=== PATIENT | male | born 1955 | race American Indian/Alaskan Native ===

== ENCOUNTER 2016-12-08 00:36 | Inpatient (IN) | payer OTHER ==
[2016-12-08] MEDS ORDERED: NACL 0.9% 1000 ML 1,000 ML ONE (00:48)
--- NOTE | 2016-12-08 00:56 | Emergency Department Report ---
ED Palpitations HPI - General Chief Complaint: Arrhythmia/Palpitations Stated Complaint: CRISTI Time Seen by Provider: 12/08/16 00:39 Source: patient, EMS, old records reviewed (no previous records for review) Mode of arrival: Stretcher Limitations: No Limitations - History of Present Illness Initial Comments: 60-year-old male with a past medical history diabetes presents to the hospital complaints of shortness of breath 1 hour prior to arrival. Symptoms are shortness of breath and difficulty speaking. Patient complains of right shoulder pain. No pains or chest pain, nausea, vomiting, or diaphoresis. He has had similar episodes in the last couple weeks including a few days ago that resolved spontaneously. He has not come to the ER or by seen by a physician for these symptoms. Patient currently has SVT on a monitor rate 167 and associated hypotension. Accu-Chek prior to arrival reported as 220 per EMS. The medications given in route. PMD nonaffiliated. Denies cardiac history - Related Data Home Medications Medication Instructions Recorded Confirmed Last Taken Amlodipine Besylate [Norvasc] 2.5 mg PO DAILY 12/08/16 12/08/16 1 Day Ago 2.5 AtorvaSTATin [Lipitor] 40 mg PO DAILY 12/08/16 12/08/16 1 Day Ago 40 Hydrochlorothiazide [HCTZ] 25 mg PO QDAY 12/08/16 12/08/16 1 Day Ago 25 Insulin Glargine [Lantus VIAL] 25 units SQ DAILY 12/08/16 12/08/16 1 Day Ago Losartan [Cozaar] 100 mg PO QDAY 12/08/16 12/08/16 1 Day Ago 100 Metformin HCl [Fortamet ER] 1,000 mg PO QDAY 12/08/16 12/08/16 1 Day Ago 1000 Pioglitazone HCl 30 mg PO DAILY 12/08/16 12/08/16 1 Day Ago 30 glyBURIDE [Diabeta] 5 mg PO BID 12/08/16 12/08/16 1 Day Ago 5 Allergies Allergy/AdvReac Type Severity Reaction Status Date / Time Penicillins Allergy Rash Verified 12/08/16 00:52 ED Review of Systems ROS: Stated complaint: CRISTI Other details as noted in HPI Comment: All other systems reviewed and negative Other: Constitutional: No fevers chills Eyes: No eye pain visual changes ENT: No ear pain or throat pain Neck: Denies pain Respiratory: Denies cough wheezing Cardiovascular: Per HPI GI: Denies abdominal pain, nausea, vomiting, diarrhea : Denies dysuria, urinary frequency, or urgency Musculoskeletal: Shoulder pain Skin: Denies rash, lesions, erythema Neurologic: Denies headache, numbness, weakness Psychiatric: Denies suicidal ideation, hallucinations ED Past Medical Hx - Past Medical History Previous Medical History?: Yes Hx Diabetes: Yes - Surgical History Past Surgical History?: Yes Additional Surgical History: left hip surgery - Social History Smoking Status: Current Every Day Smoker Substance Use Type: None - Medications Home Medications: Home Medications Medication Instructions Recorded Confirmed Last Taken Type Amlodipine Besylate [Norvasc] 2.5 mg PO DAILY 12/08/16 12/08/16 1 Day Ago History 2.5 AtorvaSTATin [Lipitor] 40 mg PO DAILY 12/08/16 12/08/16 1 Day Ago History 40 Hydrochlorothiazide [HCTZ] 25 mg PO QDAY 12/08/16 12/08/16 1 Day Ago History 25 Insulin Glargine [Lantus VIAL] 25 units SQ DAILY 12/08/16 12/08/16 1 Day Ago History Losartan [Cozaar] 100 mg PO QDAY 12/08/16 12/08/16 1 Day Ago History 100 Metformin HCl [Fortamet ER] 1,000 mg PO QDAY 12/08/16 12/08/16 1 Day Ago History 1000 Pioglitazone HCl 30 mg PO DAILY 12/08/16 12/08/16 1 Day Ago History 30 glyBURIDE [Diabeta] 5 mg PO BID 12/08/16 12/08/16 1 Day Ago History 5 ED Physical Exam - General Limitations: No Limitations - Other Other exam information: General: No limitations, patient is alert in no acute distress Head exam: Atraumatic, normocephalic Eyes exam: Normal appearance, pupils equal reactive to light ENT: Moist mucous membrane, normal oropharynx Neck exam: Normal inspection, full range of motion, no meningismus nontender Respiratory exam: Clear to auscultation bilateral, no wheezes, rales, crackles Cardiovascular: Echocardiogram to the rhythm rate 160 Abdomen: Soft, nondistended, and nontender, with normal bowel sounds, no rebound, or guarding Extremity: Full range of motion normal inspection no deformity, full range of motion of right shoulder without tenderness or pain with movement Back: Normal Inspection, full range of motion, no tenderness Neurologic: Alert, oriented x3, cranial nerves intact, no motor or sensory deficit Psychiatric: normal affect, normal mood Skin: Warm, dry, intact ED Course Vital Signs 12/08/16 12/08/16 12/08/16 00:43 00:56 00:57 Temperature 98.8 F Pulse Rate 167 H 87 Respiratory 16 18 20 Rate Blood Pressure 100/80 Blood Pressure 100/80 103/57 [Left] O2 Sat by Pulse 100 100 Oximetry 12/08/16 12/08/16 01:50 02:00 Temperature Pulse Rate 97 H 94 H Respiratory 18 Rate Blood Pressure Blood Pressure 100/50 102/54 [Left] O2 Sat by Pulse 97 97 Oximetry - Reevaluation(s) Reevaluation #1: 12/08/16 00:57 Patient given adenosine 6 mg with conversion to sinus rhythm. ED Medical Decision Making - Lab Data Result diagrams: 12/08/16 00:58 12/08/16 00:58 Lab Results 12/08/16 12/08/16 12/08/16 Range/Units 00:58 00:58 00:58 WBC 15.2 H (4.5-11.0) K/mm3 RBC 4.96 (3.65-5.03) M/mm3 Hgb 12.7 (11.8-15.2) gm/dl Hct 39.8 (35.5-45.6) % MCV 80 L (84-94) fl MCH 26 L (28-32) pg MCHC 32 (32-34) % RDW 15.7 H (13.2-15.2) % Plt Count 458 H (140-440) K/mm3 Sodium 134 L (137-145) mmol/L Potassium 4.5 (3.6-5.0) mmol/L Chloride 93.7 L (98-107) mmol/L Carbon Dioxide 16 L (22-30) mmol/L Anion Gap 29 mmol/L BUN 52 H (9-20) mg/dL Creatinine 2.4 H (0.8-1.5) mg/dL Estimated GFR 33 ml/min BUN/Creatinine Ratio 21.66 % Glucose 182 H (75-100) mg/dL Calcium 9.3 (8.4-10.2) mg/dL Magnesium 2.2 (1.7-2.3) mg/dL Total Creatine Kinase 107 (55-170) units/L CK-MB (CK-2) 2.1 (0.0-4.0) ng/mL CK-MB (CK-2) Rel Index 1.9 (0-4) Troponin T (0.00-0.029) ng/mL TSH 2.660 (0.270-4.200) mlU/mL Free T4 1.50 H (0.76-1.46) ng/dL 12/08/16 Range/Units 00:58 WBC (4.5-11.0) K/mm3 RBC (3.65-5.03) M/mm3 Hgb (11.8-15.2) gm/dl Hct (35.5-45.6) % MCV (84-94) fl MCH (28-32) pg MCHC (32-34) % RDW (13.2-15.2) % Plt Count (140-440) K/mm3 Sodium (137-145) mmol/L Potassium (3.6-5.0) mmol/L Chloride (98-107) mmol/L Carbon Dioxide (22-30) mmol/L Anion Gap mmol/L BUN (9-20) mg/dL Creatinine (0.8-1.5) mg/dL Estimated GFR ml/min BUN/Creatinine Ratio % Glucose (75-100) mg/dL Calcium (8.4-10.2) mg/dL Magnesium (1.7-2.3) mg/dL Total Creatine Kinase (55-170) units/L CK-MB (CK-2) (0.0-4.0) ng/mL CK-MB (CK-2) Rel Index (0-4) Troponin T < 0.010 (0.00-0.029) ng/mL TSH (0.270-4.200) mlU/mL Free T4 (0.76-1.46) ng/dL - EKG Data -: EKG Interpreted by Me (SVT rate 167) - EKG Data When compared to previous EKG there are: previous EKG unavailable 12/08/16 00:57 Repeat EKG status post adenosine shows sinus rhythm rate 88 with marked sinus arrhythmia. No ST or T wave abnormality - Radiology Data Radiology results: image reviewed (chest x-ray: naf) - Medical Decision Making Pt reports no previous history of renal sufficiency. BUN is elevated so this may be prerenal in nature. Venous sinus rhythm and asymptomatic since receiving adenosine 6 mg. 1 L normal saline given in the ED. Patient be admitted to the hospital for cardiac workup and possible new-onset renal sufficiency - Differential Diagnosis arrhythmia, electrolyte abnormality, thyroid disease, AL Critical Care Time: No Critical care attestation.: If time is entered above; I have spent that time in minutes in the direct care of this critically ill patient, excluding procedure time. ED Disposition Clinical Impression: SVT (supraventricular tachycardia), Renal insufficiency, Diabetes Disposition: OP ADMITTED IP TO THIS HOSP Is pt being admited?: Yes Condition: Stable Time of Disposition: 02:15 (Dr Darden/hosp)
[2016-12-08 01:14] LABS: Hematocrit 39.8 % (35.5-45.6); Hemoglobin 12.7 gm/dl (11.8-15.2); Mean Corpuscular HGB Conc 32 % (32-34); Mean Corpuscular Volume 80 fl (84-94); Red Blood Count 4.96 M/mm3 (3.65-5.03); Red Cell Distribution Width 15.7 % (13.2-15.2); White Blood Count 15.2 K/mm3 (4.5-11.0)
[2016-12-08 01:24] LABS: Mean Corpuscular Hemoglobin 26 pg (28-32)
[2016-12-08 01:33] LABS: Creatine Kinase MB 2.1 ng/mL (0.0-4.0)
[2016-12-08 01:38] LABS: BUN/Creatinine Ratio 21.66; Chloride 93.7 mmol/L (98-107); Potassium 4.5 mmol/L (3.6-5.0)
[2016-12-08 01:47] LABS: Platelet Count 458 K/mm3 (140-440)
[2016-12-08 02:00] LABS: Calcium 9.3 mg/dL (8.4-10.2); Magnesium 2.2 mg/dL (1.7-2.3)
[2016-12-08] MEDS ORDERED: NACL 0.9% 1000 ML 1,000 ML IV ONE (02:09)
--- NOTE | 2016-12-08 02:18 | History and Physical Report ---
History of Present Illness History of present illness: 61 YO Male with DM, Nicotine Dependence, HTN, presents to ED for evaluation. Pt states that he has been experiencing episodes of shortness of breath and palpitations over the past 2 weeks. Pt states that symptoms last for several minutes and resolve on their own. Pt most recent episode began 1 hour prior to arrival. Pt denies fever, chills, CP, NVD, trauma, syncope, unintentional weight loss, night sweats, skin rashes. Pt seen and evaluated in ED, Pt found to have SVT with heart rate in the 160's, and treated with adenosine with conversion to NSR. Past History Past Medical History: diabetes, hypertension Past Surgical History: total hip replacement Social history: , lives with family, smoking. denies: alcohol abuse, prescription drug abuse Family history: diabetes, hypertension Medications and Allergies Allergies Allergy/AdvReac Type Severity Reaction Status Date / Time Penicillins Allergy Rash Verified 12/08/16 00:52 Home Medications Medication Instructions Recorded Confirmed Last Taken Type Amlodipine Besylate [Norvasc] 2.5 mg PO DAILY 12/08/16 12/08/16 1 Day Ago History 2.5 AtorvaSTATin [Lipitor] 40 mg PO DAILY 12/08/16 12/08/16 1 Day Ago History 40 Hydrochlorothiazide [HCTZ] 25 mg PO QDAY 12/08/16 12/08/16 1 Day Ago History 25 Insulin Glargine [Lantus VIAL] 25 units SQ DAILY 12/08/16 12/08/16 1 Day Ago History Losartan [Cozaar] 100 mg PO QDAY 12/08/16 12/08/16 1 Day Ago History 100 Metformin HCl [Fortamet ER] 1,000 mg PO QDAY 12/08/16 12/08/16 1 Day Ago History 1000 Pioglitazone HCl 30 mg PO DAILY 12/08/16 12/08/16 1 Day Ago History 30 glyBURIDE [Diabeta] 5 mg PO BID 12/08/16 12/08/16 1 Day Ago History 5 Active Meds: Active Medications Sodium Chloride (Nacl 0.9% 1000 Ml) 1,000 mls @ 999 mls/hr IV ONCE ONE Stop: 12/08/16 03:09 Last Admin: 12/08/16 02:13 Dose: 999 mls/hr Review of Systems All systems: negative Cardiovascular: palpitations, shortness of breath Exam - Constitutional Vitals: Temp Pulse Resp BP Pulse Ox 98.8 F 87 20 103/57 100 12/08/16 00:43 12/08/16 00:56 12/08/16 00:57 12/08/16 00:56 12/08/16 00:56 General appearance: Present: mild distress - EENT Eyes: Present: PERRL ENT: hearing intact, clear oral mucosa - Neck Neck: Present: supple, normal ROM - Respiratory Respiratory effort: normal Respiratory: bilateral: CTA - Cardiovascular Rhythm: other (tachycardia) Heart Sounds: Present: S1 & S2. Absent: rub, click - Extremities Extremities: pulses symmetrical, No edema Peripheral Pulses: within normal limits - Abdominal General gastrointestinal: Present: soft, non-tender, non-distended, normal bowel sounds Male genitourinary: Present: normal - Integumentary Integumentary: Present: clear, warm, dry - Musculoskeletal Musculoskeletal: gait normal, strength equal bilaterally - Psychiatric Psychiatric: appropriate mood/affect, intact judgment & insight - Neurologic Neurologic: CNII-XII intact, moves all extremities Results - Labs CBC & Chem 7: 12/08/16 00:58 12/08/16 00:58 Labs: Abnormal lab results 12/08/16 12/08/16 12/08/16 Range/Units 00:58 00:58 00:58 WBC 15.2 H (4.5-11.0) K/mm3 MCV 80 L (84-94) fl MCH 26 L (28-32) pg RDW 15.7 H (13.2-15.2) % Plt Count 458 H (140-440) K/mm3 Sodium 134 L (137-145) mmol/L Chloride 93.7 L (98-107) mmol/L Carbon Dioxide 16 L (22-30) mmol/L BUN 52 H (9-20) mg/dL Creatinine 2.4 H (0.8-1.5) mg/dL Glucose 182 H (75-100) mg/dL Free T4 1.50 H (0.76-1.46) ng/dL Assessment and Plan - Patient Problems (1) SVT (supraventricular tachycardia) Current Visit: Yes Status: Acute Plan to address problem: Admit to telemetry, initiate cardizem, supportive care, (2) Diabetes Current Visit: Yes Status: Acute Plan to address problem: ADA diet, insulin, accu check (3) ARF (acute renal failure) Current Visit: Yes Status: Acute Plan to address problem: IVF, monitor uop q shift, supportive care. (4) HTN (hypertension) Current Visit: Yes Status: Acute Plan to address problem: monitor bp q shift, continue home medication, hydralazine prn (5) DVT prophylaxis Current Visit: Yes Status: Acute
[2016-12-08 02:26] LABS: Urine Drugs of Abuse Note Disclamer
[2016-12-08] MEDS ORDERED: NACL 0.45% 1000 ML 1,000 ML IV SCH (03:00)
--- NOTE | 2016-12-08 03:10 | Admit Criteria Form ---
Admission Criteria Documentation: SUPRAVENTRICULAR ARRHYTHMIAS Clinical Indications for Admission to Inpatient Care (Place 'X' for any and all applicable criteria): Admission is indicated by ANY ONE of the following (1)(2): [ ]I. Arrhythmia causing significant symptoms or findings as indicated by ANY ONE of the following: [ ]a) Chest pain [ ]b) Myocardial ischemia [ ]c) Altered mental status [ ]d) Dizziness, weakness, or light-headedness [ ]e) Dyspnea or hypoxemia [ ]f) Heart failure (eg, pulmonary edema)(11) [ ]II. Initiation of antiarrhythmic drug therapy is needed in patient at high risk of adverse events as indicated by ANY ONE of the following: [ ]a) Significant structural heart disease (eg, aortic stenosis, reduced ejection fraction, cardiomyopathy, congenital heart disease) [ ]b) Underlying sinus node or atrioventricular conduction disturbances [ ]c) Prolonged QT interval [ ]d) Need for treatment with antiarrhythmic that have significant proarrhythmic potential ( procainamide) [ ]e) Patient whose sinus rhythm has not been observed on ECG [ X]III. Inpatient admission required rather than observation care because of ANY ONE of the following: [ ]a) Syncope [ ]b) Patient has automatic implanted cardioverter-defibrillator that is repeatedly firing, malfunctioning, or in need of immediate adjustment of settings beyond scope of ambulatory or observation care. [ ]c) Hemodynamic instability that is severe or persistent [ ]d) Unstable cardiac conduction defects indicated by ANY ONE of the following(19)(20)(21): [ ]a) Type II second-degree atrioventricular block [ ]b) Third-degree atrioventricular block [ ]C) New-onset left bundle branch block with suspected myocardial ischemia [ ]e) Severe electrolyte abnormalities requiring inpatient care [ ]f) Continuous intravenous infusion of anticoagulation, platelet inhibitor, vasoactive, or antiarrhythmic medication(14) [ ]g) Pulmonary artery catheter monitoring [ ]h) Repeat cardioversion necessary [ X]i) Other condition, treatment or monitoring requiring inpatient admission [ ]IV. Underlying medical condition that necessitates inpatient care (eg, thyrotoxicosis, severe acidosis) Extended stay beyond goal length of stay may be needed for(1)(17)(18): [ ]a) Persistent hemodynamic instability or continued severe arrhythmia [ ]b) Continued monitoring during initiation of certain medications (eg, some antiarrhythmics)(17)(19) [ ]c) Precipitating cause requires ongoing inpatient care (eg, severe electrolyte abnormality, systemic infection, acidosis) [ ]d) Unstable comorbidities The original [facility] content created by [facility] has been revised. The portions of the content which have been revised are identified through the use of italic text or in bold, and [facility] has neither reviewed nor approved the modified material. All other unmodified content is copyright [facility]. Please see references footnoted in the original [facility] edition 2016
[2016-12-08] MEDS: CARDIZEM PO SCH ×3 (05:07→19:02)
[2016-12-08] MEDS ORDERED: NOVOLOG SUB-Q SCH (06:00)
[2016-12-08] MEDS: NOVOLOG SUB-Q SCH ×4 (09:56→22:00)
[2016-12-08] MEDS: LEVEMIR SUB-Q SCH (09:59)
[2016-12-08] MEDS ORDERED: NON-FORMULARY (Insulin Glargine 25 UNITS) SQ SCH (10:00)
[2016-12-08 10:33] LABS: Bilirubin,Urine NEG (Negative); Blood,Urine LG (Negative); Ketones,Urine TR mg/dL (Negative); Leukocyte Esterase,Urine MOD (Negative); Mucus,Urine FEW /HPF; Nitrite,Urine NEG (Negative)
[2016-12-08 10:42] LABS: RBC,Urine > 182.0 /HPF (0.0-6.0)
[2016-12-08] MEDS: HCTZ PO SCH (11:05)
[2016-12-08] MEDS ORDERED: PNEUMOVAX 23 IM ONE (12:00)
[2016-12-08] MEDS ORDERED: FLUARIX QUAD 2016-2017(36 MOS+) IM ONE (12:00)
[2016-12-09] MEDS: TYLENOL PO PRN ×2 (04:05→09:54)
[2016-12-09] MEDS: CARDIZEM PO SCH ×4 (06:08→18:11)
[2016-12-09] MEDS: HCTZ PO SCH (09:53)
[2016-12-09] MEDS: NOVOLOG SUB-Q SCH ×4 (10:09→22:00)
[2016-12-09] MEDS: LEVEMIR SUB-Q SCH (10:45)
--- NOTE | 2016-12-09 11:04 | XRay Report ---
AP CHEST: HISTORY: Shortness of breath AP view of the chest demonstrates a normal mediastinal and cardiac contour with clear lungs and normal bony and soft tissue structures. IMPRESSION: Unremarkable AP chest.
[2016-12-09] MEDS ORDERED: LEVAQUIN 750MG/150ML 150 ML IV SCH (13:00)
--- NOTE | 2016-12-09 14:41 | Progress Note ---
Assessment and Plan Assessment and plan: 1. SVT Received adenosine in ER and converted to NSR Started on calcium channel estuardo Check electrolytes including magnesium and phosphorus Monitor on telemetry 2. Acute renal failure Previously normal renal function per patient's report Secondary to vasomotor nephropathy versus ATN from possible hypotension during SVT versus acute on chronic kidney disease due to hypertensive nephropathy Give IV fluids Check BUN/creatinine and electrolytes in a.m.; if further worsening, obtain urine lytes and renal ultrasound 3. Metabolic acidosis Secondary to acute renal failure 4. UTI UA suggestive of UTI (+ WBC, RBC, LE) Obtain urine cultures and start antibiotic 5. HTN Negative controlled on diltiazem and HCTZ 6. Diabetes Continue long-acting insulin Head Accu-Cheks and SSI to assess insulin requirements 7. Tobacco use Counseled regarding importance of quitting smoking (10 minutes) 8. DVT prophylaxis Start heparin subcutaneous History Interval history: back in NSR, feeling better; no complaints Hospitalist Physical - Constitutional Vitals: Temp Pulse Resp BP Pulse Ox 98.5 F 82 18 112/57 96 12/09/16 12:05 12/09/16 12:05 12/09/16 12:05 12/09/16 12:05 12/09/16 12:05 General appearance: Present: no acute distress, well-nourished - EENT Eyes: Present: PERRL, EOM intact. Absent: scleral icterus, conjunctival injection - Neck Neck: Present: supple, normal ROM. Absent: masses or JVD - Respiratory Respiratory effort: normal Respiratory: bilateral: CTA, negative: rales, rhonchi, wheezing - Cardiovascular Rhythm: regular Heart Sounds: Present: S1 & S2. Absent: systolic murmur - Extremities Extremities: no ischemia - Abdominal General gastrointestinal: soft, non-tender, non-distended, normal bowel sounds - Integumentary Integumentary: Present: warm, dry. Absent: jaundice, rash - Psychiatric Psychiatric: cooperative - Neurologic Neurologic: CNII-XII intact, no focal deficits Results - Labs CBC & Chem 7: 12/08/16 00:58 12/08/16 00:58 Labs: Laboratory Last Values WBC 15.2 K/mm3 (4.5-11.0) H 12/08/16 00:58 RBC 4.96 M/mm3 (3.65-5.03) 12/08/16 00:58 Hgb 12.7 gm/dl (11.8-15.2) 12/08/16 00:58 Hct 39.8 % (35.5-45.6) 12/08/16 00:58 MCV 80 fl (84-94) L 12/08/16 00:58 MCH 26 pg (28-32) L 12/08/16 00:58 MCHC 32 % (32-34) 12/08/16 00:58 RDW 15.7 % (13.2-15.2) H 12/08/16 00:58 Plt Count 458 K/mm3 (140-440) H 12/08/16 00:58 Sodium 134 mmol/L (137-145) L 12/08/16 00:58 Potassium 4.5 mmol/L (3.6-5.0) 12/08/16 00:58 Chloride 93.7 mmol/L (98-107) L 12/08/16 00:58 Carbon Dioxide 16 mmol/L (22-30) L 12/08/16 00:58 Anion Gap 29 mmol/L 12/08/16 00:58 BUN 52 mg/dL (9-20) H 12/08/16 00:58 Creatinine 2.4 mg/dL (0.8-1.5) H 12/08/16 00:58 Estimated GFR 33 ml/min 12/08/16 00:58 BUN/Creatinine Ratio 21.66 % 12/08/16 00:58 Glucose 182 mg/dL (75-100) H 12/08/16 00:58 POC Glucose 77 (70-105) 12/09/16 08:04 Calcium 9.3 mg/dL (8.4-10.2) 12/08/16 00:58 Magnesium 2.2 mg/dL (1.7-2.3) 12/08/16 00:58 Total Creatine Kinase 107 units/L (55-170) 12/08/16 00:58 CK-MB (CK-2) 2.1 ng/mL (0.0-4.0) 12/08/16 00:58 CK-MB (CK-2) Rel Index 1.9 (0-4) 12/08/16 00:58 Troponin T < 0.010 ng/mL (0.00-0.029) 12/08/16 00:58 TSH 2.660 mlU/mL (0.270-4.200) 12/08/16 00:58 Free T4 1.50 ng/dL (0.76-1.46) H 12/08/16 00:58 Urine Color Samantha (Yellow) 12/08/16 02:15 Urine Turbidity Cloudy (Clear) 12/08/16 02:15 Urine pH 5.0 (5.0-7.0) 12/08/16 02:15 Ur Specific Bascom 1.016 (1.003-1.030) 12/08/16 02:15 Urine Protein 100 mg/dl mg/dL (Negative) 12/08/16 02:15 Urine Glucose (UA) Neg mg/dL (Negative) 12/08/16 02:15 Urine Ketones Tr mg/dL (Negative) 12/08/16 02:15 Urine Blood Lg (Negative) 12/08/16 02:15 Urine Nitrite Neg (Negative) 12/08/16 02:15 Urine Bilirubin Neg (Negative) 12/08/16 02:15 Urine Urobilinogen 2.0 mg/dL (<2.0) 12/08/16 02:15 Ur Leukocyte Esterase Mod (Negative) 12/08/16 02:15 Urine WBC (Auto) 135.0 /HPF (0.0-6.0) H 12/08/16 02:15 Urine RBC (Auto) > 182.0 /HPF (0.0-6.0) 12/08/16 02:15 Urine Mucus Few /HPF 12/08/16 02:15 Urine Opiates Screen Presumptive negative 12/08/16 02:18 Urine Methadone Screen Presumptive negative 12/08/16 02:18 Ur Barbiturates Screen Presumptive negative 12/08/16 02:18 Ur Phencyclidine Scrn Presumptive negative 12/08/16 02:18 Ur Amphetamines Screen Presumptive negative 12/08/16 02:18 U Benzodiazepines Scrn Presumptive negative 12/08/16 02:18 Urine Cocaine Screen Presumptive negative 12/08/16 02:18 U Marijuana (THC) Screen Presumptive negative 12/08/16 02:18 Drugs of Abuse Note Disclamer 12/08/16 02:18
[2016-12-09] MEDS: NACL 0.9% 1000 ML 1,000 ML IV SCH (16:13)
[2016-12-09] MEDS: HEPARIN SUB-Q SCH ×2 (16:20→22:26)
[2016-12-09] MEDS: PERCOCET 5/325 PO PRN (22:25)
[2016-12-10] MEDS: CARDIZEM PO SCH ×4 (05:41→18:16)
[2016-12-10 05:42] LABS: Basophils % (Auto) 0.3 % (0.0-1.8); Eosinophils % (Auto) 0.3 % (0.0-4.3); Hematocrit 37.6 % (35.5-45.6); Mean Corpuscular HGB Conc 32 % (32-34); Mean Corpuscular Volume 80 fl (84-94); Platelet Count 397 K/mm3 (140-440); Red Cell Distribution Width 15.6 % (13.2-15.2); White Blood Count 15.2 K/mm3 (4.5-11.0)
[2016-12-10] MEDS: NACL 0.9% 1000 ML 1,000 ML IV SCH ×2 (05:42→16:27)
[2016-12-10] MEDS: HEPARIN SUB-Q SCH ×3 (05:42→22:13)
[2016-12-10 05:46] LABS: Mean Corpuscular Hemoglobin 25 pg (28-32)
[2016-12-10 06:11] LABS: Blood Urea Nitrogen 24 mg/dL (9-20); Calcium 9.1 mg/dL (8.4-10.2); Carbon Dioxide 23 mmol/L (22-30); Chloride 98.4 mmol/L (98-107); Glucose 121 mg/dL (75-100); Magnesium 1.9 mg/dL (1.7-2.3); Phosphorous 3.1 mg/dL (2.5-4.5); Sodium 139 mmol/L (137-145)
[2016-12-10 06:13] LABS: Anion Gap 23 mmol/L
[2016-12-10] MEDS: NOVOLOG SUB-Q SCH ×4 (08:57→22:26)
[2016-12-10] MEDS: LEVEMIR SUB-Q SCH (10:07)
[2016-12-10] MEDS: PERCOCET 5/325 PO PRN (13:05)
[2016-12-10] MEDS: LEVAQUIN PO SCH (13:11)
[2016-12-10] MEDS: HCTZ PO SCH (13:12)
--- NOTE | 2016-12-10 15:44 | Progress Note ---
Assessment and Plan Assessment and plan: 1. SVT Received adenosine in ER and converted to NSR Started on calcium channel estuardo Electrolytes including magnesium and phosphorus wnl Monitoring on telemetry 2. Acute renal failure Previously normal renal function per patient's report Secondary to vasomotor nephropathy versus ATN from possible hypotension during SVT versus acute on chronic kidney disease due to hypertensive nephropathy Received IV fluids Resolved 3. Metabolic acidosis Secondary to acute renal failure Resolved 4. UTI UA suggestive of UTI (+ WBC, RBC, LE) Urine cultures obtained, results pending Continue antibiotic 5. HTN BP controlled on diltiazem and HCTZ 6. Diabetes Continue long-acting insulin Accu-Cheks and SSI to assess insulin requirements 7. Tobacco use Counseled regarding importance of quitting smoking 8. DVT prophylaxis Heparin subcutaneous History Interval history: doing well, no complaints, remained in NSR Hospitalist Physical - Constitutional Vitals: Temp Pulse Resp BP Pulse Ox 97.3 F L 80 18 125/59 92 12/10/16 13:27 12/10/16 13:27 12/10/16 13:27 12/10/16 13:27 12/10/16 13:27 General appearance: Present: no acute distress, well-nourished - EENT Eyes: Present: PERRL, EOM intact. Absent: scleral icterus, conjunctival injection - Neck Neck: Present: supple, normal ROM. Absent: masses or JVD - Respiratory Respiratory effort: normal Respiratory: bilateral: CTA, negative: rales, rhonchi, wheezing - Cardiovascular Rhythm: regular Heart Sounds: Present: S1 & S2. Absent: systolic murmur - Extremities Extremities: no ischemia - Abdominal General gastrointestinal: soft, non-tender, non-distended, normal bowel sounds - Integumentary Integumentary: Present: warm, dry. Absent: jaundice, rash - Psychiatric Psychiatric: cooperative - Neurologic Neurologic: CNII-XII intact, no focal deficits Results - Labs CBC & Chem 7: 12/10/16 05:29 12/10/16 05:29 Labs: Laboratory Last Values WBC 15.2 K/mm3 (4.5-11.0) H 12/10/16 05:29 RBC 4.70 M/mm3 (3.65-5.03) 12/10/16 05:29 Hgb 12.0 gm/dl (11.8-15.2) 12/10/16 05:29 Hct 37.6 % (35.5-45.6) 12/10/16 05:29 MCV 80 fl (84-94) L 12/10/16 05:29 MCH 25 pg (28-32) L 12/10/16 05:29 MCHC 32 % (32-34) 12/10/16 05:29 RDW 15.6 % (13.2-15.2) H 12/10/16 05:29 Plt Count 397 K/mm3 (140-440) 12/10/16 05:29 Lymph % (Auto) 7.2 % (13.4-35.0) L 12/10/16 05:29 [place] % (Auto) 9.2 % (0.0-7.3) H 12/10/16 05:29 Eos % (Auto) 0.3 % (0.0-4.3) 12/10/16 05:29 Baso % (Auto) 0.3 % (0.0-1.8) 12/10/16 05:29 Lymph # 1.1 K/mm3 (1.2-5.4) L 12/10/16 05:29 [place] # 1.4 K/mm3 (0.0-0.8) H 12/10/16 05:29 Eos # 0.0 K/mm3 (0.0-0.4) 12/10/16 05:29 Baso # 0.0 K/mm3 (0.0-0.1) 12/10/16 05:29 Seg Neutrophils % 83.0 % (40.0-70.0) H 12/10/16 05:29 Seg Neutrophils # 12.6 K/mm3 (1.8-7.7) H 12/10/16 05:29 Sodium 139 mmol/L (137-145) 12/10/16 05:29 Potassium 5.0 mmol/L (3.6-5.0) 12/10/16 05:29 Chloride 98.4 mmol/L (98-107) 12/10/16 05:29 Carbon Dioxide 23 mmol/L (22-30) D 12/10/16 05:29 Anion Gap 23 mmol/L 12/10/16 05:29 BUN 24 mg/dL (9-20) H 12/10/16 05:29 Creatinine 1.0 mg/dL (0.8-1.5) D 12/10/16 05:29 Estimated GFR > 60 ml/min 12/10/16 05:29 BUN/Creatinine Ratio 24.00 % 12/10/16 05:29 Glucose 121 mg/dL (75-100) H 12/10/16 05:29 POC Glucose 87 (70-105) 12/09/16 22:11 Calcium 9.1 mg/dL (8.4-10.2) 12/10/16 05:29 Phosphorus 3.1 mg/dL (2.5-4.5) 12/10/16 05:29 Magnesium 1.9 mg/dL (1.7-2.3) 12/10/16 05:29 Total Creatine Kinase 107 units/L (55-170) 12/08/16 00:58 CK-MB (CK-2) 2.1 ng/mL (0.0-4.0) 12/08/16 00:58 CK-MB (CK-2) Rel Index 1.9 (0-4) 12/08/16 00:58 Troponin T < 0.010 ng/mL (0.00-0.029) 12/08/16 00:58 TSH 2.660 mlU/mL (0.270-4.200) 12/08/16 00:58 Free T4 1.50 ng/dL (0.76-1.46) H 12/08/16 00:58 Urine Color Samantha (Yellow) 12/08/16 02:15 Urine Turbidity Cloudy (Clear) 12/08/16 02:15 Urine pH 5.0 (5.0-7.0) 12/08/16 02:15 Ur Specific [place] 1.016 (1.003-1.030) 12/08/16 02:15 Urine Protein 100 mg/dl mg/dL (Negative) 12/08/16 02:15 Urine Glucose (UA) Neg mg/dL (Negative) 12/08/16 02:15 Urine Ketones Tr mg/dL (Negative) 12/08/16 02:15 Urine Blood Lg (Negative) 12/08/16 02:15 Urine Nitrite Neg (Negative) 12/08/16 02:15 Urine Bilirubin Neg (Negative) 12/08/16 02:15 Urine Urobilinogen 2.0 mg/dL (<2.0) 12/08/16 02:15 Ur Leukocyte Esterase Mod (Negative) 12/08/16 02:15 Urine WBC (Auto) 135.0 /HPF (0.0-6.0) H 12/08/16 02:15 Urine RBC (Auto) > 182.0 /HPF (0.0-6.0) 12/08/16 02:15 Urine Mucus Few /HPF 12/08/16 02:15 Urine Opiates Screen Presumptive negative 12/08/16 02:18 Urine Methadone Screen Presumptive negative 12/08/16 02:18 Ur Barbiturates Screen Presumptive negative 12/08/16 02:18 Ur Phencyclidine Scrn Presumptive negative 12/08/16 02:18 Ur Amphetamines Screen Presumptive negative 12/08/16 02:18 U Benzodiazepines Scrn Presumptive negative 12/08/16 02:18 Urine Cocaine Screen Presumptive negative 12/08/16 02:18 U Marijuana (THC) Screen Presumptive negative 12/08/16 02:18 Drugs of Abuse Note Disclamer 12/08/16 02:18
[2016-12-11] MEDS: CARDIZEM PO SCH ×4 (00:14→18:43)
[2016-12-11] MEDS: NACL 0.9% 1000 ML 1,000 ML IV SCH ×2 (02:00→11:39)
[2016-12-11] MEDS: TYLENOL PO PRN (03:11)
[2016-12-11] MEDS: HEPARIN SUB-Q SCH ×3 (05:55→23:38)
[2016-12-11] MEDS: NOVOLOG SUB-Q SCH ×4 (07:30→23:39)
[2016-12-11 08:13] LABS: Basophils % (Auto) 0.8 % (0.0-1.8); Eosinophils % (Auto) 0.5 % (0.0-4.3); Hematocrit 35.4 % (35.5-45.6); Hemoglobin 11.5 gm/dl (11.8-15.2); Mean Corpuscular HGB Conc 33 % (32-34); Mean Corpuscular Volume 78 fl (84-94); Platelet Count 387 K/mm3 (140-440); Red Blood Count 4.51 M/mm3 (3.65-5.03); Red Cell Distribution Width 15.7 % (13.2-15.2); White Blood Count 15.2 K/mm3 (4.5-11.0)
[2016-12-11] MEDS: PERCOCET 5/325 PO PRN ×3 (08:15→18:43)
[2016-12-11 08:25] LABS: Mean Corpuscular Hemoglobin 26 pg (28-32)
[2016-12-11] MEDS: LEVEMIR SUB-Q SCH (10:25)
[2016-12-11] MEDS: LEVAQUIN PO SCH (10:25)
[2016-12-11] MEDS: HCTZ PO SCH (10:25)
--- NOTE | 2016-12-11 14:36 | Progress Note ---
Assessment and Plan Assessment and plan: 1. SVT Received adenosine in ER and converted to NSR Started on calcium channel estuardo Electrolytes including magnesium and phosphorus wnl Monitoring on telemetry 2. Acute renal failure Previously normal renal function per patient's report Secondary to vasomotor nephropathy versus ATN from possible hypotension during SVT versus acute on chronic kidney disease due to hypertensive nephropathy Received IV fluids Resolved 3. Metabolic acidosis Secondary to acute renal failure Resolved 4. UTI UA suggestive of UTI (+ WBC, RBC, LE) Urine cultures obtained, results pending Continue antibiotic 5. Hematuria Known to have hematuria, while admitted here missed appointment with his urologist; will consult him 6. Iron deficient anemia Likely secondary to hematuria 7. HTN BP controlled on diltiazem and HCTZ 8. Diabetes Continue long-acting insulin Accu-Cheks and SSI to assess insulin requirements 9. Tobacco use Counseled regarding importance of quitting smoking 10. DVT prophylaxis Heparin subcutaneous; monitor H&H given hematuria History Interval history: not doing well this morning, started to have hematuria overnight (passing clots per his report); he missed the appt with his urologistwhile being admitted here Hospitalist Physical - Constitutional Vitals: Temp Pulse Resp BP Pulse Ox 98.0 F 77 16 117/53 93 12/11/16 08:03 12/11/16 10:00 12/11/16 08:03 12/11/16 08:03 12/11/16 08:03 General appearance: Present: no acute distress, well-nourished - EENT Eyes: Present: PERRL, EOM intact. Absent: scleral icterus, conjunctival injection - Neck Neck: Present: supple, normal ROM. Absent: masses or JVD - Respiratory Respiratory effort: normal Respiratory: bilateral: CTA, negative: rales, rhonchi, wheezing - Cardiovascular Rhythm: regular Heart Sounds: Present: S1 & S2. Absent: systolic murmur - Extremities Extremities: no ischemia - Abdominal General gastrointestinal: soft, non-tender, non-distended, normal bowel sounds - Integumentary Integumentary: Present: warm, dry. Absent: jaundice, rash - Psychiatric Psychiatric: cooperative - Neurologic Neurologic: CNII-XII intact, no focal deficits Results - Labs CBC & Chem 7: 12/11/16 07:43 12/10/16 05:29 Labs: Laboratory Last Values WBC 15.2 K/mm3 (4.5-11.0) H 12/11/16 07:43 RBC 4.51 M/mm3 (3.65-5.03) 12/11/16 07:43 Hgb 11.5 gm/dl (11.8-15.2) L 12/11/16 07:43 Hct 35.4 % (35.5-45.6) L 12/11/16 07:43 MCV 78 fl (84-94) L 12/11/16 07:43 MCH 26 pg (28-32) L 12/11/16 07:43 MCHC 33 % (32-34) 12/11/16 07:43 RDW 15.7 % (13.2-15.2) H 12/11/16 07:43 Plt Count 387 K/mm3 (140-440) 12/11/16 07:43 Lymph % (Auto) 10.4 % (13.4-35.0) L 12/11/16 07:43 Will % (Auto) 9.9 % (0.0-7.3) H 12/11/16 07:43 Eos % (Auto) 0.5 % (0.0-4.3) 12/11/16 07:43 Baso % (Auto) 0.8 % (0.0-1.8) 12/11/16 07:43 Lymph # 1.6 K/mm3 (1.2-5.4) 12/11/16 07:43 Will # 1.5 K/mm3 (0.0-0.8) H 12/11/16 07:43 Eos # 0.1 K/mm3 (0.0-0.4) 12/11/16 07:43 Baso # 0.1 K/mm3 (0.0-0.1) 12/11/16 07:43 Seg Neutrophils % 78.4 % (40.0-70.0) H 12/11/16 07:43 Seg Neutrophils # 11.9 K/mm3 (1.8-7.7) H 12/11/16 07:43 Sodium 139 mmol/L (137-145) 12/10/16 05:29 Potassium 5.0 mmol/L (3.6-5.0) 12/10/16 05:29 Chloride 98.4 mmol/L (98-107) 12/10/16 05:29 Carbon Dioxide 23 mmol/L (22-30) D 12/10/16 05:29 Anion Gap 23 mmol/L 12/10/16 05:29 BUN 24 mg/dL (9-20) H 12/10/16 05:29 Creatinine 1.0 mg/dL (0.8-1.5) D 12/10/16 05:29 Estimated GFR > 60 ml/min 12/10/16 05:29 BUN/Creatinine Ratio 24.00 % 12/10/16 05:29 Glucose 121 mg/dL (75-100) H 12/10/16 05:29 POC Glucose 70 (70-105) 12/11/16 08:01 Calcium 9.1 mg/dL (8.4-10.2) 12/10/16 05:29 Phosphorus 3.1 mg/dL (2.5-4.5) 12/10/16 05:29 Magnesium 1.9 mg/dL (1.7-2.3) 12/10/16 05:29 Total Creatine Kinase 107 units/L (55-170) 12/08/16 00:58 CK-MB (CK-2) 2.1 ng/mL (0.0-4.0) 12/08/16 00:58 CK-MB (CK-2) Rel Index 1.9 (0-4) 12/08/16 00:58 Troponin T < 0.010 ng/mL (0.00-0.029) 12/08/16 00:58 TSH 2.660 mlU/mL (0.270-4.200) 12/08/16 00:58 Free T4 1.50 ng/dL (0.76-1.46) H 12/08/16 00:58 Urine Color Samantha (Yellow) 12/08/16 02:15 Urine Turbidity Cloudy (Clear) 12/08/16 02:15 Urine pH 5.0 (5.0-7.0) 12/08/16 02:15 Ur Specific [place] 1.016 (1.003-1.030) 12/08/16 02:15 Urine Protein 100 mg/dl mg/dL (Negative) 12/08/16 02:15 Urine Glucose (UA) Neg mg/dL (Negative) 12/08/16 02:15 Urine Ketones Tr mg/dL (Negative) 12/08/16 02:15 Urine Blood Lg (Negative) 12/08/16 02:15 Urine Nitrite Neg (Negative) 12/08/16 02:15 Urine Bilirubin Neg (Negative) 12/08/16 02:15 Urine Urobilinogen 2.0 mg/dL (<2.0) 12/08/16 02:15 Ur Leukocyte Esterase Mod (Negative) 12/08/16 02:15 Urine WBC (Auto) 135.0 /HPF (0.0-6.0) H 12/08/16 02:15 Urine RBC (Auto) > 182.0 /HPF (0.0-6.0) 12/08/16 02:15 Urine Mucus Few /HPF 12/08/16 02:15 Urine Opiates Screen Presumptive negative 12/08/16 02:18 Urine Methadone Screen Presumptive negative 12/08/16 02:18 Ur Barbiturates Screen Presumptive negative 12/08/16 02:18 Ur Phencyclidine Scrn Presumptive negative 12/08/16 02:18 Ur Amphetamines Screen Presumptive negative 12/08/16 02:18 U Benzodiazepines Scrn Presumptive negative 12/08/16 02:18 Urine Cocaine Screen Presumptive negative 12/08/16 02:18 U Marijuana (THC) Screen Presumptive negative 12/08/16 02:18 Drugs of Abuse Note Disclamer 12/08/16 02:18
--- NOTE | 2016-12-11 17:06 | Cat Scan Report ---
CT ABDOMEN AND PELVIS WITHOUT CONTRAST: INDICATION: Hematuria. COMPARISON: None similar. FINDINGS: Noncontrast abdomen and pelvis CT performed. LUNG BASES: Mild basilar scarring/atelectasis, right more than left. No effusions. Right hemidiaphragm slightly elevated. Mild nonspecific distal esophageal prominence. ABDOMEN: Please note that sensitivity to detect small visceral lesions is limited due to the absence of intravenous or oral contrast. Diffusely heterogeneous liver with innumerable masses suspected rather than an unusual pattern of fatty infiltration. Right hepatic lobe approximately 19 cm in midclavicular length. Slight surface lobulation and minimal perihepatic ascites. Contracted gallbladder with somewhat hyperdense contents and a possible 3 mm calculus. Mild pericholecystic surrounding hypodensity/fluid as well. Grossly unremarkable unenhanced spleen, pancreas, adrenals, nonaneurysmal abdominal aorta with atherosclerotic aortoiliac calcifications, IVC and non-hydronephrotic kidneys. Questionable 9 mm aortocaval lymph node, axial image 193, series 2. Few other small, predominantly subcentimeter retroperitoneal and mesenteric lymph nodes may also be present. Nonopacified GI tract evaluation limited, though grossly nonobstructive. Normal retrocecal appendix with its tip near the right hepatic lobe tip inferiorly. Usual colonic stool. Small fat-containing umbilical hernia with a transverse neck of 1 cm. PELVIS: Extensive lobulated mass-like anterior urinary bladder wall thickening, axial images 251-305, series 2. Maximum thickness measures up to 2.2 cm. Mild perivesicular fat stranding. Minimal pelvic ascites. Grossly unremarkable rectosigmoid. Prostate and seminal vesicles grossly within normal limits, though assessment limited due to extensive streak artifact from replaced left hip. Bilateral inguinal lymph nodes, the largest on the left approximately 3 x 2 cm, axial image 327, series 2. Multilevel spinal degenerative changes, including lower facet arthropathy. Possible osteopenia. Left-sided pelvic and thigh muscular atrophy. Few anterior abdominal wall injection related changes. CONCLUSION: 1. Extensive urinary bladder wall neoplastic thickening suspected with extensive hepatic metastatic involvement on this unenhanced exam, as detailed above. 2. Numerous other incidental findings, including inguinal and questionable retroperitoneal lymphadenopathy and replaced left hip, amongst others, as above. Thank you for the opportunity to participate in this patient's care.
--- NOTE | 2016-12-11 18:07 | Consultation ---
History of Present Illness - Reason for Consult Consult date: 12/11/16 - History of Present Illness CC: hematuria 61 YO Male with DM, Nicotine Dependence, HTN, presents to ED for evaluation. Pt states that he has been experiencing episodes of shortness of breath and palpitations over the past 2 weeks. CTAP (12-11-16) BPH, LIVER LESIONS A/P CHECK PSA RECOMMEND GI EVAL WILL NEED CYSTO IF CLEARED FROM CARDIAC STANDPOINT Past History Past Medical History: diabetes, hypertension Past Surgical History: total hip replacement Social history: , lives with family, smoking. denies: alcohol abuse, prescription drug abuse Family history: diabetes, hypertension Medications and Allergies Allergies Allergy/AdvReac Type Severity Reaction Status Date / Time Penicillins Allergy Rash Verified 12/08/16 00:52 Home Medications Medication Instructions Recorded Confirmed Last Taken Type Amlodipine Besylate [Norvasc] 2.5 mg PO DAILY 12/08/16 12/08/16 1 Day Ago History 2.5 AtorvaSTATin [Lipitor] 40 mg PO DAILY 12/08/16 12/08/16 1 Day Ago History 40 Hydrochlorothiazide [HCTZ] 25 mg PO QDAY 12/08/16 12/08/16 1 Day Ago History 25 Insulin Glargine [Lantus VIAL] 25 units SQ DAILY 12/08/16 12/08/16 1 Day Ago History Losartan [Cozaar] 100 mg PO QDAY 12/08/16 12/08/16 1 Day Ago History 100 Metformin HCl [Fortamet ER] 1,000 mg PO QDAY 12/08/16 12/08/16 1 Day Ago History 1000 Pioglitazone HCl 30 mg PO DAILY 12/08/16 12/08/16 1 Day Ago History 30 glyBURIDE [Diabeta] 5 mg PO BID 12/08/16 12/08/16 1 Day Ago History 5 Active Meds: Active Medications Acetaminophen (Tylenol) 650 mg PO Q4H PRN PRN Reason: Pain MILD(1-3)/Fever >100.5/RUSSELL Last Admin: 12/11/16 03:11 Dose: 650 mg Atorvastatin Calcium (Lipitor) 40 mg PO DAILY [facility] Last Admin: 12/11/16 10:25 Dose: 40 mg Dextrose (D50w (25gm)) 50 ml IV PRN PRN PRN Reason: Hypoglycemia Diltiazem HCl (Cardizem) 30 mg PO Q6HR [facility] Last Admin: 12/11/16 13:49 Dose: 30 mg Heparin Sodium (Porcine) (Heparin) 5,000 unit SUB-Q Q8HR [facility] Last Admin: 12/11/16 13:49 Dose: 5,000 unit Hydrochlorothiazide (Hctz) 25 mg PO QDAY [facility] Last Admin: 12/11/16 10:25 Dose: 25 mg Sodium Chloride (Nacl 0.9% 1000 Ml) 1,000 mls @ 100 mls/hr IV DIRECT [facility] Last Admin: 12/11/16 11:39 Dose: 100 mls/hr Insulin Aspart (Novolog) 0 units SUB-Q ACHS [facility] PRN Reason: Protocol Last Admin: 12/11/16 13:23 Dose: Not Given Insulin Detemir (Levemir) 25 units SUB-Q DAILY [facility] Last Admin: 12/11/16 10:25 Dose: Not Given Levofloxacin (Levaquin) 750 mg PO Q24HR [facility] Last Admin: 12/11/16 10:25 Dose: 750 mg Oxycodone/Acetaminophen (Percocet 5/325) 2 tab PO Q6H PRN PRN Reason: Pain, Moderate (4-6) Last Admin: 12/11/16 13:25 Dose: 2 tab Exam - Constitutional Vitals: Temp Pulse Resp BP Pulse Ox 98.0 F 77 16 117/53 93 12/11/16 08:03 12/11/16 10:00 12/11/16 08:03 12/11/16 08:03 12/11/16 08:03 Results - Labs CBC & Chem 7: 12/11/16 07:43 12/10/16 05:29 Labs: Abnormal lab results 12/11/16 Range/Units 07:43 WBC 15.2 H (4.5-11.0) K/mm3 Hgb 11.5 L (11.8-15.2) gm/dl Hct 35.4 L (35.5-45.6) % MCV 78 L (84-94) fl MCH 26 L (28-32) pg RDW 15.7 H (13.2-15.2) % Lymph % (Auto) 10.4 L (13.4-35.0) % [place] % (Auto) 9.9 H (0.0-7.3) % [place] # 1.5 H (0.0-0.8) K/mm3 Seg Neutrophils % 78.4 H (40.0-70.0) % Seg Neutrophils # 11.9 H (1.8-7.7) K/mm3
[2016-12-11] MEDS: DILAUDID IV PRN (20:44)
[2016-12-12] MEDS: CARDIZEM PO SCH ×3 (00:50→11:18)
[2016-12-12] MEDS: HEPARIN SUB-Q SCH ×3 (05:30→21:58)
[2016-12-12 06:42] LABS: Basophils % (Auto) 0.3 % (0.0-1.8); Eosinophils % (Auto) 0.7 % (0.0-4.3); Hematocrit 35.6 % (35.5-45.6); Hemoglobin 11.4 gm/dl (11.8-15.2); Mean Corpuscular HGB Conc 32 % (32-34); Mean Corpuscular Volume 79 fl (84-94); Platelet Count 401 K/mm3 (140-440); Red Blood Count 4.48 M/mm3 (3.65-5.03); Red Cell Distribution Width 15.9 % (13.2-15.2); White Blood Count 15.5 K/mm3 (4.5-11.0)
[2016-12-12 06:43] LABS: Mean Corpuscular Hemoglobin 25 pg (28-32)
[2016-12-12 07:10] LABS: Anion Gap 23 mmol/L; Blood Urea Nitrogen 19 mg/dL (9-20); Calcium 8.5 mg/dL (8.4-10.2); Carbon Dioxide 23 mmol/L (22-30); Chloride 99.2 mmol/L (98-107); Glucose 79 mg/dL (75-100); Iron 20 ug/dL (49-181); Potassium 4.6 mmol/L (3.6-5.0); Sodium 141 mmol/L (137-145); Total Iron Binding Capacity 212 mcg/dL (250-450)
--- NOTE | 2016-12-12 07:24 | Consultation ---
REFERRING PHYSICIAN: Dr. Petty Sykes. CHIEF COMPLAINT: Hematuria. HISTORY OF PRESENT ILLNESS: This 61-year-old gentleman actually presented to the Emergency Room with shortness of breath and syncopal episode. He was admitted, placed on telemetry. He is also due to see the Dr. Patricia in our group for hematuria, but missed that appointment. PAST MEDICAL HISTORY: Diabetes, hypertension. PAST SURGICAL HISTORY: Hip replacement. SOCIAL HISTORY: He is a smoker. ALLERGIES: PENICILLIN. MEDICATIONS: Norvasc, Lipitor, hydrochlorothiazide, insulin, metformin, Cozaar, and glyburide. PHYSICAL EXAMINATION: VITAL SIGNS: Temperature 98, respirations 16, pulse 77, and BP 117/53. BACK: No CVA tenderness. ABDOMEN: Soft. LABORATORY DATA: BUN and creatinine 24 and 1.0, hemoglobin and hematocrit of 11 and 35 respectively. White count of 15,000, platelets 387,000. CT of abdomen and pelvis: BPH, liver lesions, small stone in the gallbladder. ASSESSMENT AND PLAN: Hematuria, abnormal CT findings, would recommend PSA and GI evaluation. The patient needs a cystoscopy, but needs to be cleared from a cardiac standpoint. JOB# [id number] JAQUI/NTS
[2016-12-12] MEDS: NOVOLOG SUB-Q SCH ×4 (08:00→22:01)
[2016-12-12] MEDS: LEVEMIR SUB-Q SCH (08:00)
[2016-12-12] MEDS: PERCOCET 5/325 PO PRN ×2 (08:09→13:30)
[2016-12-12] MEDS: HCTZ PO SCH (09:00)
[2016-12-12] MEDS: LEVAQUIN PO SCH (09:00)
[2016-12-12] MEDS: DILAUDID IV PRN ×2 (11:19→19:41)
[2016-12-12] MEDS: NACL 0.9% 1000 ML 1,000 ML IV SCH (11:20)
--- NOTE | 2016-12-12 14:39 | Query-Infection ---
"Dear Date:12/12/16 Oleo [employer]/CDS:Viet Malave Phone#: Exercise your independent professional judgment when responding to this query. Questions asked do not imply a particular answer is desired or expected. We greatly appreciate your clarification on this issue. Clinical Documentation States: 61 y/o m admitted 12/10/16 for SOB with palpitations. Patient was diagnosed with UTI. Levofloxacin was given. Patient also diagnosed with ATN. Clinical findings show: (please check applicable parameters) Infection, known /suspected, with some of the following indicators; Specify the infection:UTI 3 General parameters [ ] Fever (core temp >38.30C or 100.40F) [ ] Hypothermia (core temp <36C) [x] Heart rate >90 bpm [ ] Tachypnea: >20 bpm or pCO2 < 32 mmHg [ ] Altered mental status [ ] Significant edema / +ve fluid balance (>20 ml/kg 24 h) [ ] Hyperglycemia (Bl. glucose >110 mg/dl) w/o diabetes Inflammatory parameters [x] Leukocytosis (white blood cell count >12,000/l) [ ] Leukopenia (white blood cell count <4,000/l) [ ] Bandemia (immature WBC > 10%) [x] Leucocyte Left Shift [ ] Plasma procalcitonin>2 SD above the normal value Hemodynamic and tissue perfusion parameters [ ] Arterial hypotension(SBP <90 mmHg, MAP <70 mmHg,or a SBP drop >40 mmHg in adults) [ ] Hyperlactatemia (>3 mmol/l) [ ] Anion Gap (> 11mEG/l) [ ] Decreased capillary refill or mottling Organ dysfunction parameters [ ] Arterial hypoxemia (PaO2/FIO2 <300) [ ] Creatinine increase =0.5 mg/dl [ ] Acute oliguria (urine output <0.5 ml | kg |h or 45 mM/l for at least 2 hrs) [ ] Coagulation abnormalities (INR >1.5 or activated partial thromboplastin time >60 s) [ ] Ileus (absent luis wel sounds) [ ] Thrombocytopenia (platelet count <100,000/l) [ ] Hyperbilirubinemia (plasma total bilirubin >4 mg/dl) According to the clinical indications above, can Bacteremia be further specified? If so, please indicate below and in your Progress Notes and/ or Discharge Summary. Indicate if the condition was present on admission. PHYSICIAN RESPONSE: [ s] Sepsis [ ] Severe Sepsis [ ] Septic Shock [ ] Septicemia [ ] Sepsis now resolved [ ] SIRS due to non-infectious cause with organ dysfunction [ ] SIRS due to non-infectious cause without organ dysfunction [ ] Other: [ ] Comment/Explanation: Present on Admission: [ x] Yes (Y) [ ] Clinically undeterminable (W) [ ] No (N) [ ] Ruled Out Please also document response in your Progress Notes and/or Discharge Summary and indicate if the condition was present on admission Notes: SIRS/ SIRS WITH ORGAN DYSFUNCTION Systemic inflammatory response syndrome (SIRS) generally refers to the systemic response to trauma/garcia or other insult such as Acute Myocardial Infarction, Acute Pancreatitis, and Major Surgery with symptoms including fever, tachycardia , tachypnea, and leukocytosis (1). BACTEREMIA Presence of viable bacteria in the circulating blood (2). This term is reserved for patients that do not manifest above SIRS response. SEPTICEMIA Generally refers to a systemic disease associated with the presence of pathological microorganisms or toxins in the blood, which can include bacteria, viruses, fungi or other organisms (1). SEPSIS Generally refers to SIRS due infection (1). SEVERE SEPSIS Generally refers to sepsis associated with acute organ dysfunction (1). SEPTIC SHOCK Generally refers to circulatory failure associated with severe sepsis (2), and defined as hypotension or hypoperfusion despite adequate fluid resuscitation (1 hour) (3). REFERENCES: 1. [place] [employer]/Society of Critical Care Medicine Consensus Conference. Definitions for sepsis and organ failure and guidelines for the use of innovative therapies in sepsis. Critical Care Med 1992;20:864 - 74. 2. Trent mendez MM, Rosas MP, Demond SANDERSON, Himanshu E, Cleve D, Panchito D, James J, Hannah SM , Luigi JL, Agustin G; International Sepsis Definitions Conference. 2001 SCCM/ESICM/ACCP/ATS/SIS International Sepsis Definitions Conference. Intensive Care Med. 2002;29(4):530-8. Epub 2002Feb 26. Review. PubMed PMID:[id number] 3. ICD-9-CM Official Guidelines for Coding and Reporting 4. Medscape Drugs, Diseases and Procedures references 5. [employer] Textbook of Internal Medicine. 18th Edition MTDD"
--- NOTE | 2016-12-12 14:53 | Consultation ---
History of Present Illness Consult date: 12/12/16 Requesting physician: DAVID ALFONSO Consult reason: pre op evaluation History of present illness: The patient is a 61 year old male with a history of hypertension, diabetes, hyperlipidemia, tobacco use who presented on 12/08/16 with complaints of palpitations, shortness of breath, dizziness and lightheadedness ongoing for the previous two weeks. No chest pain. EKG in the ER revealed SVT. He received adenosine and converted to sinus rhythm. Troponin negative. Electrolytes and TSH within normal limits. CT of the abdomen and pelvis done 12/11/16 revealed a bladder mass with mets to the liver. Cardiology has been consulted for pre- operative clearance prior to cystoscopy. Pt. states that he had a stress test done at a physician's office approximately one month ago that was normal. Past History Past Medical History: diabetes, hypertension, hyperlipidemia Past Surgical History: total hip replacement Social history: , lives with family, smoking. denies: alcohol abuse, prescription drug abuse Family history: diabetes, hypertension Medications and Allergies Allergies Allergy/AdvReac Type Severity Reaction Status Date / Time Penicillins Allergy Rash Verified 12/08/16 00:52 Home Medications Medication Instructions Recorded Confirmed Last Taken Type Amlodipine Besylate [Norvasc] 2.5 mg PO DAILY 12/08/16 12/08/16 1 Day Ago History 2.5 AtorvaSTATin [Lipitor] 40 mg PO DAILY 12/08/16 12/08/16 1 Day Ago History 40 Hydrochlorothiazide [HCTZ] 25 mg PO QDAY 12/08/16 12/08/16 1 Day Ago History 25 Insulin Glargine [Lantus VIAL] 25 units SQ DAILY 12/08/16 12/08/16 1 Day Ago History Losartan [Cozaar] 100 mg PO QDAY 12/08/16 12/08/16 1 Day Ago History 100 Metformin HCl [Fortamet ER] 1,000 mg PO QDAY 12/08/16 12/08/16 1 Day Ago History 1000 Pioglitazone HCl 30 mg PO DAILY 12/08/16 12/08/16 1 Day Ago History 30 glyBURIDE [Diabeta] 5 mg PO BID 12/08/16 12/08/16 1 Day Ago History 5 Active Meds: Active Medications Acetaminophen (Tylenol) 650 mg PO Q4H PRN PRN Reason: Pain MILD(1-3)/Fever >100.5/RUSSELL Last Admin: 12/11/16 03:11 Dose: 650 mg Atorvastatin Calcium (Lipitor) 40 mg PO DAILY [facility] Last Admin: 12/12/16 09:00 Dose: 40 mg Dextrose (D50w (25gm)) 50 ml IV PRN PRN PRN Reason: Hypoglycemia Diltiazem HCl (Cardizem) 30 mg PO Q6HR [facility] Last Admin: 12/12/16 11:18 Dose: 30 mg Heparin Sodium (Porcine) (Heparin) 5,000 unit SUB-Q Q8HR [facility] Last Admin: 12/12/16 14:14 Dose: 5,000 unit Hydrochlorothiazide (Hctz) 25 mg PO QDAY [facility] Last Admin: 12/12/16 09:00 Dose: 25 mg Hydromorphone HCl (Dilaudid) 1 mg IV Q3H PRN PRN Reason: Pain , Severe (7-10) Last Admin: 12/12/16 11:19 Dose: 1 mg Sodium Chloride (Nacl 0.9% 1000 Ml) 1,000 mls @ 100 mls/hr IV DIRECT [facility] Last Admin: 12/12/16 11:20 Dose: 100 mls/hr Insulin Aspart (Novolog) 0 units SUB-Q ACHS [facility] PRN Reason: Protocol Last Admin: 12/12/16 12:30 Dose: Not Given Insulin Detemir (Levemir) 25 units SUB-Q DAILY [facility] Last Admin: 12/12/16 08:00 Dose: Not Given Levofloxacin (Levaquin) 750 mg PO Q24HR [facility] Last Admin: 12/12/16 09:00 Dose: 750 mg Oxycodone/Acetaminophen (Percocet 5/325) 2 tab PO Q6H PRN PRN Reason: Pain, Moderate (4-6) Last Admin: 12/12/16 13:30 Dose: 2 tab Review of Systems Constitutional: no fever, no chills Ears, nose, mouth and throat: no nasal congestion, no nasal discharge, no sinus pressure Cardiovascular: palpitations, lightheadedness, shortness of breath, no chest pain Respiratory: shortness of breath, no cough, no congestion, no wheezing Gastrointestinal: no abdominal pain, no nausea, no vomiting, no diarrhea Genitourinary Male: hematuria Musculoskeletal: no neck stiffness, no neck pain, no myalgias Integumentary: no rash, no pruritis Neurological: no parathesias, no numbness, no tingling, no headaches Endocrine: no cold intolerance, no heat intolerance Hematologic/Lymphatic: no easy bruising, no easy bleeding Allergic/Immunologic: no urticaria, no wheezing Physical Examination Vital Signs Temp Pulse Resp BP Pulse Ox 98.8 F 167 H 16 100/80 100 12/08/16 00:43 12/08/16 00:43 12/08/16 00:43 12/08/16 00:43 12/08/16 00:43 General appearance: no acute distress HEENT: Positive: PERRL, Normocephaly, Mucus Membranes Moist Neck: Positive: neck supple, trachea midline Cardiac: Positive: Reg Rate and Rhythm, S1/S2 Lungs: Positive: clear to auscultation Neuro: Positive: Grossly Intact Abdomen: Positive: Soft, Active Bowel Sounds. Negative: Tender Skin: Positive: Clear. Negative: Rash Extremities: Present: normal. Absent: edema Results 12/12/16 05:40 12/12/16 05:40 CBC 12/12/16 Range/Units 05:40 WBC 15.5 H (4.5-11.0) K/mm3 RBC 4.48 (3.65-5.03) M/mm3 Hgb 11.4 L (11.8-15.2) gm/dl Hct 35.6 (35.5-45.6) % Plt Count 401 (140-440) K/mm3 Lymph # 1.6 (1.2-5.4) K/mm3 [place] # 1.7 H (0.0-0.8) K/mm3 Eos # 0.1 (0.0-0.4) K/mm3 Baso # 0.1 (0.0-0.1) K/mm3 Comprehensive Metabolic Panel 12/12/16 Range/Units 05:40 Sodium 141 (137-145) mmol/L Potassium 4.6 (3.6-5.0) mmol/L Chloride 99.2 (98-107) mmol/L Carbon Dioxide 23 (22-30) mmol/L BUN 19 (9-20) mg/dL Creatinine 1.0 (0.8-1.5) mg/dL Glucose 79 (75-100) mg/dL Calcium 8.5 (8.4-10.2) mg/dL - Imaging and Cardiology Echo: pending EKG: image reviewed EKG interpretations - Telemetry EKG Rhythm: Sinus Rhythm - EKG Sinus rhythms and dysrhythmias: sinus rhythm Assessment and Plan Pre-op cardiac evaluation obtain echocardiogram negative stress test ~1 month ago per patient report Paroxysmal SVT currently sinus rhythm continue cardizem, will change to cardizem CD 120mg daily Bladder mass Hypertension Diabetes Hyperlipidemia Tobacco use Negative stress test approximately one month ago per patient report. Will obtain echocardiogram. Further recommendations to follow. The patient has been seen in conjunction with Dr. Pappas who agrees with the assessment and plan of care. Thank you Dr. Alfonso for allowing us to participate in the care of this patient.
--- NOTE | 2016-12-12 16:52 | Progress Note ---
Assessment and Plan Assessment and plan: Possible bladder mass * Urology following * Plan for cystoscopy once cleared by cardiology * Consult cardiology today Possible hepatitic mass * Cannot rule out underlying metastatic disease * Follow up pending test. Consult GI for further evaluation and recommendation Supraventricular tachycardia * Received adenosine in ER and converted to NSR * Started on calcium channel estuardo * We'll follow cardiology recommendation Acute renal failure * Secondary to vasomotor nephropathy versus ATN from possible hypotension during SVT * Resolved upon receiving IV fluids Metabolic acidosis * Likely Secondary to acute renal failure, Resolved UTI, ruled out * UA suggestive of UTI (+ WBC, RBC, LE) * Urine cultures negative * disContinue antibiotic Hematuria * Likely due to bladder mass * Wait for cystoscopy to be performed by urologist Iron deficient anemia * Likely secondary to hematuria * Continue replacement HTN, benign essential * BP controlled on diltiazem and HCTZ Diabetes mellitus type II * Continue long-acting insulin * Accu-Cheks and SSI to assess insulin requirements Tobacco abuse * Counseled regarding importance of quitting smoking DVT prophylaxis * Heparin subcutaneous; monitor H&H given hematuria History Interval history: Patient seen and examined. Medical records and medication list reviewed. No acute event overnight noted by the RN. Patient denies any chest pain or difficulty breathing. Patient is tolerating diet. Hematuria has resolved today Discussed plan of care at bedside with patient. Hospitalist Physical - Physical exam Narrative exam: GENERAL: well-developed and well-nourished -[place] male lying on bed appeared to be in no discomfort. HEENT: Normocephalic. Atraumatic. No conjunctival congestion or icterus. Patient has moist mucous membranes. NECK: Supple. Trachea midline. CHEST/LUNGS: Clear to auscultated bilaterally, breathing nonlabored. No wheezes crackles or rhonchi. HEART/CARDIOVASCULAR: Regular in rate and rhythm. S1 and S2 positive. ABDOMEN: Abdomen is soft, nontender. Patient has normal bowel sounds. SKIN: There is no rash. Warm and dry. NEURO: No focal motor deficit. Follows command. MUSCULOSKELETAL: No joint effusion or tenderness. EXTRIMITY: No edema, no cyanosis or clubbing. PSYCH: Cooperative. - Constitutional Vitals: Temp Pulse Resp BP Pulse Ox 98.5 F 82 18 126/59 92 12/12/16 13:18 12/12/16 13:18 12/12/16 13:18 12/12/16 13:18 12/12/16 13:18 General appearance: Present: no acute distress Results - Labs CBC & Chem 7: 12/12/16 05:40 12/12/16 05:40 Labs: Laboratory Last Values WBC 15.5 K/mm3 (4.5-11.0) H 12/12/16 05:40 RBC 4.48 M/mm3 (3.65-5.03) 12/12/16 05:40 Hgb 11.4 gm/dl (11.8-15.2) L 12/12/16 05:40 Hct 35.6 % (35.5-45.6) 12/12/16 05:40 MCV 79 fl (84-94) L 12/12/16 05:40 MCH 25 pg (28-32) L 12/12/16 05:40 MCHC 32 % (32-34) 12/12/16 05:40 RDW 15.9 % (13.2-15.2) H 12/12/16 05:40 Plt Count 401 K/mm3 (140-440) 12/12/16 05:40 Lymph % (Auto) 10.4 % (13.4-35.0) L 12/12/16 05:40 [place] % (Auto) 11.0 % (0.0-7.3) H 12/12/16 05:40 Eos % (Auto) 0.7 % (0.0-4.3) 12/12/16 05:40 Baso % (Auto) 0.3 % (0.0-1.8) 12/12/16 05:40 Lymph # 1.6 K/mm3 (1.2-5.4) 12/12/16 05:40 [place] # 1.7 K/mm3 (0.0-0.8) H 12/12/16 05:40 Eos # 0.1 K/mm3 (0.0-0.4) 12/12/16 05:40 Baso # 0.1 K/mm3 (0.0-0.1) 12/12/16 05:40 Seg Neutrophils % 77.6 % (40.0-70.0) H 12/12/16 05:40 Seg Neutrophils # 12.0 K/mm3 (1.8-7.7) H 12/12/16 05:40 Sodium 141 mmol/L (137-145) 12/12/16 05:40 Potassium 4.6 mmol/L (3.6-5.0) 12/12/16 05:40 Chloride 99.2 mmol/L (98-107) 12/12/16 05:40 Carbon Dioxide 23 mmol/L (22-30) 12/12/16 05:40 Anion Gap 23 mmol/L 12/12/16 05:40 BUN 19 mg/dL (9-20) 12/12/16 05:40 Creatinine 1.0 mg/dL (0.8-1.5) 12/12/16 05:40 Estimated GFR > 60 ml/min 12/12/16 05:40 BUN/Creatinine Ratio 19.00 % 12/12/16 05:40 Glucose 79 mg/dL (75-100) 12/12/16 05:40 POC Glucose 78 (70-105) 12/11/16 21:13 Calcium 8.5 mg/dL (8.4-10.2) 12/12/16 05:40 Phosphorus 3.1 mg/dL (2.5-4.5) 12/10/16 05:29 Magnesium 1.9 mg/dL (1.7-2.3) 12/10/16 05:29 Iron 20 ug/dL (49-181) L 12/12/16 05:40 TIBC 212 mcg/dL (250-450) L 12/12/16 05:40 Total Creatine Kinase 107 units/L (55-170) 12/08/16 00:58 CK-MB (CK-2) 2.1 ng/mL (0.0-4.0) 12/08/16 00:58 CK-MB (CK-2) Rel Index 1.9 (0-4) 12/08/16 00:58 Troponin T < 0.010 ng/mL (0.00-0.029) 12/08/16 00:58 Prostate Specific Ag 30.40 ng/mL (0.00-4.00) H 12/11/16 19:28 TSH 2.660 mlU/mL (0.270-4.200) 12/08/16 00:58 Free T4 1.50 ng/dL (0.76-1.46) H 12/08/16 00:58 Urine Color Samantha (Yellow) 12/08/16 02:15 Urine Turbidity Cloudy (Clear) 12/08/16 02:15 Urine pH 5.0 (5.0-7.0) 12/08/16 02:15 Ur Specific [place] 1.016 (1.003-1.030) 12/08/16 02:15 Urine Protein 100 mg/dl mg/dL (Negative) 12/08/16 02:15 Urine Glucose (UA) Neg mg/dL (Negative) 12/08/16 02:15 Urine Ketones Tr mg/dL (Negative) 12/08/16 02:15 Urine Blood Lg (Negative) 12/08/16 02:15 Urine Nitrite Neg (Negative) 12/08/16 02:15 Urine Bilirubin Neg (Negative) 12/08/16 02:15 Urine Urobilinogen 2.0 mg/dL (<2.0) 12/08/16 02:15 Ur Leukocyte Esterase Mod (Negative) 12/08/16 02:15 Urine WBC (Auto) 135.0 /HPF (0.0-6.0) H 12/08/16 02:15 Urine RBC (Auto) > 182.0 /HPF (0.0-6.0) 12/08/16 02:15 Urine Mucus Few /HPF 12/08/16 02:15 Urine Opiates Screen Presumptive negative 12/08/16 02:18 Urine Methadone Screen Presumptive negative 12/08/16 02:18 Ur Barbiturates Screen Presumptive negative 12/08/16 02:18 Ur Phencyclidine Scrn Presumptive negative 12/08/16 02:18 Ur Amphetamines Screen Presumptive negative 12/08/16 02:18 U Benzodiazepines Scrn Presumptive negative 12/08/16 02:18 Urine Cocaine Screen Presumptive negative 12/08/16 02:18 U Marijuana (THC) Screen Presumptive negative 12/08/16 02:18 Drugs of Abuse Note Disclamer 12/08/16 02:18 - Imaging and Cardiology CT scan - abdomen: report reviewed
[2016-12-12] MEDS: CARDIZEM CD PO SCH (17:57)
[2016-12-13] MEDS: PERCOCET 5/325 PO PRN ×2 (02:19→16:11)
[2016-12-13] MEDS: NACL 0.9% 1000 ML 1,000 ML IV SCH (03:45)
[2016-12-13] MEDS: HEPARIN SUB-Q SCH ×3 (06:47→21:05)
[2016-12-13] MEDS: NOVOLOG SUB-Q SCH ×4 (08:19→23:17)
[2016-12-13] MEDS: HCTZ PO SCH (11:43)
[2016-12-13] MEDS: CARDIZEM CD PO SCH (11:43)
[2016-12-13] MEDS: FEOSOL PO SCH ×2 (11:44→21:04)
--- NOTE | 2016-12-13 12:15 | Echocardiography Report ---
Transthoracic Echocardiogram Indication: SVT BP: 135/65 HR: 81 Conclusions *The left ventricular chamber size is normal. *There is no left ventricular hypertrophy. *The estimated ejection fraction is 55-60%. *The left atrial chamber size is normal. *.No sigtnificant valvular heart disease noted. Findings Procedure Info: The study quality is fair. Left Ventricle: The left ventricular chamber size is normal. There is no left ventricular hypertrophy. Global left ventricular systolic function is normal. The estimated ejection fraction is 55-60%. Left Atrium: The left atrial chamber size is normal. Right Ventricle: The right ventricle wall thickness is normal. The right ventricular cavity size is normal. The right ventricular global systolic function is mildly reduced. Right Atrium: The right atrial cavity size is normal. Aortic Valve: The aortic valve is trileaflet. There is no evidence of aortic valve thickening. There is no evidence of aortic regurgitation. There is no evidence of aortic stenosis. Mitral Valve: The anterior leaflet of the mitral valve is thickened. There is no evidence of mitral regurgitation. There is no evidence of mitral stenosis. Tricuspid Valve: The tricuspid valve is not well visualized. There is trace tricuspid regurgitation. No pulmonary hypertension is noted. There is no tricuspid stenosis. Pulmonic Valve: The pulmonic valve is not well visualized. There is mild pulmonic regurgitation. There is no pulmonic stenosis. Pericardium: There is no pericardial effusion. No pleural effusion is present. Pulmonary Artery: The main pulmonary artery is not well visualized. Measurements Chambers MM Name Value Normal Range IVSd (MM) 1.02 cm (0.6 - 1.1) LVPWd (MM) 0.78 cm (0.6 - 1.1) IVS:LVPW ratio 1.31 ratio - LVIDd (MM) 4.29 cm (3.7 - 5.6) LVIDs (MM) 2.08 cm (2 - 2.8) LV FS (Teichholz) (MM) 51.5 % - LV FS (cube) (MM) 51.5 % - EF Teichholz (MM) 82.9 % - Ao root diameter (MM) 3.6 cm (2 - 3.7) LA dimension (AP) MM 3.6 cm (1.9 - 4) LA:Ao ratio (MM) 1 ratio - AV cusp separation (MM) 1.8 cm (1.5 - 2.6) Chambers 2D Name Value Normal Range IVSd (2D) 0.87 cm (0.6 - 1.1) LVPWd 0.9 cm - LVPWd (2D) 0.95 cm (0.6 - 1.1) IVS:LVPW ratio (2D) 0.92 ratio - LVIDd 3.5 cm - LVIDs 1.72 cm - LVIDd (2D) 3.49 cm (3.7 - 5.6) LVIDs (2D) 1.72 cm (2 - 3.8) LV FS (Teichholz) (2D) 50.7 % - LV FS (cube) (2D) 50.7 % - LV EF (2D) 82 % - EF Teichholz (2D) 82.9 % - LA dimension 3 cm - Ao root diameter (2D) 2.8 cm (2 - 3.7) LA dimension (AP) 2D 3 cm (1.9 - 4) LA:Ao ratio (2D) 1.07 ratio - Volumes/Mass Name Value Normal Range LA ESV SP 4CH (MOD) 29 ml - LV EDV SP 4CH (MOD) 70 ml - LV ESV SP 4CH (MOD) 31 ml - EF SP 4CH (MOD) 56 % - Diastolic/Systolic Function Name Value Normal Range MV E-wave Vmax 0.52 m/sec - MV deceleration time 254 msec - MV A-wave Vmax 0.71 m/sec - MV E:A ratio 0.7 ratio - LV septal e' Vmax 0.08 m/sec - LV lateral e' Vmax 0.1 m/sec - LV E:e' septal ratio 6.3 ratio - LV E:e' lateral ratio 5.3 ratio - Aortic Valve Name Value Normal Range AV Vmax 1.47 m/sec - AV peak gradient 9 mmHg - LVOT diameter 1.9 cm - LVOT Vmax 1.16 m/sec - LVOT peak gradient 5 mmHg - RUTHY (continuity Vmax) 2.24 cm2 - Pulmonic Valve/Qp:Qs Name Value Normal Range PV Vmax 0.71 m/sec - PV peak gradient 2 mmHg - NC end-diastolic Vmax 1.83 m/sec - PV acceleration time 113 msec -
[2016-12-13] MEDS: LEVEMIR SUB-Q SCH (12:53)
--- NOTE | 2016-12-13 14:19 | Progress Note ---
Assessment and Plan Pre-op cardiac evaluation Echo 12/2016: EF 55-60% negative stress test ~1 month ago per patient report Paroxysmal SVT currently sinus rhythm continue cardizem CD 120mg daily Bladder mass awaiting cystoscopy, per urology Hypertension stable Diabetes Hyperlipidemia Tobacco use The patient is stable from a cardiac standpoint to proceed with cystoscopy as planned. The patient has been seen in conjunction with Dr. Pappas who agrees with the assessment and plan of care. Subjective Date of service: 12/13/16 Principal diagnosis: pre-op eval, paroxysmal SVT Interval history: The patient is resting comfortably in bed. No new complaints. Sinus rhythm on the monitor. Objective Last Vital Signs Temp 98.0 F 12/13/16 11:35 Pulse 82 12/13/16 11:35 Resp 14 12/13/16 11:35 BP 132/60 12/13/16 11:35 Pulse Ox 96 12/13/16 11:35 - Physical Examination General: No Apparent Distress HEENT: Positive: PERRL, Normocephaly, Mucus Membranes Moist Neck: Positive: neck supple, trachea midline Cardiac: Positive: Reg Rate and Rhythm, S1/S2 Lungs: Positive: clear to auscultation Neuro: Positive: Grossly Intact Abdomen: Positive: Soft, Active Bowel Sounds. Negative: Tender Skin: Positive: Clear. Negative: Rash Extremities: Present: normal. Absent: edema - Imaging and Cardiology EKG: image reviewed Echo: report reviewed (12/2016: EF 55-60%) - Telemetry EKG Rhythm: Sinus Rhythm - EKG Sinus rhythms and dysrhythmias: sinus rhythm
--- NOTE | 2016-12-13 17:18 | Gastroenterology Consultation ---
History of Present Illness - Reason for Consult Consult date: 12/13/16 Liver lesions Requesting physician: RAD PEREA - History of Present Illness The patient is a 61 yo male with no GI or liver hx. He has a hx of hematuria x 3-5 weeks, and had been scheduled to see Dr Perea as an outpatient. However, on the day before his appt, he was admitted with CP and SOB/was in SVT. He converted with adenosine, and his cardiac status is good (see Cards notes) but during his stay, he had a CT that showed a large bladder mass, with LN and probable liver mets. The patient has lost about 15-20 pounds in the last few weeks, but denies N/V/abdominal pain. He has not had a recent colonoscopy. He has no family hx of bladder cancer but he is a smoker. There is no hx of hepatitis, jaundice or cirrhosis (in the patient or his family). Past History Past Medical History: diabetes, hypertension, hyperlipidemia Past Surgical History: total hip replacement Social history: , lives with family, smoking. denies: alcohol abuse, prescription drug abuse Family history: diabetes, hypertension Medications and Allergies Allergies Allergy/AdvReac Type Severity Reaction Status Date / Time Penicillins Allergy Rash Verified 12/08/16 00:52 Home Medications Medication Instructions Recorded Confirmed Last Taken Type Amlodipine Besylate [Norvasc] 2.5 mg PO DAILY 12/08/16 12/08/16 1 Day Ago History 2.5 AtorvaSTATin [Lipitor] 40 mg PO DAILY 12/08/16 12/08/16 1 Day Ago History 40 Hydrochlorothiazide [HCTZ] 25 mg PO QDAY 12/08/16 12/08/16 1 Day Ago History 25 Insulin Glargine [Lantus VIAL] 25 units SQ DAILY 12/08/16 12/08/16 1 Day Ago History Losartan [Cozaar] 100 mg PO QDAY 12/08/16 12/08/16 1 Day Ago History 100 Metformin HCl [Fortamet ER] 1,000 mg PO QDAY 12/08/16 12/08/16 1 Day Ago History 1000 Pioglitazone HCl 30 mg PO DAILY 12/08/16 12/08/16 1 Day Ago History 30 glyBURIDE [Diabeta] 5 mg PO BID 12/08/16 12/08/16 1 Day Ago History 5 Active Meds: Active Medications Acetaminophen (Tylenol) 650 mg PO Q4H PRN PRN Reason: Pain MILD(1-3)/Fever >100.5/RUSSELL Last Admin: 12/11/16 03:11 Dose: 650 mg Atorvastatin Calcium (Lipitor) 40 mg PO DAILY [facility] Last Admin: 12/13/16 11:43 Dose: 40 mg Dextrose (D50w (25gm)) 50 ml IV PRN PRN PRN Reason: Hypoglycemia Diltiazem HCl (Cardizem Cd) 120 mg PO QDAY [facility] Last Admin: 12/13/16 11:43 Dose: 120 mg Ferrous Sulfate (Feosol) 325 mg PO BID [facility] Last Admin: 12/13/16 11:44 Dose: 325 mg Heparin Sodium (Porcine) (Heparin) 5,000 unit SUB-Q Q8HR [facility] Last Admin: 12/13/16 13:33 Dose: Not Given Hydrochlorothiazide (Hctz) 25 mg PO QDAY [facility] Last Admin: 12/13/16 11:43 Dose: 25 mg Hydromorphone HCl (Dilaudid) 1 mg IV Q3H PRN PRN Reason: Pain , Severe (7-10) Last Admin: 12/12/16 19:41 Dose: 1 mg Sodium Chloride (Nacl 0.9% 1000 Ml) 1,000 mls @ 100 mls/hr IV DIRECT [facility] Last Admin: 12/13/16 03:45 Dose: 100 mls/hr Insulin Aspart (Novolog) 0 units SUB-Q ACHS [facility] PRN Reason: Protocol Last Admin: 12/13/16 16:31 Dose: Not Given Insulin Detemir (Levemir) 25 units SUB-Q DAILY [facility] Last Admin: 12/13/16 12:53 Dose: Not Given Oxycodone/Acetaminophen (Percocet 5/325) 2 tab PO Q6H PRN PRN Reason: Pain, Moderate (4-6) Last Admin: 12/13/16 16:11 Dose: 2 tab Review of Systems - Review of Systems All systems: negative (as noted in the HPI.) Exam - Constitutional Vital Signs: Temp Pulse Resp BP Pulse Ox 97.9 F 84 16 126/57 97 12/13/16 16:20 12/13/16 16:20 12/13/16 16:20 12/13/16 16:20 12/13/16 16:20 General appearance: no acute distress - EENT Eyes: PERRL, EOM intact ENT: hearing intact - Neck Neck: supple, normal ROM - Respiratory Respiratory effort: normal Respiratory: bilateral: CTA - Cardiovascular Rhythm: regular Heart Sounds: Present: S1 & S2 Extremities: no ischemia, No edema - Gastrointestinal General gastrointestinal: Present: soft, non-tender, non-distended - Integumentary Integumentary: Present: clear, warm, dry - Neurologic Neurological: alert and oriented x3 - Labs CBC & Chem 7: 12/12/16 05:40 12/12/16 05:40 Lab Results: Laboratory Results - last 24 hr 12/12/16 12/12/16 12/12/16 08:12 12:30 16:32 POC Glucose 68 L 83 75 12/12/16 12/13/16 12/13/16 22:01 07:17 11:28 POC Glucose 88 89 119 H 12/13/16 15:49 POC Glucose 106 H Assessment and Plan - Patient Problems (1) Liver mass Current Visit: Yes Status: Acute Plan to address problem: - Per the chart and (noncontrast) CT, appears to have mets CA. - Will get a CT with contrast and liver biopsy. - Check hepatitis serologies. - Check INR given liver lesions (possible). - Cystoscopy tomorrow.
[2016-12-13] MEDS: MEGACE PO SCH (21:04)
[2016-12-13] MEDS: DILAUDID IV PRN (21:09)
[2016-12-14] MEDS: DILAUDID IV PRN ×3 (04:25→23:23)
[2016-12-14] MEDS: HEPARIN SUB-Q SCH ×3 (06:33→23:27)
[2016-12-14] MEDS: NOVOLOG SUB-Q SCH ×4 (07:30→23:23)
[2016-12-14 07:47] LABS: INR 1.19 (0.87-1.13)
[2016-12-14 07:48] LABS: Partial Thromboplastin Time 40.1 Sec. (24.2-36.6)
[2016-12-14 08:29] LABS: Albumin 2.7 g/dL (3.9-5); Albumin/Globulin Ratio 0.7 %; Bilirubin,Direct 2.1 mg/dL (0-0.2); Bilirubin,Indirect 0.5 mg/dL; Bilirubin,Total 2.6 mg/dL (0.1-1.2); Total Protein 6.4 g/dL (6.3-8.2)
--- NOTE | 2016-12-14 08:38 | Hem/Onc Consultation ---
History of Present Illness - Reason for Consult Consult date: 12/14/16 - History of Present Illness Patient is a very pleasant 61-year-old male with history of diabetes mellitus hypertension who presented to the hospital with chest pains shortness of breath. He during his hospital course also started having hematuria which she' s had now for about 9 or 10 weeks. He's lost weight. He is also a heavy smoker. On his CT abdomen patient was found to have significant the amount of inguinal lymphadenopathy bladder mass and lesions in the liver. He is to get her liver biopsy and bladder biopsy today. Patient also was found to have an elevated PSA elevated white count and hemoglobin of 11.4. Patient denies any previous history of malignancy. He does smoke cigarettes about 3-4 cigarettes and in the process of quitting. Does have family history of lung cancer in the father. Past History Past Medical History: diabetes, hypertension, hyperlipidemia Past Surgical History: total hip replacement Social history: , lives with family, smoking. denies: alcohol abuse, prescription drug abuse Family history: diabetes, hypertension Medications and Allergies Allergies Allergy/AdvReac Type Severity Reaction Status Date / Time Penicillins Allergy Rash Verified 12/08/16 00:52 Home Medications Medication Instructions Recorded Confirmed Last Taken Type Amlodipine Besylate [Norvasc] 2.5 mg PO DAILY 12/08/16 12/08/16 1 Day Ago History 2.5 AtorvaSTATin [Lipitor] 40 mg PO DAILY 12/08/16 12/08/16 1 Day Ago History 40 Hydrochlorothiazide [HCTZ] 25 mg PO QDAY 12/08/16 12/08/16 1 Day Ago History 25 Insulin Glargine [Lantus VIAL] 25 units SQ DAILY 12/08/16 12/08/16 1 Day Ago History Losartan [Cozaar] 100 mg PO QDAY 12/08/16 12/08/16 1 Day Ago History 100 Metformin HCl [Fortamet ER] 1,000 mg PO QDAY 12/08/16 12/08/16 1 Day Ago History 1000 Pioglitazone HCl 30 mg PO DAILY 12/08/16 12/08/16 1 Day Ago History 30 glyBURIDE [Diabeta] 5 mg PO BID 12/08/16 12/08/16 1 Day Ago History 5 Active Meds: Active Medications Acetaminophen (Tylenol) 650 mg PO Q4H PRN PRN Reason: Pain MILD(1-3)/Fever >100.5/RUSSELL Last Admin: 12/11/16 03:11 Dose: 650 mg Atorvastatin Calcium (Lipitor) 40 mg PO DAILY [facility] Last Admin: 12/13/16 11:43 Dose: 40 mg Dextrose (D50w (25gm)) 50 ml IV PRN PRN PRN Reason: Hypoglycemia Diltiazem HCl (Cardizem Cd) 120 mg PO QDAY [facility] Last Admin: 12/13/16 11:43 Dose: 120 mg Ferrous Sulfate (Feosol) 325 mg PO BID [facility] Last Admin: 12/13/16 21:04 Dose: 325 mg Heparin Sodium (Porcine) (Heparin) 5,000 unit SUB-Q Q8HR [facility] Last Admin: 12/14/16 06:33 Dose: Not Given Hydrochlorothiazide (Hctz) 25 mg PO QDAY [facility] Last Admin: 12/13/16 11:43 Dose: 25 mg Hydromorphone HCl (Dilaudid) 1 mg IV Q3H PRN PRN Reason: Pain , Severe (7-10) Last Admin: 12/14/16 04:25 Dose: 1 mg Sodium Chloride (Nacl 0.9% 1000 Ml) 1,000 mls @ 100 mls/hr IV DIRECT [facility] Last Admin: 12/13/16 03:45 Dose: 100 mls/hr Insulin Aspart (Novolog) 0 units SUB-Q ACHS [facility] PRN Reason: Protocol Last Admin: 12/13/16 23:17 Dose: Not Given Insulin Detemir (Levemir) 25 units SUB-Q DAILY [facility] Last Admin: 12/13/16 12:53 Dose: Not Given Megestrol Acetate (Megace) 400 mg PO QDAY [facility] Last Admin: 12/13/16 21:04 Dose: 400 mg Oxycodone/Acetaminophen (Percocet 5/325) 2 tab PO Q6H PRN PRN Reason: Pain, Moderate (4-6) Last Admin: 12/13/16 16:11 Dose: 2 tab Exam - Constitutional Vitals: Last Vital Signs Temp 98.1 F 12/14/16 08:06 Pulse 85 12/14/16 08:06 Resp 20 12/14/16 08:06 BP 135/63 12/14/16 08:06 Pulse Ox 94 12/14/16 08:06 Pain Intensity (0-10): denies any pain General appearance: no acute distress Performance status: 2- selfcare, ambulatory - Neck Neck: supple - Respiratory Respiratory effort: Positive: labored Respiratory: bilateral: CTA - Cardiovascular Rhythm: regular Extremity abnormal: edema (mild bilateral) - Gastrointestinal General gastrointestinal: Present: soft (firm all over) Results - Labs lab Results: Laboratory Results - last 24 hr 12/13/16 12/13/16 12/13/16 11:28 15:49 19:39 PT INR APTT POC Glucose 119 H 106 H 123 H Total Bilirubin Direct Bilirubin Indirect Bilirubin AST ALT Alkaline Phosphatase Total Protein Albumin Albumin/Globulin Ratio 12/14/16 12/14/16 12/14/16 06:52 06:52 07:15 PT 15.0 H INR 1.19 H APTT 40.1 H POC Glucose 101 Total Bilirubin 2.6 H Direct Bilirubin 2.1 H Indirect Bilirubin 0.5 AST 554 H ALT 166 H Alkaline Phosphatase 591 H Total Protein 6.4 Albumin 2.7 L Albumin/Globulin Ratio 0.7 Assessment and Plan #1 bladder mass with liver lesions very concerning for malignancy. #2 elevated PSA could be related to the above. #3 leukocytosis #4 tobacco abuse [next] recommendations and plan at this time we will go ahead and await the biopsy. Discussed with the patient about the possibilities. If malignancy of the bladder is confirmed and if he has metastatic disease, chemotherapy would be the right option. Patient was given my business card.
--- NOTE | 2016-12-14 08:43 | Progress Note ---
Assessment and Plan Assessment and plan: Possible bladder mass * Urology following * Plan for cystoscopy tomorrow * patient was cleared by cardiology for the procedure * oncology has been consulted Possible hepatitic mass * Cannot rule out underlying metastatic disease * Follow up pending test. * GI following for further evaluation and recommendation * CT abdomen with contrast Supraventricular tachycardia * Received adenosine in ER and converted to NSR * Started on calcium channel estuardo * no further intervention per cardiology * 2d echo showed preserved EF * had a negative stress test one month ago Acute renal failure * Secondary to vasomotor nephropathy versus ATN from possible hypotension during SVT * Resolved upon receiving IV fluids Metabolic acidosis * Likely Secondary to acute renal failure, Resolved UTI, ruled out * UA suggestive of UTI (+ WBC, RBC, LE) * Urine cultures negative * disContinued antibiotics on 12/12/16 * follow CBC Hematuria * Likely due to bladder mass * Wait for cystoscopy to be performed by urologist Iron deficient anemia * Likely secondary to hematuria * Continue replacement HTN, benign essential * BP controlled on diltiazem and HCTZ Diabetes mellitus type II * Continue long-acting insulin * Accu-Cheks and SSI to assess insulin requirements Tobacco abuse * Counseled regarding importance of quitting smoking DVT prophylaxis * Heparin subcutaneous; monitor H&H given hematuria History Interval history: Patient seen and examined. Medical records and medication list reviewed. No acute event overnight noted by the RN. Patient denies any chest pain or difficulty breathing. Patient is tolerating diet. Hematuria has restarted today, plan for cystoscopy tomorrow Discussed plan of care at bedside with patient. Hospitalist Physical - Physical exam Narrative exam: GENERAL: well-developed and well-nourished -[place]ames[place] male lying on bed appeared to be in no discomfort. HEENT: Normocephalic. Atraumatic. No conjunctival congestion or icterus. Patient has moist mucous membranes. NECK: Supple. Trachea midline. CHEST/LUNGS: Clear to auscultated bilaterally, breathing nonlabored. No wheezes crackles or rhonchi. HEART/CARDIOVASCULAR: Regular in rate and rhythm. S1 and S2 positive. ABDOMEN: Abdomen is soft, nontender. Patient has normal bowel sounds. SKIN: There is no rash. Warm and dry. NEURO: No focal motor deficit. Follows command. MUSCULOSKELETAL: No joint effusion or tenderness. EXTRIMITY: No edema, no cyanosis or clubbing. PSYCH: Cooperative. - Constitutional Vitals: Temp Pulse Resp BP Pulse Ox 98.1 F 85 20 135/63 94 12/14/16 08:06 12/14/16 08:06 12/14/16 08:06 12/14/16 08:06 12/14/16 08:06 General appearance: Present: no acute distress Results - Labs CBC & Chem 7: 12/12/16 05:40 12/12/16 05:40 Labs: Laboratory Last Values WBC 15.5 K/mm3 (4.5-11.0) H 12/12/16 05:40 RBC 4.48 M/mm3 (3.65-5.03) 12/12/16 05:40 Hgb 11.4 gm/dl (11.8-15.2) L 12/12/16 05:40 Hct 35.6 % (35.5-45.6) 12/12/16 05:40 MCV 79 fl (84-94) L 12/12/16 05:40 MCH 25 pg (28-32) L 12/12/16 05:40 MCHC 32 % (32-34) 12/12/16 05:40 RDW 15.9 % (13.2-15.2) H 12/12/16 05:40 Plt Count 401 K/mm3 (140-440) 12/12/16 05:40 Lymph % (Auto) 10.4 % (13.4-35.0) L 12/12/16 05:40 [place] % (Auto) 11.0 % (0.0-7.3) H 12/12/16 05:40 Eos % (Auto) 0.7 % (0.0-4.3) 12/12/16 05:40 Baso % (Auto) 0.3 % (0.0-1.8) 12/12/16 05:40 Lymph # 1.6 K/mm3 (1.2-5.4) 12/12/16 05:40 Gibson # 1.7 K/mm3 (0.0-0.8) H 12/12/16 05:40 Eos # 0.1 K/mm3 (0.0-0.4) 12/12/16 05:40 Baso # 0.1 K/mm3 (0.0-0.1) 12/12/16 05:40 Seg Neutrophils % 77.6 % (40.0-70.0) H 12/12/16 05:40 Seg Neutrophils # 12.0 K/mm3 (1.8-7.7) H 12/12/16 05:40 PT 15.0 Sec. (12.2-14.9) H 12/14/16 06:52 INR 1.19 (0.87-1.13) H 12/14/16 06:52 APTT 40.1 Sec. (24.2-36.6) H 12/14/16 06:52 Sodium 141 mmol/L (137-145) 12/12/16 05:40 Potassium 4.6 mmol/L (3.6-5.0) 12/12/16 05:40 Chloride 99.2 mmol/L (98-107) 12/12/16 05:40 Carbon Dioxide 23 mmol/L (22-30) 12/12/16 05:40 Anion Gap 23 mmol/L 12/12/16 05:40 BUN 19 mg/dL (9-20) 12/12/16 05:40 Creatinine 1.0 mg/dL (0.8-1.5) 12/12/16 05:40 Estimated GFR > 60 ml/min 12/12/16 05:40 BUN/Creatinine Ratio 19.00 % 12/12/16 05:40 Glucose 79 mg/dL (75-100) 12/12/16 05:40 POC Glucose 101 (70-105) 12/14/16 07:15 Calcium 8.5 mg/dL (8.4-10.2) 12/12/16 05:40 Phosphorus 3.1 mg/dL (2.5-4.5) 12/10/16 05:29 Magnesium 1.9 mg/dL (1.7-2.3) 12/10/16 05:29 Iron 20 ug/dL (49-181) L 12/12/16 05:40 TIBC 212 mcg/dL (250-450) L 12/12/16 05:40 Total Bilirubin 2.6 mg/dL (0.1-1.2) H 12/14/16 06:52 Direct Bilirubin 2.1 mg/dL (0-0.2) H 12/14/16 06:52 Indirect Bilirubin 0.5 mg/dL 12/14/16 06:52 AST 554 units/L (5-40) H 12/14/16 06:52 ALT 166 units/L (7-56) H 12/14/16 06:52 Alkaline Phosphatase 591 units/L (35-129) H 12/14/16 06:52 Total Creatine Kinase 107 units/L (55-170) 12/08/16 00:58 CK-MB (CK-2) 2.1 ng/mL (0.0-4.0) 12/08/16 00:58 CK-MB (CK-2) Rel Index 1.9 (0-4) 12/08/16 00:58 Troponin T < 0.010 ng/mL (0.00-0.029) 12/08/16 00:58 Total Protein 6.4 g/dL (6.3-8.2) 12/14/16 06:52 Albumin 2.7 g/dL (3.9-5) L 12/14/16 06:52 Albumin/Globulin Ratio 0.7 % 12/14/16 06:52 Prostate Specific Ag 30.40 ng/mL (0.00-4.00) H 12/11/16 19:28 TSH 2.660 mlU/mL (0.270-4.200) 12/08/16 00:58 Free T4 1.50 ng/dL (0.76-1.46) H 12/08/16 00:58 Urine Color Samantha (Yellow) 12/08/16 02:15 Urine Turbidity Cloudy (Clear) 12/08/16 02:15 Urine pH 5.0 (5.0-7.0) 12/08/16 02:15 Ur Specific [place] 1.016 (1.003-1.030) 12/08/16 02:15 Urine Protein 100 mg/dl mg/dL (Negative) 12/08/16 02:15 Urine Glucose (UA) Neg mg/dL (Negative) 12/08/16 02:15 Urine Ketones Tr mg/dL (Negative) 12/08/16 02:15 Urine Blood Lg (Negative) 12/08/16 02:15 Urine Nitrite Neg (Negative) 12/08/16 02:15 Urine Bilirubin Neg (Negative) 12/08/16 02:15 Urine Urobilinogen 2.0 mg/dL (<2.0) 12/08/16 02:15 Ur Leukocyte Esterase Mod (Negative) 12/08/16 02:15 Urine WBC (Auto) 135.0 /HPF (0.0-6.0) H 12/08/16 02:15 Urine RBC (Auto) > 182.0 /HPF (0.0-6.0) 12/08/16 02:15 Urine Mucus Few /HPF 12/08/16 02:15 Urine Opiates Screen Presumptive negative 12/08/16 02:18 Urine Methadone Screen Presumptive negative 12/08/16 02:18 Ur Barbiturates Screen Presumptive negative 12/08/16 02:18 Ur Phencyclidine Scrn Presumptive negative 12/08/16 02:18 Ur Amphetamines Screen Presumptive negative 12/08/16 02:18 U Benzodiazepines Scrn Presumptive negative 12/08/16 02:18 Urine Cocaine Screen Presumptive negative 12/08/16 02:18 U Marijuana (THC) Screen Presumptive negative 12/08/16 02:18 Drugs of Abuse Note Disclamer 12/08/16 02:18
[2016-12-14] MEDS ORDERED: VERSED IV ONE (08:47)
[2016-12-14] MEDS ORDERED: SUBLIMAZE IV ONE (08:47)
--- NOTE | 2016-12-14 09:32 | Cat Scan Report ---
CT ABDOMEN AND PELVIS WITH CONTRAST HISTORY: Bladder mass, liver mass. TECHNIQUE: Helical CT following IV contrast. Sagittal and coronal reformatted images. FINDINGS: Correlation is made with a noncontrast CT performed 12/11/16. CT with contrast also demonstrates extensive irregular bladder wall thickening in the posterior wall and dome of the bladder concerning for transitional cell carcinoma or other bladder neoplasm. The ureters are normal course and caliber. The kidneys and adrenal glands are unremarkable. There are too many to count hypodense liver masses ranging from 1-4 cm. Some of the masses appear coalescent near the right hepatic dome. The biliary system, pancreas, spleen and visualized bowel loops are within normal limits. Slightly suspicious retrocaval lymph node measuring 1.2 cm is noted on image 43. Slightly suspicious left para-aortic lymph node measuring 1.3 cm is noted on image 39. An enlarged left inguinal lymph node measures 2.9 cm on image 87. Previous left hip replacement changes are noted. There are subtle sclerotic bony lesions identified in the right ischium, L5, L2, L1 and T12. These are suspicious for bony lesions. Heart size is normal. There is linear scarring in the right lower lobe and small right pleural effusion. IMPRESSION: Bladder neoplasm is suspected until proven otherwise. Two many to count liver masses consistent with metastatic disease. Scattered enlarged lymph nodes in the retroperitoneum and left inguinal region. Subtle sclerotic bony lesions in the thoracolumbar spine and pelvis concerning for metastatic bony lesions.
[2016-12-14] MEDS: HCTZ PO SCH (11:15)
[2016-12-14] MEDS: FEOSOL PO SCH ×2 (11:15→23:20)
[2016-12-14] MEDS: CARDIZEM CD PO SCH (11:15)
[2016-12-14] MEDS: LEVEMIR SUB-Q SCH (11:16)
[2016-12-14 11:20] LABS: Hematocrit 35.8 % (35.5-45.6); Hemoglobin 11.6 gm/dl (11.8-15.2); Mean Corpuscular HGB Conc 32 % (32-34); Mean Corpuscular Volume 79 fl (84-94); Platelet Count 398 K/mm3 (140-440); Red Blood Count 4.53 M/mm3 (3.65-5.03); White Blood Count 15.9 K/mm3 (4.5-11.0)
[2016-12-14] MEDS: MEGACE PO SCH (11:20)
[2016-12-14 11:22] LABS: Mean Corpuscular Hemoglobin 26 pg (28-32)
--- NOTE | 2016-12-14 11:28 | Cat Scan Report ---
CT BIOPSY LIVER HISTORY: Liver mass. DESCRIPTION OF PROCEDURE: Informed consent was obtained. Sterile technique was utilized. 1% lidocaine for skin anesthesia. Conscious sedation was accomplished with Versed and fentanyl. The patient was sedated for 15 minutes. Intra-observer time was 20 minutes. Independent cardiorespiratory monitoring by RN. Using CT guidance, a 17-gauge introducer needle was advanced into the right hepatic lobe at the leading edge of a 3 cm liver mass. Two 18-gauge core biopsies were obtained for pathology. The samples were deemed adequate by the pathologist on site. The patient tolerated the procedure well. Post procedure imaging demonstrate no evidence for hemorrhage. IMPRESSION: Successful CT-guided liver biopsy as described.
--- NOTE | 2016-12-14 12:30 | Gastroenterology Progress Note ---
Assessment and Plan - Patient Problems (1) Liver mass Current Visit: Yes Status: Acute Plan to address problem: - S/P biopsy today of (?) mets bladder cancer. - Elevated LFTs noted; due to significant tumor burden; this would not be amenable or resolve with ERCP/stent. - OK to d/c patient; Onco follow up has been arranged. - Will sign off; please call if needed. Subjective Date of service: 12/14/16 Principal diagnosis: Liver Masses Interval history: The CT scan findings and liver biopsy were reviewed with the patient. He denies any abdominal pain. He has no N/V/RUQ discomfort. Objective - Constitutional Vitals: Temp Pulse Resp BP Pulse Ox 98.1 F 72 16 131/62 97 12/14/16 08:06 12/14/16 11:15 12/14/16 09:37 12/14/16 11:15 12/14/16 10:59 General appearance: no acute distress - EENT Eyes: PERRL, EOM intact - Respiratory Respiratory effort: normal Respiratory: bilateral: CTA - Cardiovascular Rhythm: regular Heart Sounds: Present: S1 & S2 - Gastrointestinal General gastrointestinal: Present: soft, non-tender, non-distended - Labs CBC & Chem 7: 12/14/16 11:01 12/12/16 05:40 Labs: Laboratory Results - last 24 hr 12/13/16 12/13/16 12/13/16 11:28 15:49 19:39 WBC RBC Hgb Hct MCV MCH MCHC RDW Plt Count PT INR APTT POC Glucose 119 H 106 H 123 H Total Bilirubin Direct Bilirubin Indirect Bilirubin AST ALT Alkaline Phosphatase Total Protein Albumin Albumin/Globulin Ratio Hepatitis A IgM Ab Hep Bs Antigen Hep B Core IgM Ab Hepatitis C Antibody 12/14/16 12/14/16 12/14/16 06:52 06:52 06:52 WBC RBC Hgb Hct MCV MCH MCHC RDW Plt Count PT 15.0 H INR 1.19 H APTT 40.1 H POC Glucose Total Bilirubin 2.6 H Direct Bilirubin 2.1 H Indirect Bilirubin 0.5 AST 554 H ALT 166 H Alkaline Phosphatase 591 H Total Protein 6.4 Albumin 2.7 L Albumin/Globulin Ratio 0.7 Hepatitis A IgM Ab -1 Hep Bs Antigen Non-reactive Hep B Core IgM Ab Non-reactive Hepatitis C Antibody Non-reactive 12/14/16 12/14/16 07:15 11:01 WBC 15.9 H RBC 4.53 Hgb 11.6 L Hct 35.8 MCV 79 L MCH 26 L MCHC 32 RDW 16.0 H Plt Count 398 PT INR APTT POC Glucose 101 Total Bilirubin Direct Bilirubin Indirect Bilirubin AST ALT Alkaline Phosphatase Total Protein Albumin Albumin/Globulin Ratio Hepatitis A IgM Ab Hep Bs Antigen Hep B Core IgM Ab Hepatitis C Antibody
--- NOTE | 2016-12-14 14:03 | Progress Note ---
Assessment and Plan Pre-op cardiac evaluation Echo 12/2016: EF 55-60% negative stress test ~1 month ago per patient report Paroxysmal SVT currently sinus rhythm continue cardizem CD 120mg daily Bladder mass per urology, oncology Hypertension stable Diabetes Hyperlipidemia Tobacco use Stable cardiac status. Continue current management. Will see as needed. The patient has been seen in conjunction with Dr. Pappas who agrees with the assessment and plan of care. Subjective Date of service: 12/14/16 Principal diagnosis: paroxysmal SVT Interval history: The patient is resting in bed. No new complaints. Sinus rhythm on the monitor. Objective Last Vital Signs Temp 98.1 F 12/14/16 08:06 Pulse 72 12/14/16 11:15 Resp 16 12/14/16 09:37 BP 131/62 12/14/16 11:15 Pulse Ox 97 12/14/16 10:59 - Physical Examination General: No Apparent Distress HEENT: Positive: PERRL, Normocephaly, Mucus Membranes Moist Neck: Positive: neck supple, trachea midline Cardiac: Positive: Reg Rate and Rhythm, S1/S2 Lungs: Positive: clear to auscultation Neuro: Positive: Grossly Intact Abdomen: Positive: Soft, Active Bowel Sounds. Negative: Tender Skin: Positive: Clear. Negative: Rash Extremities: Present: normal. Absent: edema - Labs and Meds Cardiac Enzymes 12/14/16 Range/Units 06:52 AST 554 H (5-40) units/L Coagulation 12/14/16 Range/Units 06:52 PT 15.0 H (12.2-14.9) Sec. INR 1.19 H (0.87-1.13) APTT 40.1 H (24.2-36.6) Sec. CBC 12/14/16 Range/Units 11:01 WBC 15.9 H (4.5-11.0) K/mm3 RBC 4.53 (3.65-5.03) M/mm3 Hgb 11.6 L (11.8-15.2) gm/dl Hct 35.8 (35.5-45.6) % Plt Count 398 (140-440) K/mm3 Comprehensive Metabolic Panel 12/14/16 Range/Units 06:52 Direct Bilirubin 2.1 H (0-0.2) mg/dL Indirect Bilirubin 0.5 mg/dL AST 554 H (5-40) units/L ALT 166 H (7-56) units/L Alkaline Phosphatase 591 H (35-129) units/L Total Protein 6.4 (6.3-8.2) g/dL Albumin 2.7 L (3.9-5) g/dL - Imaging and Cardiology EKG: image reviewed Echo: report reviewed (12/2016: EF 55-60%) - Telemetry EKG Rhythm: Sinus Rhythm - EKG Sinus rhythms and dysrhythmias: sinus rhythm
--- NOTE | 2016-12-14 14:26 | Progress Note ---
Subjective Date of service: 12/14/16 Principal diagnosis: paroxysmal SVT Interval history: called by Dr. Betancur - called several times based on cards eval, pt can undergo cysto under general anesthiesia will set up next week Objective - Constitutional Vitals: Vital Signs - 12hr 12/14/16 12/14/16 12/14/16 04:00 08:06 09:06 Temperature 98.3 F 98.1 F Pulse Rate Pulse Rate [ Intra-Procedure ] Pulse Rate [ 85 Left Radial] Pulse Rate [ Post-Procedure] Pulse Rate [Pre 83 -Procedure] Pulse Rate [ 85 Right Radial] Respiratory 18 20 Rate Respiratory Rate [Intra- Procedure] Respiratory Rate [Post- Procedure] Respiratory 16 Rate [Pre- Procedure] Blood Pressure Blood Pressure [Intra- Procedure] Blood Pressure 135/63 [Left Arm] Blood Pressure [Post-Procedure ] Blood Pressure 135/66 [Pre-Procedure] Blood Pressure 115/56 [Right Arm] O2 Sat by Pulse 97 94 Oximetry O2 Sat by Pulse Oximetry [ Intra-Procedure ] O2 Sat by Pulse Oximetry [Post -Procedure] O2 Sat by Pulse 96 Oximetry [Pre- Procedure] 12/14/16 12/14/16 12/14/16 09:12 09:18 09:24 Temperature Pulse Rate Pulse Rate [ 91 H 96 H 90 Intra-Procedure ] Pulse Rate [ Left Radial] Pulse Rate [ Post-Procedure] Pulse Rate [Pre -Procedure] Pulse Rate [ Right Radial] Respiratory Rate Respiratory 20 20 22 Rate [Intra- Procedure] Respiratory Rate [Post- Procedure] Respiratory Rate [Pre- Procedure] Blood Pressure Blood Pressure 125/66 140/64 138/61 [Intra- Procedure] Blood Pressure [Left Arm] Blood Pressure [Post-Procedure ] Blood Pressure [Pre-Procedure] Blood Pressure [Right Arm] O2 Sat by Pulse Oximetry O2 Sat by Pulse 95 97 97 Oximetry [ Intra-Procedure ] O2 Sat by Pulse Oximetry [Post -Procedure] O2 Sat by Pulse Oximetry [Pre- Procedure] 12/14/16 12/14/16 12/14/16 09:37 10:59 11:15 Temperature Pulse Rate 72 Pulse Rate [ Intra-Procedure ] Pulse Rate [ Left Radial] Pulse Rate [ 93 H Post-Procedure] Pulse Rate [Pre -Procedure] Pulse Rate [ Right Radial] Respiratory Rate Respiratory Rate [Intra- Procedure] Respiratory 16 Rate [Post- Procedure] Respiratory Rate [Pre- Procedure] Blood Pressure 131/62 Blood Pressure [Intra- Procedure] Blood Pressure [Left Arm] Blood Pressure 129/77 [Post-Procedure ] Blood Pressure [Pre-Procedure] Blood Pressure [Right Arm] O2 Sat by Pulse 97 Oximetry O2 Sat by Pulse Oximetry [ Intra-Procedure ] O2 Sat by Pulse 94 Oximetry [Post -Procedure] O2 Sat by Pulse Oximetry [Pre- Procedure] - Labs CBC & Chem 7: 12/14/16 11:01 12/12/16 05:40 Labs: Abnormal lab results 12/13/16 12/13/16 12/14/16 Range/Units 15:49 19:39 06:52 WBC (4.5-11.0) K/mm3 Hgb (11.8-15.2) gm/dl MCV (84-94) fl MCH (28-32) pg RDW (13.2-15.2) % PT 15.0 H (12.2-14.9) Sec. INR 1.19 H (0.87-1.13) APTT 40.1 H (24.2-36.6) Sec. POC Glucose 106 H 123 H (70-105) Total Bilirubin (0.1-1.2) mg/dL Direct Bilirubin (0-0.2) mg/dL AST (5-40) units/L ALT (7-56) units/L Alkaline Phosphatase (35-129) units/L Albumin (3.9-5) g/dL 12/14/16 12/14/16 Range/Units 06:52 11:01 WBC 15.9 H (4.5-11.0) K/mm3 Hgb 11.6 L (11.8-15.2) gm/dl MCV 79 L (84-94) fl MCH 26 L (28-32) pg RDW 16.0 H (13.2-15.2) % PT (12.2-14.9) Sec. INR (0.87-1.13) APTT (24.2-36.6) Sec. POC Glucose (70-105) Total Bilirubin 2.6 H (0.1-1.2) mg/dL Direct Bilirubin 2.1 H (0-0.2) mg/dL AST 554 H (5-40) units/L ALT 166 H (7-56) units/L Alkaline Phosphatase 591 H (35-129) units/L Albumin 2.7 L (3.9-5) g/dL
--- NOTE | 2016-12-14 15:38 | Progress Note ---
Assessment and Plan Assessment and plan: Possible bladder mass * Urology following * Plan for cystoscopy on Saturday * patient was cleared by cardiology for the procedure * oncology has been consulted and following him Possible hepatitic mass * Possible underlying metastatic disease * GI following for further evaluation and recommendation * s/p CT guided liver biopsy Supraventricular tachycardia * Received adenosine in ER and converted to NSR * Started on calcium channel estuardo * no further intervention per cardiology * 2d echo showed preserved EF * had a negative stress test one month ago Acute renal failure * Secondary to vasomotor nephropathy versus ATN from possible hypotension during SVT * Resolved upon receiving IV fluids Metabolic acidosis * Likely Secondary to acute renal failure, Resolved UTI, ruled out * UA suggestive of UTI (+ WBC, RBC, LE) * Urine cultures negative * disContinued antibiotics on 12/12/16 * follow CBC Hematuria * Likely due to bladder mass * Wait for cystoscopy to be performed by urologist Iron deficient anemia * Likely secondary to hematuria * Continue replacement HTN, benign essential * BP controlled on diltiazem and HCTZ Diabetes mellitus type II * Continue long-acting insulin * Accu-Cheks and SSI to assess insulin requirements Tobacco abuse * Counseled regarding importance of quitting smoking DVT prophylaxis * d/c Heparin due to hematuria * place on SCD History Interval history: Patient seen and examined. Medical records and medication list reviewed. No acute event overnight noted by the RN. Patient denies any chest pain or difficulty breathing. Patient is tolerating diet. Status post CT-guided liver biopsy today, plan for cystoscopy on Saturday Discussed plan of care at bedside with patient. Hospitalist Physical - Physical exam Narrative exam: GENERAL: well-developed and well-nourished -[place] male lying on bed appeared to be in no discomfort. HEENT: Normocephalic. Atraumatic. No conjunctival congestion or icterus. Patient has moist mucous membranes. NECK: Supple. Trachea midline. CHEST/LUNGS: Clear to auscultated bilaterally, breathing nonlabored. No wheezes crackles or rhonchi. HEART/CARDIOVASCULAR: Regular in rate and rhythm. S1 and S2 positive. ABDOMEN: Abdomen is soft, nontender. Patient has normal bowel sounds. SKIN: There is no rash. Warm and dry. NEURO: No focal motor deficit. Follows command. MUSCULOSKELETAL: No joint effusion or tenderness. EXTRIMITY: No edema, no cyanosis or clubbing. PSYCH: Cooperative. - Constitutional Vitals: Temp Pulse Resp BP Pulse Ox 98.1 F 72 16 131/62 97 12/14/16 08:06 12/14/16 11:15 12/14/16 09:37 12/14/16 11:15 12/14/16 10:59 General appearance: Present: no acute distress Results - Labs CBC & Chem 7: 12/14/16 11:01 12/12/16 05:40 Labs: Laboratory Last Values WBC 15.9 K/mm3 (4.5-11.0) H 12/14/16 11:01 RBC 4.53 M/mm3 (3.65-5.03) 12/14/16 11:01 Hgb 11.6 gm/dl (11.8-15.2) L 12/14/16 11:01 Hct 35.8 % (35.5-45.6) 12/14/16 11:01 MCV 79 fl (84-94) L 12/14/16 11:01 MCH 26 pg (28-32) L 12/14/16 11:01 MCHC 32 % (32-34) 12/14/16 11:01 RDW 16.0 % (13.2-15.2) H 12/14/16 11:01 Plt Count 398 K/mm3 (140-440) 12/14/16 11:01 Lymph % (Auto) 10.4 % (13.4-35.0) L 12/12/16 05:40 [place] % (Auto) 11.0 % (0.0-7.3) H 12/12/16 05:40 Eos % (Auto) 0.7 % (0.0-4.3) 12/12/16 05:40 Baso % (Auto) 0.3 % (0.0-1.8) 12/12/16 05:40 Lymph # 1.6 K/mm3 (1.2-5.4) 12/12/16 05:40 [place] # 1.7 K/mm3 (0.0-0.8) H 12/12/16 05:40 Eos # 0.1 K/mm3 (0.0-0.4) 12/12/16 05:40 Baso # 0.1 K/mm3 (0.0-0.1) 12/12/16 05:40 Seg Neutrophils % 77.6 % (40.0-70.0) H 12/12/16 05:40 Seg Neutrophils # 12.0 K/mm3 (1.8-7.7) H 12/12/16 05:40 PT 15.0 Sec. (12.2-14.9) H 12/14/16 06:52 INR 1.19 (0.87-1.13) H 12/14/16 06:52 APTT 40.1 Sec. (24.2-36.6) H 12/14/16 06:52 Sodium 141 mmol/L (137-145) 12/12/16 05:40 Potassium 4.6 mmol/L (3.6-5.0) 12/12/16 05:40 Chloride 99.2 mmol/L (98-107) 12/12/16 05:40 Carbon Dioxide 23 mmol/L (22-30) 12/12/16 05:40 Anion Gap 23 mmol/L 12/12/16 05:40 BUN 19 mg/dL (9-20) 12/12/16 05:40 Creatinine 1.0 mg/dL (0.8-1.5) 12/12/16 05:40 Estimated GFR > 60 ml/min 12/12/16 05:40 BUN/Creatinine Ratio 19.00 % 12/12/16 05:40 Glucose 79 mg/dL (75-100) 12/12/16 05:40 POC Glucose 122 (70-105) H 12/14/16 11:49 Calcium 8.5 mg/dL (8.4-10.2) 12/12/16 05:40 Phosphorus 3.1 mg/dL (2.5-4.5) 12/10/16 05:29 Magnesium 1.9 mg/dL (1.7-2.3) 12/10/16 05:29 Iron 20 ug/dL (49-181) L 12/12/16 05:40 TIBC 212 mcg/dL (250-450) L 12/12/16 05:40 Total Bilirubin 2.6 mg/dL (0.1-1.2) H 12/14/16 06:52 Direct Bilirubin 2.1 mg/dL (0-0.2) H 12/14/16 06:52 Indirect Bilirubin 0.5 mg/dL 12/14/16 06:52 AST 554 units/L (5-40) H 12/14/16 06:52 ALT 166 units/L (7-56) H 12/14/16 06:52 Alkaline Phosphatase 591 units/L (35-129) H 12/14/16 06:52 Total Creatine Kinase 107 units/L (55-170) 12/08/16 00:58 CK-MB (CK-2) 2.1 ng/mL (0.0-4.0) 12/08/16 00:58 CK-MB (CK-2) Rel Index 1.9 (0-4) 12/08/16 00:58 Troponin T < 0.010 ng/mL (0.00-0.029) 12/08/16 00:58 Total Protein 6.4 g/dL (6.3-8.2) 12/14/16 06:52 Albumin 2.7 g/dL (3.9-5) L 12/14/16 06:52 Albumin/Globulin Ratio 0.7 % 12/14/16 06:52 Prostate Specific Ag 30.40 ng/mL (0.00-4.00) H 12/11/16 19:28 TSH 2.660 mlU/mL (0.270-4.200) 12/08/16 00:58 Free T4 1.50 ng/dL (0.76-1.46) H 12/08/16 00:58 Urine Color Samantha (Yellow) 12/08/16 02:15 Urine Turbidity Cloudy (Clear) 12/08/16 02:15 Urine pH 5.0 (5.0-7.0) 12/08/16 02:15 Ur Specific [place] 1.016 (1.003-1.030) 12/08/16 02:15 Urine Protein 100 mg/dl mg/dL (Negative) 12/08/16 02:15 Urine Glucose (UA) Neg mg/dL (Negative) 12/08/16 02:15 Urine Ketones Tr mg/dL (Negative) 12/08/16 02:15 Urine Blood Lg (Negative) 12/08/16 02:15 Urine Nitrite Neg (Negative) 12/08/16 02:15 Urine Bilirubin Neg (Negative) 12/08/16 02:15 Urine Urobilinogen 2.0 mg/dL (<2.0) 12/08/16 02:15 Ur Leukocyte Esterase Mod (Negative) 12/08/16 02:15 Urine WBC (Auto) 135.0 /HPF (0.0-6.0) H 12/08/16 02:15 Urine RBC (Auto) > 182.0 /HPF (0.0-6.0) 12/08/16 02:15 Urine Mucus Few /HPF 12/08/16 02:15 Urine Opiates Screen Presumptive negative 12/08/16 02:18 Urine Methadone Screen Presumptive negative 12/08/16 02:18 Ur Barbiturates Screen Presumptive negative 12/08/16 02:18 Ur Phencyclidine Scrn Presumptive negative 12/08/16 02:18 Ur Amphetamines Screen Presumptive negative 12/08/16 02:18 U Benzodiazepines Scrn Presumptive negative 12/08/16 02:18 Urine Cocaine Screen Presumptive negative 12/08/16 02:18 U Marijuana (THC) Screen Presumptive negative 12/08/16 02:18 Drugs of Abuse Note Disclamer 12/08/16 02:18 Hepatitis A IgM Ab -1 (NonReactive) 12/14/16 06:52 Hep Bs Antigen Non-reactive (Negative) 12/14/16 06:52 Hep B Core IgM Ab Non-reactive (NonReactive) 12/14/16 06:52 Hepatitis C Antibody Non-reactive (NonReactive) 12/14/16 06:52
[2016-12-14] MEDS ORDERED: ZOFRAN IV PRN (18:38)
--- NOTE | 2016-12-15 09:33 | Progress Note ---
Subjective Principal diagnosis: paroxysmal SVT Interval history: 61 YO Male with DM, Nicotine Dependence, HTN, presents to ED for evaluation. Pt states that he has been experiencing episodes of shortness of breath and palpitations over the past 2 weeks. CTAP (12-11-16) BPH, LIVER LESIONS A/P CHECK PSA CYSTO saturday Objective - Constitutional Vitals: Vital Signs - 12hr 12/14/16 12/14/16 12/15/16 22:00 23:23 00:00 Temperature 97.8 F Pulse Rate [ Apical] Pulse Rate [ 85 90 Right Radial] Respiratory 18 18 20 Rate Blood Pressure 133/61 [Right Arm] O2 Sat by Pulse 93 Oximetry 12/15/16 12/15/16 04:00 08:00 Temperature 97.7 F 97.6 F Pulse Rate [ 80 Apical] Pulse Rate [ 84 Right Radial] Respiratory 20 20 Rate Blood Pressure 130/60 129/65 [Right Arm] O2 Sat by Pulse 94 94 Oximetry - Labs CBC & Chem 7: 12/14/16 11:01 12/12/16 05:40 Labs: Abnormal lab results 12/14/16 12/14/16 12/14/16 Range/Units 11:01 11:49 15:55 WBC 15.9 H (4.5-11.0) K/mm3 Hgb 11.6 L (11.8-15.2) gm/dl MCV 79 L (84-94) fl MCH 26 L (28-32) pg RDW 16.0 H (13.2-15.2) % POC Glucose 122 H 177 H (70-105) 12/14/16 Range/Units 21:21 WBC (4.5-11.0) K/mm3 Hgb (11.8-15.2) gm/dl MCV (84-94) fl MCH (28-32) pg RDW (13.2-15.2) % POC Glucose 179 H (70-105)
[2016-12-15] MEDS: DILAUDID IV PRN ×2 (10:18→20:11)
[2016-12-15] MEDS: NOVOLOG SUB-Q SCH ×4 (10:19→23:44)
[2016-12-15] MEDS: HCTZ PO SCH (10:20)
[2016-12-15] MEDS: CARDIZEM CD PO SCH (10:20)
[2016-12-15] MEDS: FEOSOL PO SCH ×2 (10:20→23:43)
[2016-12-15] MEDS: LEVEMIR SUB-Q SCH (10:21)
[2016-12-15] MEDS: MEGACE PO SCH (10:23)
[2016-12-15] MEDS: HEPARIN SUB-Q SCH ×3 (10:23→23:44)
--- NOTE | 2016-12-15 15:15 | Progress Note ---
Assessment and Plan Assessment and plan: Possible bladder mass * Urology following * Plan for cystoscopy on Saturday * patient was cleared by cardiology for the procedure * oncology has been consulted and following him Possible hepatitic mass * Possible underlying metastatic disease * GI following for further evaluation and recommendation * s/p CT guided liver biopsy Supraventricular tachycardia * Received adenosine in ER and converted to NSR * Started on calcium channel estuardo * no further intervention per cardiology * 2d echo showed preserved EF * had a negative stress test one month ago Acute renal failure * Secondary to vasomotor nephropathy versus ATN from possible hypotension during SVT * Resolved upon receiving IV fluids Metabolic acidosis * Likely Secondary to acute renal failure, Resolved UTI, ruled out * UA suggestive of UTI (+ WBC, RBC, LE) * Urine cultures negative * disContinued antibiotics on 12/12/16 * follow CBC Hematuria * Likely due to bladder mass * Wait for cystoscopy to be performed by urologist Iron deficient anemia * Likely secondary to hematuria * Continue replacement HTN, benign essential * BP controlled on diltiazem and HCTZ Diabetes mellitus type II * Continue long-acting insulin * Accu-Cheks and SSI Tobacco abuse * Counseled regarding importance of quitting smoking DVT prophylaxis * d/c Heparin due to hematuria * placed on SCD History Interval history: Patient seen and examined. Medical records and medication list reviewed. No acute event overnight noted by the RN. Patient denies any chest pain or difficulty breathing. Patient is tolerating diet. Status post CT-guided liver biopsy but result pending, plan for cystoscopy on Saturday Discussed plan of care at bedside with patient. Hospitalist Physical - Physical exam Narrative exam: GENERAL: well-developed and well-nourished -[place] male lying on bed appeared to be in no discomfort. HEENT: Normocephalic. Atraumatic. No conjunctival congestion or icterus. Patient has moist mucous membranes. NECK: Supple. Trachea midline. CHEST/LUNGS: Clear to auscultated bilaterally, breathing nonlabored. No wheezes crackles or rhonchi. HEART/CARDIOVASCULAR: Regular in rate and rhythm. S1 and S2 positive. ABDOMEN: Abdomen is soft, nontender. Patient has normal bowel sounds. SKIN: There is no rash. Warm and dry. NEURO: No focal motor deficit. Follows command. MUSCULOSKELETAL: No joint effusion or tenderness. EXTRIMITY: No edema, no cyanosis or clubbing. PSYCH: Cooperative. - Constitutional Vitals: Temp Pulse Resp BP Pulse Ox 97.2 F L 90 20 143/63 95 12/15/16 11:30 12/15/16 11:30 12/15/16 11:30 12/15/16 11:30 12/15/16 11:30 General appearance: Present: no acute distress Results - Labs CBC & Chem 7: 12/14/16 11:01 12/12/16 05:40 Labs: Laboratory Last Values WBC 15.9 K/mm3 (4.5-11.0) H 12/14/16 11:01 RBC 4.53 M/mm3 (3.65-5.03) 12/14/16 11:01 Hgb 11.6 gm/dl (11.8-15.2) L 12/14/16 11:01 Hct 35.8 % (35.5-45.6) 12/14/16 11:01 MCV 79 fl (84-94) L 12/14/16 11:01 MCH 26 pg (28-32) L 12/14/16 11:01 MCHC 32 % (32-34) 12/14/16 11:01 RDW 16.0 % (13.2-15.2) H 12/14/16 11:01 Plt Count 398 K/mm3 (140-440) 12/14/16 11:01 Lymph % (Auto) 10.4 % (13.4-35.0) L 12/12/16 05:40 [place] % (Auto) 11.0 % (0.0-7.3) H 12/12/16 05:40 Eos % (Auto) 0.7 % (0.0-4.3) 12/12/16 05:40 Baso % (Auto) 0.3 % (0.0-1.8) 12/12/16 05:40 Lymph # 1.6 K/mm3 (1.2-5.4) 12/12/16 05:40 [place] # 1.7 K/mm3 (0.0-0.8) H 12/12/16 05:40 Eos # 0.1 K/mm3 (0.0-0.4) 12/12/16 05:40 Baso # 0.1 K/mm3 (0.0-0.1) 12/12/16 05:40 Seg Neutrophils % 77.6 % (40.0-70.0) H 12/12/16 05:40 Seg Neutrophils # 12.0 K/mm3 (1.8-7.7) H 12/12/16 05:40 PT 15.0 Sec. (12.2-14.9) H 12/14/16 06:52 INR 1.19 (0.87-1.13) H 12/14/16 06:52 APTT 40.1 Sec. (24.2-36.6) H 12/14/16 06:52 Sodium 141 mmol/L (137-145) 12/12/16 05:40 Potassium 4.6 mmol/L (3.6-5.0) 12/12/16 05:40 Chloride 99.2 mmol/L (98-107) 12/12/16 05:40 Carbon Dioxide 23 mmol/L (22-30) 12/12/16 05:40 Anion Gap 23 mmol/L 12/12/16 05:40 BUN 19 mg/dL (9-20) 12/12/16 05:40 Creatinine 1.0 mg/dL (0.8-1.5) 12/12/16 05:40 Estimated GFR > 60 ml/min 12/12/16 05:40 BUN/Creatinine Ratio 19.00 % 12/12/16 05:40 Glucose 79 mg/dL (75-100) 12/12/16 05:40 POC Glucose 179 (70-105) H 12/14/16 21:21 Calcium 8.5 mg/dL (8.4-10.2) 12/12/16 05:40 Phosphorus 3.1 mg/dL (2.5-4.5) 12/10/16 05:29 Magnesium 1.9 mg/dL (1.7-2.3) 12/10/16 05:29 Iron 20 ug/dL (49-181) L 12/12/16 05:40 TIBC 212 mcg/dL (250-450) L 12/12/16 05:40 Total Bilirubin 2.6 mg/dL (0.1-1.2) H 12/14/16 06:52 Direct Bilirubin 2.1 mg/dL (0-0.2) H 12/14/16 06:52 Indirect Bilirubin 0.5 mg/dL 12/14/16 06:52 AST 554 units/L (5-40) H 12/14/16 06:52 ALT 166 units/L (7-56) H 12/14/16 06:52 Alkaline Phosphatase 591 units/L (35-129) H 12/14/16 06:52 Total Creatine Kinase 107 units/L (55-170) 12/08/16 00:58 CK-MB (CK-2) 2.1 ng/mL (0.0-4.0) 12/08/16 00:58 CK-MB (CK-2) Rel Index 1.9 (0-4) 12/08/16 00:58 Troponin T < 0.010 ng/mL (0.00-0.029) 12/08/16 00:58 Total Protein 6.4 g/dL (6.3-8.2) 12/14/16 06:52 Albumin 2.7 g/dL (3.9-5) L 12/14/16 06:52 Albumin/Globulin Ratio 0.7 % 12/14/16 06:52 Prostate Specific Ag 35.07 ng/mL (0.00-4.00) H 12/15/16 10:42 TSH 2.660 mlU/mL (0.270-4.200) 12/08/16 00:58 Free T4 1.50 ng/dL (0.76-1.46) H 12/08/16 00:58 Urine Color Samantha (Yellow) 12/08/16 02:15 Urine Turbidity Cloudy (Clear) 12/08/16 02:15 Urine pH 5.0 (5.0-7.0) 12/08/16 02:15 Ur Specific [place] 1.016 (1.003-1.030) 12/08/16 02:15 Urine Protein 100 mg/dl mg/dL (Negative) 12/08/16 02:15 Urine Glucose (UA) Neg mg/dL (Negative) 12/08/16 02:15 Urine Ketones Tr mg/dL (Negative) 12/08/16 02:15 Urine Blood Lg (Negative) 12/08/16 02:15 Urine Nitrite Neg (Negative) 12/08/16 02:15 Urine Bilirubin Neg (Negative) 12/08/16 02:15 Urine Urobilinogen 2.0 mg/dL (<2.0) 12/08/16 02:15 Ur Leukocyte Esterase Mod (Negative) 12/08/16 02:15 Urine WBC (Auto) 135.0 /HPF (0.0-6.0) H 12/08/16 02:15 Urine RBC (Auto) > 182.0 /HPF (0.0-6.0) 12/08/16 02:15 Urine Mucus Few /HPF 12/08/16 02:15 Urine Opiates Screen Presumptive negative 12/08/16 02:18 Urine Methadone Screen Presumptive negative 12/08/16 02:18 Ur Barbiturates Screen Presumptive negative 12/08/16 02:18 Ur Phencyclidine Scrn Presumptive negative 12/08/16 02:18 Ur Amphetamines Screen Presumptive negative 12/08/16 02:18 U Benzodiazepines Scrn Presumptive negative 12/08/16 02:18 Urine Cocaine Screen Presumptive negative 12/08/16 02:18 U Marijuana (THC) Screen Presumptive negative 12/08/16 02:18 Drugs of Abuse Note Disclamer 12/08/16 02:18 Hepatitis A IgM Ab -1 (NonReactive) 12/14/16 06:52 Hep Bs Antigen Non-reactive (Negative) 12/14/16 06:52 Hep B Core IgM Ab Non-reactive (NonReactive) 12/14/16 06:52 Hepatitis C Antibody Non-reactive (NonReactive) 12/14/16 06:52
[2016-12-16] MEDS: DILAUDID IV PRN ×4 (04:15→22:47)
[2016-12-16] MEDS: HEPARIN SUB-Q SCH ×3 (07:06→22:47)
[2016-12-16] MEDS: NOVOLOG SUB-Q SCH ×3 (07:29→22:51)
[2016-12-16] MEDS: FEOSOL PO SCH ×2 (12:55→22:45)
[2016-12-16] MEDS: CARDIZEM CD PO SCH (12:55)
[2016-12-16] MEDS: LEVEMIR SUB-Q SCH (12:56)
[2016-12-16] MEDS: HCTZ PO SCH (12:56)
[2016-12-16] MEDS: MEGACE PO SCH (12:57)
[2016-12-17] MEDS: DILAUDID IV PRN (01:56)
[2016-12-17] MEDS: HEPARIN SUB-Q SCH ×2 (06:44→18:26)
[2016-12-17 06:47] LABS: Basophils % (Auto) 0.1 % (0.0-1.8); Eosinophils % (Auto) 0.1 % (0.0-4.3); Hematocrit 37.5 % (35.5-45.6); Hemoglobin 12.2 gm/dl (11.8-15.2); Mean Corpuscular HGB Conc 33 % (32-34); Mean Corpuscular Volume 79 fl (84-94); Platelet Count 405 K/mm3 (140-440); Red Blood Count 4.78 M/mm3 (3.65-5.03); Red Cell Distribution Width 16.6 % (13.2-15.2); White Blood Count 15.6 K/mm3 (4.5-11.0)
[2016-12-17 06:57] LABS: Mean Corpuscular Hemoglobin 26 pg (28-32)
[2016-12-17 07:01] LABS: Calcium 9.2 mg/dL (8.4-10.2); Chloride 89.1 mmol/L (98-107)
[2016-12-17] MEDS: NOVOLOG SUB-Q SCH ×4 (09:08→23:21)
--- NOTE | 2016-12-17 09:21 | Hem/Onc Progress Note ---
Assessment and Plan Patient's creatinine has gone up. Discussed with hospitalist.? Obstruction. May need renal evaluation. Cystoscopy today. Follow-up on liver biopsy. Subjective Date of service: 12/17/16 Interval history: Patient feels weak. For cystoscopy today. He complains of dizziness. Objective - Constitutional Vitals: Last Vital Signs Temp 97.6 F 12/17/16 07:46 Pulse 76 12/17/16 07:46 Resp 20 12/17/16 07:46 BP 126/57 12/17/16 07:46 Pulse Ox 98 12/17/16 07:46 Pain Intensity (0-10): 4/10 Performance status: 3-limited selfcare - Neck Neck: supple - Respiratory Respiratory: bilateral: diminished - Cardiovascular Rhythm: regular Extremity abnormal: edema - Gastrointestinal General gastrointestinal: Present: soft - Labs Lab Results: Laboratory Results - last 24 hr 12/16/16 12/16/16 12/16/16 08:10 12:25 17:03 WBC RBC Hgb Hct MCV MCH MCHC RDW Plt Count Lymph % (Auto) [place] % (Auto) Eos % (Auto) Baso % (Auto) Lymph # [place] # Eos # Baso # Seg Neutrophils % Seg Neutrophils # Sodium Potassium Chloride Carbon Dioxide Anion Gap BUN Creatinine Estimated GFR BUN/Creatinine Ratio Glucose POC Glucose 52 L 92 75 Calcium 12/16/16 12/17/16 12/17/16 22:44 05:17 05:17 WBC 15.6 H RBC 4.78 Hgb 12.2 Hct 37.5 MCV 79 L MCH 26 L MCHC 33 RDW 16.6 H Plt Count 405 Lymph % (Auto) 5.8 L [place] % (Auto) 8.5 H Eos % (Auto) 0.1 Baso % (Auto) 0.1 Lymph # 0.9 L [place] # 1.3 H Eos # 0.0 Baso # 0.0 Seg Neutrophils % 85.5 H Seg Neutrophils # 13.4 H Sodium 134 L Potassium 6.0 H D Chloride 89.1 L Carbon Dioxide 15 L D Anion Gap 36 BUN 63 H Creatinine 3.0 H D Estimated GFR 26 BUN/Creatinine Ratio 21.00 Glucose 122 H POC Glucose 67 L Calcium 9.2
[2016-12-17] MEDS ORDERED: SODIUM BICARBONATE IV ONE ×5 (09:36→19:00)
[2016-12-17] MEDS ORDERED: CALCIUM GLUCONATE 2,000 MG in NACL 0.9% 100 ML IV ONE (10:00)
--- NOTE | 2016-12-17 10:14 | Consultation ---
History of Present Illness - Reason for Consult Consult date: 12/17/16 acute renal failure, hyperkalemia, metabolic acidosis - History of Present Illness Patient is a 61 YO AAM with history significant for DM type 2, HTN, hyeprlipidemia and Nicotine Dependence came to ED for evaluation of shortness of breath and palpitations of 2 weeks duration. Pt was found to have SVT which was converted to SR with IV Adenosine. On further evaluation of h/o hematuria he was found to have bladder mass with suspected mets. His admission creatinine was 2.4 which did improve to 1 but his creatinine is 3 today. Patient received IV contrast 3 days ago. His K is 6 and has metabolic acidosis. Patient is unable to provide a detailed history at this time. Past History Past Medical History: diabetes, hypertension, hyperlipidemia Past Surgical History: total hip replacement Social history: , lives with family, smoking. denies: alcohol abuse, prescription drug abuse Family history: diabetes, hypertension Medications and Allergies Allergies Allergy/AdvReac Type Severity Reaction Status Date / Time Penicillins Allergy Rash Verified 12/08/16 00:52 Home Medications Medication Instructions Recorded Confirmed Last Taken Type Amlodipine Besylate [Norvasc] 2.5 mg PO DAILY 12/08/16 12/08/16 1 Day Ago History 2.5 AtorvaSTATin [Lipitor] 40 mg PO DAILY 12/08/16 12/08/16 1 Day Ago History 40 Hydrochlorothiazide [HCTZ] 25 mg PO QDAY 12/08/16 12/08/16 1 Day Ago History 25 Insulin Glargine [Lantus VIAL] 25 units SQ DAILY 12/08/16 12/08/16 1 Day Ago History Losartan [Cozaar] 100 mg PO QDAY 12/08/16 12/08/16 1 Day Ago History 100 Metformin HCl [Fortamet ER] 1,000 mg PO QDAY 12/08/16 12/08/16 1 Day Ago History 1000 Pioglitazone HCl 30 mg PO DAILY 12/08/16 12/08/16 1 Day Ago History 30 glyBURIDE [Diabeta] 5 mg PO BID 12/08/16 12/08/16 1 Day Ago History 5 Active Meds: Active Medications Acetaminophen (Tylenol) 650 mg PO Q4H PRN PRN Reason: Pain MILD(1-3)/Fever >100.5/RUSSELL Last Admin: 12/11/16 03:11 Dose: 650 mg Atorvastatin Calcium (Lipitor) 40 mg PO DAILY [facility] Last Admin: 12/16/16 12:57 Dose: 40 mg Dextrose (D50w (25gm)) 50 ml IV PRN PRN PRN Reason: Hypoglycemia Diltiazem HCl (Cardizem Cd) 120 mg PO QDAY [facility] Last Admin: 12/16/16 12:55 Dose: 120 mg Ferrous Sulfate (Feosol) 325 mg PO BID [facility] Last Admin: 12/16/16 22:45 Dose: 325 mg Heparin Sodium (Porcine) (Heparin) 5,000 unit SUB-Q Q8HR [facility] Last Admin: 12/17/16 06:44 Dose: Not Given Hydrochlorothiazide (Hctz) 25 mg PO QDAY [facility] Last Admin: 12/16/16 12:56 Dose: 25 mg Hydromorphone HCl (Dilaudid) 1 mg IV Q3H PRN PRN Reason: Pain , Severe (7-10) Last Admin: 12/17/16 01:56 Dose: 1 mg Sodium Chloride (Nacl 0.9% 1000 Ml) 1,000 mls @ 100 mls/hr IV DIRECT [facility] Last Admin: 12/13/16 03:45 Dose: 100 mls/hr Insulin Aspart (Novolog) 0 units SUB-Q ACHS [facility] PRN Reason: Protocol Last Admin: 12/17/16 09:09 Dose: Not Given Insulin Detemir (Levemir) 25 units SUB-Q DAILY [facility] Last Admin: 12/16/16 12:56 Dose: 25 units Megestrol Acetate (Megace) 400 mg PO QDAY [facility] Last Admin: 12/16/16 12:57 Dose: 400 mg Ondansetron HCl (Zofran) 4 mg IV Q6H PRN PRN Reason: Nausea And Vomiting Oxycodone/Acetaminophen (Percocet 5/325) 2 tab PO Q6H PRN PRN Reason: Pain, Moderate (4-6) Last Admin: 12/13/16 16:11 Dose: 2 tab Review of Systems Constitutional: no fever, no chills Ears, nose, mouth and throat: no epistaxis Cardiovascular: palpitations, edema, shortness of breath, no chest pain, no syncope Respiratory: no cough Gastrointestinal: no abdominal pain Genitourinary Male: hematuria Rectal: no bleeding Musculoskeletal: redness of joints Integumentary: no rash Neurological: no paralysis Hematologic/Lymphatic: easy bleeding Exam - Vital Signs Vital signs: Vital Signs Temp Pulse Resp BP Pulse Ox 98.8 F 167 H 16 100/80 100 12/08/16 00:43 12/08/16 00:43 12/08/16 00:43 12/08/16 00:43 12/08/16 00:43 - General Appearance General appearance: well-developed, well-nourished, other (somnolent) EENT: PERRL, mucous membranes moist, hearing intact, vision intact Neck: Present: neck supple Respiratory: Clear to Ascultation Heart: regular, S1S2, no murmurs Gastrointestinal: Present: normoactive bowel sounds. Absent: tenderness, distended, guarding Integumentary: no rash Neurologic: no focal deficit, no asterixis, alert and oriented x3, CN 3-12 intact Musculoskeletal: Present: other (1+ pitting edema of both LEs noted) Psychiatric: cooperative Results - Lab Results 12/17/16 05:17 12/17/16 05:17 Most recent lab results Calcium 9.2 mg/dL (8.4-10.2) 12/17/16 05:17 Phosphorus 3.1 mg/dL (2.5-4.5) 12/10/16 05:29 Magnesium 1.9 mg/dL (1.7-2.3) 12/10/16 05:29 - Image Kidney/bladder ultrasound: other Assessment and Plan - Patient Problems (1) FAVIOLA (acute kidney injury) Current Visit: Yes Status: Acute Plan to address problem: Acute kidney Injury likely related to contrast induced Nephropathy. Continue IV fluids. Patient is hemodynamically stable. Urien studies ordered. (2) Hyperkalemia Current Visit: Yes Status: Acute Plan to address problem: Hyperkalemia in the setting of FAVIOLA. Insulin-Dextrose, Calcium gluconate and Kayexalate ordered. Change IV fluids to D5NS. Monitor K level. (3) Metabolic acidosis Current Visit: Yes Status: Acute Plan to address problem: In the setting of FAVIOLA. Monitor Acid-base status. (4) Bladder mass Current Visit: Yes Status: Acute Plan to address problem: Followed by Urologist. (5) Diabetes Current Visit: Yes Status: Acute (6) HTN (hypertension) Current Visit: Yes Status: Acute Plan to address problem: BP well controlled.
[2016-12-17] MEDS ORDERED: D50W (25GM) IV ONE ×2 (10:17→10:22)
[2016-12-17] MEDS ORDERED: KIONEX PO PRN (10:21)
--- NOTE | 2016-12-17 10:26 | Progress Note ---
Assessment and Plan Assessment and plan: Acute hypoxic respiratory failure * Likely due to severe metabolic acidosis * Cannot rule out underlying infection, start antibiotics again, get blood culture repeat urine culture * continue him on nonrebreather, may need intubation * get stat ABG, consult urban design consultant * Continue Breathing treatment, monitor clinically Status post fall * We will get CT scan of the head Possible bladder mass * Urology following * Was planned for cystoscopy today, which is now holds for declining clinical status * patient was cleared by cardiology for the procedure * oncology has been consulted and following him Possible hepatitic mass * Possible underlying metastatic disease * GI following for further evaluation and recommendation * s/p CT guided liver biopsy Supraventricular tachycardia * Received adenosine in ER and converted to NSR * Started on calcium channel estuardo * no further intervention per cardiology * 2d echo showed preserved EF * had a negative stress test one month ago Acute renal failure * Secondary to vasomotor nephropathy versus ATN from possible hypotension during SVT * Resolved upon receiving IV fluids Severe Metabolic acidosis * Likely Secondary to acute renal failure, * And on bicarbonate drip UTI, ruled out * UA was positive for WBC in light of significant hematuria * Urine cultures negative * disContinued antibiotics on 12/12/16 * follow CBC Hematuria * Likely due to bladder mass * Wait for cystoscopy to be performed by urologist Iron deficient anemia * Likely secondary to hematuria * Continue replacement Hypertension could be due to severe metabolic acidosis or underlying infection * Patient was on diltiazem and HCTZ * Blood pressure dropped today, continue on IV fluid hydration * If does not improve with IV fluid may need to start on pressor Diabetes mellitus type II * Continue long-acting insulin * Accu-Cheks and SSI Tobacco abuse * Counseled following admission regarding importance of quitting smoking DVT prophylaxis * d/c Heparin due to hematuria * placed on SCD The high probability of a clinically significant, sudden or life threatening deterioration of the system(s) required my full and direct attention, intervention and personal management. The aggregate critical care time was [45] minutes. This time is in addition to time spent performing reported procedures but includes the following: [x] Data Review and interpretation [x] Patient assessment and monitoring of vital signs [x] Documentation [x] Medication orders and management History Interval history: Patient seen and examined. Medical records and medication list reviewed. Patient was found on the floor in his room. Code med was called, patient was hyperventilating but unresponsive, pulse was intact Patient was placed on nonrebreather and transferred to ICU History no function acutely worse today with a potassium level of 6 He received 5 units of insulin with 1 ampule of D50, 2 g of calcium gluconate, 1 ampule of sodium bicarbonate, before transferring to ICU Hospitalist Physical - Physical exam Narrative exam: GENERAL: well-developed and well-nourished -German male lying on bed , Unresponsive HEENT: Normocephalic. Atraumatic. No conjunctival congestion or icterus. Patient has moist mucous membranes. NECK: Supple. Trachea midline. CHEST/LUNGS: Clear to auscultated bilaterally, No wheezes crackles or rhonchi. Hyperventilating HEART/CARDIOVASCULAR: Tachycardic. S1 and S2 positive. ABDOMEN: Abdomen is soft, nontender. Patient has normal bowel sounds. SKIN: There is no rash. Cold clammy extremities. NEURO: Does not follow command MUSCULOSKELETAL: No joint effusion or tenderness. EXTRIMITY: No edema, no cyanosis or clubbing. PSYCH: Unable to assess - Constitutional Vitals: Temp Pulse Resp BP Pulse Ox 97.6 F 76 20 126/57 98 12/17/16 07:46 12/17/16 07:46 12/17/16 07:46 12/17/16 07:46 12/17/16 07:46 General appearance: Present: no acute distress Results - Labs CBC & Chem 7: 12/17/16 15:00 12/17/16 15:00 Labs: Laboratory Last Values WBC 15.6 K/mm3 (4.5-11.0) H 12/17/16 05:17 RBC 4.78 M/mm3 (3.65-5.03) 12/17/16 05:17 Hgb 12.2 gm/dl (11.8-15.2) 12/17/16 05:17 Hct 37.5 % (35.5-45.6) 12/17/16 05:17 MCV 79 fl (84-94) L 12/17/16 05:17 MCH 26 pg (28-32) L 12/17/16 05:17 MCHC 33 % (32-34) 12/17/16 05:17 RDW 16.6 % (13.2-15.2) H 12/17/16 05:17 Plt Count 405 K/mm3 (140-440) 12/17/16 05:17 Lymph % (Auto) 5.8 % (13.4-35.0) L 12/17/16 05:17 [place] % (Auto) 8.5 % (0.0-7.3) H 12/17/16 05:17 Eos % (Auto) 0.1 % (0.0-4.3) 12/17/16 05:17 Baso % (Auto) 0.1 % (0.0-1.8) 12/17/16 05:17 Lymph # 0.9 K/mm3 (1.2-5.4) L 12/17/16 05:17 [place] # 1.3 K/mm3 (0.0-0.8) H 12/17/16 05:17 Eos # 0.0 K/mm3 (0.0-0.4) 12/17/16 05:17 Baso # 0.0 K/mm3 (0.0-0.1) 12/17/16 05:17 Seg Neutrophils % 85.5 % (40.0-70.0) H 12/17/16 05:17 Seg Neutrophils # 13.4 K/mm3 (1.8-7.7) H 12/17/16 05:17 PT 15.0 Sec. (12.2-14.9) H 12/14/16 06:52 INR 1.19 (0.87-1.13) H 12/14/16 06:52 APTT 40.1 Sec. (24.2-36.6) H 12/14/16 06:52 Sodium 134 mmol/L (137-145) L 12/17/16 05:17 Potassium 6.0 mmol/L (3.6-5.0) H D 12/17/16 05:17 Chloride 89.1 mmol/L (98-107) L 12/17/16 05:17 Carbon Dioxide 15 mmol/L (22-30) L D 12/17/16 05:17 Anion Gap 36 mmol/L 12/17/16 05:17 BUN 63 mg/dL (9-20) H 12/17/16 05:17 Creatinine 3.0 mg/dL (0.8-1.5) H D 12/17/16 05:17 Estimated GFR 26 ml/min 12/17/16 05:17 BUN/Creatinine Ratio 21.00 % 12/17/16 05:17 Glucose 122 mg/dL (75-100) H 12/17/16 05:17 POC Glucose 67 (70-105) L 12/16/16 22:44 Calcium 9.2 mg/dL (8.4-10.2) 12/17/16 05:17 Phosphorus 3.1 mg/dL (2.5-4.5) 12/10/16 05:29 Magnesium 1.9 mg/dL (1.7-2.3) 12/10/16 05:29 Iron 20 ug/dL (49-181) L 12/12/16 05:40 TIBC 212 mcg/dL (250-450) L 12/12/16 05:40 Total Bilirubin 2.6 mg/dL (0.1-1.2) H 12/14/16 06:52 Direct Bilirubin 2.1 mg/dL (0-0.2) H 12/14/16 06:52 Indirect Bilirubin 0.5 mg/dL 12/14/16 06:52 AST 554 units/L (5-40) H 12/14/16 06:52 ALT 166 units/L (7-56) H 12/14/16 06:52 Alkaline Phosphatase 591 units/L (35-129) H 12/14/16 06:52 Total Creatine Kinase 107 units/L (55-170) 12/08/16 00:58 CK-MB (CK-2) 2.1 ng/mL (0.0-4.0) 12/08/16 00:58 CK-MB (CK-2) Rel Index 1.9 (0-4) 12/08/16 00:58 Troponin T < 0.010 ng/mL (0.00-0.029) 12/08/16 00:58 Total Protein 6.4 g/dL (6.3-8.2) 12/14/16 06:52 Albumin 2.7 g/dL (3.9-5) L 12/14/16 06:52 Albumin/Globulin Ratio 0.7 % 12/14/16 06:52 Prostate Specific Ag 35.07 ng/mL (0.00-4.00) H 12/15/16 10:42 TSH 2.660 mlU/mL (0.270-4.200) 12/08/16 00:58 Free T4 1.50 ng/dL (0.76-1.46) H 12/08/16 00:58 Urine Color Samantha (Yellow) 12/08/16 02:15 Urine Turbidity Cloudy (Clear) 12/08/16 02:15 Urine pH 5.0 (5.0-7.0) 12/08/16 02:15 Ur Specific [place] 1.016 (1.003-1.030) 12/08/16 02:15 Urine Protein 100 mg/dl mg/dL (Negative) 12/08/16 02:15 Urine Glucose (UA) Neg mg/dL (Negative) 12/08/16 02:15 Urine Ketones Tr mg/dL (Negative) 12/08/16 02:15 Urine Blood Lg (Negative) 12/08/16 02:15 Urine Nitrite Neg (Negative) 12/08/16 02:15 Urine Bilirubin Neg (Negative) 12/08/16 02:15 Urine Urobilinogen 2.0 mg/dL (<2.0) 12/08/16 02:15 Ur Leukocyte Esterase Mod (Negative) 12/08/16 02:15 Urine WBC (Auto) 135.0 /HPF (0.0-6.0) H 12/08/16 02:15 Urine RBC (Auto) > 182.0 /HPF (0.0-6.0) 12/08/16 02:15 Urine Mucus Few /HPF 12/08/16 02:15 Urine Opiates Screen Presumptive negative 12/08/16 02:18 Urine Methadone Screen Presumptive negative 12/08/16 02:18 Ur Barbiturates Screen Presumptive negative 12/08/16 02:18 Ur Phencyclidine Scrn Presumptive negative 12/08/16 02:18 Ur Amphetamines Screen Presumptive negative 12/08/16 02:18 U Benzodiazepines Scrn Presumptive negative 12/08/16 02:18 Urine Cocaine Screen Presumptive negative 12/08/16 02:18 U Marijuana (THC) Screen Presumptive negative 12/08/16 02:18 Drugs of Abuse Note Disclamer 12/08/16 02:18 Hepatitis A IgM Ab -1 (NonReactive) 12/14/16 06:52 Hep Bs Antigen Non-reactive (Negative) 12/14/16 06:52 Hep B Core IgM Ab Non-reactive (NonReactive) 12/14/16 06:52 Hepatitis C Antibody Non-reactive (NonReactive) 12/14/16 06:52
[2016-12-17] MEDS ORDERED: D5NS 1,000 ML IV SCH (11:00)
[2016-12-17] MEDS: D50W (25GM) IV PRN (12:08)
[2016-12-17] MEDS ORDERED: HALDOL ONE (13:40)
[2016-12-17] MEDS ORDERED: ATIVAN ONE (13:46)
[2016-12-17] MEDS ORDERED: ATIVAN IV ONE (13:46)
[2016-12-17 13:51] LABS: ISTAT Base Excess -27; ISTAT HCO3 4.6; ISTAT PCO2 20.4 (35-45); ISTAT PH 6.961 (7.35-7.45); ISTAT PO2 230 (80-105); ISTAT SO2 99; ISTAT TCO2 5
[2016-12-17] MEDS ORDERED: NACL 0.9% 1000 ML 1,000 ML IV ONE (14:00)
[2016-12-17] MEDS ORDERED: LEVAQUIN 750MG/150ML 150 ML IV SCH (14:00)
[2016-12-17] MEDS ORDERED: BENADRYL IV ONE (14:10)
[2016-12-17] MEDS ORDERED: BENADRYL ONE (14:10)
--- NOTE | 2016-12-17 14:57 | Procedure Note ---
Date of procedure: 12/17/16 Pre-op diagnosis: Hypotension Post-op diagnosis: same Procedure: Placement of right IJ central venous catheter using seldinger technique. No immediate family available for consent and patient not able to give consent. Given mental state, hypotension and full code status, cvl placed emergently. Using ultrasound guidance, patient placed in trendelenberg and RIJ visualized. Lidocaine used for anesthesia locally to area. Finder needle then placed and vein accessed. Guidewire then threaded and then skin bernabe made. Dilator passed over wire after removal of finder needle. Cather then threaded and wire came out of brown port. No immediate complications expereineced. Good blood return and flush from all 3 ports. BIopatch applied and line sutured in. CXR done showing adequate placement. Anesthesia: local Surgeon: MAC EDOUARD Estimated blood loss: none Pathology: none Condition: critical Disposition: ICU
[2016-12-17] MEDS ORDERED: NACL 0.9% 500 ML IV SCH (15:00)
--- NOTE | 2016-12-17 15:03 | Consultation ---
History of Present Illness - Reason for Consult Consult date: 12/17/16 Hypotension and encephalopathy with metabolic acidosis Requesting physician: DAVID ROBLEDO - History of Present Illness 61 y/o male, brought down from floor after a fall and concern for head contusion. Altered mental status and hypotension. Per report, attempted head CT but patient was too agitated. Also at the same time, developed agonal respirations and there was concern for need to intubate. I came and evaluated patient at the bedside in ICU. Agitated but very easily redirected. No agonal respirations. Mental status was surprisingly better than what was described but patient was significantly hypotensive. Also with multiple complaints about inability to void and pain. Remainder is positive for hypothermia. Past History Past Medical History: diabetes, hypertension, hyperlipidemia Past Surgical History: total hip replacement Social history: , lives with family, smoking. denies: alcohol abuse, prescription drug abuse Family history: diabetes, hypertension Medications and Allergies Allergies Allergy/AdvReac Type Severity Reaction Status Date / Time Penicillins Allergy Rash Verified 12/08/16 00:52 Home Medications Medication Instructions Recorded Confirmed Last Taken Type Amlodipine Besylate [Norvasc] 2.5 mg PO DAILY 12/08/16 12/08/16 1 Day Ago History 2.5 AtorvaSTATin [Lipitor] 40 mg PO DAILY 12/08/16 12/08/16 1 Day Ago History 40 Hydrochlorothiazide [HCTZ] 25 mg PO QDAY 12/08/16 12/08/16 1 Day Ago History 25 Insulin Glargine [Lantus VIAL] 25 units SQ DAILY 12/08/16 12/08/16 1 Day Ago History Losartan [Cozaar] 100 mg PO QDAY 12/08/16 12/08/16 1 Day Ago History 100 Metformin HCl [Fortamet ER] 1,000 mg PO QDAY 12/08/16 12/08/16 1 Day Ago History 1000 Pioglitazone HCl 30 mg PO DAILY 12/08/16 12/08/16 1 Day Ago History 30 glyBURIDE [Diabeta] 5 mg PO BID 12/08/16 12/08/16 1 Day Ago History 5 Active Meds: Active Medications Acetaminophen (Tylenol) 650 mg PO Q4H PRN PRN Reason: Pain MILD(1-3)/Fever >100.5/RUSSELL Last Admin: 12/11/16 03:11 Dose: 650 mg Atorvastatin Calcium (Lipitor) 40 mg PO DAILY [facility] Last Admin: 12/16/16 12:57 Dose: 40 mg Dextrose (D50w (25gm)) 50 ml IV PRN PRN PRN Reason: Hypoglycemia Last Admin: 12/17/16 12:08 Dose: 50 ml Diltiazem HCl (Cardizem Cd) 120 mg PO QDAY [facility] Last Admin: 12/16/16 12:55 Dose: 120 mg Ferrous Sulfate (Feosol) 325 mg PO BID [facility] Last Admin: 12/16/16 22:45 Dose: 325 mg Heparin Sodium (Porcine) (Heparin) 5,000 unit SUB-Q Q8HR [facility] Last Admin: 12/17/16 06:44 Dose: Not Given Hydrochlorothiazide (Hctz) 25 mg PO QDAY [facility] Last Admin: 12/16/16 12:56 Dose: 25 mg Hydromorphone HCl (Dilaudid) 1 mg IV Q3H PRN PRN Reason: Pain , Severe (7-10) Last Admin: 12/17/16 01:56 Dose: 1 mg Dextrose/Sodium Chloride (D5ns) 1,000 mls @ 75 mls/hr IV DIRECT [facility] Levofloxacin/Dextrose (Levaquin 750mg/150ml) 150 mls @ 100 mls/hr IV Q48H [facility] PRN Reason: Protocol Sodium Bicarbonate 150 meq/ (Dextrose) 1,150 mls @ 150 mls/hr IV DIRECT [facility] Insulin Aspart (Novolog) 0 units SUB-Q ACHS [facility] PRN Reason: Protocol Last Admin: 12/17/16 09:09 Dose: Not Given Insulin Detemir (Levemir) 25 units SUB-Q DAILY [facility] Last Admin: 12/16/16 12:56 Dose: 25 units Megestrol Acetate (Megace) 400 mg PO QDAY [facility] Last Admin: 12/16/16 12:57 Dose: 400 mg Ondansetron HCl (Zofran) 4 mg IV Q6H PRN PRN Reason: Nausea And Vomiting Oxycodone/Acetaminophen (Percocet 5/325) 2 tab PO Q6H PRN PRN Reason: Pain, Moderate (4-6) Last Admin: 12/13/16 16:11 Dose: 2 tab Sodium Bicarbonate (Sodium Bicarbonate) 100 meq IV ONCE ONE Stop: 01/16/17 15:01 Last Admin: 12/17/16 14:41 Dose: 100 meq Sodium Chloride (Nacl 0.9% 500 Ml) 500 ml IV DIRECT [facility] Sodium Polystyrene Sulfonate (Kayexalate) 15 gm PO Q6HR PRN PRN Reason: Hyperkalemia Review of Systems ROS unobtainable: due to mental status Exam - Constitutional Vitals: Temp Pulse Resp BP Pulse Ox 97.6 F 76 20 126/57 98 12/17/16 07:46 12/17/16 07:46 12/17/16 07:46 12/17/16 07:46 12/17/16 07:46 General appearance: Present: mild distress, disheveled - EENT Eyes: Present: PERRL ENT: hearing intact, dentition normal, other (dry mucosa) - Neck Neck: Present: supple, normal ROM - Respiratory Respiratory: bilateral: CTA - Cardiovascular Rhythm: regular Heart Sounds: Present: S1 & S2 - Extremities Extremities: no ischemia - Abdominal General gastrointestinal: Present: soft, non-tender, non-distended Male genitourinary: Present: deferred - Rectal Rectal Exam: deferred - Musculoskeletal Musculoskeletal: strength equal bilaterally Results - Labs CBC & Chem 7: 12/17/16 15:00 12/17/16 15:00 Labs: Abnormal lab results 12/16/16 12/16/16 12/17/16 Range/Units 08:10 22:44 05:17 WBC 15.6 H (4.5-11.0) K/mm3 MCV 79 L (84-94) fl MCH 26 L (28-32) pg RDW 16.6 H (13.2-15.2) % Lymph % (Auto) 5.8 L (13.4-35.0) % [place] % (Auto) 8.5 H (0.0-7.3) % Lymph # 0.9 L (1.2-5.4) K/mm3 [place] # 1.3 H (0.0-0.8) K/mm3 Seg Neutrophils % 85.5 H (40.0-70.0) % Seg Neutrophils # 13.4 H (1.8-7.7) K/mm3 POC ABG pH (7.35-7.45) POC ABG pCO2 (35-45) POC ABG pO2 (80-105) Sodium (137-145) mmol/L Potassium (3.6-5.0) mmol/L Chloride (98-107) mmol/L Carbon Dioxide (22-30) mmol/L BUN (9-20) mg/dL Creatinine (0.8-1.5) mg/dL Glucose (75-100) mg/dL POC Glucose 52 L 67 L (70-105) 12/17/16 12/17/16 12/17/16 Range/Units 05:17 07:27 12:04 WBC (4.5-11.0) K/mm3 MCV (84-94) fl MCH (28-32) pg RDW (13.2-15.2) % Lymph % (Auto) (13.4-35.0) % [place] % (Auto) (0.0-7.3) % Lymph # (1.2-5.4) K/mm3 [place] # (0.0-0.8) K/mm3 Seg Neutrophils % (40.0-70.0) % Seg Neutrophils # (1.8-7.7) K/mm3 POC ABG pH (7.35-7.45) POC ABG pCO2 (35-45) POC ABG pO2 (80-105) Sodium 134 L (137-145) mmol/L Potassium 6.0 H D (3.6-5.0) mmol/L Chloride 89.1 L (98-107) mmol/L Carbon Dioxide 15 L D (22-30) mmol/L BUN 63 H (9-20) mg/dL Creatinine 3.0 H D (0.8-1.5) mg/dL Glucose 122 H (75-100) mg/dL POC Glucose 130 H 154 H (70-105) 12/17/16 12/17/16 12/17/16 Range/Units 12:57 13:41 13:46 WBC (4.5-11.0) K/mm3 MCV (84-94) fl MCH (28-32) pg RDW (13.2-15.2) % Lymph % (Auto) (13.4-35.0) % [place] % (Auto) (0.0-7.3) % Lymph # (1.2-5.4) K/mm3 [place] # (0.0-0.8) K/mm3 Seg Neutrophils % (40.0-70.0) % Seg Neutrophils # (1.8-7.7) K/mm3 POC ABG pH 6.961 L (7.35-7.45) POC ABG pCO2 20.4 L (35-45) POC ABG pO2 230 H (80-105) Sodium (137-145) mmol/L Potassium (3.6-5.0) mmol/L Chloride (98-107) mmol/L Carbon Dioxide (22-30) mmol/L BUN (9-20) mg/dL Creatinine (0.8-1.5) mg/dL Glucose (75-100) mg/dL POC Glucose 232 H 271 H (70-105) - Imaging and Cardiology Chest x-ray: image reviewed (clear with good placement of right IJ) Assessment and Plan 61 y/o male with inability to urinate, now with acute change in mental status and hypotension, acute renal failure, hyperkalemia, and severe metabolic acidosis. 1. Central line placed 2. Will check serial CVP's 3. ABG done prior to line placement 6. on a NRB. Hold off on intubation for now. Will give 2amps of Na bicarb and start NaHCO3 drip 4. Will repeat ABG at 1530 5. Will check BMP stat and follow up potassium levels. Renal is following 6. Hold all BP meds. Continue NPO status 7. Overall prognosis is guarded. Patient very agitated but relaxed with haldol , ativan and benadryl. Will no place on continous sedation but can use this cocktail again if needed. CCT 31 minutes
--- NOTE | 2016-12-17 15:08 | XRay Report ---
AP CHEST: HISTORY: Central line placement AP view of the chest demonstrates a normal mediastinal and cardiac contour with clear lungs and normal bony and soft tissue structures. A right IJ venous catheter has been inserted which terminates in the superior right atrium. No pneumothorax. IMPRESSION: Unremarkable AP chest.
[2016-12-17 15:22] LABS: Hematocrit 29.8 % (35.5-45.6); Hemoglobin 9.3 gm/dl (11.8-15.2); Mean Corpuscular HGB Conc 31 % (32-34); Mean Corpuscular Volume 82 fl (84-94); Platelet Count 292 K/mm3 (140-440); Red Blood Count 3.65 M/mm3 (3.65-5.03); Red Cell Distribution Width 17.1 % (13.2-15.2); White Blood Count 15.9 K/mm3 (4.5-11.0)
[2016-12-17 15:31] LABS: Mean Corpuscular Hemoglobin 26 pg (28-32)
[2016-12-17 15:46] LABS: Creatine Kinase MB 7.5 ng/mL (0.0-4.0)
[2016-12-17 15:47] LABS: BUN/Creatinine Ratio 17.69; Calcium 7.7 mg/dL (8.4-10.2); Chloride 83.7 mmol/L (98-107); Potassium 5.2 mmol/L (3.6-5.0)
[2016-12-17 15:47] LABS: ISTAT Base Excess -22; ISTAT HCO3 6.7; ISTAT PCO2 19.5 (35-45); ISTAT PH 7.145 (7.35-7.45); ISTAT PO2 208 (80-105); ISTAT SO2 99; ISTAT TCO2 7
[2016-12-17 16:43] LABS: Basophils % (Manual) 0 % (0.0-1.8); Blastocytes % (Manual) 0 %; Eosinophils % (Manual) 0 % (0.0-4.3)
[2016-12-17 16:44] LABS: Anisocytosis 1+; Poikilocytosis Few
[2016-12-17 16:45] LABS: Diff Status Complete
[2016-12-17] MEDS ORDERED: NACL 0.9% IR PRN (16:54)
[2016-12-17 17:39] LABS: Bacteria,Urine 4+ /HPF (Negative); Bilirubin,Urine NEG (Negative); Blood,Urine LG (Negative); Ketones,Urine NEG (Negative); Leukocyte Esterase,Urine SM (Negative); Nitrite,Urine NEG (Negative); Urobilinogen,Urine < 2.0 mg/dL (<2.0)
[2016-12-17 17:51] LABS: RBC,Urine > 182.0 /HPF (0.0-6.0)
[2016-12-17] MEDS ORDERED: NACL 0.9% 1000 ML 1,000 ML ONE (17:52)
[2016-12-17] MEDS ORDERED: NACL 0.9% 1000 ML 3,000 ML IV ONE (17:57)
[2016-12-17] MEDS ORDERED: VANCOMYCIN/NS 1 GM/250 ML 250 ML IV ONE (18:00)
[2016-12-17] MEDS ORDERED: SODIUM CHLORIDE IV ONE ×2 (18:07→23:00)
[2016-12-17] MEDS ORDERED: AZTREONAM IV ONE ×2 (18:07→23:00)
[2016-12-17] MEDS: FEOSOL PO SCH (18:25)
[2016-12-17] MEDS: HCTZ PO SCH (18:25)
[2016-12-17] MEDS: CARDIZEM CD PO SCH (18:25)
[2016-12-17] MEDS: LEVEMIR SUB-Q SCH (18:25)
[2016-12-17] MEDS: MEGACE PO SCH (18:26)
[2016-12-17] MEDS: SODIUM BICARBONATE 150 MEQ in D5W 1,000 ML IV SCH (18:57)
[2016-12-17 21:42] LABS: ISTAT Base Excess -15; ISTAT HCO3 10.7; ISTAT PCO2 19.2 (35-45); ISTAT PH 7.352 (7.35-7.45); ISTAT PO2 80 (80-105); ISTAT SO2 96; ISTAT TCO2 11
[2016-12-17] MEDS ORDERED: NACL 0.9% 1000 ML 2,000 ML IV ONE (22:13)
[2016-12-17] MEDS: LEVAQUIN 750MG/150ML 150 ML IV SCH ×2 (23:06→23:07)
[2016-12-18] MEDS ORDERED: VANCOMYCIN/NS 1 GM/250 ML 250 ML IV ONE
[2016-12-18] MEDS: SODIUM BICARBONATE 150 MEQ in D5W 1,000 ML IV SCH ×2 (02:47→16:33)
[2016-12-18 05:06] LABS: Basophils % (Auto) 0.1 % (0.0-1.8); Eosinophils % (Auto) 0.3 % (0.0-4.3); Hematocrit 27.8 % (35.5-45.6); Hemoglobin 9.1 gm/dl (11.8-15.2); Mean Corpuscular HGB Conc 33 % (32-34); Mean Corpuscular Volume 77 fl (84-94); Platelet Count 234 K/mm3 (140-440); Red Blood Count 3.62 M/mm3 (3.65-5.03); Red Cell Distribution Width 16.3 % (13.2-15.2); White Blood Count 15.1 K/mm3 (4.5-11.0)
[2016-12-18 05:07] LABS: Mean Corpuscular Hemoglobin 25 pg (28-32)
--- NOTE | 2016-12-18 05:24 | Progress Note ---
Assessment and Plan - Patient Problems (1) FAVIOLA (acute kidney injury) Current Visit: Yes Status: Acute Plan to address problem: Acute kidney Injury in the setting of IV contrast and hypotension. Continue IV fluids. BP is borderline low. (2) Lactic acidosis Current Visit: Yes Status: Acute Plan to address problem: Monitor Lactate level. (3) Hyperkalemia Current Visit: Yes Status: Acute Plan to address problem: K level is improving. (4) Bladder mass Current Visit: Yes Status: Acute (5) Diabetes Current Visit: Yes Status: Acute (6) HTN (hypertension) Current Visit: Yes Status: Acute Subjective Date of service: 12/18/16 Principal diagnosis: paroxysmal SVT Interval history: Patient was moved to the ICU. Objective - Vital Signs Vital signs: Vital Signs - 12hr 12/17/16 12/17/16 12/17/16 17:30 17:46 17:47 Temperature 90.9 F L Pulse Rate 59 L 60 Pulse Rate [ Apical] Respiratory 18 28 H Rate Blood Pressure 93/34 92/37 O2 Sat by Pulse 99 97 Oximetry 12/17/16 12/17/16 12/17/16 18:00 18:16 18:28 Temperature Pulse Rate 58 L 61 63 Pulse Rate [ Apical] Respiratory 20 26 H 25 H Rate Blood Pressure 96/38 96/38 96/38 O2 Sat by Pulse 98 97 98 Oximetry 12/17/16 12/17/16 12/17/16 18:30 18:46 19:00 Temperature Pulse Rate 65 64 64 Pulse Rate [ Apical] Respiratory 23 21 16 Rate Blood Pressure 102/34 102/34 102/41 O2 Sat by Pulse 93 99 98 Oximetry 12/17/16 12/17/16 12/17/16 19:16 19:30 19:46 Temperature Pulse Rate 68 65 67 Pulse Rate [ Apical] Respiratory 23 22 25 H Rate Blood Pressure 102/41 96/43 96/43 O2 Sat by Pulse 98 100 96 Oximetry 12/17/16 12/17/16 12/17/16 20:00 20:03 20:16 Temperature Pulse Rate 70 75 Pulse Rate [ Apical] Respiratory 24 28 H Rate Blood Pressure 102/50 102/50 O2 Sat by Pulse 98 98 96 Oximetry 12/17/16 12/17/16 12/17/16 20:30 20:46 21:00 Temperature Pulse Rate 73 75 78 Pulse Rate [ Apical] Respiratory 25 H 24 25 H Rate Blood Pressure 102/50 112/50 112/50 O2 Sat by Pulse 97 97 Oximetry 12/17/16 12/17/16 12/17/16 21:16 21:30 21:46 Temperature Pulse Rate 78 82 78 Pulse Rate [ Apical] Respiratory 30 H 38 H 34 H Rate Blood Pressure 99/40 99/40 109/56 O2 Sat by Pulse 98 98 98 Oximetry 12/17/16 12/17/16 12/17/16 22:00 22:16 22:30 Temperature Pulse Rate 88 84 83 Pulse Rate [ Apical] Respiratory 41 H 38 H 26 H Rate Blood Pressure 122/50 122/50 122/50 O2 Sat by Pulse 96 98 Oximetry 12/17/16 12/17/16 12/17/16 22:46 23:00 23:16 Temperature Pulse Rate 84 85 79 Pulse Rate [ Apical] Respiratory 31 H 35 H 27 H Rate Blood Pressure 116/60 120/53 120/53 O2 Sat by Pulse Oximetry 12/17/16 12/17/16 12/18/16 23:30 23:46 00:00 Temperature Pulse Rate 91 H 90 93 H Pulse Rate [ Apical] Respiratory 39 H 36 H 38 H Rate Blood Pressure 120/53 114/24 114/24 O2 Sat by Pulse Oximetry 12/18/16 12/18/16 12/18/16 00:04 00:16 00:25 Temperature 97.5 F L Pulse Rate 94 H Pulse Rate [ 94 H Apical] Respiratory 41 H 33 H Rate Blood Pressure 97/36 O2 Sat by Pulse 97 99 Oximetry 12/18/16 12/18/16 12/18/16 00:30 00:46 01:00 Temperature Pulse Rate 95 H 97 H 94 H Pulse Rate [ Apical] Respiratory 40 H 39 H 32 H Rate Blood Pressure 97/36 80/42 76/46 O2 Sat by Pulse Oximetry 12/18/16 12/18/16 12/18/16 01:16 01:24 01:30 Temperature Pulse Rate 95 H 93 H 92 H Pulse Rate [ Apical] Respiratory 28 H 30 H 39 H Rate Blood Pressure 76/46 76/46 87/39 O2 Sat by Pulse Oximetry 12/18/16 12/18/16 12/18/16 01:46 02:00 02:16 Temperature Pulse Rate 95 H 94 H 98 H Pulse Rate [ Apical] Respiratory 37 H 38 H 40 H Rate Blood Pressure 87/39 100/43 100/43 O2 Sat by Pulse Oximetry 12/18/16 12/18/16 12/18/16 02:30 02:46 03:00 Temperature Pulse Rate 92 H 95 H 90 Pulse Rate [ Apical] Respiratory 30 H 34 H 30 H Rate Blood Pressure 90/47 90/47 97/48 O2 Sat by Pulse Oximetry 12/18/16 04:22 Temperature 97.4 F L Pulse Rate Pulse Rate [ Apical] Respiratory Rate Blood Pressure O2 Sat by Pulse Oximetry - General Appearance General appearance: well-developed, well-nourished, other (somnolent) EENT: PERRL, hearing intact, vision intact Neck: no carotid bruit, supple Respiratory: Present: Wheezes Cardiology: regular, S1S2, no murmurs Gastrointestinal: normoactive bowel sounds, no tenderness, no distended Integumentary: no rash, warm and dry Neurologic: other (oriented to the place, follows simple command) Musculoskeletal: other (1+ pitting edema of both LEs noted) Psychiatric: cooperative - Lab 12/17/16 15:00 12/17/16 15:00 Most recent lab results Calcium 7.7 mg/dL (8.4-10.2) L D 12/17/16 15:00 Phosphorus 3.1 mg/dL (2.5-4.5) 12/10/16 05:29 Magnesium 1.9 mg/dL (1.7-2.3) 12/10/16 05:29 Urine Creatinine 105.0 mg/dL (0.1-20.0) H 12/17/16 17:05 Urine Sodium 88 mEq/L 12/17/16 17:05
[2016-12-18 05:25] LABS: Albumin 1.9 g/dL (3.9-5); Albumin/Globulin Ratio 0.7 %; BUN/Creatinine Ratio 23.66; Bilirubin,Total 3.3 mg/dL (0.1-1.2); Chloride 94.4 mmol/L (98-107); Potassium 5.1 mmol/L (3.6-5.0); Total Protein 4.6 g/dL (6.3-8.2)
[2016-12-18 05:32] LABS: Calcium 5.9 mg/dL (8.4-10.2)
[2016-12-18 05:58] LABS: ISTAT Base Excess -8; ISTAT HCO3 16.5; ISTAT PH 7.427 (7.35-7.45); ISTAT PO2 77 (80-105); ISTAT SO2 96; ISTAT TCO2 17
[2016-12-18] MEDS ORDERED: NACL 0.9% 1000 ML IV STA (06:22)
[2016-12-18] MEDS ORDERED: NACL 0.9% 500 ML 500 ML IV ONE (06:27)
[2016-12-18] MEDS: NOVOLOG SUB-Q SCH ×4 (08:47→21:12)
--- NOTE | 2016-12-18 09:17 | Hem/Onc Progress Note ---
Assessment and Plan Metastatic disease possibly from bladder cancer. Liver biopsy positive for malignancy. We will follow up on the final pathology. Prognosis is very poor. Unable to tell the patient currently because he is not very oriented. Will follow Subjective Date of service: 12/18/16 Interval history: Events noted. Patient in the ICU. Hypotensive. May need pressors. Evidence of renal failure. Patient's liver biopsy shows malignancy. Awaiting special staining to see the origin. Objective - Exam Narrative Exam: Not communicating currently. In Trendelenburg position. [place] with bloody urine. - Constitutional Vitals: Last Vital Signs Temp 97.6 F 12/18/16 08:00 Pulse 88 12/18/16 08:04 Resp 41 H 12/18/16 08:04 BP 100/52 12/18/16 08:04 Pulse Ox 96 12/18/16 08:04 - Labs Lab Results: Laboratory Results - last 24 hr 12/17/16 12/17/16 12/17/16 07:27 12:04 12:57 WBC RBC Hgb Hct MCV MCH MCHC RDW Plt Count Lymph % (Auto) Emm[place] % (Auto) Eos % (Auto) Baso % (Auto) Lymph # Emmons # Eos # Baso # Add Manual Diff Total Counted Seg Neutrophils % Seg Neuts % (Manual) Band Neutrophils % Lymphocytes % (Manual) Reactive Lymphs % (Man) Monocytes % (Manual) Eosinophils % (Manual) Basophils % (Manual) Metamyelocytes % Myelocytes % Promyelocytes % Blast Cells % Nucleated RBC % Seg Neutrophils # Seg Neutrophils # Man Band Neutrophils # Lymphocytes # (Manual) Abs React Lymphs (Man) Monocytes # (Manual) Eosinophils # (Manual) Basophils # (Manual) Metamyelocytes # Myelocytes # Promyelocytes # Blast Cells # WBC Morphology Hypersegmented Neuts Hyposegmented Neuts Hypogranular Neuts Smudge Cells Toxic Granulation Toxic Vacuolation Dohle Bodies Pelger-Huet Anomaly Mihai Rods Platelet Estimate Clumped Platelets Plt Clumps, EDTA Large Platelets Giant Platelets Platelet Satelliting Plt Morphology Comment RBC Morphology Dimorphic RBCs Polychromasia Hypochromasia Poikilocytosis Anisocytosis Microcytosis Macrocytosis Spherocytes Pappenheimer Bodies Sickle Cells Target Cells Tear Drop Cells Ovalocytes Helmet Cells [place] Bodies [place] Rings [place] Cells Bite Cells Crenated Cell Elliptocytes Acanthocytes (Spur) Rouleaux Hemoglobin C Crystals Schistocytes Malaria parasites Jorge Luis Bodies Hem Pathologist Commnt POC ABG pH POC ABG pCO2 POC ABG pO2 POC ABG HCO3 POC ABG Total CO2 POC ABG O2 Sat POC ABG Base Excess FiO2 Sodium Potassium Chloride Carbon Dioxide Anion Gap BUN Creatinine Estimated GFR BUN/Creatinine Ratio Glucose POC Glucose 130 H 154 H 232 H Lactic Acid Calcium Total Bilirubin AST ALT Alkaline Phosphatase Total Creatine Kinase CK-MB (CK-2) CK-MB (CK-2) Rel Index Troponin T Total Protein Albumin Albumin/Globulin Ratio Triglycerides Cholesterol LDL Cholesterol Direct HDL Cholesterol Cholesterol/HDL Ratio Urine Color Urine Turbidity Urine pH Ur Specific [place] Urine Protein Urine Glucose (UA) Urine Ketones Urine Blood Urine Nitrite Urine Bilirubin Urine Urobilinogen Ur Leukocyte Esterase Urine WBC (Auto) Urine RBC (Auto) Urine Bacteria (Auto) Urine Eosinophils Urine Creatinine Urine Sodium Blood Type Antibody Screen Crossmatch 12/17/16 12/17/16 12/17/16 13:41 13:46 15:00 WBC 15.9 H RBC 3.65 Hgb 9.3 L Hct 29.8 L D MCV 82 L D MCH 26 L MCHC 31 L RDW 17.1 H Plt Count 292 Lymph % (Auto) Emmons % (Auto) Eos % (Auto) Baso % (Auto) Lymph # Emmons # Eos # Baso # Add Manual Diff Complete Total Counted 100 Seg Neutrophils % Seg Neuts % (Manual) 79.0 H Band Neutrophils % 0 Lymphocytes % (Manual) 14.0 Reactive Lymphs % (Man) 0 Monocytes % (Manual) 7.0 Eosinophils % (Manual) 0 Basophils % (Manual) 0 Metamyelocytes % 0 Myelocytes % 0 Promyelocytes % 0 Blast Cells % 0 Nucleated RBC % Not Reportable Seg Neutrophils # Seg Neutrophils # Man 12.6 H Band Neutrophils # 0.0 Lymphocytes # (Manual) 2.2 Abs React Lymphs (Man) 0.0 Monocytes # (Manual) 1.1 H Eosinophils # (Manual) 0.0 Basophils # (Manual) 0.0 Metamyelocytes # 0.0 Myelocytes # 0.0 Promyelocytes # 0.0 Blast Cells # 0.0 WBC Morphology Not Reportable Hypersegmented Neuts Not Reportable Hyposegmented Neuts Not Reportable Hypogranular Neuts Not Reportable Smudge Cells Not Reportable Toxic Granulation Not Reportable Toxic Vacuolation Not Reportable Dohle Bodies Not Reportable Pelger-Huet Anomaly Not Reportable Mihai Rods Not Reportable Platelet Estimate Appears normal Clumped Platelets Not Reportable Plt Clumps, EDTA Not Reportable Large Platelets Not Reportable Giant Platelets Not Reportable Platelet Satelliting Not Reportable Plt Morphology Comment Not Reportable RBC Morphology Not Reportable Dimorphic RBCs Not Reportable Polychromasia Not Reportable Hypochromasia Not Reportable Poikilocytosis Few Anisocytosis 1+ Microcytosis Not Reportable Macrocytosis Not Reportable Spherocytes Not Reportable Pappenheimer Bodies Not Reportable Sickle Cells Not Reportable Target Cells Not Reportable Tear Drop Cells Not Reportable Ovalocytes Not Reportable Helmet Cells Not Reportable [place] Bodies Not Reportable [place] Rings Not Reportable [place] Cells Not Reportable Bite Cells Not Reportable Crenated Cell Not Reportable Elliptocytes Not Reportable Acanthocytes (Spur) Not Reportable Rouleaux Not Reportable Hemoglobin C Crystals Not Reportable Schistocytes Not Reportable Malaria parasites Not Reportable Jorge Luis Bodies Not Reportable Hem Pathologist Commnt No POC ABG pH 6.961 L POC ABG pCO2 20.4 L POC ABG pO2 230 H POC ABG HCO3 4.6 POC ABG Total CO2 5 POC ABG O2 Sat 99 POC ABG Base Excess -27 FiO2 100 Sodium Potassium Chloride Carbon Dioxide Anion Gap BUN Creatinine Estimated GFR BUN/Creatinine Ratio Glucose POC Glucose 271 H Lactic Acid Calcium Total Bilirubin AST ALT Alkaline Phosphatase Total Creatine Kinase CK-MB (CK-2) CK-MB (CK-2) Rel Index Troponin T Total Protein Albumin Albumin/Globulin Ratio Triglycerides Cholesterol LDL Cholesterol Direct HDL Cholesterol Cholesterol/HDL Ratio Urine Color Urine Turbidity Urine pH Ur Specific [place] Urine Protein Urine Glucose (UA) Urine Ketones Urine Blood Urine Nitrite Urine Bilirubin Urine Urobilinogen Ur Leukocyte Esterase Urine WBC (Auto) Urine RBC (Auto) Urine Bacteria (Auto) Urine Eosinophils Urine Creatinine Urine Sodium Blood Type Antibody Screen Crossmatch 12/17/16 12/17/16 12/17/16 15:00 15:00 15:41 WBC RBC Hgb Hct MCV MCH MCHC RDW Plt Count Lymph % (Auto) [place] % (Auto) Eos % (Auto) Baso % (Auto) Lymph # Emm[place] # Eos # Baso # Add Manual Diff Total Counted Seg Neutrophils % Seg Neuts % (Manual) Band Neutrophils % Lymphocytes % (Manual) Reactive Lymphs % (Man) Monocytes % (Manual) Eosinophils % (Manual) Basophils % (Manual) Metamyelocytes % Myelocytes % Promyelocytes % Blast Cells % Nucleated RBC % Seg Neutrophils # Seg Neutrophils # Man Band Neutrophils # Lymphocytes # (Manual) Abs React Lymphs (Man) Monocytes # (Manual) Eosinophils # (Manual) Basophils # (Manual) Metamyelocytes # Myelocytes # Promyelocytes # Blast Cells # WBC Morphology Hypersegmented Neuts Hyposegmented Neuts Hypogranular Neuts Smudge Cells Toxic Granulation Toxic Vacuolation Dohle Bodies Pelger-Huet Anomaly Mihai Rods Platelet Estimate Clumped Platelets Plt Clumps, EDTA Large Platelets Giant Platelets Platelet Satelliting Plt Morphology Comment RBC Morphology Dimorphic RBCs Polychromasia Hypochromasia Poikilocytosis Anisocytosis Microcytosis Macrocytosis Spherocytes Pappenheimer Bodies Sickle Cells Target Cells Tear Drop Cells Ovalocytes Helmet Cells [place] Bodies [place] Rings [place] Cells Bite Cells Crenated Cell Elliptocytes Acanthocytes (Spur) Rouleaux Hemoglobin C Crystals Schistocytes Malaria parasites Jorge Luis Bodies Hem Pathologist Commnt POC ABG pH 7.145 L POC ABG pCO2 19.5 L POC ABG pO2 208 H POC ABG HCO3 6.7 POC ABG Total CO2 7 POC ABG O2 Sat 99 POC ABG Base Excess -22 FiO2 100 Sodium 132 L Potassium 5.2 H Chloride 83.7 L Carbon Dioxide 6 L* D Anion Gap 48 BUN 69 H Creatinine 3.9 H Estimated GFR 19 BUN/Creatinine Ratio 17.69 Glucose 220 H POC Glucose Lactic Acid Calcium 7.7 L D Total Bilirubin AST ALT Alkaline Phosphatase Total Creatine Kinase 435 H CK-MB (CK-2) 7.5 H CK-MB (CK-2) Rel Index 1.7 Troponin T 0.078 H Total Protein Albumin Albumin/Globulin Ratio Triglycerides 73 Cholesterol 130 LDL Cholesterol Direct 109 HDL Cholesterol 7 L Cholesterol/HDL Ratio 18.57 Urine Color Urine Turbidity Urine pH Ur Specific [place] Urine Protein Urine Glucose (UA) Urine Ketones Urine Blood Urine Nitrite Urine Bilirubin Urine Urobilinogen Ur Leukocyte Esterase Urine WBC (Auto) Urine RBC (Auto) Urine Bacteria (Auto) Urine Eosinophils Urine Creatinine Urine Sodium Blood Type Antibody Screen Crossmatch 12/17/16 12/17/16 12/17/16 17:05 17:05 17:05 WBC RBC Hgb Hct MCV MCH MCHC RDW Plt Count Lymph % (Auto) [place] % (Auto) Eos % (Auto) Baso % (Auto) Lymph # Emmons # Eos # Baso # Add Manual Diff Total Counted Seg Neutrophils % Seg Neuts % (Manual) Band Neutrophils % Lymphocytes % (Manual) Reactive Lymphs % (Man) Monocytes % (Manual) Eosinophils % (Manual) Basophils % (Manual) Metamyelocytes % Myelocytes % Promyelocytes % Blast Cells % Nucleated RBC % Seg Neutrophils # Seg Neutrophils # Man Band Neutrophils # Lymphocytes # (Manual) Abs React Lymphs (Man) Monocytes # (Manual) Eosinophils # (Manual) Basophils # (Manual) Metamyelocytes # Myelocytes # Promyelocytes # Blast Cells # WBC Morphology Hypersegmented Neuts Hyposegmented Neuts Hypogranular Neuts Smudge Cells Toxic Granulation Toxic Vacuolation Dohle Bodies Pelger-Huet Anomaly Mihai Rods Platelet Estimate Clumped Platelets Plt Clumps, EDTA Large Platelets Giant Platelets Platelet Satelliting Plt Morphology Comment RBC Morphology Dimorphic RBCs Polychromasia Hypochromasia Poikilocytosis Anisocytosis Microcytosis Macrocytosis Spherocytes Pappenheimer Bodies Sickle Cells Target Cells Tear Drop Cells Ovalocytes Helmet Cells [place] Bodies [place] Rings [place] Cells Bite Cells Crenated Cell Elliptocytes Acanthocytes (Spur) Rouleaux Hemoglobin C Crystals Schistocytes Malaria parasites Jorge Luis Bodies Hem Pathologist Commnt POC ABG pH POC ABG pCO2 POC ABG pO2 POC ABG HCO3 POC ABG Total CO2 POC ABG O2 Sat POC ABG Base Excess FiO2 Sodium Potassium Chloride Carbon Dioxide Anion Gap BUN Creatinine Estimated GFR BUN/Creatinine Ratio Glucose POC Glucose Lactic Acid Calcium Total Bilirubin AST ALT Alkaline Phosphatase Total Creatine Kinase CK-MB (CK-2) CK-MB (CK-2) Rel Index Troponin T Total Protein Albumin Albumin/Globulin Ratio Triglycerides Cholesterol LDL Cholesterol Direct HDL Cholesterol Cholesterol/HDL Ratio Urine Color Red Urine Turbidity Cloudy Urine pH 6.0 Ur Specific [place] 1.006 Urine Protein 100 mg/dl Urine Glucose (UA) Neg Urine Ketones Neg Urine Blood Lg Urine Nitrite Neg Urine Bilirubin Neg Urine Urobilinogen < 2.0 Ur Leukocyte Esterase Sm Urine WBC (Auto) 41.0 H Urine RBC (Auto) > 182.0 Urine Bacteria (Auto) 4+ Urine Eosinophils None seen Urine Creatinine 105.0 H Urine Sodium 88 Blood Type Antibody Screen Crossmatch 12/17/16 12/17/16 12/17/16 17:48 21:26 21:38 WBC RBC Hgb Hct MCV MCH MCHC RDW Plt Count Lymph % (Auto) [place] % (Auto) Eos % (Auto) Baso % (Auto) Lymph # Emmons # Eos # Baso # Add Manual Diff Total Counted Seg Neutrophils % Seg Neuts % (Manual) Band Neutrophils % Lymphocytes % (Manual) Reactive Lymphs % (Man) Monocytes % (Manual) Eosinophils % (Manual) Basophils % (Manual) Metamyelocytes % Myelocytes % Promyelocytes % Blast Cells % Nucleated RBC % Seg Neutrophils # Seg Neutrophils # Man Band Neutrophils # Lymphocytes # (Manual) Abs React Lymphs (Man) Monocytes # (Manual) Eosinophils # (Manual) Basophils # (Manual) Metamyelocytes # Myelocytes # Promyelocytes # Blast Cells # WBC Morphology Hypersegmented Neuts Hyposegmented Neuts Hypogranular Neuts Smudge Cells Toxic Granulation Toxic Vacuolation Dohle Bodies Pelger-Huet Anomaly Mihai Rods Platelet Estimate Clumped Platelets Plt Clumps, EDTA Large Platelets Giant Platelets Platelet Satelliting Plt Morphology Comment RBC Morphology Dimorphic RBCs Polychromasia Hypochromasia Poikilocytosis Anisocytosis Microcytosis Macrocytosis Spherocytes Pappenheimer Bodies Sickle Cells Target Cells Tear Drop Cells Ovalocytes Helmet Cells [place] Bodies [place] Rings [place] Cells Bite Cells Crenated Cell Elliptocytes Acanthocytes (Spur) Rouleaux Hemoglobin C Crystals Schistocytes Malaria parasites Jorge Luis Bodies Hem Pathologist Commnt POC ABG pH 7.352 POC ABG pCO2 19.2 L POC ABG pO2 80 POC ABG HCO3 10.7 POC ABG Total CO2 11 POC ABG O2 Sat 96 POC ABG Base Excess -15 FiO2 35 Sodium Potassium Chloride Carbon Dioxide Anion Gap BUN Creatinine Estimated GFR BUN/Creatinine Ratio Glucose POC Glucose 218 H 299 H Lactic Acid Calcium Total Bilirubin AST ALT Alkaline Phosphatase Total Creatine Kinase CK-MB (CK-2) CK-MB (CK-2) Rel Index Troponin T Total Protein Albumin Albumin/Globulin Ratio Triglycerides Cholesterol LDL Cholesterol Direct HDL Cholesterol Cholesterol/HDL Ratio Urine Color Urine Turbidity Urine pH Ur Specific [place] Urine Protein Urine Glucose (UA) Urine Ketones Urine Blood Urine Nitrite Urine Bilirubin Urine Urobilinogen Ur Leukocyte Esterase Urine WBC (Auto) Urine RBC (Auto) Urine Bacteria (Auto) Urine Eosinophils Urine Creatinine Urine Sodium Blood Type Antibody Screen Crossmatch 12/18/16 12/18/16 12/18/16 04:30 04:30 04:30 WBC 15.1 H RBC 3.62 L Hgb 9.1 L Hct 27.8 L MCV 77 L D MCH 25 L MCHC 33 RDW 16.3 H Plt Count 234 Lymph % (Auto) 3.1 L Emmons % (Auto) 6.9 Eos % (Auto) 0.3 Baso % (Auto) 0.1 Lymph # 0.5 L Emmons # 1.0 H Eos # 0.0 Baso # 0.0 Add Manual Diff Total Counted Seg Neutrophils % 89.6 H Seg Neuts % (Manual) Band Neutrophils % Lymphocytes % (Manual) Reactive Lymphs % (Man) Monocytes % (Manual) Eosinophils % (Manual) Basophils % (Manual) Metamyelocytes % Myelocytes % Promyelocytes % Blast Cells % Nucleated RBC % Seg Neutrophils # 13.5 H Seg Neutrophils # Man Band Neutrophils # Lymphocytes # (Manual) Abs React Lymphs (Man) Monocytes # (Manual) Eosinophils # (Manual) Basophils # (Manual) Metamyelocytes # Myelocytes # Promyelocytes # Blast Cells # WBC Morphology Hypersegmented Neuts Hyposegmented Neuts Hypogranular Neuts Smudge Cells Toxic Granulation Toxic Vacuolation Dohle Bodies Pelger-Huet Anomaly Mihai Rods Platelet Estimate Clumped Platelets Plt Clumps, EDTA Large Platelets Giant Platelets Platelet Satelliting Plt Morphology Comment RBC Morphology Dimorphic RBCs Polychromasia Hypochromasia Poikilocytosis Anisocytosis Microcytosis Macrocytosis Spherocytes Pappenheimer Bodies Sickle Cells Target Cells Tear Drop Cells Ovalocytes Helmet Cells [place] Bodies [place] Rings [place] Cells Bite Cells Crenated Cell Elliptocytes Acanthocytes (Spur) Rouleaux Hemoglobin C Crystals Schistocytes Malaria parasites Jorge Luis Bodies Hem Pathologist Commnt POC ABG pH POC ABG pCO2 POC ABG pO2 POC ABG HCO3 POC ABG Total CO2 POC ABG O2 Sat POC ABG Base Excess FiO2 Sodium 136 L Potassium 5.1 H Chloride 94.4 L Carbon Dioxide 16 L D Anion Gap 31 BUN 71 H Creatinine 3.0 H Estimated GFR 26 BUN/Creatinine Ratio 23.66 Glucose 289 H POC Glucose Lactic Acid 9.3 H* Calcium 5.9 L* D Total Bilirubin 3.3 H AST 6347 H ALT 1079 H Alkaline Phosphatase 978 H Total Creatine Kinase 2770 H CK-MB (CK-2) CK-MB (CK-2) Rel Index Troponin T Total Protein 4.6 L D Albumin 1.9 L Albumin/Globulin Ratio 0.7 Triglycerides Cholesterol LDL Cholesterol Direct HDL Cholesterol Cholesterol/HDL Ratio Urine Color Urine Turbidity Urine pH Ur Specific [place] Urine Protein Urine Glucose (UA) Urine Ketones Urine Blood Urine Nitrite Urine Bilirubin Urine Urobilinogen Ur Leukocyte Esterase Urine WBC (Auto) Urine RBC (Auto) Urine Bacteria (Auto) Urine Eosinophils Urine Creatinine Urine Sodium Blood Type Antibody Screen Crossmatch 12/18/16 12/18/16 05:44 06:00 WBC RBC Hgb Hct MCV MCH MCHC RDW Plt Count Lymph % (Auto) [place] % (Auto) Eos % (Auto) Baso % (Auto) Lymph # Emmons # Eos # Baso # Add Manual Diff Total Counted Seg Neutrophils % Seg Neuts % (Manual) Band Neutrophils % Lymphocytes % (Manual) Reactive Lymphs % (Man) Monocytes % (Manual) Eosinophils % (Manual) Basophils % (Manual) Metamyelocytes % Myelocytes % Promyelocytes % Blast Cells % Nucleated RBC % Seg Neutrophils # Seg Neutrophils # Man Band Neutrophils # Lymphocytes # (Manual) Abs React Lymphs (Man) Monocytes # (Manual) Eosinophils # (Manual) Basophils # (Manual) Metamyelocytes # Myelocytes # Promyelocytes # Blast Cells # WBC Morphology Hypersegmented Neuts Hyposegmented Neuts Hypogranular Neuts Smudge Cells Toxic Granulation Toxic Vacuolation Dohle Bodies Pelger-Huet Anomaly Mihai Rods Platelet Estimate Clumped Platelets Plt Clumps, EDTA Large Platelets Giant Platelets Platelet Satelliting Plt Morphology Comment RBC Morphology Dimorphic RBCs Polychromasia Hypochromasia Poikilocytosis Anisocytosis Microcytosis Macrocytosis Spherocytes Pappenheimer Bodies Sickle Cells Target Cells Tear Drop Cells Ovalocytes Helmet Cells [place] Bodies [place] Rings [place] Cells Bite Cells Crenated Cell Elliptocytes Acanthocytes (Spur) Rouleaux Hemoglobin C Crystals Schistocytes Malaria parasites Jorge Luis Bodies Hem Pathologist Commnt POC ABG pH 7.427 POC ABG pCO2 25.0 L POC ABG pO2 77 L POC ABG HCO3 16.5 POC ABG Total CO2 17 POC ABG O2 Sat 96 POC ABG Base Excess -8 FiO2 35 Sodium Potassium Chloride Carbon Dioxide Anion Gap BUN Creatinine Estimated GFR BUN/Creatinine Ratio Glucose POC Glucose Lactic Acid Calcium Total Bilirubin AST ALT Alkaline Phosphatase Total Creatine Kinase CK-MB (CK-2) CK-MB (CK-2) Rel Index Troponin T Total Protein Albumin Albumin/Globulin Ratio Triglycerides Cholesterol LDL Cholesterol Direct HDL Cholesterol Cholesterol/HDL Ratio Urine Color Urine Turbidity Urine pH Ur Specific [place] Urine Protein Urine Glucose (UA) Urine Ketones Urine Blood Urine Nitrite Urine Bilirubin Urine Urobilinogen Ur Leukocyte Esterase Urine WBC (Auto) Urine RBC (Auto) Urine Bacteria (Auto) Urine Eosinophils Urine Creatinine Urine Sodium Blood Type O POSITIVE Antibody Screen Negative Crossmatch See Detail
[2016-12-18] MEDS: HEPARIN SUB-Q SCH ×3 (10:05→21:11)
[2016-12-18] MEDS: FEOSOL PO SCH ×2 (10:05→21:11)
[2016-12-18] MEDS: MEGACE PO SCH (10:06)
[2016-12-18] MEDS: LEVEMIR SUB-Q SCH (10:25)
[2016-12-18] MEDS ORDERED: PROVENTIL IH ONE (10:43)
[2016-12-18] MEDS ORDERED: LASIX IV ONE (12:00)
--- NOTE | 2016-12-18 12:18 | Progress Note ---
Assessment and Plan 61 y/o male with inability to urinate, now with acute change in mental status and hypotension, acute renal failure, hyperkalemia, and severe metabolic acidosis. 1. Continue broad spec abx therapy and follow up blood and urine cultures. Hypothermia has resolved. 2. Will check serial CVP's, still less than 10-12. Bolused 3 more liters this am and will give 2 units of PRBC's. may need lasix in between blood transfusions 3. pH improved this am on bicarb drip with volume. Will continue both for now. Renal following. 4. With wheezing, patient could be in early volume overload vs exacerbation of some underlying lung disease. 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 Will add PRN neb treatments. 5. Attempt head CT today. 6. Hold all BP meds. Will place on clears 7. Overall prognosis is guarded. Patient very agitated but relaxed with haldol , ativan and benadryl. Will not place on continous sedation but can use this cocktail again if needed. CCT 31 minutes Subjective Date of service: 12/18/16 Principal diagnosis: paroxysmal SVT Interval history: No acute events. Acid/Base status is better this am. More calm and mentation is improved. BP better with volume, also giving blood today. No family at bedside. Had cardozo placed over night with dark urine. path back on liver, shows metastatic disease. Primary is still not known yet. Objective - Constitutional Vitals: Vital Signs - 12hr 12/18/16 12/18/16 12/18/16 00:16 00:25 00:30 Temperature Pulse Rate 94 H 95 H Pulse Rate [ 94 H Apical] Respiratory 41 H 33 H 40 H Rate Blood Pressure 97/36 97/36 O2 Sat by Pulse 97 99 Oximetry 12/18/16 12/18/16 12/18/16 00:46 01:00 01:16 Temperature Pulse Rate 97 H 94 H 95 H Pulse Rate [ Apical] Respiratory 39 H 32 H 28 H Rate Blood Pressure 80/42 76/46 76/46 O2 Sat by Pulse Oximetry 12/18/16 12/18/16 12/18/16 01:24 01:30 01:46 Temperature Pulse Rate 93 H 92 H 95 H Pulse Rate [ Apical] Respiratory 30 H 39 H 37 H Rate Blood Pressure 76/46 87/39 87/39 O2 Sat by Pulse Oximetry 12/18/16 12/18/16 12/18/16 02:00 02:16 02:30 Temperature Pulse Rate 94 H 98 H 92 H Pulse Rate [ Apical] Respiratory 38 H 40 H 30 H Rate Blood Pressure 100/43 100/43 90/47 O2 Sat by Pulse Oximetry 12/18/16 12/18/16 12/18/16 02:46 03:00 03:06 Temperature Pulse Rate 95 H 90 86 Pulse Rate [ Apical] Respiratory 34 H 30 H 27 H Rate Blood Pressure 90/47 97/48 97/48 O2 Sat by Pulse Oximetry 12/18/16 12/18/16 12/18/16 03:16 03:30 03:46 Temperature Pulse Rate 92 H 94 H 96 H Pulse Rate [ Apical] Respiratory 39 H 34 H 38 H Rate Blood Pressure 97/48 106/52 106/52 O2 Sat by Pulse Oximetry 12/18/16 12/18/16 12/18/16 04:02 04:18 04:22 Temperature 97.4 F L Pulse Rate 96 H 97 H Pulse Rate [ Apical] Respiratory 38 H 19 Rate Blood Pressure 91/50 91/50 O2 Sat by Pulse Oximetry 12/18/16 12/18/16 12/18/16 04:25 04:30 04:46 Temperature Pulse Rate 96 H 96 H Pulse Rate [ 85 Apical] Respiratory 34 H 39 H Rate Blood Pressure 94/50 94/50 O2 Sat by Pulse 99 Oximetry 12/18/16 12/18/16 12/18/16 05:00 05:16 05:30 Temperature Pulse Rate 91 H 92 H 89 Pulse Rate [ Apical] Respiratory 30 H 34 H 31 H Rate Blood Pressure 92/47 92/47 92/47 O2 Sat by Pulse 88 Oximetry 12/18/16 12/18/16 12/18/16 05:46 06:00 06:16 Temperature Pulse Rate 92 H 89 82 Pulse Rate [ Apical] Respiratory 34 H 34 H 28 H Rate Blood Pressure 79/23 79/23 88/47 O2 Sat by Pulse 97 98 100 Oximetry 12/18/16 12/18/16 12/18/16 06:30 06:46 07:00 Temperature Pulse Rate 88 80 79 Pulse Rate [ Apical] Respiratory 43 H 27 H 23 Rate Blood Pressure 94/49 94/49 91/43 O2 Sat by Pulse 98 99 97 Oximetry 12/18/16 12/18/16 12/18/16 07:16 07:30 07:45 Temperature Pulse Rate 83 84 86 Pulse Rate [ Apical] Respiratory 30 H 25 H 29 H Rate Blood Pressure 88/47 94/50 101/50 O2 Sat by Pulse 99 100 99 Oximetry 12/18/16 12/18/16 12/18/16 08:00 08:04 10:00 Temperature 97.6 F Pulse Rate 86 88 Pulse Rate [ Apical] Respiratory 32 H 41 H Rate Blood Pressure 100/52 100/52 O2 Sat by Pulse 99 96 99 Oximetry 12/18/16 11:14 Temperature 97.6 F Pulse Rate 96 H Pulse Rate [ Apical] Respiratory 32 H Rate Blood Pressure 99/47 O2 Sat by Pulse 96 Oximetry General appearance: Present: no acute distress - EENT Eyes: PERRL, EOM intact, scleral icterus ENT: hearing intact, clear oral mucosa, dentition normal - Respiratory Respiratory effort: normal Respiratory: bilateral: wheezing - Cardiovascular Rhythm: regular Heart Sounds: Present: S1 & S2 Extremities: no ischemia, No edema, Full ROM - Gastrointestinal General gastrointestinal: Present: soft, non-tender, non-distended Rectal Exam: deferred - Genitourinary Male genitourinary: deferred - Musculoskeletal Musculoskeletal: strength equal bilaterally - Neurologic Neurologic: moves all extremities - Labs CBC & Chem 7: 12/17/16 15:00 12/17/16 15:00 Labs: Abnormal lab results 12/17/16 12/17/16 12/17/16 Range/Units 07:27 12:04 12:57 WBC (4.5-11.0) K/mm3 RBC (3.65-5.03) M/mm3 Hgb (11.8-15.2) gm/dl Hct (35.5-45.6) % MCV (84-94) fl MCH (28-32) pg MCHC (32-34) % RDW (13.2-15.2) % Lymph % (Auto) (13.4-35.0) % Lymph # (1.2-5.4) K/mm3 [place] # (0.0-0.8) K/mm3 Seg Neutrophils % (40.0-70.0) % Seg Neuts % (Manual) (40.0-70.0) % Seg Neutrophils # (1.8-7.7) K/mm3 Seg Neutrophils # Man (1.8-7.7) K/mm3 Monocytes # (Manual) (0.0-0.8) K/mm3 POC ABG pH (7.35-7.45) POC ABG pCO2 (35-45) POC ABG pO2 (80-105) Sodium (137-145) mmol/L Potassium (3.6-5.0) mmol/L Chloride (98-107) mmol/L Carbon Dioxide (22-30) mmol/L BUN (9-20) mg/dL Creatinine (0.8-1.5) mg/dL Glucose (75-100) mg/dL POC Glucose 130 H 154 H 232 H (70-105) Lactic Acid (0.7-2.0) mmol/L Calcium (8.4-10.2) mg/dL Total Bilirubin (0.1-1.2) mg/dL AST (5-40) units/L ALT (7-56) units/L Alkaline Phosphatase (35-129) units/L Total Creatine Kinase (55-170) units/L CK-MB (CK-2) (0.0-4.0) ng/mL Troponin T (0.00-0.029) ng/mL Total Protein (6.3-8.2) g/dL Albumin (3.9-5) g/dL HDL Cholesterol (40-59) mg/dL Urine WBC (Auto) (0.0-6.0) /HPF Urine Creatinine (0.1-20.0) mg/dL Crossmatch 12/17/16 12/17/16 12/17/16 Range/Units 13:41 13:46 15:00 WBC 15.9 H (4.5-11.0) K/mm3 RBC (3.65-5.03) M/mm3 Hgb 9.3 L (11.8-15.2) gm/dl Hct 29.8 L D (35.5-45.6) % MCV 82 L D (84-94) fl MCH 26 L (28-32) pg MCHC 31 L (32-34) % RDW 17.1 H (13.2-15.2) % Lymph % (Auto) (13.4-35.0) % Lymph # (1.2-5.4) K/mm3 [place] # (0.0-0.8) K/mm3 Seg Neutrophils % (40.0-70.0) % Seg Neuts % (Manual) 79.0 H (40.0-70.0) % Seg Neutrophils # (1.8-7.7) K/mm3 Seg Neutrophils # Man 12.6 H (1.8-7.7) K/mm3 Monocytes # (Manual) 1.1 H (0.0-0.8) K/mm3 POC ABG pH 6.961 L (7.35-7.45) POC ABG pCO2 20.4 L (35-45) POC ABG pO2 230 H (80-105) Sodium (137-145) mmol/L Potassium (3.6-5.0) mmol/L Chloride (98-107) mmol/L Carbon Dioxide (22-30) mmol/L BUN (9-20) mg/dL Creatinine (0.8-1.5) mg/dL Glucose (75-100) mg/dL POC Glucose 271 H (70-105) Lactic Acid (0.7-2.0) mmol/L Calcium (8.4-10.2) mg/dL Total Bilirubin (0.1-1.2) mg/dL AST (5-40) units/L ALT (7-56) units/L Alkaline Phosphatase (35-129) units/L Total Creatine Kinase (55-170) units/L CK-MB (CK-2) (0.0-4.0) ng/mL Troponin T (0.00-0.029) ng/mL Total Protein (6.3-8.2) g/dL Albumin (3.9-5) g/dL HDL Cholesterol (40-59) mg/dL Urine WBC (Auto) (0.0-6.0) /HPF Urine Creatinine (0.1-20.0) mg/dL Crossmatch 12/17/16 12/17/16 12/17/16 Range/Units 15:00 15:00 15:41 WBC (4.5-11.0) K/mm3 RBC (3.65-5.03) M/mm3 Hgb (11.8-15.2) gm/dl Hct (35.5-45.6) % MCV (84-94) fl MCH (28-32) pg MCHC (32-34) % RDW (13.2-15.2) % Lymph % (Auto) (13.4-35.0) % Lymph # (1.2-5.4) K/mm3 [place] # (0.0-0.8) K/mm3 Seg Neutrophils % (40.0-70.0) % Seg Neuts % (Manual) (40.0-70.0) % Seg Neutrophils # (1.8-7.7) K/mm3 Seg Neutrophils # Man (1.8-7.7) K/mm3 Monocytes # (Manual) (0.0-0.8) K/mm3 POC ABG pH 7.145 L (7.35-7.45) POC ABG pCO2 19.5 L (35-45) POC ABG pO2 208 H (80-105) Sodium 132 L (137-145) mmol/L Potassium 5.2 H (3.6-5.0) mmol/L Chloride 83.7 L (98-107) mmol/L Carbon Dioxide 6 L* D (22-30) mmol/L BUN 69 H (9-20) mg/dL Creatinine 3.9 H (0.8-1.5) mg/dL Glucose 220 H (75-100) mg/dL POC Glucose (70-105) Lactic Acid (0.7-2.0) mmol/L Calcium 7.7 L D (8.4-10.2) mg/dL Total Bilirubin (0.1-1.2) mg/dL AST (5-40) units/L ALT (7-56) units/L Alkaline Phosphatase (35-129) units/L Total Creatine Kinase 435 H (55-170) units/L CK-MB (CK-2) 7.5 H (0.0-4.0) ng/mL Troponin T 0.078 H (0.00-0.029) ng/mL Total Protein (6.3-8.2) g/dL Albumin (3.9-5) g/dL HDL Cholesterol 7 L (40-59) mg/dL Urine WBC (Auto) (0.0-6.0) /HPF Urine Creatinine (0.1-20.0) mg/dL Crossmatch 12/17/16 12/17/16 12/17/16 Range/Units 17:05 17:05 17:48 WBC (4.5-11.0) K/mm3 RBC (3.65-5.03) M/mm3 Hgb (11.8-15.2) gm/dl Hct (35.5-45.6) % MCV (84-94) fl MCH (28-32) pg MCHC (32-34) % RDW (13.2-15.2) % Lymph % (Auto) (13.4-35.0) % Lymph # (1.2-5.4) K/mm3 [place] # (0.0-0.8) K/mm3 Seg Neutrophils % (40.0-70.0) % Seg Neuts % (Manual) (40.0-70.0) % Seg Neutrophils # (1.8-7.7) K/mm3 Seg Neutrophils # Man (1.8-7.7) K/mm3 Monocytes # (Manual) (0.0-0.8) K/mm3 POC ABG pH (7.35-7.45) POC ABG pCO2 (35-45) POC ABG pO2 (80-105) Sodium (137-145) mmol/L Potassium (3.6-5.0) mmol/L Chloride (98-107) mmol/L Carbon Dioxide (22-30) mmol/L BUN (9-20) mg/dL Creatinine (0.8-1.5) mg/dL Glucose (75-100) mg/dL POC Glucose 218 H (70-105) Lactic Acid (0.7-2.0) mmol/L Calcium (8.4-10.2) mg/dL Total Bilirubin (0.1-1.2) mg/dL AST (5-40) units/L ALT (7-56) units/L Alkaline Phosphatase (35-129) units/L Total Creatine Kinase (55-170) units/L CK-MB (CK-2) (0.0-4.0) ng/mL Troponin T (0.00-0.029) ng/mL Total Protein (6.3-8.2) g/dL Albumin (3.9-5) g/dL HDL Cholesterol (40-59) mg/dL Urine WBC (Auto) 41.0 H (0.0-6.0) /HPF Urine Creatinine 105.0 H (0.1-20.0) mg/dL Crossmatch 12/17/16 12/17/16 12/18/16 Range/Units 21:26 21:38 04:30 WBC 15.1 H (4.5-11.0) K/mm3 RBC 3.62 L (3.65-5.03) M/mm3 Hgb 9.1 L (11.8-15.2) gm/dl Hct 27.8 L (35.5-45.6) % MCV 77 L D (84-94) fl MCH 25 L (28-32) pg MCHC (32-34) % RDW 16.3 H (13.2-15.2) % Lymph % (Auto) 3.1 L (13.4-35.0) % Lymph # 0.5 L (1.2-5.4) K/mm3 [place] # 1.0 H (0.0-0.8) K/mm3 Seg Neutrophils % 89.6 H (40.0-70.0) % Seg Neuts % (Manual) (40.0-70.0) % Seg Neutrophils # 13.5 H (1.8-7.7) K/mm3 Seg Neutrophils # Man (1.8-7.7) K/mm3 Monocytes # (Manual) (0.0-0.8) K/mm3 POC ABG pH (7.35-7.45) POC ABG pCO2 19.2 L (35-45) POC ABG pO2 (80-105) Sodium (137-145) mmol/L Potassium (3.6-5.0) mmol/L Chloride (98-107) mmol/L Carbon Dioxide (22-30) mmol/L BUN (9-20) mg/dL Creatinine (0.8-1.5) mg/dL Glucose (75-100) mg/dL POC Glucose 299 H (70-105) Lactic Acid (0.7-2.0) mmol/L Calcium (8.4-10.2) mg/dL Total Bilirubin (0.1-1.2) mg/dL AST (5-40) units/L ALT (7-56) units/L Alkaline Phosphatase (35-129) units/L Total Creatine Kinase (55-170) units/L CK-MB (CK-2) (0.0-4.0) ng/mL Troponin T (0.00-0.029) ng/mL Total Protein (6.3-8.2) g/dL Albumin (3.9-5) g/dL HDL Cholesterol (40-59) mg/dL Urine WBC (Auto) (0.0-6.0) /HPF Urine Creatinine (0.1-20.0) mg/dL Crossmatch 12/18/16 12/18/16 12/18/16 Range/Units 04:30 04:30 05:44 WBC (4.5-11.0) K/mm3 RBC (3.65-5.03) M/mm3 Hgb (11.8-15.2) gm/dl Hct (35.5-45.6) % MCV (84-94) fl MCH (28-32) pg MCHC (32-34) % RDW (13.2-15.2) % Lymph % (Auto) (13.4-35.0) % Lymph # (1.2-5.4) K/mm3 [place] # (0.0-0.8) K/mm3 Seg Neutrophils % (40.0-70.0) % Seg Neuts % (Manual) (40.0-70.0) % Seg Neutrophils # (1.8-7.7) K/mm3 Seg Neutrophils # Man (1.8-7.7) K/mm3 Monocytes # (Manual) (0.0-0.8) K/mm3 POC ABG pH (7.35-7.45) POC ABG pCO2 25.0 L (35-45) POC ABG pO2 77 L (80-105) Sodium 136 L (137-145) mmol/L Potassium 5.1 H (3.6-5.0) mmol/L Chloride 94.4 L (98-107) mmol/L Carbon Dioxide 16 L D (22-30) mmol/L BUN 71 H (9-20) mg/dL Creatinine 3.0 H (0.8-1.5) mg/dL Glucose 289 H (75-100) mg/dL POC Glucose (70-105) Lactic Acid 9.3 H* (0.7-2.0) mmol/L Calcium 5.9 L* D (8.4-10.2) mg/dL Total Bilirubin 3.3 H (0.1-1.2) mg/dL AST 6347 H (5-40) units/L ALT 1079 H (7-56) units/L Alkaline Phosphatase 978 H (35-129) units/L Total Creatine Kinase 2770 H (55-170) units/L CK-MB (CK-2) (0.0-4.0) ng/mL Troponin T (0.00-0.029) ng/mL Total Protein 4.6 L D (6.3-8.2) g/dL Albumin 1.9 L (3.9-5) g/dL HDL Cholesterol (40-59) mg/dL Urine WBC (Auto) (0.0-6.0) /HPF Urine Creatinine (0.1-20.0) mg/dL Crossmatch 12/18/16 Range/Units 06:00 WBC (4.5-11.0) K/mm3 RBC (3.65-5.03) M/mm3 Hgb (11.8-15.2) gm/dl Hct (35.5-45.6) % MCV (84-94) fl MCH (28-32) pg MCHC (32-34) % RDW (13.2-15.2) % Lymph % (Auto) (13.4-35.0) % Lymph # (1.2-5.4) K/mm3 [place] # (0.0-0.8) K/mm3 Seg Neutrophils % (40.0-70.0) % Seg Neuts % (Manual) (40.0-70.0) % Seg Neutrophils # (1.8-7.7) K/mm3 Seg Neutrophils # Man (1.8-7.7) K/mm3 Monocytes # (Manual) (0.0-0.8) K/mm3 POC ABG pH (7.35-7.45) POC ABG pCO2 (35-45) POC ABG pO2 (80-105) Sodium (137-145) mmol/L Potassium (3.6-5.0) mmol/L Chloride (98-107) mmol/L Carbon Dioxide (22-30) mmol/L BUN (9-20) mg/dL Creatinine (0.8-1.5) mg/dL Glucose (75-100) mg/dL POC Glucose (70-105) Lactic Acid (0.7-2.0) mmol/L Calcium (8.4-10.2) mg/dL Total Bilirubin (0.1-1.2) mg/dL AST (5-40) units/L ALT (7-56) units/L Alkaline Phosphatase (35-129) units/L Total Creatine Kinase (55-170) units/L CK-MB (CK-2) (0.0-4.0) ng/mL Troponin T (0.00-0.029) ng/mL Total Protein (6.3-8.2) g/dL Albumin (3.9-5) g/dL HDL Cholesterol (40-59) mg/dL Urine WBC (Auto) (0.0-6.0) /HPF Urine Creatinine (0.1-20.0) mg/dL Crossmatch See Detail
--- NOTE | 2016-12-18 13:08 | Progress Note ---
Assessment and Plan Assessment and plan: 1. Acute hypoxic respiratory failure * Likely due to sepsis/severe metabolic acidosis/possible volume overload * Supplemental oxygen, nebs treatment * ABG * Pulmonary following 2. Sepsis * Suspected given leukocytosis, hypothermia, hypotension * Blood and urine cultures obtained * Started on antibiotics, IV fluids 3. Acute renal failure * On admission acute renal failure secondary to vasomotor nephropathy versus ATN from possible hypotension during SVT; resolved with IV fluids * Now again in acute renal failure likely secondary to contrast nephropathy/ hypotension * Receiving IV fluids * Monitoring closely BUN/creatinine and electrolytes * Nephrology following 4. Hyperkalemia * Receiving Kayexalate and monitoring potassium level 5. Severe Metabolic acidosis/lactic acidosis * On bicarbonate drip * Antibiotics to treat possible infection * Improving * Nephrology following also 6. Hepatitic mass * s/p CT guided liver biopsy which is positive for malignancy (metastatic disease probably from bladder cancer) 7. Bladder mass * Possible primary malignancy * With hematuria * Cystoscopy canceled due to declining clinical status 8. Elevated LFTs * Secondary to shock liver due to hypotension versus tumor burden as liver biopsy positive for metastasis * Monitor 9. Iron deficient anemia * Likely secondary to hematuria * Continue replacement 10. Status post fall * CT scan of the head pending 11. Supraventricular Tachycardia on admission * Received adenosine in ER and converted to NSR * Started on calcium channel estuardo * No further intervention per cardiology * ECHO showed preserved EF, stress test -1 month ago 12. Diabetes mellitus type II * Continue long-acting insulin * Accu-Cheks and SSI 13. Malnutrition * Likely secondary to malignancy/multiple comorbidities * Started on clear liquid diet today, advance as tolerated 14. Tobacco abuse * Counseled following admission regarding importance of quitting smoking 15. DVT prophylaxis * Heparin discontinued due to hematuria * SCD History Interval history: Somnolent, but awakens to voice; no acute events overnight; continues to receive IV fluids, BP better Hospitalist Physical - Constitutional Vitals: Temp Pulse Resp BP Pulse Ox 97.9 F 96 H 32 H 99/47 96 12/18/16 11:30 12/18/16 11:14 12/18/16 11:14 12/18/16 11:14 12/18/16 11:14 General appearance: Present: no acute distress - EENT Eyes: Present: PERRL, EOM intact, scleral icterus. Absent: conjunctival injection - Neck Neck: Present: supple, normal ROM. Absent: masses or JVD - Respiratory Respiratory effort: normal, other (tachypneic) Respiratory: bilateral: wheezing, negative: rales - Cardiovascular Rhythm: regular Heart Sounds: Present: S1 & S2. Absent: systolic murmur - Extremities Extremities: no ischemia, No edema - Abdominal General gastrointestinal: soft, non-tender, non-distended, normal bowel sounds - Psychiatric Psychiatric: other (calm, mental status improved) - Neurologic Neurologic: moves all extremities Results - Labs CBC & Chem 7: 12/17/16 15:00 12/17/16 15:00 Labs: Laboratory Last Values WBC 15.9 K/mm3 (4.5-11.0) H 12/17/16 15:00 RBC 3.65 M/mm3 (3.65-5.03) 12/17/16 15:00 Hgb 9.3 gm/dl (11.8-15.2) L 12/17/16 15:00 Hct 29.8 % (35.5-45.6) L D 12/17/16 15:00 MCV 82 fl (84-94) L D 12/17/16 15:00 MCH 26 pg (28-32) L 12/17/16 15:00 MCHC 31 % (32-34) L 12/17/16 15:00 RDW 17.1 % (13.2-15.2) H 12/17/16 15:00 Plt Count 292 K/mm3 (140-440) 12/17/16 15:00 Lymph % (Auto) 5.8 % (13.4-35.0) L 12/17/16 05:17 [place] % (Auto) 8.5 % (0.0-7.3) H 12/17/16 05:17 Eos % (Auto) 0.1 % (0.0-4.3) 12/17/16 05:17 Baso % (Auto) 0.1 % (0.0-1.8) 12/17/16 05:17 Lymph # 0.9 K/mm3 (1.2-5.4) L 12/17/16 05:17 [place] # 1.3 K/mm3 (0.0-0.8) H 12/17/16 05:17 Eos # 0.0 K/mm3 (0.0-0.4) 12/17/16 05:17 Baso # 0.0 K/mm3 (0.0-0.1) 12/17/16 05:17 Add Manual Diff Complete 12/17/16 15:00 Total Counted 100 12/17/16 15:00 Seg Neutrophils % 85.5 % (40.0-70.0) H 12/17/16 05:17 Seg Neuts % (Manual) 79.0 % (40.0-70.0) H 12/17/16 15:00 Band Neutrophils % 0 % 12/17/16 15:00 Lymphocytes % (Manual) 14.0 % (13.4-35.0) 12/17/16 15:00 Reactive Lymphs % (Man) 0 % 12/17/16 15:00 Monocytes % (Manual) 7.0 % (0.0-7.3) 12/17/16 15:00 Eosinophils % (Manual) 0 % (0.0-4.3) 12/17/16 15:00 Basophils % (Manual) 0 % (0.0-1.8) 12/17/16 15:00 Metamyelocytes % 0 % 12/17/16 15:00 Myelocytes % 0 % 12/17/16 15:00 Promyelocytes % 0 % 12/17/16 15:00 Blast Cells % 0 % 12/17/16 15:00 Nucleated RBC % Not Reportable 12/17/16 15:00 Seg Neutrophils # 13.4 K/mm3 (1.8-7.7) H 12/17/16 05:17 Seg Neutrophils # Man 12.6 K/mm3 (1.8-7.7) H 12/17/16 15:00 Band Neutrophils # 0.0 K/mm3 12/17/16 15:00 Lymphocytes # (Manual) 2.2 K/mm3 (1.2-5.4) 12/17/16 15:00 Abs React Lymphs (Man) 0.0 K/mm3 12/17/16 15:00 Monocytes # (Manual) 1.1 K/mm3 (0.0-0.8) H 12/17/16 15:00 Eosinophils # (Manual) 0.0 K/mm3 (0.0-0.4) 12/17/16 15:00 Basophils # (Manual) 0.0 K/mm3 (0.0-0.1) 12/17/16 15:00 Metamyelocytes # 0.0 K/mm3 12/17/16 15:00 Myelocytes # 0.0 K/mm3 12/17/16 15:00 Promyelocytes # 0.0 K/mm3 12/17/16 15:00 Blast Cells # 0.0 K/mm3 12/17/16 15:00 WBC Morphology Not Reportable 12/17/16 15:00 Hypersegmented Neuts Not Reportable 12/17/16 15:00 Hyposegmented Neuts Not Reportable 12/17/16 15:00 Hypogranular Neuts Not Reportable 12/17/16 15:00 Smudge Cells Not Reportable 12/17/16 15:00 Toxic Granulation Not Reportable 12/17/16 15:00 Toxic Vacuolation Not Reportable 12/17/16 15:00 Dohle Bodies Not Reportable 12/17/16 15:00 Pelger-Huet Anomaly Not Reportable 12/17/16 15:00 Mihai Rods Not Reportable 12/17/16 15:00 Platelet Estimate Appears normal 12/17/16 15:00 Clumped Platelets Not Reportable 12/17/16 15:00 Plt Clumps, EDTA Not Reportable 12/17/16 15:00 Large Platelets Not Reportable 12/17/16 15:00 Giant Platelets Not Reportable 12/17/16 15:00 Platelet Satelliting Not Reportable 12/17/16 15:00 Plt Morphology Comment Not Reportable 12/17/16 15:00 RBC Morphology Not Reportable 12/17/16 15:00 Dimorphic RBCs Not Reportable 12/17/16 15:00 Polychromasia Not Reportable 12/17/16 15:00 Hypochromasia Not Reportable 12/17/16 15:00 Poikilocytosis Few 12/17/16 15:00 Anisocytosis 1+ 12/17/16 15:00 Microcytosis Not Reportable 12/17/16 15:00 Macrocytosis Not Reportable 12/17/16 15:00 Spherocytes Not Reportable 12/17/16 15:00 Pappenheimer Bodies Not Reportable 12/17/16 15:00 Sickle Cells Not Reportable 12/17/16 15:00 Target Cells Not Reportable 12/17/16 15:00 Tear Drop Cells Not Reportable 12/17/16 15:00 Ovalocytes Not Reportable 12/17/16 15:00 Helmet Cells Not Reportable 12/17/16 15:00 [place] Bodies Not Reportable 12/17/16 15:00 [place] Rings Not Reportable 12/17/16 15:00 [place] Cells Not Reportable 12/17/16 15:00 Bite Cells Not Reportable 12/17/16 15:00 Crenated Cell Not Reportable 12/17/16 15:00 Elliptocytes Not Reportable 12/17/16 15:00 Acanthocytes (Spur) Not Reportable 12/17/16 15:00 Rouleaux Not Reportable 12/17/16 15:00 Hemoglobin C Crystals Not Reportable 12/17/16 15:00 Schistocytes Not Reportable 12/17/16 15:00 Malaria parasites Not Reportable 12/17/16 15:00 [place] Bodies Not Reportable 12/17/16 15:00 Hem Pathologist Commnt No 12/17/16 15:00 PT 15.0 Sec. (12.2-14.9) H 12/14/16 06:52 INR 1.19 (0.87-1.13) H 12/14/16 06:52 APTT 40.1 Sec. (24.2-36.6) H 12/14/16 06:52 POC ABG pH 7.427 (7.35-7.45) 12/18/16 05:44 POC ABG pCO2 25.0 (35-45) L 12/18/16 05:44 POC ABG pO2 77 (80-105) L 12/18/16 05:44 POC ABG HCO3 16.5 12/18/16 05:44 POC ABG Total CO2 17 12/18/16 05:44 POC ABG O2 Sat 96 12/18/16 05:44 POC ABG Base Excess -8 12/18/16 05:44 FiO2 35 % 12/18/16 05:44 Sodium 132 mmol/L (137-145) L 12/17/16 15:00 Potassium 5.2 mmol/L (3.6-5.0) H 12/17/16 15:00 Chloride 83.7 mmol/L (98-107) L 12/17/16 15:00 Carbon Dioxide 6 mmol/L (22-30) L* D 12/17/16 15:00 Anion Gap 48 mmol/L 12/17/16 15:00 BUN 69 mg/dL (9-20) H 12/17/16 15:00 Creatinine 3.9 mg/dL (0.8-1.5) H 12/17/16 15:00 Estimated GFR 19 ml/min 12/17/16 15:00 BUN/Creatinine Ratio 17.69 % 12/17/16 15:00 Glucose 220 mg/dL (75-100) H 12/17/16 15:00 POC Glucose 299 (70-105) H 12/17/16 21:38 Lactic Acid 9.3 mmol/L (0.7-2.0) H* 12/18/16 04:30 Calcium 7.7 mg/dL (8.4-10.2) L D 12/17/16 15:00 Phosphorus 3.1 mg/dL (2.5-4.5) 12/10/16 05:29 Magnesium 1.9 mg/dL (1.7-2.3) 12/10/16 05:29 Iron 20 ug/dL (49-181) L 12/12/16 05:40 TIBC 212 mcg/dL (250-450) L 12/12/16 05:40 Total Bilirubin 2.6 mg/dL (0.1-1.2) H 12/14/16 06:52 Direct Bilirubin 2.1 mg/dL (0-0.2) H 12/14/16 06:52 Indirect Bilirubin 0.5 mg/dL 12/14/16 06:52 AST 6347 units/L (5-40) H 12/18/16 04:30 ALT 1079 units/L (7-56) H 12/18/16 04:30 Alkaline Phosphatase 591 units/L (35-129) H 12/14/16 06:52 Total Creatine Kinase 2770 units/L (55-170) H 12/18/16 04:30 CK-MB (CK-2) 7.5 ng/mL (0.0-4.0) H 12/17/16 15:00 CK-MB (CK-2) Rel Index 1.7 (0-4) 12/17/16 15:00 Troponin T 0.078 ng/mL (0.00-0.029) H 12/17/16 15:00 Total Protein 6.4 g/dL (6.3-8.2) 12/14/16 06:52 Albumin 2.7 g/dL (3.9-5) L 12/14/16 06:52 Albumin/Globulin Ratio 0.7 % 12/14/16 06:52 Triglycerides 73 mg/dL (2-149) 12/17/16 15:00 Cholesterol 130 mg/dL (50-199) 12/17/16 15:00 LDL Cholesterol Direct 109 mg/dL (50-130) 12/17/16 15:00 HDL Cholesterol 7 mg/dL (40-59) L 12/17/16 15:00 Cholesterol/HDL Ratio 18.57 % 12/17/16 15:00 Prostate Specific Ag 35.07 ng/mL (0.00-4.00) H 12/15/16 10:42 TSH 2.660 mlU/mL (0.270-4.200) 12/08/16 00:58 Free T4 1.50 ng/dL (0.76-1.46) H 12/08/16 00:58 Urine Color Red (Yellow) 12/17/16 17:05 Urine Turbidity Cloudy (Clear) 12/17/16 17:05 Urine pH 6.0 (5.0-7.0) 12/17/16 17:05 Ur Specific [place] 1.006 (1.003-1.030) 12/17/16 17:05 Urine Protein 100 mg/dl mg/dL (Negative) 12/17/16 17:05 Urine Glucose (UA) Neg mg/dL (Negative) 12/17/16 17:05 Urine Ketones Neg mg/dL (Negative) 12/17/16 17:05 Urine Blood Lg (Negative) 12/17/16 17:05 Urine Nitrite Neg (Negative) 12/17/16 17:05 Urine Bilirubin Neg (Negative) 12/17/16 17:05 Urine Urobilinogen < 2.0 mg/dL (<2.0) 12/17/16 17:05 Ur Leukocyte Esterase Sm (Negative) 12/17/16 17:05 Urine WBC (Auto) 41.0 /HPF (0.0-6.0) H 12/17/16 17:05 Urine RBC (Auto) > 182.0 /HPF (0.0-6.0) 12/17/16 17:05 Urine Bacteria (Auto) 4+ /HPF (Negative) 12/17/16 17:05 Urine Mucus Few /HPF 12/08/16 02:15 Urine Eosinophils None seen (None Seen) 12/17/16 17:05 Urine Creatinine 105.0 mg/dL (0.1-20.0) H 12/17/16 17:05 Urine Sodium 88 mEq/L 12/17/16 17:05 Urine Opiates Screen Presumptive negative 12/08/16 02:18 Urine Methadone Screen Presumptive negative 12/08/16 02:18 Ur Barbiturates Screen Presumptive negative 12/08/16 02:18 Ur Phencyclidine Scrn Presumptive negative 12/08/16 02:18 Ur Amphetamines Screen Presumptive negative 12/08/16 02:18 U Benzodiazepines Scrn Presumptive negative 12/08/16 02:18 Urine Cocaine Screen Presumptive negative 12/08/16 02:18 U Marijuana (THC) Screen Presumptive negative 12/08/16 02:18 Drugs of Abuse Note Disclamer 12/08/16 02:18 Hepatitis A IgM Ab -1 (NonReactive) 12/14/16 06:52 Hep Bs Antigen Non-reactive (Negative) 12/14/16 06:52 Hep B Core IgM Ab Non-reactive (NonReactive) 12/14/16 06:52 Hepatitis C Antibody Non-reactive (NonReactive) 12/14/16 06:52 Blood Type O POSITIVE 12/18/16 06:00 Antibody Screen Negative 12/18/16 06:00 Crossmatch See Detail 12/18/16 06:00 - Imaging and Cardiology Chest x-ray: image reviewed (right IJ placed; no acute findings)
[2016-12-18] MEDS: AZACTAM IV SCH ×2 (14:30→23:02)
[2016-12-18] MEDS: NACL 0.9% IV SCH ×2 (14:30→23:02)
[2016-12-18] MEDS: HALDOL IV PRN ×2 (17:44→23:00)
[2016-12-18] MEDS: PROVENTIL IH PRN ×2 (20:24→23:17)
[2016-12-18] MEDS: PULMICORT IH SCH ×2 (20:24→21:12)
[2016-12-18] MEDS ORDERED: NACL 0.9% 1000 ML 1,000 ML ONE (22:50)
[2016-12-18] MEDS: DUONEB 0.5 MG-3 MG/3 ML SOLN IH SCH (23:50)
[2016-12-19] MEDS ORDERED: LEVOPHED DRIP 4 MG/NS 250 ML 250 ML IV ONE (00:48)
[2016-12-19] MEDS ORDERED: LEVOPHED DRIP 4 MG/NS 250 ML 250 ML IV SCH (01:00)
[2016-12-19] MEDS ORDERED: NACL 0.9% 1000 ML 1,000 ML ONE (01:07)
[2016-12-19 01:27] LABS: ISTAT Base Excess -8; ISTAT HCO3 17.8; ISTAT PCO2 31.9 (35-45); ISTAT PH 7.354 (7.35-7.45); ISTAT PO2 61 (80-105); ISTAT SO2 90; ISTAT TCO2 19
[2016-12-19] MEDS ORDERED: NACL 0.9% 1000 ML 2,000 ML IV SCH (02:00)
[2016-12-19] MEDS: DUONEB 0.5 MG-3 MG/3 ML SOLN IH SCH ×4 (03:15→19:12)
[2016-12-19] MEDS ORDERED: SUBLIMAZE ONE (03:37)
[2016-12-19] MEDS ORDERED: ATIVAN ONE (03:40)
[2016-12-19] MEDS ORDERED: ATIVAN IV ONE (03:44)
[2016-12-19] MEDS ORDERED: SUBLIMAZE IV ONE (03:44)
[2016-12-19] MEDS ORDERED: ARTIFICIAL TEARS OPHTH OINT OU PRN (04:02)
[2016-12-19] MEDS ORDERED: VASELINE LIP THERAPY TP PRN (04:02)
[2016-12-19 04:57] LABS: Hematocrit 33.6 % (35.5-45.6); Hemoglobin 10.9 gm/dl (11.8-15.2); Mean Corpuscular HGB Conc 32 % (32-34); Mean Corpuscular Volume 80 fl (84-94); Red Blood Count 4.22 M/mm3 (3.65-5.03); Red Cell Distribution Width 17.5 % (13.2-15.2); White Blood Count 17.8 K/mm3 (4.5-11.0)
[2016-12-19 05:04] LABS: Mean Corpuscular Hemoglobin 26 pg (28-32); Platelet Count 190 K/mm3 (140-440)
[2016-12-19 05:05] LABS: INR 2.28 (0.87-1.13)
--- NOTE | 2016-12-19 05:16 | XRay Report ---
FINAL REPORT PROCEDURE: XR CHEST 1V AP TECHNIQUE: Chest radiograph anteroposterior view. CPT 34655 HISTORY: ETT placement COMPARISON: No prior studies are available for comparison. FINDINGS: The heart size is normal. There is suboptimal inspiration. There is atelectasis of the right lung base. There are small bilateral pleural effusions larger on the right. There are no pneumothoraces. There is an endotracheal tube in the mid trachea. There is a right-sided central venous catheter. The tip is in the superior vena cava/right atrial junction. IMPRESSION: The heart size is normal. There is atelectasis of the right lung base. There are small bilateral pleural effusions larger on the right. There is an endotracheal tube in the mid trachea. There is a right-sided central venous catheter. The tip is in the superior vena cava/right atrial junction. .
[2016-12-19 05:30] LABS: Albumin 1.7 g/dL (3.9-5); Albumin/Globulin Ratio 0.6 %; BUN/Creatinine Ratio 21.38; Bilirubin,Total 5.9 mg/dL (0.1-1.2); Chloride 94.1 mmol/L (98-107); Potassium 4.4 mmol/L (3.6-5.0); Total Protein 4.4 g/dL (6.3-8.2)
[2016-12-19 05:43] LABS: Calcium 4.9 mg/dL (8.4-10.2)
[2016-12-19 05:45] LABS: ISTAT Base Excess -5; ISTAT HCO3 20.7; ISTAT PCO2 36.2 (35-45); ISTAT PH 7.365 (7.35-7.45); ISTAT PO2 84 (80-105); ISTAT SO2 96; ISTAT TCO2 22
[2016-12-19] MEDS: HEPARIN SUB-Q SCH ×3 (06:21→22:28)
[2016-12-19] MEDS: AZACTAM IV SCH (06:22)
[2016-12-19] MEDS: NACL 0.9% IV SCH (06:22)
[2016-12-19 06:55] LABS: Anisocytosis 1+; Basophils % (Manual) 0 % (0.0-1.8); Blastocytes % (Manual) 0 %; Diff Status Complete; Platelet Estimate Consistent w Auto
--- NOTE | 2016-12-19 07:52 | Progress Note ---
Assessment and Plan - Patient Problems (1) FAVIOLA (acute kidney injury) Current Visit: Yes Status: Acute Plan to address problem: Acute kidney Injury in the setting of IV contrast and hypotension. Continue IV fluids. Patient is on multiple pressors. (2) Septic shock Current Visit: Yes Status: Acute Plan to address problem: Patient is on multiple pressors. (3) Lactic acidosis Current Visit: Yes Status: Acute (4) Hyperkalemia Current Visit: Yes Status: Acute Plan to address problem: Potassium level has improved. (5) Bladder mass Current Visit: Yes Status: Acute Plan to address problem: Evaluated by Urologist. (6) Respiratory failure Current Visit: Yes Status: Acute Plan to address problem: On vent. (7) Diabetes Current Visit: Yes Status: Acute Subjective Date of service: 12/19/16 Principal diagnosis: paroxysmal SVT Interval history: Patient is on the vent. Objective - Vital Signs Vital signs: Vital Signs - 12hr 12/18/16 12/18/16 12/18/16 20:00 20:01 20:16 Temperature Pulse Rate 88 100 H 98 H Pulse Rate [ Bilateral Lower Lobe] Respiratory 38 H 28 H 26 H Rate Respiratory Rate [Bilateral Lower Lobe] Blood Pressure 86/43 98/38 107/65 O2 Sat by Pulse 90 89 87 Oximetry 12/18/16 12/18/16 12/18/16 20:25 20:28 20:30 Temperature Pulse Rate Pulse Rate [ 96 H Bilateral Lower Lobe] Respiratory Rate Respiratory 24 Rate [Bilateral Lower Lobe] Blood Pressure 114/55 O2 Sat by Pulse 92 83 L Oximetry 12/18/16 12/18/16 12/18/16 20:40 20:46 21:00 Temperature Pulse Rate 100 H 97 H Pulse Rate [ 98 H Bilateral Lower Lobe] Respiratory 30 H 28 H Rate Respiratory 24 Rate [Bilateral Lower Lobe] Blood Pressure 114/55 126/106 O2 Sat by Pulse 77 L 94 Oximetry 12/18/16 12/18/16 12/18/16 21:16 21:30 21:45 Temperature Pulse Rate 95 H 101 H 99 H Pulse Rate [ Bilateral Lower Lobe] Respiratory 27 H 28 H 37 H Rate Respiratory Rate [Bilateral Lower Lobe] Blood Pressure 68/34 68/34 76/50 O2 Sat by Pulse 88 90 88 Oximetry 12/18/16 12/18/16 12/18/16 22:00 22:15 22:30 Temperature Pulse Rate 104 H 101 H 100 H Pulse Rate [ Bilateral Lower Lobe] Respiratory 29 H 35 H 30 H Rate Respiratory Rate [Bilateral Lower Lobe] Blood Pressure 76/50 69/40 74/50 O2 Sat by Pulse 89 90 87 Oximetry 12/18/16 12/18/16 12/18/16 22:46 23:00 23:16 Temperature Pulse Rate 99 H 93 H 97 H Pulse Rate [ Bilateral Lower Lobe] Respiratory 28 H 29 H 31 H Rate Respiratory Rate [Bilateral Lower Lobe] Blood Pressure 83/49 90/54 78/37 O2 Sat by Pulse 97 89 90 Oximetry 12/18/16 12/18/16 12/18/16 23:17 23:30 23:32 Temperature Pulse Rate 83 Pulse Rate [ 94 H 96 H Bilateral Lower Lobe] Respiratory 25 H Rate Respiratory 24 24 Rate [Bilateral Lower Lobe] Blood Pressure 118/83 O2 Sat by Pulse Oximetry 12/18/16 12/19/16 12/19/16 23:45 00:00 00:15 Temperature 98.2 F Pulse Rate 86 86 92 H Pulse Rate [ Bilateral Lower Lobe] Respiratory 21 25 H 25 H Rate Respiratory Rate [Bilateral Lower Lobe] Blood Pressure 68/36 67/40 66/42 O2 Sat by Pulse 93 95 83 L Oximetry 12/19/16 12/19/16 12/19/16 00:30 00:46 01:00 Temperature Pulse Rate 85 87 89 Pulse Rate [ Bilateral Lower Lobe] Respiratory 22 24 24 Rate Respiratory Rate [Bilateral Lower Lobe] Blood Pressure 54/28 62/30 68/39 O2 Sat by Pulse 84 87 89 Oximetry 12/19/16 12/19/16 12/19/16 01:07 01:15 01:30 Temperature Pulse Rate 88 87 87 Pulse Rate [ Bilateral Lower Lobe] Respiratory 20 23 22 Rate Respiratory Rate [Bilateral Lower Lobe] Blood Pressure 68/39 71/36 82/41 O2 Sat by Pulse 89 90 89 Oximetry 12/19/16 12/19/16 12/19/16 01:40 01:45 02:00 Temperature Pulse Rate 86 87 91 H Pulse Rate [ Bilateral Lower Lobe] Respiratory 21 20 24 Rate Respiratory Rate [Bilateral Lower Lobe] Blood Pressure 82/41 75/49 74/47 O2 Sat by Pulse 90 90 89 Oximetry 12/19/16 12/19/16 12/19/16 02:13 02:16 02:30 Temperature Pulse Rate 94 H 97 H 97 H Pulse Rate [ Bilateral Lower Lobe] Respiratory 25 H 31 H 26 H Rate Respiratory Rate [Bilateral Lower Lobe] Blood Pressure 105/56 94/52 94/52 O2 Sat by Pulse 86 88 84 Oximetry 12/19/16 12/19/16 12/19/16 02:45 03:00 03:15 Temperature Pulse Rate 94 H 94 H 92 H Pulse Rate [ 96 H Bilateral Lower Lobe] Respiratory 24 29 H 20 Rate Respiratory 24 Rate [Bilateral Lower Lobe] Blood Pressure 81/48 75/50 73/48 O2 Sat by Pulse 84 Oximetry 12/19/16 12/19/16 12/19/16 03:28 03:30 03:45 Temperature Pulse Rate 89 89 92 H Pulse Rate [ 98 H Bilateral Lower Lobe] Respiratory 23 25 H 31 H Rate Respiratory 24 Rate [Bilateral Lower Lobe] Blood Pressure 73/48 69/42 108/48 O2 Sat by Pulse 84 86 87 Oximetry 12/19/16 12/19/16 12/19/16 04:00 04:15 04:30 Temperature 99.0 F Pulse Rate 87 85 88 Pulse Rate [ Bilateral Lower Lobe] Respiratory 19 23 22 Rate Respiratory Rate [Bilateral Lower Lobe] Blood Pressure 107/50 103/48 93/40 O2 Sat by Pulse 95 96 96 Oximetry 12/19/16 12/19/16 12/19/16 04:38 04:45 05:00 Temperature Pulse Rate 89 90 89 Pulse Rate [ Bilateral Lower Lobe] Respiratory 25 H 26 H Rate Respiratory Rate [Bilateral Lower Lobe] Blood Pressure 93/40 86/41 95/42 O2 Sat by Pulse 97 96 97 Oximetry 12/19/16 12/19/16 12/19/16 05:13 05:15 05:16 Temperature Pulse Rate 92 H 92 H 91 H Pulse Rate [ Bilateral Lower Lobe] Respiratory 22 22 26 H Rate Respiratory Rate [Bilateral Lower Lobe] Blood Pressure 95/42 92/45 92/45 O2 Sat by Pulse 96 95 95 Oximetry 12/19/16 12/19/16 12/19/16 05:30 05:34 05:45 Temperature Pulse Rate 90 92 H 89 Pulse Rate [ Bilateral Lower Lobe] Respiratory 30 H 27 H 27 H Rate Respiratory Rate [Bilateral Lower Lobe] Blood Pressure 100/45 100/45 95/42 O2 Sat by Pulse 96 96 97 Oximetry 12/19/16 06:00 Temperature Pulse Rate 90 Pulse Rate [ Bilateral Lower Lobe] Respiratory 27 H Rate Respiratory Rate [Bilateral Lower Lobe] Blood Pressure 100/41 O2 Sat by Pulse 97 Oximetry - General Appearance General appearance: well-developed, sedated on ventilator (FiO2 80%), intubated EENT: PERRL Neck: supple Respiratory: Present: Other (coarse breath sounds) Cardiology: regular, S1S2, no murmurs Integumentary: no rash, warm and dry Neurologic: other (sedated) Musculoskeletal: other (no edema) Psychiatric: other (sedated) - Lab 12/19/16 04:40 12/19/16 04:40 Most recent lab results Calcium 4.9 mg/dL (8.4-10.2) L* D 12/19/16 04:40 Phosphorus 3.1 mg/dL (2.5-4.5) 12/10/16 05:29 Magnesium 1.9 mg/dL (1.7-2.3) 12/10/16 05:29 Urine Creatinine 105.0 mg/dL (0.1-20.0) H 12/17/16 17:05 Urine Sodium 88 mEq/L 12/17/16 17:05
[2016-12-19] MEDS: NOVOLOG SUB-Q SCH ×4 (08:00→18:56)
[2016-12-19] MEDS: PULMICORT IH SCH ×2 (08:07→19:12)
[2016-12-19] MEDS: DIPRIVAN 10 MG/ML 100 ML IV SCH ×2 (08:19→17:13)
[2016-12-19] MEDS: LEVOPHED 8 MG in NACL 0.9% 250ML 242 ML IV SCH ×5 (08:27→22:29)
[2016-12-19] MEDS: PITRESSin 20 UNIT in NACL 0.9% 100 ML IV SCH ×3 (08:36→22:28)
--- NOTE | 2016-12-19 08:47 | XRay Report ---
Portable chest: The cardiac contour is at least borderline in size and there is mild vascular congestion. There is a right pleural effusion and questionable small left effusion. Compared to the prior study of December 17 vascular pattern has slightly worsened and the effusion/effusions are new. No change in right jugular central venous line tip located at the superior atriocaval junction. Impressions: CHF.
--- NOTE | 2016-12-19 08:56 | Hem/Onc Progress Note ---
Assessment and Plan Metastatic disease possibly from bladder cancer. Liver biopsy positive for malignancy. We will follow up on the final pathology. Prognosis is very poor. talked to paul on the phone nad updated her. prog very poor Subjective Date of service: 12/19/16 Interval history: Events noted. Patient in the ICU.on ventilator Hypotensive. May need pressors. Evidence of renal failure. Patient's liver biopsy shows malignancy. Awaiting special staining to see the origin. Objective - Exam Narrative Exam: on vent Martinez with bloody urine.on pressors. minimal UO - Constitutional Vitals: Last Vital Signs Temp 98.3 F 12/19/16 08:00 Pulse 101 H 12/19/16 08:09 Resp 24 12/19/16 08:00 BP 103/49 12/19/16 08:09 Pulse Ox 93 12/19/16 08:09 - Labs Lab Results: Laboratory Results - last 24 hr 12/18/16 12/18/16 12/18/16 06:00 07:54 11:50 WBC RBC Hgb Hct MCV MCH MCHC RDW Plt Count Add Manual Diff Total Counted Seg Neuts % (Manual) Band Neutrophils % Lymphocytes % (Manual) Reactive Lymphs % (Man) Monocytes % (Manual) Eosinophils % (Manual) Basophils % (Manual) Metamyelocytes % Myelocytes % Promyelocytes % Blast Cells % Nucleated RBC % Seg Neutrophils # Man Band Neutrophils # Lymphocytes # (Manual) Abs React Lymphs (Man) Monocytes # (Manual) Eosinophils # (Manual) Basophils # (Manual) Metamyelocytes # Myelocytes # Promyelocytes # Blast Cells # WBC Morphology Hypersegmented Neuts Hyposegmented Neuts Hypogranular Neuts Smudge Cells Toxic Granulation Toxic Vacuolation Dohle Bodies Pelger-Huet Anomaly Mihai Rods Platelet Estimate Clumped Platelets Plt Clumps, EDTA Large Platelets Giant Platelets Platelet Satelliting Plt Morphology Comment RBC Morphology Dimorphic RBCs Polychromasia Hypochromasia Poikilocytosis Anisocytosis Microcytosis Macrocytosis Spherocytes Pappenheimer Bodies Sickle Cells Target Cells Tear Drop Cells Ovalocytes Helmet Cells [place] Bodies [place] Rings [place] Cells Bite Cells Crenated Cell Elliptocytes Acanthocytes (Spur) Rouleaux Hemoglobin C Crystals Schistocytes Malaria parasites Jorge Luis Bodies Hem Pathologist Commnt PT INR POC ABG pH POC ABG pCO2 POC ABG pO2 POC ABG HCO3 POC ABG Total CO2 POC ABG O2 Sat POC ABG Base Excess FiO2 Sodium Potassium Chloride Carbon Dioxide Anion Gap BUN Creatinine Estimated GFR BUN/Creatinine Ratio Glucose POC Glucose 301 H 246 H Lactic Acid Calcium Total Bilirubin AST ALT Alkaline Phosphatase Total Protein Albumin Albumin/Globulin Ratio Blood Type O POSITIVE Antibody Screen Negative Crossmatch See Detail 12/18/16 12/18/16 12/19/16 15:54 21:05 01:16 WBC RBC Hgb Hct MCV MCH MCHC RDW Plt Count Add Manual Diff Total Counted Seg Neuts % (Manual) Band Neutrophils % Lymphocytes % (Manual) Reactive Lymphs % (Man) Monocytes % (Manual) Eosinophils % (Manual) Basophils % (Manual) Metamyelocytes % Myelocytes % Promyelocytes % Blast Cells % Nucleated RBC % Seg Neutrophils # Man Band Neutrophils # Lymphocytes # (Manual) Abs React Lymphs (Man) Monocytes # (Manual) Eosinophils # (Manual) Basophils # (Manual) Metamyelocytes # Myelocytes # Promyelocytes # Blast Cells # WBC Morphology Hypersegmented Neuts Hyposegmented Neuts Hypogranular Neuts Smudge Cells Toxic Granulation Toxic Vacuolation Dohle Bodies Pelger-Huet Anomaly Mihai Rods Platelet Estimate Clumped Platelets Plt Clumps, EDTA Large Platelets Giant Platelets Platelet Satelliting Plt Morphology Comment RBC Morphology Dimorphic RBCs Polychromasia Hypochromasia Poikilocytosis Anisocytosis Microcytosis Macrocytosis Spherocytes Pappenheimer Bodies Sickle Cells Target Cells Tear Drop Cells Ovalocytes Helmet Cells [place] Bodies [place] Rings Howard Cells Bite Cells Crenated Cell Elliptocytes Acanthocytes (Spur) Rouleaux Hemoglobin C Crystals Schistocytes Malaria parasites Jorge Luis Bodies Hem Pathologist Commnt PT INR POC ABG pH 7.354 POC ABG pCO2 31.9 L POC ABG pO2 61 L POC ABG HCO3 17.8 POC ABG Total CO2 19 POC ABG O2 Sat 90 POC ABG Base Excess -8 FiO2 50 Sodium Potassium Chloride Carbon Dioxide Anion Gap BUN Creatinine Estimated GFR BUN/Creatinine Ratio Glucose POC Glucose 231 H 256 H Lactic Acid Calcium Total Bilirubin AST ALT Alkaline Phosphatase Total Protein Albumin Albumin/Globulin Ratio Blood Type Antibody Screen Crossmatch 12/19/16 12/19/16 12/19/16 04:40 04:40 04:40 WBC 17.8 H RBC 4.22 Hgb 10.9 L Hct 33.6 L MCV 80 L D MCH 26 L MCHC 32 RDW 17.5 H Plt Count 190 Add Manual Diff Complete Total Counted 100 Seg Neuts % (Manual) 88.0 H Band Neutrophils % 0 Lymphocytes % (Manual) 3.0 L Reactive Lymphs % (Man) 0 Monocytes % (Manual) 8.0 H Eosinophils % (Manual) 1.0 Basophils % (Manual) 0 Metamyelocytes % 0 Myelocytes % 0 Promyelocytes % 0 Blast Cells % 0 Nucleated RBC % Not Reportable Seg Neutrophils # Man 15.7 H Band Neutrophils # 0.0 Lymphocytes # (Manual) 0.5 L Abs React Lymphs (Man) 0.0 Monocytes # (Manual) 1.4 H Eosinophils # (Manual) 0.2 Basophils # (Manual) 0.0 Metamyelocytes # 0.0 Myelocytes # 0.0 Promyelocytes # 0.0 Blast Cells # 0.0 WBC Morphology Not Reportable Hypersegmented Neuts Not Reportable Hyposegmented Neuts Not Reportable Hypogranular Neuts Not Reportable Smudge Cells Not Reportable Toxic Granulation Not Reportable Toxic Vacuolation Not Reportable Dohle Bodies Not Reportable Pelger-Huet Anomaly Not Reportable Mihai Rods Not Reportable Platelet Estimate Consistent w auto Clumped Platelets Not Reportable Plt Clumps, EDTA Not Reportable Large Platelets Not Reportable Giant Platelets Not Reportable Platelet Satelliting Not Reportable Plt Morphology Comment Not Reportable RBC Morphology Not Reportable Dimorphic RBCs Not Reportable Polychromasia Not Reportable Hypochromasia Not Reportable Poikilocytosis Not Reportable Anisocytosis 1+ Microcytosis Not Reportable Macrocytosis Not Reportable Spherocytes Not Reportable Pappenheimer Bodies Not Reportable Sickle Cells Not Reportable Target Cells Not Reportable Tear Drop Cells Not Reportable Ovalocytes Not Reportable Helmet Cells Not Reportable [place] Bodies Not Reportable [place] Rings Not Reportable [place] Cells Not Reportable Bite Cells Not Reportable Crenated Cell Not Reportable Elliptocytes Not Reportable Acanthocytes (Spur) Not Reportable Rouleaux Not Reportable Hemoglobin C Crystals Not Reportable Schistocytes Not Reportable Malaria parasites Not Reportable Jorge Luis Bodies Not Reportable Hem Pathologist Commnt No PT INR POC ABG pH POC ABG pCO2 POC ABG pO2 POC ABG HCO3 POC ABG Total CO2 POC ABG O2 Sat POC ABG Base Excess FiO2 Sodium 138 Potassium 4.4 Chloride 94.1 L Carbon Dioxide 17 L Anion Gap 31 BUN 77 H Creatinine 3.6 H Estimated GFR 21 BUN/Creatinine Ratio 21.38 Glucose 245 H POC Glucose Lactic Acid 8.6 H* Calcium 4.9 L* D Total Bilirubin 5.9 H AST 8235 H ALT 1128 H Alkaline Phosphatase 1191 H Total Protein 4.4 L Albumin 1.7 L Albumin/Globulin Ratio 0.6 Blood Type Antibody Screen Crossmatch 12/19/16 12/19/16 04:40 05:33 WBC RBC Hgb Hct MCV MCH MCHC RDW Plt Count Add Manual Diff Total Counted Seg Neuts % (Manual) Band Neutrophils % Lymphocytes % (Manual) Reactive Lymphs % (Man) Monocytes % (Manual) Eosinophils % (Manual) Basophils % (Manual) Metamyelocytes % Myelocytes % Promyelocytes % Blast Cells % Nucleated RBC % Seg Neutrophils # Man Band Neutrophils # Lymphocytes # (Manual) Abs React Lymphs (Man) Monocytes # (Manual) Eosinophils # (Manual) Basophils # (Manual) Metamyelocytes # Myelocytes # Promyelocytes # Blast Cells # WBC Morphology Hypersegmented Neuts Hyposegmented Neuts Hypogranular Neuts Smudge Cells Toxic Granulation Toxic Vacuolation Dohle Bodies Pelger-Huet Anomaly Mihai Rods Platelet Estimate Clumped Platelets Plt Clumps, EDTA Large Platelets Giant Platelets Platelet Satelliting Plt Morphology Comment RBC Morphology Dimorphic RBCs Polychromasia Hypochromasia Poikilocytosis Anisocytosis Microcytosis Macrocytosis Spherocytes Pappenheimer Bodies Sickle Cells Target Cells Tear Drop Cells Ovalocytes Helmet Cells [place] Bodies [place] Rings Saxis Cells Bite Cells Crenated Cell Elliptocytes Acanthocytes (Spur) Rouleaux Hemoglobin C Crystals Schistocytes Malaria parasites Jorge Luis Bodies Hem Pathologist Commnt PT 25.2 H INR 2.28 H POC ABG pH 7.365 POC ABG pCO2 36.2 POC ABG pO2 84 POC ABG HCO3 20.7 POC ABG Total CO2 22 POC ABG O2 Sat 96 POC ABG Base Excess -5 FiO2 100 Sodium Potassium Chloride Carbon Dioxide Anion Gap BUN Creatinine Estimated GFR BUN/Creatinine Ratio Glucose POC Glucose Lactic Acid Calcium Total Bilirubin AST ALT Alkaline Phosphatase Total Protein Albumin Albumin/Globulin Ratio Blood Type Antibody Screen Crossmatch
[2016-12-19] MEDS: SODIUM BICARBONATE 150 MEQ in D5W 1,000 ML IV SCH ×2 (09:00→17:13)
[2016-12-19] MEDS: FEOSOL PO SCH ×2 (09:15→21:53)
[2016-12-19] MEDS: MEGACE PO SCH (09:18)
[2016-12-19] MEDS: PEPCID IV SCH (09:35)
[2016-12-19] MEDS: SODIUM CHLORIDE IV SCH ×2 (09:35→22:28)
[2016-12-19] MEDS: LEVEMIR SUB-Q SCH (09:35)
[2016-12-19] MEDS: AZTREONAM IV SCH ×2 (09:35→22:28)
--- NOTE | 2016-12-19 09:46 | Progress Note ---
Assessment and Plan 61 y/o male with inability to urinate, now with acute change in mental status and hypotension, acute renal failure, hyperkalemia, and severe metabolic acidosis. 1. Continue broad spec abx therapy and follow up blood and urine cultures. Hypothermia has resolved. 2. Will check serial CVP's, still less than 10-12. Bolused 3 more liters this am and will give 2 units of PRBC's. may need lasix in between blood transfusions 3. pH improved this am on bicarb drip with volume. Will continue both for now. Renal following. 4. With wheezing, patient could be in early volume overload vs exacerbation of some underlying lung disease. 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 Will add PRN neb treatments. 5. Attempt head CT today. 6. Hold all BP meds. Will place on clears 7. Overall prognosis is guarded. Patient very agitated but relaxed with haldol , ativan and benadryl. Will not place on continous sedation but can use this cocktail again if needed. CCT 31 minutes Subjective Date of service: 12/19/16 Principal diagnosis: paroxysmal SVT Interval history: Around midnight, patient became oliguric and then started developing respiratory distress. Difficult intubation based on ability to sedate. Called around 0300 this am to update her. She is currently in [place] with her sister. patient is now intubated and sedated on 2 pressors, both maxed dose and is not making any urine. Tolerated blood transfusion on yesterday. Renal function is worse today which is to be expected with lack of urine. Objective Vital Signs - 12hr 12/18/16 12/18/16 12/18/16 21:45 22:00 22:15 Temperature Pulse Rate 99 H 104 H 101 H Pulse Rate [ Bilateral Lower Lobe] Respiratory 37 H 29 H 35 H Rate Respiratory Rate [Bilateral Lower Lobe] Blood Pressure 76/50 76/50 69/40 O2 Sat by Pulse 88 89 90 Oximetry 12/18/16 12/18/16 12/18/16 22:30 22:46 23:00 Temperature Pulse Rate 100 H 99 H 93 H Pulse Rate [ Bilateral Lower Lobe] Respiratory 30 H 28 H 29 H Rate Respiratory Rate [Bilateral Lower Lobe] Blood Pressure 74/50 83/49 90/54 O2 Sat by Pulse 87 97 89 Oximetry 12/18/16 12/18/16 12/18/16 23:16 23:17 23:30 Temperature Pulse Rate 97 H 83 Pulse Rate [ 94 H Bilateral Lower Lobe] Respiratory 31 H 25 H Rate Respiratory 24 Rate [Bilateral Lower Lobe] Blood Pressure 78/37 118/83 O2 Sat by Pulse 90 Oximetry 12/18/16 12/18/16 12/19/16 23:32 23:45 00:00 Temperature 98.2 F Pulse Rate 86 86 Pulse Rate [ 96 H Bilateral Lower Lobe] Respiratory 21 25 H Rate Respiratory 24 Rate [Bilateral Lower Lobe] Blood Pressure 68/36 67/40 O2 Sat by Pulse 93 95 Oximetry 12/19/16 12/19/16 12/19/16 00:15 00:30 00:46 Temperature Pulse Rate 92 H 85 87 Pulse Rate [ Bilateral Lower Lobe] Respiratory 25 H 22 24 Rate Respiratory Rate [Bilateral Lower Lobe] Blood Pressure 66/42 54/28 62/30 O2 Sat by Pulse 83 L 84 87 Oximetry 12/19/16 12/19/16 12/19/16 01:00 01:07 01:15 Temperature Pulse Rate 89 88 87 Pulse Rate [ Bilateral Lower Lobe] Respiratory 24 20 23 Rate Respiratory Rate [Bilateral Lower Lobe] Blood Pressure 68/39 68/39 71/36 O2 Sat by Pulse 89 89 90 Oximetry 12/19/16 12/19/16 12/19/16 01:30 01:40 01:45 Temperature Pulse Rate 87 86 87 Pulse Rate [ Bilateral Lower Lobe] Respiratory 22 21 20 Rate Respiratory Rate [Bilateral Lower Lobe] Blood Pressure 82/41 82/41 75/49 O2 Sat by Pulse 89 90 90 Oximetry 12/19/16 12/19/16 12/19/16 02:00 02:13 02:16 Temperature Pulse Rate 91 H 94 H 97 H Pulse Rate [ Bilateral Lower Lobe] Respiratory 24 25 H 31 H Rate Respiratory Rate [Bilateral Lower Lobe] Blood Pressure 74/47 105/56 94/52 O2 Sat by Pulse 89 86 88 Oximetry 12/19/16 12/19/16 12/19/16 02:30 02:45 03:00 Temperature Pulse Rate 97 H 94 H 94 H Pulse Rate [ Bilateral Lower Lobe] Respiratory 26 H 24 29 H Rate Respiratory Rate [Bilateral Lower Lobe] Blood Pressure 94/52 81/48 75/50 O2 Sat by Pulse 84 84 Oximetry 12/19/16 12/19/16 12/19/16 03:15 03:28 03:30 Temperature Pulse Rate 92 H 89 89 Pulse Rate [ 96 H 98 H Bilateral Lower Lobe] Respiratory 20 23 25 H Rate Respiratory 24 24 Rate [Bilateral Lower Lobe] Blood Pressure 73/48 73/48 69/42 O2 Sat by Pulse 84 86 Oximetry 12/19/16 12/19/16 12/19/16 03:45 04:00 04:15 Temperature 99.0 F Pulse Rate 92 H 87 85 Pulse Rate [ Bilateral Lower Lobe] Respiratory 31 H 19 23 Rate Respiratory Rate [Bilateral Lower Lobe] Blood Pressure 108/48 107/50 103/48 O2 Sat by Pulse 87 95 96 Oximetry 12/19/16 12/19/16 12/19/16 04:30 04:38 04:45 Temperature Pulse Rate 88 89 90 Pulse Rate [ Bilateral Lower Lobe] Respiratory 22 25 H Rate Respiratory Rate [Bilateral Lower Lobe] Blood Pressure 93/40 93/40 86/41 O2 Sat by Pulse 96 97 96 Oximetry 12/19/16 12/19/16 12/19/16 05:00 05:13 05:15 Temperature Pulse Rate 89 92 H 92 H Pulse Rate [ Bilateral Lower Lobe] Respiratory 26 H 22 22 Rate Respiratory Rate [Bilateral Lower Lobe] Blood Pressure 95/42 95/42 92/45 O2 Sat by Pulse 97 96 95 Oximetry 12/19/16 12/19/16 12/19/16 05:16 05:30 05:34 Temperature Pulse Rate 91 H 90 92 H Pulse Rate [ Bilateral Lower Lobe] Respiratory 26 H 30 H 27 H Rate Respiratory Rate [Bilateral Lower Lobe] Blood Pressure 92/45 100/45 100/45 O2 Sat by Pulse 95 96 96 Oximetry 12/19/16 12/19/16 12/19/16 05:45 06:00 08:00 Temperature 98.3 F Pulse Rate 89 90 Pulse Rate [ 95 H Bilateral Lower Lobe] Respiratory 27 H 27 H Rate Respiratory 24 Rate [Bilateral Lower Lobe] Blood Pressure 95/42 100/41 O2 Sat by Pulse 97 97 Oximetry 12/19/16 08:09 Temperature Pulse Rate 101 H Pulse Rate [ Bilateral Lower Lobe] Respiratory Rate Respiratory Rate [Bilateral Lower Lobe] Blood Pressure 103/49 O2 Sat by Pulse 93 Oximetry Constitutional: appears uncomfortable, other (orally intubated and sedated on propofol) ENT: other (orally intubated) Neck: supple Effort: mildly labored Ascultation: Right: rales (base), Bilateral: clear Percussion: Bilateral: not dull Cardiovascular: regular rate and rhythm Gastrointestinal: hypoactive bowel sounds Integumentary: normal Extremities: no edema, pink and warm CBC and BMP: 12/19/16 04:40 12/19/16 04:40 ABG, PT/INR, D-dimer: ABG POC ABG pH 7.365 (7.35-7.45) 12/19/16 05:33 POC ABG pCO2 36.2 (35-45) 12/19/16 05:33 POC ABG pO2 84 (80-105) 12/19/16 05:33 POC ABG HCO3 20.7 12/19/16 05:33 POC ABG Total CO2 22 12/19/16 05:33 POC ABG O2 Sat 96 12/19/16 05:33 PT/INR, D-dimer PT 25.2 Sec. (12.2-14.9) H 12/19/16 04:40 INR 2.28 (0.87-1.13) H 12/19/16 04:40 Abnormal lab findings: Abnormal Labs 12/08/16 12/08/16 12/09/16 09:44 12:22 10:47 WBC RBC Hgb Hct MCV MCH MCHC RDW Lymph % (Auto) [place] % (Auto) Lymph # [place] # Seg Neutrophils % Seg Neuts % (Manual) Lymphocytes % (Manual) Monocytes % (Manual) Seg Neutrophils # Seg Neutrophils # Man Lymphocytes # (Manual) Monocytes # (Manual) PT INR APTT POC ABG pH POC ABG pCO2 POC ABG pO2 Sodium Potassium Chloride Carbon Dioxide BUN Creatinine Glucose POC Glucose 54 L 68 L 127 H Lactic Acid Calcium Iron TIBC Total Bilirubin Direct Bilirubin AST ALT Alkaline Phosphatase Total Creatine Kinase CK-MB (CK-2) Troponin T Total Protein Albumin HDL Cholesterol Prostate Specific Ag Urine WBC (Auto) Urine Creatinine Crossmatch 12/09/16 12/09/16 12/10/16 11:32 16:08 05:29 WBC 15.2 H RBC Hgb Hct MCV 80 L MCH 25 L MCHC RDW 15.6 H Lymph % (Auto) 7.2 L [place] % (Auto) 9.2 H Lymph # 1.1 L [place] # 1.4 H Seg Neutrophils % 83.0 H Seg Neuts % (Manual) Lymphocytes % (Manual) Monocytes % (Manual) Seg Neutrophils # 12.6 H Seg Neutrophils # Man Lymphocytes # (Manual) Monocytes # (Manual) PT INR APTT POC ABG pH POC ABG pCO2 POC ABG pO2 Sodium Potassium Chloride Carbon Dioxide BUN Creatinine Glucose POC Glucose 110 H 130 H Lactic Acid Calcium Iron TIBC Total Bilirubin Direct Bilirubin AST ALT Alkaline Phosphatase Total Creatine Kinase CK-MB (CK-2) Troponin T Total Protein Albumin HDL Cholesterol Prostate Specific Ag Urine WBC (Auto) Urine Creatinine Crossmatch 12/10/16 12/10/16 12/11/16 05:29 17:00 07:43 WBC 15.2 H RBC Hgb 11.5 L Hct 35.4 L MCV 78 L MCH 26 L MCHC RDW 15.7 H Lymph % (Auto) 10.4 L [place] % (Auto) 9.9 H Lymph # [place] # 1.5 H Seg Neutrophils % 78.4 H Seg Neuts % (Manual) Lymphocytes % (Manual) Monocytes % (Manual) Seg Neutrophils # 11.9 H Seg Neutrophils # Man Lymphocytes # (Manual) Monocytes # (Manual) PT INR APTT POC ABG pH POC ABG pCO2 POC ABG pO2 Sodium Potassium Chloride Carbon Dioxide BUN 24 H Creatinine Glucose 121 H POC Glucose 148 H Lactic Acid Calcium Iron TIBC Total Bilirubin Direct Bilirubin AST ALT Alkaline Phosphatase Total Creatine Kinase CK-MB (CK-2) Troponin T Total Protein Albumin HDL Cholesterol Prostate Specific Ag Urine WBC (Auto) Urine Creatinine Crossmatch 12/11/16 12/12/16 12/12/16 19:28 05:40 05:40 WBC 15.5 H RBC Hgb 11.4 L Hct MCV 79 L MCH 25 L MCHC RDW 15.9 H Lymph % (Auto) 10.4 L [place] % (Auto) 11.0 H Lymph # [place] # 1.7 H Seg Neutrophils % 77.6 H Seg Neuts % (Manual) Lymphocytes % (Manual) Monocytes % (Manual) Seg Neutrophils # 12.0 H Seg Neutrophils # Man Lymphocytes # (Manual) Monocytes # (Manual) PT INR APTT POC ABG pH POC ABG pCO2 POC ABG pO2 Sodium Potassium Chloride Carbon Dioxide BUN Creatinine Glucose POC Glucose Lactic Acid Calcium Iron 20 L TIBC 212 L Total Bilirubin Direct Bilirubin AST ALT Alkaline Phosphatase Total Creatine Kinase CK-MB (CK-2) Troponin T Total Protein Albumin HDL Cholesterol Prostate Specific Ag 30.40 H Urine WBC (Auto) Urine Creatinine Crossmatch 12/12/16 12/13/16 12/13/16 08:12 11:28 15:49 WBC RBC Hgb Hct MCV MCH MCHC RDW Lymph % (Auto) [place] % (Auto) Lymph # [place] # Seg Neutrophils % Seg Neuts % (Manual) Lymphocytes % (Manual) Monocytes % (Manual) Seg Neutrophils # Seg Neutrophils # Man Lymphocytes # (Manual) Monocytes # (Manual) PT INR APTT POC ABG pH POC ABG pCO2 POC ABG pO2 Sodium Potassium Chloride Carbon Dioxide BUN Creatinine Glucose POC Glucose 68 L 119 H 106 H Lactic Acid Calcium Iron TIBC Total Bilirubin Direct Bilirubin AST ALT Alkaline Phosphatase Total Creatine Kinase CK-MB (CK-2) Troponin T Total Protein Albumin HDL Cholesterol Prostate Specific Ag Urine WBC (Auto) Urine Creatinine Crossmatch 12/13/16 12/14/16 12/14/16 19:39 06:52 06:52 WBC RBC Hgb Hct MCV MCH MCHC RDW Lymph % (Auto) [place] % (Auto) Lymph # [place] # Seg Neutrophils % Seg Neuts % (Manual) Lymphocytes % (Manual) Monocytes % (Manual) Seg Neutrophils # Seg Neutrophils # Man Lymphocytes # (Manual) Monocytes # (Manual) PT 15.0 H INR 1.19 H APTT 40.1 H POC ABG pH POC ABG pCO2 POC ABG pO2 Sodium Potassium Chloride Carbon Dioxide BUN Creatinine Glucose POC Glucose 123 H Lactic Acid Calcium Iron TIBC Total Bilirubin 2.6 H Direct Bilirubin 2.1 H AST 554 H ALT 166 H Alkaline Phosphatase 591 H Total Creatine Kinase CK-MB (CK-2) Troponin T Total Protein Albumin 2.7 L HDL Cholesterol Prostate Specific Ag Urine WBC (Auto) Urine Creatinine Crossmatch 12/14/16 12/14/16 12/14/16 11:01 11:49 15:55 WBC 15.9 H RBC Hgb 11.6 L Hct MCV 79 L MCH 26 L MCHC RDW 16.0 H Lymph % (Auto) [place] % (Auto) Lymph # [place] # Seg Neutrophils % Seg Neuts % (Manual) Lymphocytes % (Manual) Monocytes % (Manual) Seg Neutrophils # Seg Neutrophils # Man Lymphocytes # (Manual) Monocytes # (Manual) PT INR APTT POC ABG pH POC ABG pCO2 POC ABG pO2 Sodium Potassium Chloride Carbon Dioxide BUN Creatinine Glucose POC Glucose 122 H 177 H Lactic Acid Calcium Iron TIBC Total Bilirubin Direct Bilirubin AST ALT Alkaline Phosphatase Total Creatine Kinase CK-MB (CK-2) Troponin T Total Protein Albumin HDL Cholesterol Prostate Specific Ag Urine WBC (Auto) Urine Creatinine Crossmatch 12/14/16 12/15/16 12/15/16 21:21 07:54 10:42 WBC RBC Hgb Hct MCV MCH MCHC RDW Lymph % (Auto) [place] % (Auto) Lymph # [place] # Seg Neutrophils % Seg Neuts % (Manual) Lymphocytes % (Manual) Monocytes % (Manual) Seg Neutrophils # Seg Neutrophils # Man Lymphocytes # (Manual) Monocytes # (Manual) PT INR APTT POC ABG pH POC ABG pCO2 POC ABG pO2 Sodium Potassium Chloride Carbon Dioxide BUN Creatinine Glucose POC Glucose 179 H 106 H Lactic Acid Calcium Iron TIBC Total Bilirubin Direct Bilirubin AST ALT Alkaline Phosphatase Total Creatine Kinase CK-MB (CK-2) Troponin T Total Protein Albumin HDL Cholesterol Prostate Specific Ag 35.07 H Urine WBC (Auto) Urine Creatinine Crossmatch 12/15/16 12/15/16 12/16/16 12:10 16:53 08:10 WBC RBC Hgb Hct MCV MCH MCHC RDW Lymph % (Auto) [place] % (Auto) Lymph # [place] # Seg Neutrophils % Seg Neuts % (Manual) Lymphocytes % (Manual) Monocytes % (Manual) Seg Neutrophils # Seg Neutrophils # Man Lymphocytes # (Manual) Monocytes # (Manual) PT INR APTT POC ABG pH POC ABG pCO2 POC ABG pO2 Sodium Potassium Chloride Carbon Dioxide BUN Creatinine Glucose POC Glucose 132 H 107 H 52 L Lactic Acid Calcium Iron TIBC Total Bilirubin Direct Bilirubin AST ALT Alkaline Phosphatase Total Creatine Kinase CK-MB (CK-2) Troponin T Total Protein Albumin HDL Cholesterol Prostate Specific Ag Urine WBC (Auto) Urine Creatinine Crossmatch 12/16/16 12/17/16 12/17/16 22:44 05:17 05:17 WBC 15.6 H RBC Hgb Hct MCV 79 L MCH 26 L MCHC RDW 16.6 H Lymph % (Auto) 5.8 L [place] % (Auto) 8.5 H Lymph # 0.9 L [place] # 1.3 H Seg Neutrophils % 85.5 H Seg Neuts % (Manual) Lymphocytes % (Manual) Monocytes % (Manual) Seg Neutrophils # 13.4 H Seg Neutrophils # Man Lymphocytes # (Manual) Monocytes # (Manual) PT INR APTT POC ABG pH POC ABG pCO2 POC ABG pO2 Sodium 134 L Potassium 6.0 H D Chloride 89.1 L Carbon Dioxide 15 L D BUN 63 H Creatinine 3.0 H D Glucose 122 H POC Glucose 67 L Lactic Acid Calcium Iron TIBC Total Bilirubin Direct Bilirubin AST ALT Alkaline Phosphatase Total Creatine Kinase CK-MB (CK-2) Troponin T Total Protein Albumin HDL Cholesterol Prostate Specific Ag Urine WBC (Auto) Urine Creatinine Crossmatch 12/17/16 12/17/16 12/17/16 07:27 12:04 12:57 WBC RBC Hgb Hct MCV MCH MCHC RDW Lymph % (Auto) [place] % (Auto) Lymph # [place] # Seg Neutrophils % Seg Neuts % (Manual) Lymphocytes % (Manual) Monocytes % (Manual) Seg Neutrophils # Seg Neutrophils # Man Lymphocytes # (Manual) Monocytes # (Manual) PT INR APTT POC ABG pH POC ABG pCO2 POC ABG pO2 Sodium Potassium Chloride Carbon Dioxide BUN Creatinine Glucose POC Glucose 130 H 154 H 232 H Lactic Acid Calcium Iron TIBC Total Bilirubin Direct Bilirubin AST ALT Alkaline Phosphatase Total Creatine Kinase CK-MB (CK-2) Troponin T Total Protein Albumin HDL Cholesterol Prostate Specific Ag Urine WBC (Auto) Urine Creatinine Crossmatch 12/17/16 12/17/16 12/17/16 13:41 13:46 15:00 WBC 15.9 H RBC Hgb 9.3 L Hct 29.8 L D MCV 82 L D MCH 26 L MCHC 31 L RDW 17.1 H Lymph % (Auto) [place] % (Auto) Lymph # [place] # Seg Neutrophils % Seg Neuts % (Manual) 79.0 H Lymphocytes % (Manual) Monocytes % (Manual) Seg Neutrophils # Seg Neutrophils # Man 12.6 H Lymphocytes # (Manual) Monocytes # (Manual) 1.1 H PT INR APTT POC ABG pH 6.961 L POC ABG pCO2 20.4 L POC ABG pO2 230 H Sodium Potassium Chloride Carbon Dioxide BUN Creatinine Glucose POC Glucose 271 H Lactic Acid Calcium Iron TIBC Total Bilirubin Direct Bilirubin AST ALT Alkaline Phosphatase Total Creatine Kinase CK-MB (CK-2) Troponin T Total Protein Albumin HDL Cholesterol Prostate Specific Ag Urine WBC (Auto) Urine Creatinine Crossmatch 12/17/16 12/17/16 12/17/16 15:00 15:00 15:41 WBC RBC Hgb Hct MCV MCH MCHC RDW Lymph % (Auto) [place] % (Auto) Lymph # [place] # Seg Neutrophils % Seg Neuts % (Manual) Lymphocytes % (Manual) Monocytes % (Manual) Seg Neutrophils # Seg Neutrophils # Man Lymphocytes # (Manual) Monocytes # (Manual) PT INR APTT POC ABG pH 7.145 L POC ABG pCO2 19.5 L POC ABG pO2 208 H Sodium 132 L Potassium 5.2 H Chloride 83.7 L Carbon Dioxide 6 L* D BUN 69 H Creatinine 3.9 H Glucose 220 H POC Glucose Lactic Acid Calcium 7.7 L D Iron TIBC Total Bilirubin Direct Bilirubin AST ALT Alkaline Phosphatase Total Creatine Kinase 435 H CK-MB (CK-2) 7.5 H Troponin T 0.078 H Total Protein Albumin HDL Cholesterol 7 L Prostate Specific Ag Urine WBC (Auto) Urine Creatinine Crossmatch 12/17/16 12/17/16 12/17/16 17:05 17:05 17:48 WBC RBC Hgb Hct MCV MCH MCHC RDW Lymph % (Auto) [place] % (Auto) Lymph # [place] # Seg Neutrophils % Seg Neuts % (Manual) Lymphocytes % (Manual) Monocytes % (Manual) Seg Neutrophils # Seg Neutrophils # Man Lymphocytes # (Manual) Monocytes # (Manual) PT INR APTT POC ABG pH POC ABG pCO2 POC ABG pO2 Sodium Potassium Chloride Carbon Dioxide BUN Creatinine Glucose POC Glucose 218 H Lactic Acid Calcium Iron TIBC Total Bilirubin Direct Bilirubin AST ALT Alkaline Phosphatase Total Creatine Kinase CK-MB (CK-2) Troponin T Total Protein Albumin HDL Cholesterol Prostate Specific Ag Urine WBC (Auto) 41.0 H Urine Creatinine 105.0 H Crossmatch 12/17/16 12/17/16 12/18/16 21:26 21:38 04:30 WBC 15.1 H RBC 3.62 L Hgb 9.1 L Hct 27.8 L MCV 77 L D MCH 25 L MCHC RDW 16.3 H Lymph % (Auto) 3.1 L [place] % (Auto) Lymph # 0.5 L [place] # 1.0 H Seg Neutrophils % 89.6 H Seg Neuts % (Manual) Lymphocytes % (Manual) Monocytes % (Manual) Seg Neutrophils # 13.5 H Seg Neutrophils # Man Lymphocytes # (Manual) Monocytes # (Manual) PT INR APTT POC ABG pH POC ABG pCO2 19.2 L POC ABG pO2 Sodium Potassium Chloride Carbon Dioxide BUN Creatinine Glucose POC Glucose 299 H Lactic Acid Calcium Iron TIBC Total Bilirubin Direct Bilirubin AST ALT Alkaline Phosphatase Total Creatine Kinase CK-MB (CK-2) Troponin T Total Protein Albumin HDL Cholesterol Prostate Specific Ag Urine WBC (Auto) Urine Creatinine Crossmatch 12/18/16 12/18/16 12/18/16 04:30 04:30 05:44 WBC RBC Hgb Hct MCV MCH MCHC RDW Lymph % (Auto) [place] % (Auto) Lymph # [place] # Seg Neutrophils % Seg Neuts % (Manual) Lymphocytes % (Manual) Monocytes % (Manual) Seg Neutrophils # Seg Neutrophils # Man Lymphocytes # (Manual) Monocytes # (Manual) PT INR APTT POC ABG pH POC ABG pCO2 25.0 L POC ABG pO2 77 L Sodium 136 L Potassium 5.1 H Chloride 94.4 L Carbon Dioxide 16 L D BUN 71 H Creatinine 3.0 H Glucose 289 H POC Glucose Lactic Acid 9.3 H* Calcium 5.9 L* D Iron TIBC Total Bilirubin 3.3 H Direct Bilirubin AST 6347 H ALT 1079 H Alkaline Phosphatase 978 H Total Creatine Kinase 2770 H CK-MB (CK-2) Troponin T Total Protein 4.6 L D Albumin 1.9 L HDL Cholesterol Prostate Specific Ag Urine WBC (Auto) Urine Creatinine Crossmatch 12/18/16 12/18/16 12/18/16 06:00 07:54 11:50 WBC RBC Hgb Hct MCV MCH MCHC RDW Lymph % (Auto) [place] % (Auto) Lymph # [place] # Seg Neutrophils % Seg Neuts % (Manual) Lymphocytes % (Manual) Monocytes % (Manual) Seg Neutrophils # Seg Neutrophils # Man Lymphocytes # (Manual) Monocytes # (Manual) PT INR APTT POC ABG pH POC ABG pCO2 POC ABG pO2 Sodium Potassium Chloride Carbon Dioxide BUN Creatinine Glucose POC Glucose 301 H 246 H Lactic Acid Calcium Iron TIBC Total Bilirubin Direct Bilirubin AST ALT Alkaline Phosphatase Total Creatine Kinase CK-MB (CK-2) Troponin T Total Protein Albumin HDL Cholesterol Prostate Specific Ag Urine WBC (Auto) Urine Creatinine Crossmatch See Detail 12/18/16 12/18/16 12/19/16 15:54 21:05 01:16 WBC RBC Hgb Hct MCV MCH MCHC RDW Lymph % (Auto) [place] % (Auto) Lymph # [place] # Seg Neutrophils % Seg Neuts % (Manual) Lymphocytes % (Manual) Monocytes % (Manual) Seg Neutrophils # Seg Neutrophils # Man Lymphocytes # (Manual) Monocytes # (Manual) PT INR APTT POC ABG pH POC ABG pCO2 31.9 L POC ABG pO2 61 L Sodium Potassium Chloride Carbon Dioxide BUN Creatinine Glucose POC Glucose 231 H 256 H Lactic Acid Calcium Iron TIBC Total Bilirubin Direct Bilirubin AST ALT Alkaline Phosphatase Total Creatine Kinase CK-MB (CK-2) Troponin T Total Protein Albumin HDL Cholesterol Prostate Specific Ag Urine WBC (Auto) Urine Creatinine Crossmatch 12/19/16 12/19/16 12/19/16 04:40 04:40 04:40 WBC 17.8 H RBC Hgb 10.9 L Hct 33.6 L MCV 80 L D MCH 26 L MCHC RDW 17.5 H Lymph % (Auto) [place] % (Auto) Lymph # [place] # Seg Neutrophils % Seg Neuts % (Manual) 88.0 H Lymphocytes % (Manual) 3.0 L Monocytes % (Manual) 8.0 H Seg Neutrophils # Seg Neutrophils # Man 15.7 H Lymphocytes # (Manual) 0.5 L Monocytes # (Manual) 1.4 H PT INR APTT POC ABG pH POC ABG pCO2 POC ABG pO2 Sodium Potassium Chloride 94.1 L Carbon Dioxide 17 L BUN 77 H Creatinine 3.6 H Glucose 245 H POC Glucose Lactic Acid 8.6 H* Calcium 4.9 L* D Iron TIBC Total Bilirubin 5.9 H Direct Bilirubin AST 8235 H ALT 1128 H Alkaline Phosphatase 1191 H Total Creatine Kinase CK-MB (CK-2) Troponin T Total Protein 4.4 L Albumin 1.7 L HDL Cholesterol Prostate Specific Ag Urine WBC (Auto) Urine Creatinine Crossmatch 12/19/16 04:40 WBC RBC Hgb Hct MCV MCH MCHC RDW Lymph % (Auto) [place] % (Auto) Lymph # [place] # Seg Neutrophils % Seg Neuts % (Manual) Lymphocytes % (Manual) Monocytes % (Manual) Seg Neutrophils # Seg Neutrophils # Man Lymphocytes # (Manual) Monocytes # (Manual) PT 25.2 H INR 2.28 H APTT POC ABG pH POC ABG pCO2 POC ABG pO2 Sodium Potassium Chloride Carbon Dioxide BUN Creatinine Glucose POC Glucose Lactic Acid Calcium Iron TIBC Total Bilirubin Direct Bilirubin AST ALT Alkaline Phosphatase Total Creatine Kinase CK-MB (CK-2) Troponin T Total Protein Albumin HDL Cholesterol Prostate Specific Ag Urine WBC (Auto) Urine Creatinine Crossmatch Chest x-ray: image reviewed (bilateral pulmonary edema with right sided pleural effusion)
--- NOTE | 2016-12-19 11:43 | Progress Note ---
Assessment and Plan Assessment and plan: 1. Acute hypoxic respiratory failure * Likely due to sepsis/severe metabolic acidosis/ volume overload * Intubated overnight 2. Sepsis * Suspected given leukocytosis, hypothermia, hypotension * Blood and urine cultures obtained * Started on antibiotics, IV fluids * Hypothermia resolved, but now maxed out on 2 pressors 3. Acute renal failure * On admission acute renal failure secondary to vasomotor nephropathy versus ATN from possible hypotension during SVT; resolved with IV fluids * Now again in acute renal failure likely secondary to contrast nephropathy/ hypotension/possible ATN * Became anuric and renal function is worsening despite receiving IV fluids * Bladder mass possible playing a role, (? obstruction); obtain renal ultrasound ; urologist doesn't think suprapubic catheter will help and if hydronephrosis present, nephrostomy tubes can be placed by IR * Nephrology following 4. Hyperkalemia * Receiving Kayexalate and monitoring potassium level 5. Severe Metabolic acidosis/lactic acidosis * On bicarbonate drip * Antibiotics to treat possible infection * Nephrology following also 6. Hepatitic mass * s/p CT guided liver biopsy which is positive for malignancy (metastatic disease probably from bladder cancer) 7. Bladder mass * Possible primary malignancy * With hematuria * Cystoscopy canceled due to declining clinical status 8. Elevated LFTs * Secondary to shock liver due to shock versus tumor burden as liver biopsy positive for metastasis * Worsening 9. Iron deficient anemia * Likely secondary to hematuria * On replacement 10. Status post fall * CT scan of the head ordered, but not obtainable due to current status 11. Supraventricular Tachycardia on admission * Received adenosine in ER and converted to NSR * Started on calcium channel estuardo * No further intervention per cardiology * ECHO showed preserved EF, stress test (-) 1 month ago 12. Diabetes mellitus type II * Continue long-acting insulin * Accu-Cheks and SSI 13. Malnutrition * Likely secondary to malignancy/multiple comorbidities 14. DVT prophylaxis * Heparin discontinued due to hematuria * SCD 15. Poor prognosis The high probability of a clinically significant, sudden or life threatening deterioration of the [] system(s) required my full and direct attention, intervention and personal management. The aggregate critical care time was [35] minutes. This time is in addition to time spent performing reported procedures but includes the following: [x] Data Review and interpretation [x] Patient assessment and monitoring of vital signs [x] Documentation [x] Medication orders and management History Interval history: Intubated overnight due to respiratory distress possible secondary to volume overload; also hypotensive, started on pressors, this morning on 2 pressors maxed out; remains anuric Hospitalist Physical - Constitutional Vitals: Temp Pulse Resp BP Pulse Ox 98.3 F 101 H 24 103/49 93 12/19/16 08:00 12/19/16 08:09 12/19/16 08:00 12/19/16 08:09 12/19/16 08:09 General appearance: Present: severe distress - Neck Neck: Present: supple. Absent: enlarged thyroid, masses or JVD - Respiratory Respiratory effort: other (intubated) Respiratory: bilateral: diminished, negative: rhonchi, wheezing - Cardiovascular Rhythm: other (tachycardic) Heart Sounds: Present: S1 & S2. Absent: systolic murmur - Extremities Extremities: no ischemia Extremity abnormal: edema - Abdominal General gastrointestinal: soft, non-distended, normal bowel sounds, no hernia - Integumentary Integumentary: Present: warm, dry. Absent: jaundice, rash - Psychiatric Psychiatric: other - Neurologic Neurologic: other (unable to assess) Results - Labs CBC & Chem 7: 12/19/16 04:40 12/19/16 04:40 Labs: Laboratory Last Values WBC 17.8 K/mm3 (4.5-11.0) H 12/19/16 04:40 RBC 4.22 M/mm3 (3.65-5.03) 12/19/16 04:40 Hgb 10.9 gm/dl (11.8-15.2) L 12/19/16 04:40 Hct 33.6 % (35.5-45.6) L 12/19/16 04:40 MCV 80 fl (84-94) L D 12/19/16 04:40 MCH 26 pg (28-32) L 12/19/16 04:40 MCHC 32 % (32-34) 12/19/16 04:40 RDW 17.5 % (13.2-15.2) H 12/19/16 04:40 Plt Count 190 K/mm3 (140-440) 12/19/16 04:40 Lymph % (Auto) 5.8 % (13.4-35.0) L 12/17/16 05:17 [place] % (Auto) 8.5 % (0.0-7.3) H 12/17/16 05:17 Eos % (Auto) 0.1 % (0.0-4.3) 12/17/16 05:17 Baso % (Auto) 0.1 % (0.0-1.8) 12/17/16 05:17 Lymph # 0.9 K/mm3 (1.2-5.4) L 12/17/16 05:17 [place] # 1.3 K/mm3 (0.0-0.8) H 12/17/16 05:17 Eos # 0.0 K/mm3 (0.0-0.4) 12/17/16 05:17 Baso # 0.0 K/mm3 (0.0-0.1) 12/17/16 05:17 Add Manual Diff Complete 12/19/16 04:40 Total Counted 100 12/19/16 04:40 Seg Neutrophils % 85.5 % (40.0-70.0) H 12/17/16 05:17 Seg Neuts % (Manual) 88.0 % (40.0-70.0) H 12/19/16 04:40 Band Neutrophils % 0 % 12/19/16 04:40 Lymphocytes % (Manual) 3.0 % (13.4-35.0) L 12/19/16 04:40 Reactive Lymphs % (Man) 0 % 12/19/16 04:40 Monocytes % (Manual) 8.0 % (0.0-7.3) H 12/19/16 04:40 Eosinophils % (Manual) 1.0 % (0.0-4.3) 12/19/16 04:40 Basophils % (Manual) 0 % (0.0-1.8) 12/19/16 04:40 Metamyelocytes % 0 % 12/19/16 04:40 Myelocytes % 0 % 12/19/16 04:40 Promyelocytes % 0 % 12/19/16 04:40 Blast Cells % 0 % 12/19/16 04:40 Nucleated RBC % Not Reportable 12/19/16 04:40 Seg Neutrophils # 13.4 K/mm3 (1.8-7.7) H 12/17/16 05:17 Seg Neutrophils # Man 15.7 K/mm3 (1.8-7.7) H 12/19/16 04:40 Band Neutrophils # 0.0 K/mm3 12/19/16 04:40 Lymphocytes # (Manual) 0.5 K/mm3 (1.2-5.4) L 12/19/16 04:40 Abs React Lymphs (Man) 0.0 K/mm3 12/19/16 04:40 Monocytes # (Manual) 1.4 K/mm3 (0.0-0.8) H 12/19/16 04:40 Eosinophils # (Manual) 0.2 K/mm3 (0.0-0.4) 12/19/16 04:40 Basophils # (Manual) 0.0 K/mm3 (0.0-0.1) 12/19/16 04:40 Metamyelocytes # 0.0 K/mm3 12/19/16 04:40 Myelocytes # 0.0 K/mm3 12/19/16 04:40 Promyelocytes # 0.0 K/mm3 12/19/16 04:40 Blast Cells # 0.0 K/mm3 12/19/16 04:40 WBC Morphology Not Reportable 12/19/16 04:40 Hypersegmented Neuts Not Reportable 12/19/16 04:40 Hyposegmented Neuts Not Reportable 12/19/16 04:40 Hypogranular Neuts Not Reportable 12/19/16 04:40 Smudge Cells Not Reportable 12/19/16 04:40 Toxic Granulation Not Reportable 12/19/16 04:40 Toxic Vacuolation Not Reportable 12/19/16 04:40 Dohle Bodies Not Reportable 12/19/16 04:40 Pelger-Huet Anomaly Not Reportable 12/19/16 04:40 Mihai Rods Not Reportable 12/19/16 04:40 Platelet Estimate Consistent w auto 12/19/16 04:40 Clumped Platelets Not Reportable 12/19/16 04:40 Plt Clumps, EDTA Not Reportable 12/19/16 04:40 Large Platelets Not Reportable 12/19/16 04:40 Giant Platelets Not Reportable 12/19/16 04:40 Platelet Satelliting Not Reportable 12/19/16 04:40 Plt Morphology Comment Not Reportable 12/19/16 04:40 RBC Morphology Not Reportable 12/19/16 04:40 Dimorphic RBCs Not Reportable 12/19/16 04:40 Polychromasia Not Reportable 12/19/16 04:40 Hypochromasia Not Reportable 12/19/16 04:40 Poikilocytosis Not Reportable 12/19/16 04:40 Anisocytosis 1+ 12/19/16 04:40 Microcytosis Not Reportable 12/19/16 04:40 Macrocytosis Not Reportable 12/19/16 04:40 Spherocytes Not Reportable 12/19/16 04:40 Pappenheimer Bodies Not Reportable 12/19/16 04:40 Sickle Cells Not Reportable 12/19/16 04:40 Target Cells Not Reportable 12/19/16 04:40 Tear Drop Cells Not Reportable 12/19/16 04:40 Ovalocytes Not Reportable 12/19/16 04:40 Helmet Cells Not Reportable 12/19/16 04:40 [place] Bodies Not Reportable 12/19/16 04:40 [place] Rings Not Reportable 12/19/16 04:40 [place] Cells Not Reportable 12/19/16 04:40 Bite Cells Not Reportable 12/19/16 04:40 Crenated Cell Not Reportable 12/19/16 04:40 Elliptocytes Not Reportable 12/19/16 04:40 Acanthocytes (Spur) Not Reportable 12/19/16 04:40 Rouleaux Not Reportable 12/19/16 04:40 Hemoglobin C Crystals Not Reportable 12/19/16 04:40 Schistocytes Not Reportable 12/19/16 04:40 Malaria parasites Not Reportable 12/19/16 04:40 Jorge Luis Bodies Not Reportable 12/19/16 04:40 Hem Pathologist Commnt No 12/19/16 04:40 PT 25.2 Sec. (12.2-14.9) H 12/19/16 04:40 INR 2.28 (0.87-1.13) H 12/19/16 04:40 APTT 40.1 Sec. (24.2-36.6) H 12/14/16 06:52 POC ABG pH 7.365 (7.35-7.45) 12/19/16 05:33 POC ABG pCO2 36.2 (35-45) 12/19/16 05:33 POC ABG pO2 84 (80-105) 12/19/16 05:33 POC ABG HCO3 20.7 12/19/16 05:33 POC ABG Total CO2 22 12/19/16 05:33 POC ABG O2 Sat 96 12/19/16 05:33 POC ABG Base Excess -5 12/19/16 05:33 FiO2 100 % 12/19/16 05:33 Sodium 138 mmol/L (137-145) 12/19/16 04:40 Potassium 4.4 mmol/L (3.6-5.0) 12/19/16 04:40 Chloride 94.1 mmol/L (98-107) L 12/19/16 04:40 Carbon Dioxide 17 mmol/L (22-30) L 12/19/16 04:40 Anion Gap 31 mmol/L 12/19/16 04:40 BUN 77 mg/dL (9-20) H 12/19/16 04:40 Creatinine 3.6 mg/dL (0.8-1.5) H 12/19/16 04:40 Estimated GFR 21 ml/min 12/19/16 04:40 BUN/Creatinine Ratio 21.38 % 12/19/16 04:40 Glucose 245 mg/dL (75-100) H 12/19/16 04:40 POC Glucose 256 (70-105) H 12/18/16 21:05 Lactic Acid 8.6 mmol/L (0.7-2.0) H* 12/19/16 04:40 Calcium 4.9 mg/dL (8.4-10.2) L* D 12/19/16 04:40 Phosphorus 3.1 mg/dL (2.5-4.5) 12/10/16 05:29 Magnesium 1.9 mg/dL (1.7-2.3) 12/10/16 05:29 Iron 20 ug/dL (49-181) L 12/12/16 05:40 TIBC 212 mcg/dL (250-450) L 12/12/16 05:40 Total Bilirubin 5.9 mg/dL (0.1-1.2) H 12/19/16 04:40 Direct Bilirubin 2.1 mg/dL (0-0.2) H 12/14/16 06:52 Indirect Bilirubin 0.5 mg/dL 12/14/16 06:52 AST 8235 units/L (5-40) H 12/19/16 04:40 ALT 1128 units/L (7-56) H 12/19/16 04:40 Alkaline Phosphatase 1191 units/L (35-129) H 12/19/16 04:40 Total Creatine Kinase 2770 units/L (55-170) H 12/18/16 04:30 CK-MB (CK-2) 7.5 ng/mL (0.0-4.0) H 12/17/16 15:00 CK-MB (CK-2) Rel Index 1.7 (0-4) 12/17/16 15:00 Troponin T 0.078 ng/mL (0.00-0.029) H 12/17/16 15:00 Total Protein 4.4 g/dL (6.3-8.2) L 12/19/16 04:40 Albumin 1.7 g/dL (3.9-5) L 12/19/16 04:40 Albumin/Globulin Ratio 0.6 % 12/19/16 04:40 Triglycerides 73 mg/dL (2-149) 12/17/16 15:00 Cholesterol 130 mg/dL (50-199) 12/17/16 15:00 LDL Cholesterol Direct 109 mg/dL (50-130) 12/17/16 15:00 HDL Cholesterol 7 mg/dL (40-59) L 12/17/16 15:00 Cholesterol/HDL Ratio 18.57 % 12/17/16 15:00 Prostate Specific Ag 35.07 ng/mL (0.00-4.00) H 12/15/16 10:42 TSH 2.660 mlU/mL (0.270-4.200) 12/08/16 00:58 Free T4 1.50 ng/dL (0.76-1.46) H 12/08/16 00:58 Urine Color Red (Yellow) 12/17/16 17:05 Urine Turbidity Cloudy (Clear) 12/17/16 17:05 Urine pH 6.0 (5.0-7.0) 12/17/16 17:05 Ur Specific [place] 1.006 (1.003-1.030) 12/17/16 17:05 Urine Protein 100 mg/dl mg/dL (Negative) 12/17/16 17:05 Urine Glucose (UA) Neg mg/dL (Negative) 12/17/16 17:05 Urine Ketones Neg mg/dL (Negative) 12/17/16 17:05 Urine Blood Lg (Negative) 12/17/16 17:05 Urine Nitrite Neg (Negative) 12/17/16 17:05 Urine Bilirubin Neg (Negative) 12/17/16 17:05 Urine Urobilinogen < 2.0 mg/dL (<2.0) 12/17/16 17:05 Ur Leukocyte Esterase Sm (Negative) 12/17/16 17:05 Urine WBC (Auto) 41.0 /HPF (0.0-6.0) H 12/17/16 17:05 Urine RBC (Auto) > 182.0 /HPF (0.0-6.0) 12/17/16 17:05 Urine Bacteria (Auto) 4+ /HPF (Negative) 12/17/16 17:05 Urine Mucus Few /HPF 12/08/16 02:15 Urine Eosinophils None seen (None Seen) 12/17/16 17:05 Urine Creatinine 105.0 mg/dL (0.1-20.0) H 12/17/16 17:05 Urine Sodium 88 mEq/L 12/17/16 17:05 Urine Opiates Screen Presumptive negative 12/08/16 02:18 Urine Methadone Screen Presumptive negative 12/08/16 02:18 Ur Barbiturates Screen Presumptive negative 12/08/16 02:18 Ur Phencyclidine Scrn Presumptive negative 12/08/16 02:18 Ur Amphetamines Screen Presumptive negative 12/08/16 02:18 U Benzodiazepines Scrn Presumptive negative 12/08/16 02:18 Urine Cocaine Screen Presumptive negative 12/08/16 02:18 U Marijuana (THC) Screen Presumptive negative 12/08/16 02:18 Drugs of Abuse Note Disclamer 12/08/16 02:18 Hepatitis A IgM Ab -1 (NonReactive) 12/14/16 06:52 Hep Bs Antigen Non-reactive (Negative) 12/14/16 06:52 Hep B Core IgM Ab Non-reactive (NonReactive) 12/14/16 06:52 Hepatitis C Antibody Non-reactive (NonReactive) 12/14/16 06:52 Blood Type O POSITIVE 12/18/16 06:00 Antibody Screen Negative 12/18/16 06:00 Crossmatch See Detail 12/18/16 06:00
[2016-12-19] MEDS ORDERED: AZACTAM IV SCH (14:00)
[2016-12-19] MEDS ORDERED: NACL 0.9% IV SCH (14:00)
--- NOTE | 2016-12-19 15:40 | Ultrasound Report ---
Renal ultrasound: The right kidney has a length of 10.8 cm and the left is 10.1 cm. The kidneys appear to be echogenically unremarkable. Imaging of the urinary bladder is limited. Imaging in the region of the bladder appears to demonstrate a Martinez catheter. The bladder may be collapsed around the catheter but cannot be clearly distinguished. Of additional note is a collection of fluid in the right lower quadrant. This fluid is not apparent on recent CT scan of December 14. Impression: 1. Unremarkable kidneys. 2. Inadequate scan the bladder for further comment. 3. Right lower quadrant free fluid.
--- NOTE | 2016-12-19 15:56 | Progress Note ---
Subjective Date of service: 12/19/16 Principal diagnosis: paroxysmal SVT Interval history: 61 YO Male with DM, Nicotine Dependence, HTN, presents to ED for evaluation. Pt states that he has been experiencing episodes of shortness of breath and palpitations over the past 2 weeks. CTAP (12-11-16) BPH, LIVER LESIONS pt on vent for cardiac event (?hypotensive) called to see pt today for no urine outpt cardozo in good position - small amount of urine in tubing renal / bladder us (today) - no hydro or distention noted A/P oliguria not due to obstruction no urologic intervention needed Objective - Constitutional Vitals: Vital Signs - 12hr 12/19/16 12/19/16 12/19/16 04:00 04:15 04:30 Temperature 99.0 F Pulse Rate 87 85 88 Pulse Rate [ Bilateral Lower Lobe] Respiratory 19 23 22 Rate Respiratory Rate [Bilateral Lower Lobe] Blood Pressure 107/50 103/48 93/40 O2 Sat by Pulse 95 96 96 Oximetry 12/19/16 12/19/16 12/19/16 04:38 04:45 05:00 Temperature Pulse Rate 89 90 89 Pulse Rate [ Bilateral Lower Lobe] Respiratory 25 H 26 H Rate Respiratory Rate [Bilateral Lower Lobe] Blood Pressure 93/40 86/41 95/42 O2 Sat by Pulse 97 96 97 Oximetry 12/19/16 12/19/16 12/19/16 05:13 05:15 05:16 Temperature Pulse Rate 92 H 92 H 91 H Pulse Rate [ Bilateral Lower Lobe] Respiratory 22 22 26 H Rate Respiratory Rate [Bilateral Lower Lobe] Blood Pressure 95/42 92/45 92/45 O2 Sat by Pulse 96 95 95 Oximetry 12/19/16 12/19/16 12/19/16 05:30 05:34 05:45 Temperature Pulse Rate 90 92 H 89 Pulse Rate [ Bilateral Lower Lobe] Respiratory 30 H 27 H 27 H Rate Respiratory Rate [Bilateral Lower Lobe] Blood Pressure 100/45 100/45 95/42 O2 Sat by Pulse 96 96 97 Oximetry 12/19/16 12/19/16 12/19/16 06:00 06:14 06:16 Temperature Pulse Rate 90 105 H 91 H Pulse Rate [ Bilateral Lower Lobe] Respiratory 27 H 32 H 32 H Rate Respiratory Rate [Bilateral Lower Lobe] Blood Pressure 100/41 100/41 98/48 O2 Sat by Pulse 97 96 95 Oximetry 12/19/16 12/19/16 12/19/16 06:30 06:45 07:00 Temperature Pulse Rate 93 H 95 H 94 H Pulse Rate [ Bilateral Lower Lobe] Respiratory 27 H 27 H 32 H Rate Respiratory Rate [Bilateral Lower Lobe] Blood Pressure 98/48 88/50 88/50 O2 Sat by Pulse 95 97 96 Oximetry 12/19/16 12/19/16 12/19/16 07:16 07:30 07:46 Temperature Pulse Rate 96 H 99 H 103 H Pulse Rate [ Bilateral Lower Lobe] Respiratory 31 H 27 H 24 Rate Respiratory Rate [Bilateral Lower Lobe] Blood Pressure 72/39 86/44 86/44 O2 Sat by Pulse 97 95 96 Oximetry 12/19/16 12/19/16 12/19/16 08:00 08:09 08:15 Temperature 98.3 F Pulse Rate 98 H 101 H 105 H Pulse Rate [ 95 H Bilateral Lower Lobe] Respiratory 26 H 25 H Rate Respiratory 24 Rate [Bilateral Lower Lobe] Blood Pressure 88/40 103/49 98/43 O2 Sat by Pulse 98 93 92 Oximetry 12/19/16 12/19/16 12/19/16 08:30 08:45 09:00 Temperature Pulse Rate 95 H 92 H 89 Pulse Rate [ Bilateral Lower Lobe] Respiratory 23 23 20 Rate Respiratory Rate [Bilateral Lower Lobe] Blood Pressure 98/43 76/43 90/50 O2 Sat by Pulse 94 94 94 Oximetry 12/19/16 12/19/16 12/19/16 09:15 09:30 09:45 Temperature Pulse Rate 86 87 87 Pulse Rate [ Bilateral Lower Lobe] Respiratory 21 22 20 Rate Respiratory Rate [Bilateral Lower Lobe] Blood Pressure 98/49 109/50 117/54 O2 Sat by Pulse 94 95 95 Oximetry 12/19/16 12/19/16 12/19/16 10:00 10:16 10:30 Temperature Pulse Rate 102 H 93 H 101 H Pulse Rate [ Bilateral Lower Lobe] Respiratory 21 22 27 H Rate Respiratory Rate [Bilateral Lower Lobe] Blood Pressure 119/60 119/60 105/86 O2 Sat by Pulse 95 95 91 Oximetry 12/19/16 12/19/16 12/19/16 10:45 11:00 11:16 Temperature Pulse Rate 99 H 102 H 97 H Pulse Rate [ Bilateral Lower Lobe] Respiratory 24 27 H 22 Rate Respiratory Rate [Bilateral Lower Lobe] Blood Pressure 132/61 132/61 116/53 O2 Sat by Pulse 94 93 93 Oximetry 12/19/16 12/19/16 12/19/16 11:30 11:38 11:39 Temperature Pulse Rate 96 H 96 H Pulse Rate [ 94 H Bilateral Lower Lobe] Respiratory 23 Rate Respiratory 27 H Rate [Bilateral Lower Lobe] Blood Pressure 116/53 116/53 O2 Sat by Pulse 94 94 Oximetry 12/19/16 12/19/16 12/19/16 11:45 12:00 12:15 Temperature Pulse Rate 95 H 94 H 93 H Pulse Rate [ Bilateral Lower Lobe] Respiratory 26 H 21 22 Rate Respiratory Rate [Bilateral Lower Lobe] Blood Pressure 111/54 104/51 105/55 O2 Sat by Pulse 94 100 95 Oximetry 12/19/16 12/19/16 12/19/16 12:30 12:45 13:00 Temperature 98.3 F Pulse Rate 93 H 94 H 95 H Pulse Rate [ Bilateral Lower Lobe] Respiratory 22 22 22 Rate Respiratory Rate [Bilateral Lower Lobe] Blood Pressure 107/57 116/61 125/57 O2 Sat by Pulse 95 94 93 Oximetry 12/19/16 12/19/16 12/19/16 13:15 13:30 13:45 Temperature Pulse Rate 97 H 102 H 101 H Pulse Rate [ Bilateral Lower Lobe] Respiratory 21 27 H 21 Rate Respiratory Rate [Bilateral Lower Lobe] Blood Pressure 136/64 139/67 142/62 O2 Sat by Pulse 95 95 95 Oximetry - Labs CBC & Chem 7: 12/19/16 04:40 12/19/16 04:40 Labs: Abnormal lab results 12/18/16 12/18/16 12/18/16 Range/Units 06:00 07:54 11:50 WBC (4.5-11.0) K/mm3 Hgb (11.8-15.2) gm/dl Hct (35.5-45.6) % MCV (84-94) fl MCH (28-32) pg RDW (13.2-15.2) % Seg Neuts % (Manual) (40.0-70.0) % Lymphocytes % (Manual) (13.4-35.0) % Monocytes % (Manual) (0.0-7.3) % Seg Neutrophils # Man (1.8-7.7) K/mm3 Lymphocytes # (Manual) (1.2-5.4) K/mm3 Monocytes # (Manual) (0.0-0.8) K/mm3 PT (12.2-14.9) Sec. INR (0.87-1.13) POC ABG pCO2 (35-45) POC ABG pO2 (80-105) Chloride (98-107) mmol/L Carbon Dioxide (22-30) mmol/L BUN (9-20) mg/dL Creatinine (0.8-1.5) mg/dL Glucose (75-100) mg/dL POC Glucose 301 H 246 H (70-105) Lactic Acid (0.7-2.0) mmol/L Calcium (8.4-10.2) mg/dL Total Bilirubin (0.1-1.2) mg/dL AST (5-40) units/L ALT (7-56) units/L Alkaline Phosphatase (35-129) units/L Total Protein (6.3-8.2) g/dL Albumin (3.9-5) g/dL Crossmatch See Detail 12/18/16 12/18/16 12/19/16 Range/Units 15:54 21:05 01:16 WBC (4.5-11.0) K/mm3 Hgb (11.8-15.2) gm/dl Hct (35.5-45.6) % MCV (84-94) fl MCH (28-32) pg RDW (13.2-15.2) % Seg Neuts % (Manual) (40.0-70.0) % Lymphocytes % (Manual) (13.4-35.0) % Monocytes % (Manual) (0.0-7.3) % Seg Neutrophils # Man (1.8-7.7) K/mm3 Lymphocytes # (Manual) (1.2-5.4) K/mm3 Monocytes # (Manual) (0.0-0.8) K/mm3 PT (12.2-14.9) Sec. INR (0.87-1.13) POC ABG pCO2 31.9 L (35-45) POC ABG pO2 61 L (80-105) Chloride (98-107) mmol/L Carbon Dioxide (22-30) mmol/L BUN (9-20) mg/dL Creatinine (0.8-1.5) mg/dL Glucose (75-100) mg/dL POC Glucose 231 H 256 H (70-105) Lactic Acid (0.7-2.0) mmol/L Calcium (8.4-10.2) mg/dL Total Bilirubin (0.1-1.2) mg/dL AST (5-40) units/L ALT (7-56) units/L Alkaline Phosphatase (35-129) units/L Total Protein (6.3-8.2) g/dL Albumin (3.9-5) g/dL Crossmatch 12/19/16 12/19/16 12/19/16 Range/Units 04:40 04:40 04:40 WBC 17.8 H (4.5-11.0) K/mm3 Hgb 10.9 L (11.8-15.2) gm/dl Hct 33.6 L (35.5-45.6) % MCV 80 L D (84-94) fl MCH 26 L (28-32) pg RDW 17.5 H (13.2-15.2) % Seg Neuts % (Manual) 88.0 H (40.0-70.0) % Lymphocytes % (Manual) 3.0 L (13.4-35.0) % Monocytes % (Manual) 8.0 H (0.0-7.3) % Seg Neutrophils # Man 15.7 H (1.8-7.7) K/mm3 Lymphocytes # (Manual) 0.5 L (1.2-5.4) K/mm3 Monocytes # (Manual) 1.4 H (0.0-0.8) K/mm3 PT (12.2-14.9) Sec. INR (0.87-1.13) POC ABG pCO2 (35-45) POC ABG pO2 (80-105) Chloride 94.1 L (98-107) mmol/L Carbon Dioxide 17 L (22-30) mmol/L BUN 77 H (9-20) mg/dL Creatinine 3.6 H (0.8-1.5) mg/dL Glucose 245 H (75-100) mg/dL POC Glucose (70-105) Lactic Acid 8.6 H* (0.7-2.0) mmol/L Calcium 4.9 L* D (8.4-10.2) mg/dL Total Bilirubin 5.9 H (0.1-1.2) mg/dL AST 8235 H (5-40) units/L ALT 1128 H (7-56) units/L Alkaline Phosphatase 1191 H (35-129) units/L Total Protein 4.4 L (6.3-8.2) g/dL Albumin 1.7 L (3.9-5) g/dL Crossmatch 12/19/16 12/19/16 12/19/16 Range/Units 04:40 07:20 11:21 WBC (4.5-11.0) K/mm3 Hgb (11.8-15.2) gm/dl Hct (35.5-45.6) % MCV (84-94) fl MCH (28-32) pg RDW (13.2-15.2) % Seg Neuts % (Manual) (40.0-70.0) % Lymphocytes % (Manual) (13.4-35.0) % Monocytes % (Manual) (0.0-7.3) % Seg Neutrophils # Man (1.8-7.7) K/mm3 Lymphocytes # (Manual) (1.2-5.4) K/mm3 Monocytes # (Manual) (0.0-0.8) K/mm3 PT 25.2 H (12.2-14.9) Sec. INR 2.28 H (0.87-1.13) POC ABG pCO2 (35-45) POC ABG pO2 (80-105) Chloride (98-107) mmol/L Carbon Dioxide (22-30) mmol/L BUN (9-20) mg/dL Creatinine (0.8-1.5) mg/dL Glucose (75-100) mg/dL POC Glucose 257 H 263 H (70-105) Lactic Acid (0.7-2.0) mmol/L Calcium (8.4-10.2) mg/dL Total Bilirubin (0.1-1.2) mg/dL AST (5-40) units/L ALT (7-56) units/L Alkaline Phosphatase (35-129) units/L Total Protein (6.3-8.2) g/dL Albumin (3.9-5) g/dL Crossmatch
[2016-12-19] MEDS ORDERED: CORDARONE 150 MG in D5W 100 ML IV ONE (16:30)
[2016-12-19] MEDS: CORDARONE 900 MG in D5W 482 ML IV SCH (17:00)
[2016-12-20] MEDS: SODIUM BICARBONATE 150 MEQ in D5W 1,000 ML IV SCH (00:02)
[2016-12-20] MEDS: NOVOLOG SUB-Q SCH ×4 (00:19→18:05)
[2016-12-20] MEDS: DUONEB 0.5 MG-3 MG/3 ML SOLN IH SCH ×7 (00:20→20:34)
[2016-12-20 04:50] LABS: ISTAT Base Excess -2; ISTAT PCO2 37.1 (35-45); ISTAT PH 7.399 (7.35-7.45); ISTAT PO2 66 (80-105); ISTAT SO2 93; ISTAT TCO2 24
[2016-12-20] MEDS: HEPARIN SUB-Q SCH ×3 (05:33→22:38)
[2016-12-20 05:39] LABS: Hematocrit 34.4 % (35.5-45.6); Hemoglobin 11.5 gm/dl (11.8-15.2); Mean Corpuscular HGB Conc 34 % (32-34); Mean Corpuscular Hemoglobin 26 pg (28-32); Mean Corpuscular Volume 79 fl (84-94); Red Blood Count 4.37 M/mm3 (3.65-5.03); Red Cell Distribution Width 16.8 % (13.2-15.2); White Blood Count 18.4 K/mm3 (4.5-11.0)
[2016-12-20 05:46] LABS: Albumin 1.4 g/dL (3.9-5); Albumin/Globulin Ratio 0.5 %; BUN/Creatinine Ratio 18.26; Bilirubin,Total 6.6 mg/dL (0.1-1.2); Chloride 91.5 mmol/L (98-107); Potassium 5.1 mmol/L (3.6-5.0); Total Protein 4.4 g/dL (6.3-8.2)
[2016-12-20 05:48] LABS: Platelet Count 183 K/mm3 (140-440)
[2016-12-20] MEDS: LEVOPHED 8 MG in NACL 0.9% 250ML 242 ML IV SCH ×3 (06:13→22:30)
--- NOTE | 2016-12-20 07:17 | Progress Note ---
Assessment and Plan - Patient Problems (1) FAVIOLA (acute kidney injury) Current Visit: Yes Status: Acute Plan to address problem: Acute kidney Injury in the setting of IV contrast and hypotension. Renal function continue to decline secondary to septic shock. Patient is on multiple pressors. Renal prognosis guarded. Monitor for [employer] needs. (2) Septic shock Current Visit: Yes Status: Acute Plan to address problem: Patient is on multiple pressors. (3) Lactic acidosis Current Visit: Yes Status: Acute (4) Hyperkalemia Current Visit: Yes Status: Acute (5) Bladder mass Current Visit: Yes Status: Acute (6) Respiratory failure Current Visit: Yes Status: Acute Plan to address problem: On vent. (7) Diabetes Current Visit: Yes Status: Chronic Subjective Date of service: 12/20/16 Principal diagnosis: paroxysmal SVT Interval history: Patient is on the vent. Objective - Vital Signs Vital signs: Vital Signs - 12hr 12/19/16 12/19/16 12/19/16 19:26 19:30 19:45 Temperature Pulse Rate 94 H 93 H Pulse Rate [ 92 H Throughout] Respiratory 29 H 22 Rate Respiratory 26 H Rate [ Throughout] Blood Pressure 107/59 108/53 O2 Sat by Pulse 93 93 Oximetry 12/19/16 12/19/16 12/19/16 20:00 20:01 20:08 Temperature 98.2 F Pulse Rate 91 H 92 H Pulse Rate [ Throughout] Respiratory 25 H 22 21 Rate Respiratory Rate [ Throughout] Blood Pressure 100/53 88/65 O2 Sat by Pulse 92 93 92 Oximetry 12/19/16 12/19/16 12/19/16 20:15 20:17 20:30 Temperature Pulse Rate 96 H 92 H 92 H Pulse Rate [ Throughout] Respiratory 19 24 23 Rate Respiratory Rate [ Throughout] Blood Pressure 107/60 107/60 92/53 O2 Sat by Pulse 92 93 93 Oximetry 12/19/16 12/19/16 12/19/16 20:31 20:45 21:00 Temperature Pulse Rate 95 H 94 H 91 H Pulse Rate [ Throughout] Respiratory 23 23 22 Rate Respiratory Rate [ Throughout] Blood Pressure 92/53 114/51 103/58 O2 Sat by Pulse 92 93 93 Oximetry 12/19/16 12/19/16 12/19/16 21:15 21:30 21:45 Temperature Pulse Rate 94 H 94 H 91 H Pulse Rate [ Throughout] Respiratory 25 H 29 H 22 Rate Respiratory Rate [ Throughout] Blood Pressure 105/57 114/60 124/50 O2 Sat by Pulse 92 92 93 Oximetry 12/19/16 12/19/16 12/19/16 21:47 22:00 22:15 Temperature Pulse Rate 91 H 94 H 92 H Pulse Rate [ Throughout] Respiratory 23 22 25 H Rate Respiratory Rate [ Throughout] Blood Pressure 105/57 117/45 126/55 O2 Sat by Pulse 92 93 92 Oximetry 12/19/16 12/19/16 12/19/16 22:30 22:45 23:00 Temperature Pulse Rate 89 89 92 H Pulse Rate [ Throughout] Respiratory 21 21 21 Rate Respiratory Rate [ Throughout] Blood Pressure 113/54 127/52 110/57 O2 Sat by Pulse 92 93 93 Oximetry 12/19/16 12/19/16 12/19/16 23:15 23:30 23:45 Temperature Pulse Rate 92 H 88 88 Pulse Rate [ Throughout] Respiratory 20 23 22 Rate Respiratory Rate [ Throughout] Blood Pressure 124/52 134/53 123/52 O2 Sat by Pulse 93 93 93 Oximetry 12/20/16 12/20/16 12/20/16 00:00 00:15 00:20 Temperature 98.0 F Pulse Rate 89 89 Pulse Rate [ 89 Throughout] Respiratory 24 23 Rate Respiratory 27 H Rate [ Throughout] Blood Pressure 139/55 138/53 O2 Sat by Pulse 92 93 Oximetry 12/20/16 12/20/16 12/20/16 00:21 00:29 00:30 Temperature Pulse Rate 91 H 88 89 Pulse Rate [ 90 Throughout] Respiratory 27 H 26 H Rate Respiratory 26 H Rate [ Throughout] Blood Pressure 138/53 138/53 121/53 O2 Sat by Pulse 93 93 94 Oximetry 12/20/16 12/20/16 12/20/16 00:45 01:00 01:15 Temperature Pulse Rate 91 H 91 H 92 H Pulse Rate [ Throughout] Respiratory 24 24 30 H Rate Respiratory Rate [ Throughout] Blood Pressure 113/51 116/52 119/52 O2 Sat by Pulse 94 93 93 Oximetry 12/20/16 12/20/16 12/20/16 01:30 01:45 01:54 Temperature Pulse Rate 91 H 93 H 93 H Pulse Rate [ Throughout] Respiratory 24 28 H 28 H Rate Respiratory Rate [ Throughout] Blood Pressure 120/47 104/53 104/53 O2 Sat by Pulse 93 93 94 Oximetry 12/20/16 12/20/16 12/20/16 02:00 02:15 02:31 Temperature Pulse Rate 90 91 H 94 H Pulse Rate [ Throughout] Respiratory 23 23 21 Rate Respiratory Rate [ Throughout] Blood Pressure 105/47 124/52 114/51 O2 Sat by Pulse 94 94 94 Oximetry 12/20/16 12/20/16 12/20/16 02:45 03:00 03:15 Temperature Pulse Rate 92 H 93 H 91 H Pulse Rate [ Throughout] Respiratory 23 28 H 24 Rate Respiratory Rate [ Throughout] Blood Pressure 114/53 108/52 116/50 O2 Sat by Pulse 93 93 94 Oximetry 12/20/16 12/20/16 12/20/16 03:19 03:30 03:45 Temperature Pulse Rate 92 H 91 H 92 H Pulse Rate [ Throughout] Respiratory 19 26 H 27 H Rate Respiratory Rate [ Throughout] Blood Pressure 116/50 112/49 121/52 O2 Sat by Pulse 94 94 94 Oximetry 12/20/16 12/20/16 12/20/16 03:49 03:54 04:00 Temperature 98.3 F Pulse Rate 92 H 91 H Pulse Rate [ Throughout] Respiratory 27 H 24 Rate Respiratory Rate [ Throughout] Blood Pressure 121/52 124/49 O2 Sat by Pulse 94 94 Oximetry 12/20/16 12/20/16 12/20/16 04:01 04:10 04:12 Temperature Pulse Rate 91 H Pulse Rate [ 91 H 91 H Throughout] Respiratory Rate Respiratory 28 H 27 H Rate [ Throughout] Blood Pressure 124/49 O2 Sat by Pulse 93 Oximetry 12/20/16 12/20/16 12/20/16 04:15 04:30 04:45 Temperature Pulse Rate 92 H 93 H 93 H Pulse Rate [ Throughout] Respiratory 29 H 26 H 25 H Rate Respiratory Rate [ Throughout] Blood Pressure 110/58 104/50 123/51 O2 Sat by Pulse 93 93 93 Oximetry 12/20/16 12/20/16 12/20/16 05:00 05:15 05:30 Temperature Pulse Rate 94 H 90 92 H Pulse Rate [ Throughout] Respiratory 28 H 26 H 26 H Rate Respiratory Rate [ Throughout] Blood Pressure 123/51 100/49 106/49 O2 Sat by Pulse 93 93 93 Oximetry 12/20/16 12/20/16 05:45 06:00 Temperature Pulse Rate 92 H 93 H Pulse Rate [ Throughout] Respiratory 27 H 24 Rate Respiratory Rate [ Throughout] Blood Pressure 121/52 125/53 O2 Sat by Pulse 93 93 Oximetry - General Appearance General appearance: well-developed, sedated on ventilator (FiO2 100%), intubated EENT: PERRL Neck: supple Respiratory: Present: Other (coarse breath sounds) Cardiology: regular, S1S2, no murmurs Gastrointestinal: normoactive bowel sounds Integumentary: no rash Neurologic: other (sedated) Musculoskeletal: other (1+ edema of both LEs noted) Psychiatric: other (sedated) - Lab 12/20/16 04:20 12/20/16 04:20 Most recent lab results Calcium 5.0 mg/dL (8.4-10.2) L* 12/20/16 04:20 Phosphorus 3.1 mg/dL (2.5-4.5) 12/10/16 05:29 Magnesium 1.9 mg/dL (1.7-2.3) 12/10/16 05:29 Urine Creatinine 105.0 mg/dL (0.1-20.0) H 12/17/16 17:05 Urine Sodium 88 mEq/L 12/17/16 17:05
[2016-12-20 07:20] LABS: Basophils % (Manual) 0 % (0.0-1.8); Blastocytes % (Manual) 0 %; Eosinophils % (Manual) 0 % (0.0-4.3)
[2016-12-20 07:22] LABS: Anisocytosis 1+; Diff Status Complete; Target Cells Few
[2016-12-20] MEDS: DIPRIVAN 10 MG/ML 100 ML IV SCH ×2 (08:18→23:57)
--- NOTE | 2016-12-20 08:21 | XRay Report ---
AP CHEST: HISTORY: Follow-up respiratory failure. FINDINGS: Hazy opacity has developed in the lower lung zone since yesterday's exam. This probably represents atelectatic changes. The upper lung zones are clear. Heart size and pulmonary vascularity are stable at the upper limits of normal. Lines and tubes remain in the same position. IMPRESSION: Bibasilar atelectatic changes.
[2016-12-20] MEDS: PITRESSin 20 UNIT in NACL 0.9% 100 ML IV SCH (08:25)
[2016-12-20] MEDS: AZTREONAM IV SCH ×2 (10:45→22:38)
[2016-12-20] MEDS: SODIUM CHLORIDE IV SCH ×2 (10:45→22:38)
--- NOTE | 2016-12-20 10:58 | Progress Note ---
Assessment and Plan 61 y/o male with inability to urinate, now with acute change in mental status and hypotension, acute renal failure, hyperkalemia, and severe metabolic acidosis, with worsening renal failure and anuria, now requiring multiple vasopressor therapy. 1. Will continue amio drip for now. 2. Worsening renal failure. Likely obstruction from mass but no evidence of hydronephrosis. Urology has evaluated, and no further recommendations from them 3. pH stable this am, still on bicarb drip. Continues to receive volume but not make urine. Don't wont to stop bicarb drip just yet, fear that metabolic acidosis will worsen very rapidly if we stop at this time, especially with worsening renal failure. Will continue 4. H/H has dropped, likely dilutional. Will speak with family first before ordering another transfusion. This would also worsen breathing as patient is not moving any volume as well 5. Continue Vent support, currently on 100% and PaO2 is only 66, expected given worsening renal function. 6. Overall prognosis is guarded. Long discussion in the conference room with brother, son and nephew on 12/19/16. 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 Attempted to explain the reason for renal failure and lack of urine output and the plan as listed above to attempt to resolve this. I also explained to them the very poor prognosis and the worsening overall clinical state of the patient. All family present appeared to express understanding that we are approaching the end of life and that with limited options for therapy, we are currently providing all that we can and all that is reasonable. I also explained to them, in regards to transfer, the saftey issues involved as well as it being a lateral move that would not benefit the patient but yet increase risk for harm and sudden . They also expressed understanding with this. Will ask oncology to speak with them just to make sure it is clear the options for treatment for malignancy given current clinical state. CCT 31 minutes Subjective Date of service: 12/20/16 Principal diagnosis: paroxysmal SVT Interval history: Clinical status worsened yesterday afternoon. Developed SVT around the time that his family visited. Started on Amio and now rate controlled. Appears sinus rhythm. He has an ultrasound of his kidneys yesterday that was negative for hydronephrosis but patient continues to not make any urine. Renal function is worse today. H/H is down as well but no evidence of ragini bleeding. Remainder is negative. Objective Vital Signs - 12hr 12/19/16 12/19/16 12/19/16 23:00 23:15 23:30 Temperature Pulse Rate 92 H 92 H 88 Pulse Rate [ Bilateral Lower Lobe] Pulse Rate [ Throughout] Respiratory 21 20 23 Rate Respiratory Rate [Bilateral Lower Lobe] Respiratory Rate [ Throughout] Blood Pressure 110/57 124/52 134/53 O2 Sat by Pulse 93 93 93 Oximetry 12/19/16 12/20/16 12/20/16 23:45 00:00 00:15 Temperature 98.0 F Pulse Rate 88 89 89 Pulse Rate [ Bilateral Lower Lobe] Pulse Rate [ Throughout] Respiratory 22 24 23 Rate Respiratory Rate [Bilateral Lower Lobe] Respiratory Rate [ Throughout] Blood Pressure 123/52 139/55 138/53 O2 Sat by Pulse 93 92 93 Oximetry 12/20/16 12/20/16 12/20/16 00:20 00:21 00:29 Temperature Pulse Rate 91 H 88 Pulse Rate [ Bilateral Lower Lobe] Pulse Rate [ 89 Throughout] Respiratory 27 H Rate Respiratory Rate [Bilateral Lower Lobe] Respiratory 27 H Rate [ Throughout] Blood Pressure 138/53 138/53 O2 Sat by Pulse 93 93 Oximetry 12/20/16 12/20/16 12/20/16 00:30 00:45 01:00 Temperature Pulse Rate 89 91 H 91 H Pulse Rate [ Bilateral Lower Lobe] Pulse Rate [ 90 Throughout] Respiratory 26 H 24 24 Rate Respiratory Rate [Bilateral Lower Lobe] Respiratory 26 H Rate [ Throughout] Blood Pressure 121/53 113/51 116/52 O2 Sat by Pulse 94 94 93 Oximetry 12/20/16 12/20/16 12/20/16 01:15 01:30 01:45 Temperature Pulse Rate 92 H 91 H 93 H Pulse Rate [ Bilateral Lower Lobe] Pulse Rate [ Throughout] Respiratory 30 H 24 28 H Rate Respiratory Rate [Bilateral Lower Lobe] Respiratory Rate [ Throughout] Blood Pressure 119/52 120/47 104/53 O2 Sat by Pulse 93 93 93 Oximetry 12/20/16 12/20/16 12/20/16 01:54 02:00 02:15 Temperature Pulse Rate 93 H 90 91 H Pulse Rate [ Bilateral Lower Lobe] Pulse Rate [ Throughout] Respiratory 28 H 23 23 Rate Respiratory Rate [Bilateral Lower Lobe] Respiratory Rate [ Throughout] Blood Pressure 104/53 105/47 124/52 O2 Sat by Pulse 94 94 94 Oximetry 12/20/16 12/20/16 12/20/16 02:31 02:45 03:00 Temperature Pulse Rate 94 H 92 H 93 H Pulse Rate [ Bilateral Lower Lobe] Pulse Rate [ Throughout] Respiratory 21 23 28 H Rate Respiratory Rate [Bilateral Lower Lobe] Respiratory Rate [ Throughout] Blood Pressure 114/51 114/53 108/52 O2 Sat by Pulse 94 93 93 Oximetry 12/20/16 12/20/16 12/20/16 03:15 03:19 03:30 Temperature Pulse Rate 91 H 92 H 91 H Pulse Rate [ Bilateral Lower Lobe] Pulse Rate [ Throughout] Respiratory 24 19 26 H Rate Respiratory Rate [Bilateral Lower Lobe] Respiratory Rate [ Throughout] Blood Pressure 116/50 116/50 112/49 O2 Sat by Pulse 94 94 94 Oximetry 12/20/16 12/20/16 12/20/16 03:45 03:49 03:54 Temperature 98.3 F Pulse Rate 92 H 92 H Pulse Rate [ Bilateral Lower Lobe] Pulse Rate [ Throughout] Respiratory 27 H 27 H Rate Respiratory Rate [Bilateral Lower Lobe] Respiratory Rate [ Throughout] Blood Pressure 121/52 121/52 O2 Sat by Pulse 94 94 Oximetry 12/20/16 12/20/16 12/20/16 04:00 04:01 04:10 Temperature Pulse Rate 91 H Pulse Rate [ Bilateral Lower Lobe] Pulse Rate [ 91 H 91 H Throughout] Respiratory 24 Rate Respiratory Rate [Bilateral Lower Lobe] Respiratory 28 H 27 H Rate [ Throughout] Blood Pressure 124/49 O2 Sat by Pulse 94 Oximetry 12/20/16 12/20/16 12/20/16 04:12 04:15 04:30 Temperature Pulse Rate 91 H 92 H 93 H Pulse Rate [ Bilateral Lower Lobe] Pulse Rate [ Throughout] Respiratory 29 H 26 H Rate Respiratory Rate [Bilateral Lower Lobe] Respiratory Rate [ Throughout] Blood Pressure 124/49 110/58 104/50 O2 Sat by Pulse 93 93 93 Oximetry 12/20/16 12/20/16 12/20/16 04:45 05:00 05:15 Temperature Pulse Rate 93 H 94 H 90 Pulse Rate [ Bilateral Lower Lobe] Pulse Rate [ Throughout] Respiratory 25 H 28 H 26 H Rate Respiratory Rate [Bilateral Lower Lobe] Respiratory Rate [ Throughout] Blood Pressure 123/51 123/51 100/49 O2 Sat by Pulse 93 93 93 Oximetry 12/20/16 12/20/16 12/20/16 05:30 05:45 06:00 Temperature Pulse Rate 92 H 92 H 93 H Pulse Rate [ Bilateral Lower Lobe] Pulse Rate [ Throughout] Respiratory 26 H 27 H 24 Rate Respiratory Rate [Bilateral Lower Lobe] Respiratory Rate [ Throughout] Blood Pressure 106/49 121/52 125/53 O2 Sat by Pulse 93 93 93 Oximetry 12/20/16 12/20/16 12/20/16 06:13 06:15 06:30 Temperature Pulse Rate 93 H 93 H 93 H Pulse Rate [ Bilateral Lower Lobe] Pulse Rate [ Throughout] Respiratory 25 H 31 H 25 H Rate Respiratory Rate [Bilateral Lower Lobe] Respiratory Rate [ Throughout] Blood Pressure 125/53 117/54 111/51 O2 Sat by Pulse 93 93 92 Oximetry 12/20/16 12/20/16 12/20/16 06:45 07:00 07:15 Temperature Pulse Rate 93 H 92 H 93 H Pulse Rate [ Bilateral Lower Lobe] Pulse Rate [ Throughout] Respiratory 22 30 H 20 Rate Respiratory Rate [Bilateral Lower Lobe] Respiratory Rate [ Throughout] Blood Pressure 107/54 114/51 104/53 O2 Sat by Pulse 92 93 93 Oximetry 12/20/16 12/20/16 12/20/16 07:30 07:45 07:46 Temperature 97.9 F Pulse Rate 92 H 92 H Pulse Rate [ Bilateral Lower Lobe] Pulse Rate [ Throughout] Respiratory 29 H 28 H Rate Respiratory Rate [Bilateral Lower Lobe] Respiratory Rate [ Throughout] Blood Pressure 104/47 108/52 O2 Sat by Pulse 93 94 Oximetry 12/20/16 12/20/16 12/20/16 07:47 07:48 08:00 Temperature Pulse Rate 92 H 91 H Pulse Rate [ 92 H Bilateral Lower Lobe] Pulse Rate [ Throughout] Respiratory 27 H Rate Respiratory 28 H Rate [Bilateral Lower Lobe] Respiratory Rate [ Throughout] Blood Pressure 108/52 92/45 O2 Sat by Pulse 93 94 Oximetry 12/20/16 12/20/16 12/20/16 08:15 08:30 08:31 Temperature Pulse Rate 93 H 92 H 92 H Pulse Rate [ Bilateral Lower Lobe] Pulse Rate [ Throughout] Respiratory 28 H 27 H 27 H Rate Respiratory Rate [Bilateral Lower Lobe] Respiratory Rate [ Throughout] Blood Pressure 103/46 102/46 102/46 O2 Sat by Pulse 94 94 94 Oximetry 12/20/16 12/20/16 12/20/16 08:45 09:00 09:15 Temperature Pulse Rate 92 H 92 H 94 H Pulse Rate [ Bilateral Lower Lobe] Pulse Rate [ Throughout] Respiratory 27 H 26 H 31 H Rate Respiratory Rate [Bilateral Lower Lobe] Respiratory Rate [ Throughout] Blood Pressure 92/47 91/48 91/49 O2 Sat by Pulse 94 93 94 Oximetry 12/20/16 12/20/16 12/20/16 09:30 09:45 10:00 Temperature Pulse Rate 93 H 93 H 93 H Pulse Rate [ Bilateral Lower Lobe] Pulse Rate [ Throughout] Respiratory 26 H 30 H 29 H Rate Respiratory Rate [Bilateral Lower Lobe] Respiratory Rate [ Throughout] Blood Pressure 104/49 102/47 103/47 O2 Sat by Pulse 94 94 94 Oximetry Constitutional: appears uncomfortable, other (orally intubated and sedated on propofol) ENT: other (orally intubated) Neck: supple Effort: mildly labored Ascultation: Right: rales (base), Bilateral: clear Percussion: Bilateral: not dull Cardiovascular: regular rate and rhythm Gastrointestinal: hypoactive bowel sounds Integumentary: normal Extremities: no edema, pink and warm CBC and BMP: 12/20/16 04:20 12/20/16 04:20 ABG, PT/INR, D-dimer: ABG POC ABG pH 7.399 (7.35-7.45) 12/20/16 04:12 POC ABG pCO2 37.1 (35-45) 12/20/16 04:12 POC ABG pO2 66 (80-105) L 12/20/16 04:12 POC ABG HCO3 23.0 12/20/16 04:12 POC ABG Total CO2 24 12/20/16 04:12 POC ABG O2 Sat 93 12/20/16 04:12 PT/INR, D-dimer PT 25.2 Sec. (12.2-14.9) H 12/19/16 04:40 INR 2.28 (0.87-1.13) H 12/19/16 04:40 Abnormal lab findings: Abnormal Labs 12/08/16 12/08/16 12/09/16 09:44 12:22 10:47 WBC RBC Hgb Hct MCV MCH MCHC RDW Lymph % (Auto) [place] % (Auto) Lymph # [place] # Seg Neutrophils % Seg Neuts % (Manual) Lymphocytes % (Manual) Monocytes % (Manual) Seg Neutrophils # Seg Neutrophils # Man Lymphocytes # (Manual) Monocytes # (Manual) PT INR APTT POC ABG pH POC ABG pCO2 POC ABG pO2 Sodium Potassium Chloride Carbon Dioxide BUN Creatinine Glucose POC Glucose 54 L 68 L 127 H Lactic Acid Calcium Iron TIBC Total Bilirubin Direct Bilirubin AST ALT Alkaline Phosphatase Total Creatine Kinase CK-MB (CK-2) Troponin T Total Protein Albumin HDL Cholesterol Prostate Specific Ag Urine WBC (Auto) Urine Creatinine Crossmatch 12/09/16 12/09/16 12/10/16 11:32 16:08 05:29 WBC 15.2 H RBC Hgb Hct MCV 80 L MCH 25 L MCHC RDW 15.6 H Lymph % (Auto) 7.2 L [place] % (Auto) 9.2 H Lymph # 1.1 L [place] # 1.4 H Seg Neutrophils % 83.0 H Seg Neuts % (Manual) Lymphocytes % (Manual) Monocytes % (Manual) Seg Neutrophils # 12.6 H Seg Neutrophils # Man Lymphocytes # (Manual) Monocytes # (Manual) PT INR APTT POC ABG pH POC ABG pCO2 POC ABG pO2 Sodium Potassium Chloride Carbon Dioxide BUN Creatinine Glucose POC Glucose 110 H 130 H Lactic Acid Calcium Iron TIBC Total Bilirubin Direct Bilirubin AST ALT Alkaline Phosphatase Total Creatine Kinase CK-MB (CK-2) Troponin T Total Protein Albumin HDL Cholesterol Prostate Specific Ag Urine WBC (Auto) Urine Creatinine Crossmatch 12/10/16 12/10/16 12/11/16 05:29 17:00 07:43 WBC 15.2 H RBC Hgb 11.5 L Hct 35.4 L MCV 78 L MCH 26 L MCHC RDW 15.7 H Lymph % (Auto) 10.4 L [place] % (Auto) 9.9 H Lymph # [place] # 1.5 H Seg Neutrophils % 78.4 H Seg Neuts % (Manual) Lymphocytes % (Manual) Monocytes % (Manual) Seg Neutrophils # 11.9 H Seg Neutrophils # Man Lymphocytes # (Manual) Monocytes # (Manual) PT INR APTT POC ABG pH POC ABG pCO2 POC ABG pO2 Sodium Potassium Chloride Carbon Dioxide BUN 24 H Creatinine Glucose 121 H POC Glucose 148 H Lactic Acid Calcium Iron TIBC Total Bilirubin Direct Bilirubin AST ALT Alkaline Phosphatase Total Creatine Kinase CK-MB (CK-2) Troponin T Total Protein Albumin HDL Cholesterol Prostate Specific Ag Urine WBC (Auto) Urine Creatinine Crossmatch 12/11/16 12/12/16 12/12/16 19:28 05:40 05:40 WBC 15.5 H RBC Hgb 11.4 L Hct MCV 79 L MCH 25 L MCHC RDW 15.9 H Lymph % (Auto) 10.4 L [place] % (Auto) 11.0 H Lymph # [place] # 1.7 H Seg Neutrophils % 77.6 H Seg Neuts % (Manual) Lymphocytes % (Manual) Monocytes % (Manual) Seg Neutrophils # 12.0 H Seg Neutrophils # Man Lymphocytes # (Manual) Monocytes # (Manual) PT INR APTT POC ABG pH POC ABG pCO2 POC ABG pO2 Sodium Potassium Chloride Carbon Dioxide BUN Creatinine Glucose POC Glucose Lactic Acid Calcium Iron 20 L TIBC 212 L Total Bilirubin Direct Bilirubin AST ALT Alkaline Phosphatase Total Creatine Kinase CK-MB (CK-2) Troponin T Total Protein Albumin HDL Cholesterol Prostate Specific Ag 30.40 H Urine WBC (Auto) Urine Creatinine Crossmatch 12/12/16 12/13/16 12/13/16 08:12 11:28 15:49 WBC RBC Hgb Hct MCV MCH MCHC RDW Lymph % (Auto) [place] % (Auto) Lymph # [place] # Seg Neutrophils % Seg Neuts % (Manual) Lymphocytes % (Manual) Monocytes % (Manual) Seg Neutrophils # Seg Neutrophils # Man Lymphocytes # (Manual) Monocytes # (Manual) PT INR APTT POC ABG pH POC ABG pCO2 POC ABG pO2 Sodium Potassium Chloride Carbon Dioxide BUN Creatinine Glucose POC Glucose 68 L 119 H 106 H Lactic Acid Calcium Iron TIBC Total Bilirubin Direct Bilirubin AST ALT Alkaline Phosphatase Total Creatine Kinase CK-MB (CK-2) Troponin T Total Protein Albumin HDL Cholesterol Prostate Specific Ag Urine WBC (Auto) Urine Creatinine Crossmatch 12/13/16 12/14/16 12/14/16 19:39 06:52 06:52 WBC RBC Hgb Hct MCV MCH MCHC RDW Lymph % (Auto) [place] % (Auto) Lymph # [place] # Seg Neutrophils % Seg Neuts % (Manual) Lymphocytes % (Manual) Monocytes % (Manual) Seg Neutrophils # Seg Neutrophils # Man Lymphocytes # (Manual) Monocytes # (Manual) PT 15.0 H INR 1.19 H APTT 40.1 H POC ABG pH POC ABG pCO2 POC ABG pO2 Sodium Potassium Chloride Carbon Dioxide BUN Creatinine Glucose POC Glucose 123 H Lactic Acid Calcium Iron TIBC Total Bilirubin 2.6 H Direct Bilirubin 2.1 H AST 554 H ALT 166 H Alkaline Phosphatase 591 H Total Creatine Kinase CK-MB (CK-2) Troponin T Total Protein Albumin 2.7 L HDL Cholesterol Prostate Specific Ag Urine WBC (Auto) Urine Creatinine Crossmatch 12/14/16 12/14/16 12/14/16 11:01 11:49 15:55 WBC 15.9 H RBC Hgb 11.6 L Hct MCV 79 L MCH 26 L MCHC RDW 16.0 H Lymph % (Auto) [place] % (Auto) Lymph # [place] # Seg Neutrophils % Seg Neuts % (Manual) Lymphocytes % (Manual) Monocytes % (Manual) Seg Neutrophils # Seg Neutrophils # Man Lymphocytes # (Manual) Monocytes # (Manual) PT INR APTT POC ABG pH POC ABG pCO2 POC ABG pO2 Sodium Potassium Chloride Carbon Dioxide BUN Creatinine Glucose POC Glucose 122 H 177 H Lactic Acid Calcium Iron TIBC Total Bilirubin Direct Bilirubin AST ALT Alkaline Phosphatase Total Creatine Kinase CK-MB (CK-2) Troponin T Total Protein Albumin HDL Cholesterol Prostate Specific Ag Urine WBC (Auto) Urine Creatinine Crossmatch 12/14/16 12/15/16 12/15/16 21:21 07:54 10:42 WBC RBC Hgb Hct MCV MCH MCHC RDW Lymph % (Auto) [place] % (Auto) Lymph # [place] # Seg Neutrophils % Seg Neuts % (Manual) Lymphocytes % (Manual) Monocytes % (Manual) Seg Neutrophils # Seg Neutrophils # Man Lymphocytes # (Manual) Monocytes # (Manual) PT INR APTT POC ABG pH POC ABG pCO2 POC ABG pO2 Sodium Potassium Chloride Carbon Dioxide BUN Creatinine Glucose POC Glucose 179 H 106 H Lactic Acid Calcium Iron TIBC Total Bilirubin Direct Bilirubin AST ALT Alkaline Phosphatase Total Creatine Kinase CK-MB (CK-2) Troponin T Total Protein Albumin HDL Cholesterol Prostate Specific Ag 35.07 H Urine WBC (Auto) Urine Creatinine Crossmatch 12/15/16 12/15/16 12/16/16 12:10 16:53 08:10 WBC RBC Hgb Hct MCV MCH MCHC RDW Lymph % (Auto) [place] % (Auto) Lymph # [place] # Seg Neutrophils % Seg Neuts % (Manual) Lymphocytes % (Manual) Monocytes % (Manual) Seg Neutrophils # Seg Neutrophils # Man Lymphocytes # (Manual) Monocytes # (Manual) PT INR APTT POC ABG pH POC ABG pCO2 POC ABG pO2 Sodium Potassium Chloride Carbon Dioxide BUN Creatinine Glucose POC Glucose 132 H 107 H 52 L Lactic Acid Calcium Iron TIBC Total Bilirubin Direct Bilirubin AST ALT Alkaline Phosphatase Total Creatine Kinase CK-MB (CK-2) Troponin T Total Protein Albumin HDL Cholesterol Prostate Specific Ag Urine WBC (Auto) Urine Creatinine Crossmatch 12/16/16 12/17/16 12/17/16 22:44 05:17 05:17 WBC 15.6 H RBC Hgb Hct MCV 79 L MCH 26 L MCHC RDW 16.6 H Lymph % (Auto) 5.8 L [place] % (Auto) 8.5 H Lymph # 0.9 L [place] # 1.3 H Seg Neutrophils % 85.5 H Seg Neuts % (Manual) Lymphocytes % (Manual) Monocytes % (Manual) Seg Neutrophils # 13.4 H Seg Neutrophils # Man Lymphocytes # (Manual) Monocytes # (Manual) PT INR APTT POC ABG pH POC ABG pCO2 POC ABG pO2 Sodium 134 L Potassium 6.0 H D Chloride 89.1 L Carbon Dioxide 15 L D BUN 63 H Creatinine 3.0 H D Glucose 122 H POC Glucose 67 L Lactic Acid Calcium Iron TIBC Total Bilirubin Direct Bilirubin AST ALT Alkaline Phosphatase Total Creatine Kinase CK-MB (CK-2) Troponin T Total Protein Albumin HDL Cholesterol Prostate Specific Ag Urine WBC (Auto) Urine Creatinine Crossmatch 12/17/16 12/17/16 12/17/16 07:27 12:04 12:57 WBC RBC Hgb Hct MCV MCH MCHC RDW Lymph % (Auto) [place] % (Auto) Lymph # [place] # Seg Neutrophils % Seg Neuts % (Manual) Lymphocytes % (Manual) Monocytes % (Manual) Seg Neutrophils # Seg Neutrophils # Man Lymphocytes # (Manual) Monocytes # (Manual) PT INR APTT POC ABG pH POC ABG pCO2 POC ABG pO2 Sodium Potassium Chloride Carbon Dioxide BUN Creatinine Glucose POC Glucose 130 H 154 H 232 H Lactic Acid Calcium Iron TIBC Total Bilirubin Direct Bilirubin AST ALT Alkaline Phosphatase Total Creatine Kinase CK-MB (CK-2) Troponin T Total Protein Albumin HDL Cholesterol Prostate Specific Ag Urine WBC (Auto) Urine Creatinine Crossmatch 12/17/16 12/17/16 12/17/16 13:41 13:46 15:00 WBC 15.9 H RBC Hgb 9.3 L Hct 29.8 L D MCV 82 L D MCH 26 L MCHC 31 L RDW 17.1 H Lymph % (Auto) [place] % (Auto) Lymph # [place] # Seg Neutrophils % Seg Neuts % (Manual) 79.0 H Lymphocytes % (Manual) Monocytes % (Manual) Seg Neutrophils # Seg Neutrophils # Man 12.6 H Lymphocytes # (Manual) Monocytes # (Manual) 1.1 H PT INR APTT POC ABG pH 6.961 L POC ABG pCO2 20.4 L POC ABG pO2 230 H Sodium Potassium Chloride Carbon Dioxide BUN Creatinine Glucose POC Glucose 271 H Lactic Acid Calcium Iron TIBC Total Bilirubin Direct Bilirubin AST ALT Alkaline Phosphatase Total Creatine Kinase CK-MB (CK-2) Troponin T Total Protein Albumin HDL Cholesterol Prostate Specific Ag Urine WBC (Auto) Urine Creatinine Crossmatch 12/17/16 12/17/16 12/17/16 15:00 15:00 15:41 WBC RBC Hgb Hct MCV MCH MCHC RDW Lymph % (Auto) [place] % (Auto) Lymph # [place] # Seg Neutrophils % Seg Neuts % (Manual) Lymphocytes % (Manual) Monocytes % (Manual) Seg Neutrophils # Seg Neutrophils # Man Lymphocytes # (Manual) Monocytes # (Manual) PT INR APTT POC ABG pH 7.145 L POC ABG pCO2 19.5 L POC ABG pO2 208 H Sodium 132 L Potassium 5.2 H Chloride 83.7 L Carbon Dioxide 6 L* D BUN 69 H Creatinine 3.9 H Glucose 220 H POC Glucose Lactic Acid Calcium 7.7 L D Iron TIBC Total Bilirubin Direct Bilirubin AST ALT Alkaline Phosphatase Total Creatine Kinase 435 H CK-MB (CK-2) 7.5 H Troponin T 0.078 H Total Protein Albumin HDL Cholesterol 7 L Prostate Specific Ag Urine WBC (Auto) Urine Creatinine Crossmatch 12/17/16 12/17/16 12/17/16 17:05 17:05 17:48 WBC RBC Hgb Hct MCV MCH MCHC RDW Lymph % (Auto) [place] % (Auto) Lymph # [place] # Seg Neutrophils % Seg Neuts % (Manual) Lymphocytes % (Manual) Monocytes % (Manual) Seg Neutrophils # Seg Neutrophils # Man Lymphocytes # (Manual) Monocytes # (Manual) PT INR APTT POC ABG pH POC ABG pCO2 POC ABG pO2 Sodium Potassium Chloride Carbon Dioxide BUN Creatinine Glucose POC Glucose 218 H Lactic Acid Calcium Iron TIBC Total Bilirubin Direct Bilirubin AST ALT Alkaline Phosphatase Total Creatine Kinase CK-MB (CK-2) Troponin T Total Protein Albumin HDL Cholesterol Prostate Specific Ag Urine WBC (Auto) 41.0 H Urine Creatinine 105.0 H Crossmatch 12/17/16 12/17/16 12/18/16 21:26 21:38 04:30 WBC 15.1 H RBC 3.62 L Hgb 9.1 L Hct 27.8 L MCV 77 L D MCH 25 L MCHC RDW 16.3 H Lymph % (Auto) 3.1 L [place] % (Auto) Lymph # 0.5 L [place] # 1.0 H Seg Neutrophils % 89.6 H Seg Neuts % (Manual) Lymphocytes % (Manual) Monocytes % (Manual) Seg Neutrophils # 13.5 H Seg Neutrophils # Man Lymphocytes # (Manual) Monocytes # (Manual) PT INR APTT POC ABG pH POC ABG pCO2 19.2 L POC ABG pO2 Sodium Potassium Chloride Carbon Dioxide BUN Creatinine Glucose POC Glucose 299 H Lactic Acid Calcium Iron TIBC Total Bilirubin Direct Bilirubin AST ALT Alkaline Phosphatase Total Creatine Kinase CK-MB (CK-2) Troponin T Total Protein Albumin HDL Cholesterol Prostate Specific Ag Urine WBC (Auto) Urine Creatinine Crossmatch 12/18/16 12/18/16 12/18/16 04:30 04:30 05:44 WBC RBC Hgb Hct MCV MCH MCHC RDW Lymph % (Auto) [place] % (Auto) Lymph # [place] # Seg Neutrophils % Seg Neuts % (Manual) Lymphocytes % (Manual) Monocytes % (Manual) Seg Neutrophils # Seg Neutrophils # Man Lymphocytes # (Manual) Monocytes # (Manual) PT INR APTT POC ABG pH POC ABG pCO2 25.0 L POC ABG pO2 77 L Sodium 136 L Potassium 5.1 H Chloride 94.4 L Carbon Dioxide 16 L D BUN 71 H Creatinine 3.0 H Glucose 289 H POC Glucose Lactic Acid 9.3 H* Calcium 5.9 L* D Iron TIBC Total Bilirubin 3.3 H Direct Bilirubin AST 6347 H ALT 1079 H Alkaline Phosphatase 978 H Total Creatine Kinase 2770 H CK-MB (CK-2) Troponin T Total Protein 4.6 L D Albumin 1.9 L HDL Cholesterol Prostate Specific Ag Urine WBC (Auto) Urine Creatinine Crossmatch 12/18/16 12/18/16 12/18/16 06:00 07:54 11:50 WBC RBC Hgb Hct MCV MCH MCHC RDW Lymph % (Auto) [place] % (Auto) Lymph # [place] # Seg Neutrophils % Seg Neuts % (Manual) Lymphocytes % (Manual) Monocytes % (Manual) Seg Neutrophils # Seg Neutrophils # Man Lymphocytes # (Manual) Monocytes # (Manual) PT INR APTT POC ABG pH POC ABG pCO2 POC ABG pO2 Sodium Potassium Chloride Carbon Dioxide BUN Creatinine Glucose POC Glucose 301 H 246 H Lactic Acid Calcium Iron TIBC Total Bilirubin Direct Bilirubin AST ALT Alkaline Phosphatase Total Creatine Kinase CK-MB (CK-2) Troponin T Total Protein Albumin HDL Cholesterol Prostate Specific Ag Urine WBC (Auto) Urine Creatinine Crossmatch See Detail 12/18/16 12/18/16 12/19/16 15:54 21:05 01:16 WBC RBC Hgb Hct MCV MCH MCHC RDW Lymph % (Auto) [place] % (Auto) Lymph # [place] # Seg Neutrophils % Seg Neuts % (Manual) Lymphocytes % (Manual) Monocytes % (Manual) Seg Neutrophils # Seg Neutrophils # Man Lymphocytes # (Manual) Monocytes # (Manual) PT INR APTT POC ABG pH POC ABG pCO2 31.9 L POC ABG pO2 61 L Sodium Potassium Chloride Carbon Dioxide BUN Creatinine Glucose POC Glucose 231 H 256 H Lactic Acid Calcium Iron TIBC Total Bilirubin Direct Bilirubin AST ALT Alkaline Phosphatase Total Creatine Kinase CK-MB (CK-2) Troponin T Total Protein Albumin HDL Cholesterol Prostate Specific Ag Urine WBC (Auto) Urine Creatinine Crossmatch 12/19/16 12/19/16 12/19/16 04:40 04:40 04:40 WBC 17.8 H RBC Hgb 10.9 L Hct 33.6 L MCV 80 L D MCH 26 L MCHC RDW 17.5 H Lymph % (Auto) [place] % (Auto) Lymph # [place] # Seg Neutrophils % Seg Neuts % (Manual) 88.0 H Lymphocytes % (Manual) 3.0 L Monocytes % (Manual) 8.0 H Seg Neutrophils # Seg Neutrophils # Man 15.7 H Lymphocytes # (Manual) 0.5 L Monocytes # (Manual) 1.4 H PT INR APTT POC ABG pH POC ABG pCO2 POC ABG pO2 Sodium Potassium Chloride 94.1 L Carbon Dioxide 17 L BUN 77 H Creatinine 3.6 H Glucose 245 H POC Glucose Lactic Acid 8.6 H* Calcium 4.9 L* D Iron TIBC Total Bilirubin 5.9 H Direct Bilirubin AST 8235 H ALT 1128 H Alkaline Phosphatase 1191 H Total Creatine Kinase CK-MB (CK-2) Troponin T Total Protein 4.4 L Albumin 1.7 L HDL Cholesterol Prostate Specific Ag Urine WBC (Auto) Urine Creatinine Crossmatch 12/19/16 12/19/16 12/19/16 04:40 07:20 11:21 WBC RBC Hgb Hct MCV MCH MCHC RDW Lymph % (Auto) [place] % (Auto) Lymph # [place] # Seg Neutrophils % Seg Neuts % (Manual) Lymphocytes % (Manual) Monocytes % (Manual) Seg Neutrophils # Seg Neutrophils # Man Lymphocytes # (Manual) Monocytes # (Manual) PT 25.2 H INR 2.28 H APTT POC ABG pH POC ABG pCO2 POC ABG pO2 Sodium Potassium Chloride Carbon Dioxide BUN Creatinine Glucose POC Glucose 257 H 263 H Lactic Acid Calcium Iron TIBC Total Bilirubin Direct Bilirubin AST ALT Alkaline Phosphatase Total Creatine Kinase CK-MB (CK-2) Troponin T Total Protein Albumin HDL Cholesterol Prostate Specific Ag Urine WBC (Auto) Urine Creatinine Crossmatch 12/19/16 12/20/16 12/20/16 16:02 00:00 04:12 WBC RBC Hgb Hct MCV MCH MCHC RDW Lymph % (Auto) [place] % (Auto) Lymph # [place] # Seg Neutrophils % Seg Neuts % (Manual) Lymphocytes % (Manual) Monocytes % (Manual) Seg Neutrophils # Seg Neutrophils # Man Lymphocytes # (Manual) Monocytes # (Manual) PT INR APTT POC ABG pH POC ABG pCO2 POC ABG pO2 66 L Sodium Potassium Chloride Carbon Dioxide BUN Creatinine Glucose POC Glucose 272 H 255 H Lactic Acid Calcium Iron TIBC Total Bilirubin Direct Bilirubin AST ALT Alkaline Phosphatase Total Creatine Kinase CK-MB (CK-2) Troponin T Total Protein Albumin HDL Cholesterol Prostate Specific Ag Urine WBC (Auto) Urine Creatinine Crossmatch 12/20/16 12/20/16 12/20/16 04:20 04:20 05:29 WBC 18.4 H RBC Hgb 11.5 L Hct 34.4 L MCV 79 L MCH 26 L MCHC RDW 16.8 H Lymph % (Auto) [place] % (Auto) Lymph # [place] # Seg Neutrophils % Seg Neuts % (Manual) 76.0 H Lymphocytes % (Manual) 1.0 L Monocytes % (Manual) Seg Neutrophils # Seg Neutrophils # Man 14.0 H Lymphocytes # (Manual) 0.2 L Monocytes # (Manual) PT INR APTT POC ABG pH POC ABG pCO2 POC ABG pO2 Sodium Potassium 5.1 H Chloride 91.5 L Carbon Dioxide BUN 84 H Creatinine 4.6 H Glucose 278 H POC Glucose 288 H Lactic Acid Calcium 5.0 L* Iron TIBC Total Bilirubin 6.6 H Direct Bilirubin AST 5812 H ALT 976 H Alkaline Phosphatase 1188 H Total Creatine Kinase CK-MB (CK-2) Troponin T Total Protein 4.4 L Albumin 1.4 L HDL Cholesterol Prostate Specific Ag Urine WBC (Auto) Urine Creatinine Crossmatch 12/20/16 Unknown WBC RBC Hgb Hct MCV MCH MCHC RDW Lymph % (Auto) [place] % (Auto) Lymph # [place] # Seg Neutrophils % Seg Neuts % (Manual) Lymphocytes % (Manual) Monocytes % (Manual) Seg Neutrophils # Seg Neutrophils # Man Lymphocytes # (Manual) Monocytes # (Manual) PT INR APTT POC ABG pH POC ABG pCO2 POC ABG pO2 Sodium Potassium Chloride Carbon Dioxide BUN Creatinine Glucose POC Glucose Lactic Acid 8.5 H* Calcium Iron TIBC Total Bilirubin Direct Bilirubin AST ALT Alkaline Phosphatase Total Creatine Kinase CK-MB (CK-2) Troponin T Total Protein Albumin HDL Cholesterol Prostate Specific Ag Urine WBC (Auto) Urine Creatinine Crossmatch
[2016-12-20] MEDS: LEVEMIR SUB-Q SCH (11:50)
[2016-12-20] MEDS: PEPCID IV SCH (12:44)
--- NOTE | 2016-12-20 13:18 | Progress Note ---
Assessment and Plan Assessment and plan: 1. Acute hypoxic respiratory failure * Likely due to volume overload/sepsis/severe metabolic acidosis * Intubated 2. Sepsis * Suspected given leukocytosis, hypothermia, hypotension * Blood and urine cultures negative to date * Started on antibiotics, IV fluids * Requiring vasopressor support (on Levophed and vasopressin) 3. Shock * Most likely not related to sepsis 4. Acute renal failure * On admission acute renal failure secondary to vasomotor nephropathy versus ATN from possible hypotension during SVT; resolved with IV fluids * Now again in acute renal failure likely secondary to contrast nephropathy/ hypotension/possible ATN * Became anuric and renal function is worsening despite receiving IV fluids * Bladder mass possible playing a role (? obstruction); Renal US 12/19 with no hydronephrosis, but bladder not well visualized; urology has no recommendations and no procedures planned * Nephrology following 5. Hyperkalemia * Receiving Kayexalate and monitoring potassium level 6. Severe Metabolic acidosis/lactic acidosis * On bicarbonate drip * Antibiotics to treat possible infection * Nephrology following also 7. Hepatitic mass * s/p CT guided liver biopsy which is positive for malignancy (metastatic disease probably from bladder cancer) 8. Bladder mass * Possible primary malignancy * With hematuria * Cystoscopy canceled due to declining clinical status 9. Elevated LFTs * Most likely secondary to shock liver due to hypotension; tumor burden as liver biopsy positive for metastasis possible also 10. Iron deficient anemia * Likely secondary to hematuria * On replacement 11. Status post fall * CT scan of the head ordered, but not obtainable due to current status 12. Supraventricular Tachycardia on admission * Received adenosine in ER and converted to NSR; started on calcium channel estuardo; ECHO showed preserved EF, stress test (-) 1 month ago * Yesterday developed SVT again and started on amiodarone drip 13. Diabetes mellitus type II * Continue long-acting insulin * Accu-Cheks and SSI 14. Malnutrition * Likely secondary to malignancy/multiple comorbidities 15. DVT prophylaxis * Heparin discontinued due to hematuria * SCD 16. Very poor prognosis The high probability of a clinically significant, sudden or life threatening deterioration of the [] system(s) required my full and direct attention, intervention and personal management. The aggregate critical care time was [35] minutes. This time is in addition to time spent performing reported procedures but includes the following: [x] Data Review and interpretation [x] Patient assessment and monitoring of vital signs [x] Documentation [x] Medication orders and management History Interval history: Remains on vasodepressor support Still anuric Yesterday developed SVT and was started on amiodarone drip Hospitalist Physical - Constitutional Vitals: Temp Pulse Resp BP Pulse Ox 98.1 F 92 H 29 H 100/46 94 12/20/16 11:58 12/20/16 12:00 12/20/16 12:00 12/20/16 12:00 12/20/16 12:00 General appearance: Present: mild distress - Neck Neck: Present: supple. Absent: enlarged thyroid, masses or JVD - Respiratory Respiratory effort: other (intubated) Respiratory: bilateral: diminished, negative: rhonchi, wheezing - Cardiovascular Rhythm: other (tachycardic) Heart Sounds: Present: S1 & S2. Absent: systolic murmur - Extremities Extremities: no ischemia Extremity abnormal: edema - Abdominal General gastrointestinal: soft, non-tender, non-distended, hypoactive bowel sounds - Psychiatric Psychiatric: other (sedated) - Neurologic Neurologic: other (unable to assess) Results - Labs CBC & Chem 7: 12/20/16 04:20 12/20/16 04:20 Labs: Laboratory Last Values WBC 18.4 K/mm3 (4.5-11.0) H 12/20/16 04:20 RBC 4.37 M/mm3 (3.65-5.03) 12/20/16 04:20 Hgb 11.5 gm/dl (11.8-15.2) L 12/20/16 04:20 Hct 34.4 % (35.5-45.6) L 12/20/16 04:20 MCV 79 fl (84-94) L 12/20/16 04:20 MCH 26 pg (28-32) L 12/20/16 04:20 MCHC 34 % (32-34) 12/20/16 04:20 RDW 16.8 % (13.2-15.2) H 12/20/16 04:20 Plt Count 183 K/mm3 (140-440) 12/20/16 04:20 Lymph % (Auto) 5.8 % (13.4-35.0) L 12/17/16 05:17 [place] % (Auto) 8.5 % (0.0-7.3) H 12/17/16 05:17 Eos % (Auto) 0.1 % (0.0-4.3) 12/17/16 05:17 Baso % (Auto) 0.1 % (0.0-1.8) 12/17/16 05:17 Lymph # 0.9 K/mm3 (1.2-5.4) L 12/17/16 05:17 Gar[place] # 1.3 K/mm3 (0.0-0.8) H 12/17/16 05:17 Eos # 0.0 K/mm3 (0.0-0.4) 12/17/16 05:17 Baso # 0.0 K/mm3 (0.0-0.1) 12/17/16 05:17 Add Manual Diff Complete 12/20/16 04:20 Total Counted 100 12/20/16 04:20 Seg Neutrophils % 85.5 % (40.0-70.0) H 12/17/16 05:17 Seg Neuts % (Manual) 76.0 % (40.0-70.0) H 12/20/16 04:20 Band Neutrophils % 21.0 % 12/20/16 04:20 Lymphocytes % (Manual) 1.0 % (13.4-35.0) L 12/20/16 04:20 Reactive Lymphs % (Man) 0 % 12/20/16 04:20 Monocytes % (Manual) 2.0 % (0.0-7.3) 12/20/16 04:20 Eosinophils % (Manual) 0 % (0.0-4.3) 12/20/16 04:20 Basophils % (Manual) 0 % (0.0-1.8) 12/20/16 04:20 Metamyelocytes % 0 % 12/20/16 04:20 Myelocytes % 0 % 12/20/16 04:20 Promyelocytes % 0 % 12/20/16 04:20 Blast Cells % 0 % 12/20/16 04:20 Nucleated RBC % Not Reportable 12/20/16 04:20 Seg Neutrophils # 13.4 K/mm3 (1.8-7.7) H 12/17/16 05:17 Seg Neutrophils # Man 14.0 K/mm3 (1.8-7.7) H 12/20/16 04:20 Band Neutrophils # 3.9 K/mm3 12/20/16 04:20 Lymphocytes # (Manual) 0.2 K/mm3 (1.2-5.4) L 12/20/16 04:20 Abs React Lymphs (Man) 0.0 K/mm3 12/20/16 04:20 Monocytes # (Manual) 0.4 K/mm3 (0.0-0.8) 12/20/16 04:20 Eosinophils # (Manual) 0.0 K/mm3 (0.0-0.4) 12/20/16 04:20 Basophils # (Manual) 0.0 K/mm3 (0.0-0.1) 12/20/16 04:20 Metamyelocytes # 0.0 K/mm3 12/20/16 04:20 Myelocytes # 0.0 K/mm3 12/20/16 04:20 Promyelocytes # 0.0 K/mm3 12/20/16 04:20 Blast Cells # 0.0 K/mm3 12/20/16 04:20 WBC Morphology Not Reportable 12/20/16 04:20 Hypersegmented Neuts Not Reportable 12/20/16 04:20 Hyposegmented Neuts Not Reportable 12/20/16 04:20 Hypogranular Neuts Not Reportable 12/20/16 04:20 Smudge Cells Not Reportable 12/20/16 04:20 Toxic Granulation Not Reportable 12/20/16 04:20 Toxic Vacuolation Not Reportable 12/20/16 04:20 Dohle Bodies Not Reportable 12/20/16 04:20 Pelger-Huet Anomaly Not Reportable 12/20/16 04:20 Mihai Rods Not Reportable 12/20/16 04:20 Platelet Estimate Not Reportable 12/20/16 04:20 Clumped Platelets Not Reportable 12/20/16 04:20 Plt Clumps, EDTA Not Reportable 12/20/16 04:20 Large Platelets Not Reportable 12/20/16 04:20 Giant Platelets Not Reportable 12/20/16 04:20 Platelet Satelliting Not Reportable 12/20/16 04:20 Plt Morphology Comment Not Reportable 12/20/16 04:20 RBC Morphology Not Reportable 12/20/16 04:20 Dimorphic RBCs Not Reportable 12/20/16 04:20 Polychromasia Not Reportable 12/20/16 04:20 Hypochromasia Not Reportable 12/20/16 04:20 Poikilocytosis Not Reportable 12/20/16 04:20 Anisocytosis 1+ 12/20/16 04:20 Microcytosis Not Reportable 12/20/16 04:20 Macrocytosis Not Reportable 12/20/16 04:20 Spherocytes Not Reportable 12/20/16 04:20 Pappenheimer Bodies Not Reportable 12/20/16 04:20 Sickle Cells Not Reportable 12/20/16 04:20 Target Cells Few 12/20/16 04:20 Tear Drop Cells Not Reportable 12/20/16 04:20 Ovalocytes Not Reportable 12/20/16 04:20 Helmet Cells Not Reportable 12/20/16 04:20 Faulkner-Hennessey Bodies Not Reportable 12/20/16 04:20 [place] Rings Not Reportable 12/20/16 04:20 Howard Cells Not Reportable 12/20/16 04:20 Bite Cells Not Reportable 12/20/16 04:20 Crenated Cell Not Reportable 12/20/16 04:20 Elliptocytes Not Reportable 12/20/16 04:20 Acanthocytes (Spur) Not Reportable 12/20/16 04:20 Rouleaux Not Reportable 12/20/16 04:20 Hemoglobin C Crystals Not Reportable 12/20/16 04:20 Schistocytes Not Reportable 12/20/16 04:20 Malaria parasites Not Reportable 12/20/16 04:20 Jorge Luis Bodies Not Reportable 12/20/16 04:20 Hem Pathologist Commnt No 12/20/16 04:20 PT 25.2 Sec. (12.2-14.9) H 12/19/16 04:40 INR 2.28 (0.87-1.13) H 12/19/16 04:40 APTT 40.1 Sec. (24.2-36.6) H 12/14/16 06:52 POC ABG pH 7.399 (7.35-7.45) 12/20/16 04:12 POC ABG pCO2 37.1 (35-45) 12/20/16 04:12 POC ABG pO2 66 (80-105) L 12/20/16 04:12 POC ABG HCO3 23.0 12/20/16 04:12 POC ABG Total CO2 24 12/20/16 04:12 POC ABG O2 Sat 93 12/20/16 04:12 POC ABG Base Excess -2 12/20/16 04:12 FiO2 100 % 12/20/16 04:12 Sodium 142 mmol/L (137-145) 12/20/16 04:20 Potassium 5.1 mmol/L (3.6-5.0) H 12/20/16 04:20 Chloride 91.5 mmol/L (98-107) L 12/20/16 04:20 Carbon Dioxide 22 mmol/L (22-30) 12/20/16 04:20 Anion Gap 34 mmol/L 12/20/16 04:20 BUN 84 mg/dL (9-20) H 12/20/16 04:20 Creatinine 4.6 mg/dL (0.8-1.5) H 12/20/16 04:20 Estimated GFR 16 ml/min 12/20/16 04:20 BUN/Creatinine Ratio 18.26 % 12/20/16 04:20 Glucose 278 mg/dL (75-100) H 12/20/16 04:20 POC Glucose 294 (70-105) H 12/20/16 11:19 Lactic Acid 8.5 mmol/L (0.7-2.0) H* 12/20/16 Unknown Calcium 5.0 mg/dL (8.4-10.2) L* 12/20/16 04:20 Phosphorus 3.1 mg/dL (2.5-4.5) 12/10/16 05:29 Magnesium 1.9 mg/dL (1.7-2.3) 12/10/16 05:29 Iron 20 ug/dL (49-181) L 12/12/16 05:40 TIBC 212 mcg/dL (250-450) L 12/12/16 05:40 Total Bilirubin 6.6 mg/dL (0.1-1.2) H 12/20/16 04:20 Direct Bilirubin 2.1 mg/dL (0-0.2) H 12/14/16 06:52 Indirect Bilirubin 0.5 mg/dL 12/14/16 06:52 AST 5812 units/L (5-40) H 12/20/16 04:20 ALT 976 units/L (7-56) H 12/20/16 04:20 Alkaline Phosphatase 1188 units/L (35-129) H 12/20/16 04:20 Total Creatine Kinase 2770 units/L (55-170) H 12/18/16 04:30 CK-MB (CK-2) 7.5 ng/mL (0.0-4.0) H 12/17/16 15:00 CK-MB (CK-2) Rel Index 1.7 (0-4) 12/17/16 15:00 Troponin T 0.078 ng/mL (0.00-0.029) H 12/17/16 15:00 Total Protein 4.4 g/dL (6.3-8.2) L 12/20/16 04:20 Albumin 1.4 g/dL (3.9-5) L 12/20/16 04:20 Albumin/Globulin Ratio 0.5 % 12/20/16 04:20 Triglycerides 73 mg/dL (2-149) 12/17/16 15:00 Cholesterol 130 mg/dL (50-199) 12/17/16 15:00 LDL Cholesterol Direct 109 mg/dL (50-130) 12/17/16 15:00 HDL Cholesterol 7 mg/dL (40-59) L 12/17/16 15:00 Cholesterol/HDL Ratio 18.57 % 12/17/16 15:00 Prostate Specific Ag 35.07 ng/mL (0.00-4.00) H 12/15/16 10:42 TSH 2.660 mlU/mL (0.270-4.200) 12/08/16 00:58 Free T4 1.50 ng/dL (0.76-1.46) H 12/08/16 00:58 Urine Color Red (Yellow) 12/17/16 17:05 Urine Turbidity Cloudy (Clear) 12/17/16 17:05 Urine pH 6.0 (5.0-7.0) 12/17/16 17:05 Ur Specific [place] 1.006 (1.003-1.030) 12/17/16 17:05 Urine Protein 100 mg/dl mg/dL (Negative) 12/17/16 17:05 Urine Glucose (UA) Neg mg/dL (Negative) 12/17/16 17:05 Urine Ketones Neg mg/dL (Negative) 12/17/16 17:05 Urine Blood Lg (Negative) 12/17/16 17:05 Urine Nitrite Neg (Negative) 12/17/16 17:05 Urine Bilirubin Neg (Negative) 12/17/16 17:05 Urine Urobilinogen < 2.0 mg/dL (<2.0) 12/17/16 17:05 Ur Leukocyte Esterase Sm (Negative) 12/17/16 17:05 Urine WBC (Auto) 41.0 /HPF (0.0-6.0) H 12/17/16 17:05 Urine RBC (Auto) > 182.0 /HPF (0.0-6.0) 12/17/16 17:05 Urine Bacteria (Auto) 4+ /HPF (Negative) 12/17/16 17:05 Urine Mucus Few /HPF 12/08/16 02:15 Urine Eosinophils None seen (None Seen) 12/17/16 17:05 Urine Creatinine 105.0 mg/dL (0.1-20.0) H 12/17/16 17:05 Urine Sodium 88 mEq/L 12/17/16 17:05 Urine Opiates Screen Presumptive negative 12/08/16 02:18 Urine Methadone Screen Presumptive negative 12/08/16 02:18 Ur Barbiturates Screen Presumptive negative 12/08/16 02:18 Ur Phencyclidine Scrn Presumptive negative 12/08/16 02:18 Ur Amphetamines Screen Presumptive negative 12/08/16 02:18 U Benzodiazepines Scrn Presumptive negative 12/08/16 02:18 Urine Cocaine Screen Presumptive negative 12/08/16 02:18 U Marijuana (THC) Screen Presumptive negative 12/08/16 02:18 Drugs of Abuse Note Disclamer 12/08/16 02:18 Hepatitis A IgM Ab -1 (NonReactive) 12/14/16 06:52 Hep Bs Antigen Non-reactive (Negative) 12/14/16 06:52 Hep B Core IgM Ab Non-reactive (NonReactive) 12/14/16 06:52 Hepatitis C Antibody Non-reactive (NonReactive) 12/14/16 06:52 Blood Type O POSITIVE 12/18/16 06:00 Antibody Screen Negative 12/18/16 06:00 Crossmatch See Detail 12/18/16 06:00 - Imaging and Cardiology Imaging and Cardiology: Renal ultrasound - no hydronephrosis; bladder not well-visualized
[2016-12-20] MEDS: CORDARONE 900 MG in D5W 482 ML IV SCH (13:56)
[2016-12-20] MEDS: PULMICORT IH SCH ×2 (20:33→20:35)
[2016-12-20] MEDS: TYLENOL PO PRN (21:15)
--- NOTE | 2016-12-20 23:09 | XRay Report ---
FINAL REPORT PROCEDURE: XR ABDOMEN 1V AP TECHNIQUE: One film obtained which is a single AP view the abdomen centered over the mid upper abdomen and lower chest HISTORY: Evaluate Dobhoff feeding NG tube placement COMPARISON: No prior studies are available for comparison. FINDINGS: The distal aspect of the NG tube projects over the distal body of the stomach just to the right of the lumbar spine. The bowel gas pattern is nonspecific. IMPRESSION: The distal aspect of the NG tube projects over the distal body of the stomach just to the left of the lumbar spine.
[2016-12-21] MEDS: DUONEB 0.5 MG-3 MG/3 ML SOLN IH SCH ×3 (00:52→08:22)
[2016-12-21] MEDS: SODIUM BICARBONATE 150 MEQ in D5W 1,000 ML IV SCH ×3 (02:28→19:19)
[2016-12-21] MEDS: HEPARIN SUB-Q SCH ×3 (02:32→14:14)
[2016-12-21 06:27] LABS: Hematocrit 32.1 % (35.5-45.6); Hemoglobin 10.8 gm/dl (11.8-15.2); Mean Corpuscular HGB Conc 34 % (32-34); Mean Corpuscular Hemoglobin 26 pg (28-32); Mean Corpuscular Volume 79 fl (84-94); Red Blood Count 4.07 M/mm3 (3.65-5.03); Red Cell Distribution Width 17.1 % (13.2-15.2); White Blood Count 16.9 K/mm3 (4.5-11.0)
[2016-12-21 06:31] LABS: ISTAT Base Excess -1; ISTAT HCO3 23.4; ISTAT PCO2 36.8 (35-45); ISTAT PH 7.411 (7.35-7.45); ISTAT PO2 70 (80-105); ISTAT SO2 94; ISTAT TCO2 24
[2016-12-21 06:37] LABS: INR 2.44 (0.87-1.13); Platelet Count 157 K/mm3 (140-440)
[2016-12-21] MEDS: NOVOLOG SUB-Q SCH ×3 (06:47→11:56)
[2016-12-21 06:53] LABS: Albumin 1.1 g/dL (3.9-5); Albumin/Globulin Ratio 0.4 %; BUN/Creatinine Ratio 15.26; Bilirubin,Total 5.7 mg/dL (0.1-1.2); Chloride 86.6 mmol/L (98-107); Magnesium 2.2 mg/dL (1.7-2.3); Potassium 5.5 mmol/L (3.6-5.0)
[2016-12-21] MEDS: DIPRIVAN 10 MG/ML 100 ML IV SCH ×2 (06:57→10:01)
[2016-12-21] MEDS: PITRESSin 20 UNIT in NACL 0.9% 100 ML IV SCH ×3 (07:00→18:10)
[2016-12-21] MEDS: LEVOPHED 8 MG in NACL 0.9% 250ML 242 ML IV SCH ×3 (07:01→21:00)
[2016-12-21 07:06] LABS: Calcium 4.8 mg/dL (8.4-10.2)
[2016-12-21 07:35] LABS: Basophils % (Manual) 0 % (0.0-1.8); Blastocytes % (Manual) 0 %; Eosinophils % (Manual) 0 % (0.0-4.3)
[2016-12-21 07:36] LABS: Anisocytosis 1+; Diff Status Complete; Hypochromasia 1+; Target Cells Rare; Tear Drop Cells Rare
[2016-12-21 07:41] LABS: Partial Thromboplastin Time 127.6 Sec. (24.2-36.6)
[2016-12-21] MEDS: PULMICORT IH SCH ×2 (08:22→20:47)
--- NOTE | 2016-12-21 08:26 | Progress Note ---
Assessment and Plan - Patient Problems (1) FAVIOLA (acute kidney injury) Current Visit: Yes Status: Acute Plan to address problem: Acute kidney Injury in the setting of IV contrast and hypotension. Renal function continue to decline secondary to septic shock. Patient is on multiple pressors. Hemodialysis at this point has more risks than any benefit. D/w his over the phone. Overall prognosis is poor. D/w [facility] Supervisor. (2) Septic shock Current Visit: Yes Status: Acute Plan to address problem: Patient is on multiple pressors. (3) Lactic acidosis Current Visit: Yes Status: Acute Plan to address problem: Monitor Lactate level. (4) Hyperkalemia Current Visit: Yes Status: Acute Plan to address problem: Patient is D5 bicarbonate drip. Monitor K level. Unable to give Kayexalate due to decreased / sluggish bowel sounds. (5) Bladder mass Current Visit: Yes Status: Acute (6) Respiratory failure Current Visit: Yes Status: Acute Plan to address problem: On vent. (7) Diabetes Current Visit: Yes Status: Chronic Subjective Date of service: 12/21/16 Principal diagnosis: paroxysmal SVT Interval history: Patient remain on the vent. Objective - Vital Signs Vital signs: Vital Signs - 12hr 12/20/16 12/20/16 12/20/16 20:31 20:32 20:45 Temperature Pulse Rate 93 H 92 H Pulse Rate [ Anterior Bilateral Throughout] Pulse Rate [ 93 H 93 H Anterior Bilateral Upper Lobe] Respiratory 32 H 28 H Rate Respiratory Rate [Anterior Bilateral Throughout] Respiratory 28 H 27 H Rate [Anterior Bilateral Upper Lobe] Blood Pressure 94/43 90/44 O2 Sat by Pulse 92 93 Oximetry 12/20/16 12/20/16 12/20/16 21:00 21:15 21:30 Temperature Pulse Rate 94 H 92 H 95 H Pulse Rate [ Anterior Bilateral Throughout] Pulse Rate [ Anterior Bilateral Upper Lobe] Respiratory 28 H 28 H 27 H Rate Respiratory Rate [Anterior Bilateral Throughout] Respiratory Rate [Anterior Bilateral Upper Lobe] Blood Pressure 100/47 101/43 105/48 O2 Sat by Pulse 92 92 91 Oximetry 12/20/16 12/20/16 12/20/16 21:45 22:00 22:15 Temperature Pulse Rate 93 H 92 H 91 H Pulse Rate [ Anterior Bilateral Throughout] Pulse Rate [ Anterior Bilateral Upper Lobe] Respiratory 29 H 27 H 17 Rate Respiratory Rate [Anterior Bilateral Throughout] Respiratory Rate [Anterior Bilateral Upper Lobe] Blood Pressure 91/46 102/42 108/46 O2 Sat by Pulse 91 82 L 90 Oximetry 12/20/16 12/20/16 12/20/16 22:30 22:45 23:00 Temperature Pulse Rate 93 H 92 H 91 H Pulse Rate [ Anterior Bilateral Throughout] Pulse Rate [ Anterior Bilateral Upper Lobe] Respiratory 30 H 27 H 27 H Rate Respiratory Rate [Anterior Bilateral Throughout] Respiratory Rate [Anterior Bilateral Upper Lobe] Blood Pressure 114/44 112/43 109/43 O2 Sat by Pulse 91 90 90 Oximetry 12/20/16 12/20/16 12/20/16 23:15 23:30 23:45 Temperature Pulse Rate 90 89 89 Pulse Rate [ Anterior Bilateral Throughout] Pulse Rate [ Anterior Bilateral Upper Lobe] Respiratory 27 H 27 H 27 H Rate Respiratory Rate [Anterior Bilateral Throughout] Respiratory Rate [Anterior Bilateral Upper Lobe] Blood Pressure 100/46 109/45 102/45 O2 Sat by Pulse 91 91 90 Oximetry 12/21/16 12/21/16 12/21/16 00:00 00:15 00:30 Temperature 100.3 F H Pulse Rate 89 89 87 Pulse Rate [ Anterior Bilateral Throughout] Pulse Rate [ Anterior Bilateral Upper Lobe] Respiratory 25 H 28 H 27 H Rate Respiratory Rate [Anterior Bilateral Throughout] Respiratory Rate [Anterior Bilateral Upper Lobe] Blood Pressure 111/48 101/40 105/43 O2 Sat by Pulse 95 90 91 Oximetry 12/21/16 12/21/16 12/21/16 00:45 00:56 01:00 Temperature Pulse Rate 86 86 Pulse Rate [ Anterior Bilateral Throughout] Pulse Rate [ 87 88 Anterior Bilateral Upper Lobe] Respiratory 24 25 H Rate Respiratory Rate [Anterior Bilateral Throughout] Respiratory 17 19 Rate [Anterior Bilateral Upper Lobe] Blood Pressure 99/38 89/38 O2 Sat by Pulse 91 92 Oximetry 12/21/16 12/21/16 12/21/16 01:15 01:25 01:30 Temperature Pulse Rate 86 87 87 Pulse Rate [ Anterior Bilateral Throughout] Pulse Rate [ Anterior Bilateral Upper Lobe] Respiratory 23 26 H Rate Respiratory Rate [Anterior Bilateral Throughout] Respiratory Rate [Anterior Bilateral Upper Lobe] Blood Pressure 87/40 92/46 108/43 O2 Sat by Pulse 92 91 91 Oximetry 12/21/16 12/21/16 12/21/16 01:45 02:00 02:15 Temperature Pulse Rate 87 87 87 Pulse Rate [ Anterior Bilateral Throughout] Pulse Rate [ Anterior Bilateral Upper Lobe] Respiratory 27 H 26 H 28 H Rate Respiratory Rate [Anterior Bilateral Throughout] Respiratory Rate [Anterior Bilateral Upper Lobe] Blood Pressure 108/43 107/43 106/44 O2 Sat by Pulse 91 91 91 Oximetry 12/21/16 12/21/16 12/21/16 02:30 02:45 03:00 Temperature Pulse Rate 86 85 86 Pulse Rate [ Anterior Bilateral Throughout] Pulse Rate [ Anterior Bilateral Upper Lobe] Respiratory 27 H 27 H 25 H Rate Respiratory Rate [Anterior Bilateral Throughout] Respiratory Rate [Anterior Bilateral Upper Lobe] Blood Pressure 92/46 93/42 102/43 O2 Sat by Pulse 90 90 90 Oximetry 12/21/16 12/21/16 12/21/16 03:15 03:19 03:30 Temperature Pulse Rate 87 86 85 Pulse Rate [ Anterior Bilateral Throughout] Pulse Rate [ Anterior Bilateral Upper Lobe] Respiratory 28 H 28 H 26 H Rate Respiratory Rate [Anterior Bilateral Throughout] Respiratory Rate [Anterior Bilateral Upper Lobe] Blood Pressure 96/44 96/44 96/39 O2 Sat by Pulse 90 90 90 Oximetry 12/21/16 12/21/16 12/21/16 03:43 03:45 04:00 Temperature 100.6 F H Pulse Rate 86 87 Pulse Rate [ Anterior Bilateral Throughout] Pulse Rate [ Anterior Bilateral Upper Lobe] Respiratory 27 H 26 H 26 H Rate Respiratory Rate [Anterior Bilateral Throughout] Respiratory Rate [Anterior Bilateral Upper Lobe] Blood Pressure 96/39 97/44 O2 Sat by Pulse 91 91 93 Oximetry 12/21/16 12/21/16 12/21/16 04:03 04:15 04:20 Temperature Pulse Rate 84 84 Pulse Rate [ Anterior Bilateral Throughout] Pulse Rate [ 84 Anterior Bilateral Upper Lobe] Respiratory 25 H 25 H Rate Respiratory Rate [Anterior Bilateral Throughout] Respiratory 24 Rate [Anterior Bilateral Upper Lobe] Blood Pressure 98/42 95/40 O2 Sat by Pulse 90 91 Oximetry 12/21/16 12/21/16 12/21/16 04:27 04:30 04:32 Temperature Pulse Rate 83 84 Pulse Rate [ Anterior Bilateral Throughout] Pulse Rate [ 87 Anterior Bilateral Upper Lobe] Respiratory 26 H Rate Respiratory Rate [Anterior Bilateral Throughout] Respiratory 23 Rate [Anterior Bilateral Upper Lobe] Blood Pressure 95/40 101/62 O2 Sat by Pulse 91 Oximetry 12/21/16 12/21/16 12/21/16 04:45 05:00 05:15 Temperature Pulse Rate 80 79 80 Pulse Rate [ Anterior Bilateral Throughout] Pulse Rate [ Anterior Bilateral Upper Lobe] Respiratory 23 23 24 Rate Respiratory Rate [Anterior Bilateral Throughout] Respiratory Rate [Anterior Bilateral Upper Lobe] Blood Pressure 85/39 84/37 85/39 O2 Sat by Pulse 93 92 93 Oximetry 12/21/16 12/21/16 12/21/16 05:30 05:45 06:00 Temperature Pulse Rate 80 81 80 Pulse Rate [ Anterior Bilateral Throughout] Pulse Rate [ Anterior Bilateral Upper Lobe] Respiratory 22 21 21 Rate Respiratory Rate [Anterior Bilateral Throughout] Respiratory Rate [Anterior Bilateral Upper Lobe] Blood Pressure 90/40 97/43 95/44 O2 Sat by Pulse 93 93 93 Oximetry 12/21/16 12/21/16 12/21/16 06:15 06:30 06:45 Temperature Pulse Rate 83 81 83 Pulse Rate [ Anterior Bilateral Throughout] Pulse Rate [ Anterior Bilateral Upper Lobe] Respiratory 23 22 24 Rate Respiratory Rate [Anterior Bilateral Throughout] Respiratory Rate [Anterior Bilateral Upper Lobe] Blood Pressure 90/43 93/43 99/43 O2 Sat by Pulse 92 93 93 Oximetry 12/21/16 12/21/16 12/21/16 07:00 07:15 07:34 Temperature 99.0 F Pulse Rate 82 85 Pulse Rate [ Anterior Bilateral Throughout] Pulse Rate [ Anterior Bilateral Upper Lobe] Respiratory 21 27 H Rate Respiratory Rate [Anterior Bilateral Throughout] Respiratory Rate [Anterior Bilateral Upper Lobe] Blood Pressure 93/44 95/44 O2 Sat by Pulse 93 92 Oximetry 12/21/16 08:13 Temperature Pulse Rate 87 Pulse Rate [ 87 Anterior Bilateral Throughout] Pulse Rate [ Anterior Bilateral Upper Lobe] Respiratory Rate Respiratory 26 H Rate [Anterior Bilateral Throughout] Respiratory Rate [Anterior Bilateral Upper Lobe] Blood Pressure 98/44 O2 Sat by Pulse 90 Oximetry - General Appearance General appearance: well-developed, sedated on ventilator (FiO2 80%), intubated EENT: PERRL Neck: supple Respiratory: Present: Other (coarse breath sounds) Cardiology: regular, S1S2, no murmurs Gastrointestinal: other (sluggish bowel sounds) Integumentary: no rash Neurologic: other (sedated) Musculoskeletal: other (2+ pitting edema of both LEs noted) - Lab 12/21/16 06:15 12/21/16 06:15 Most recent lab results Calcium 4.8 mg/dL (8.4-10.2) L* 12/21/16 06:15 Phosphorus 3.1 mg/dL (2.5-4.5) 12/10/16 05:29 Magnesium 2.2 mg/dL (1.7-2.3) 12/21/16 06:15 Urine Creatinine 105.0 mg/dL (0.1-20.0) H 12/17/16 17:05 Urine Sodium 88 mEq/L 12/17/16 17:05
[2016-12-21] MEDS: TYLENOL PO PRN (08:50)
--- NOTE | 2016-12-21 08:56 | Hem/Onc Progress Note ---
Assessment and Plan Metastatic disease possibly from bladder cancer. Liver biopsy positive for malignancy- urothelial. Prognosis is very poor. talked to daughter yesterday on the phone and updated her. tried to call son- no answer. prog very poor Subjective Date of service: 12/21/16 Interval history: Events noted. Patient in the ICU.on ventilator Hypotensive. Evidence of renal failure. Patient's liver biopsy shows malignancy- urothelial primary Objective - Exam Narrative Exam: on vent . full pressors - Constitutional Vitals: Last Vital Signs Temp 99.0 F 12/21/16 07:34 Pulse 87 12/21/16 08:42 Resp 26 H 12/21/16 08:42 BP 98/44 12/21/16 08:13 Pulse Ox 90 12/21/16 08:13 Performance status: 4-completely disabled - Respiratory Respiratory: bilateral: other (coarse br sounds b/l pt on vent) - Cardiovascular Rhythm: regular Extremity abnormal: edema - Labs Lab Results: Laboratory Results - last 24 hr 12/20/16 12/20/16 12/21/16 11:19 17:32 00:01 WBC RBC Hgb Hct MCV MCH MCHC RDW Plt Count [place] % (Auto) Add Manual Diff Total Counted Seg Neuts % (Manual) Band Neutrophils % Lymphocytes % (Manual) Reactive Lymphs % (Man) Monocytes % (Manual) Eosinophils % (Manual) Basophils % (Manual) Metamyelocytes % Myelocytes % Promyelocytes % Blast Cells % Nucleated RBC % Seg Neutrophils # Man Band Neutrophils # Lymphocytes # (Manual) Abs React Lymphs (Man) Monocytes # (Manual) Eosinophils # (Manual) Basophils # (Manual) Metamyelocytes # Myelocytes # Promyelocytes # Blast Cells # WBC Morphology Hypersegmented Neuts Hyposegmented Neuts Hypogranular Neuts Smudge Cells Toxic Granulation Toxic Vacuolation Dohle Bodies Pelger-Huet Anomaly Mihai Rods Platelet Estimate Clumped Platelets Plt Clumps, EDTA Large Platelets Giant Platelets Platelet Satelliting Plt Morphology Comment RBC Morphology Dimorphic RBCs Polychromasia Hypochromasia Poikilocytosis Anisocytosis Microcytosis Macrocytosis Spherocytes Pappenheimer Bodies Sickle Cells Target Cells Tear Drop Cells Ovalocytes Helmet Cells [place] Bodies [place] Rings [place] Cells Bite Cells Crenated Cell Elliptocytes Acanthocytes (Spur) Rouleaux Hemoglobin C Crystals Schistocytes Malaria parasites Jorge Luis Bodies Hem Pathologist Commnt PT INR APTT POC ABG pH POC ABG pCO2 POC ABG pO2 POC ABG HCO3 POC ABG Total CO2 POC ABG O2 Sat POC ABG Base Excess FiO2 Sodium Potassium Chloride Carbon Dioxide Anion Gap BUN Creatinine Estimated GFR BUN/Creatinine Ratio Glucose POC Glucose 294 H 269 H 250 H Calcium Magnesium Total Bilirubin AST ALT Alkaline Phosphatase Total Protein Albumin Albumin/Globulin Ratio 12/21/16 12/21/16 12/21/16 05:02 06:07 06:15 WBC 16.9 H RBC 4.07 Hgb 10.8 L Hct 32.1 L MCV 79 L MCH 26 L MCHC 34 RDW 17.1 H Plt Count 157 [place] % (Auto) Pharmacy Assistant Add Manual Diff Complete Total Counted 100 Seg Neuts % (Manual) 53.0 Band Neutrophils % 35.0 Lymphocytes % (Manual) 9.0 L Reactive Lymphs % (Man) 1.0 Monocytes % (Manual) 2.0 Eosinophils % (Manual) 0 Basophils % (Manual) 0 Metamyelocytes % 0 Myelocytes % 0 Promyelocytes % 0 Blast Cells % 0 Nucleated RBC % 7.0 H Seg Neutrophils # Man 9.0 H Band Neutrophils # 5.9 Lymphocytes # (Manual) 1.5 Abs React Lymphs (Man) 0.2 Monocytes # (Manual) 0.3 Eosinophils # (Manual) 0.0 Basophils # (Manual) 0.0 Metamyelocytes # 0.0 Myelocytes # 0.0 Promyelocytes # 0.0 Blast Cells # 0.0 WBC Morphology Not Reportable Hypersegmented Neuts Not Reportable Hyposegmented Neuts Not Reportable Hypogranular Neuts Not Reportable Smudge Cells Not Reportable Toxic Granulation Not Reportable Toxic Vacuolation Not Reportable Dohle Bodies Not Reportable Pelger-Huet Anomaly Not Reportable Mihai Rods Not Reportable Platelet Estimate Appears normal Clumped Platelets Not Reportable Plt Clumps, EDTA Not Reportable Large Platelets Not Reportable Giant Platelets Not Reportable Platelet Satelliting Not Reportable Plt Morphology Comment Not Reportable RBC Morphology Not Reportable Dimorphic RBCs Not Reportable Polychromasia Not Reportable Hypochromasia 1+ Poikilocytosis Not Reportable Anisocytosis 1+ Microcytosis Not Reportable Macrocytosis Not Reportable Spherocytes Not Reportable Pappenheimer Bodies Not Reportable Sickle Cells Not Reportable Target Cells Rare Tear Drop Cells Rare Ovalocytes Not Reportable Helmet Cells Not Reportable [place] Bodies Not Reportable [place] Rings Not Reportable [place] Cells Not Reportable Bite Cells Not Reportable Crenated Cell Not Reportable Elliptocytes Not Reportable Acanthocytes (Spur) Not Reportable Rouleaux Not Reportable Hemoglobin C Crystals Not Reportable Schistocytes Not Reportable Malaria parasites Not Reportable Jorge Luis Bodies Not Reportable Hem Pathologist Commnt No PT INR APTT POC ABG pH 7.411 POC ABG pCO2 36.8 POC ABG pO2 70 L POC ABG HCO3 23.4 POC ABG Total CO2 24 POC ABG O2 Sat 94 POC ABG Base Excess -1 FiO2 80 Sodium Potassium Chloride Carbon Dioxide Anion Gap BUN Creatinine Estimated GFR BUN/Creatinine Ratio Glucose POC Glucose 252 H Calcium Magnesium Total Bilirubin AST ALT Alkaline Phosphatase Total Protein Albumin Albumin/Globulin Ratio 12/21/16 12/21/16 06:15 06:15 WBC RBC Hgb Hct MCV MCH MCHC RDW Plt Count [place] % (Auto) Add Manual Diff Total Counted Seg Neuts % (Manual) Band Neutrophils % Lymphocytes % (Manual) Reactive Lymphs % (Man) Monocytes % (Manual) Eosinophils % (Manual) Basophils % (Manual) Metamyelocytes % Myelocytes % Promyelocytes % Blast Cells % Nucleated RBC % Seg Neutrophils # Man Band Neutrophils # Lymphocytes # (Manual) Abs React Lymphs (Man) Monocytes # (Manual) Eosinophils # (Manual) Basophils # (Manual) Metamyelocytes # Myelocytes # Promyelocytes # Blast Cells # WBC Morphology Hypersegmented Neuts Hyposegmented Neuts Hypogranular Neuts Smudge Cells Toxic Granulation Toxic Vacuolation Dohle Bodies Pelger-Huet Anomaly Mihai Rods Platelet Estimate Clumped Platelets Plt Clumps, EDTA Large Platelets Giant Platelets Platelet Satelliting Plt Morphology Comment RBC Morphology Dimorphic RBCs Polychromasia Hypochromasia Poikilocytosis Anisocytosis Microcytosis Macrocytosis Spherocytes Pappenheimer Bodies Sickle Cells Target Cells Tear Drop Cells Ovalocytes Helmet Cells [place] Bodies [place] Rings Howard Cells Bite Cells Crenated Cell Elliptocytes Acanthocytes (Spur) Rouleaux Hemoglobin C Crystals Schistocytes Malaria parasites Jorge Luis Bodies Hem Pathologist Commnt PT 26.6 H INR 2.44 H APTT 127.6 H* POC ABG pH POC ABG pCO2 POC ABG pO2 POC ABG HCO3 POC ABG Total CO2 POC ABG O2 Sat POC ABG Base Excess FiO2 Sodium 139 Potassium 5.5 H Chloride 86.6 L Carbon Dioxide 24 Anion Gap 34 BUN 87 H Creatinine 5.7 H Estimated GFR 12 BUN/Creatinine Ratio 15.26 Glucose 263 H POC Glucose Calcium 4.8 L* Magnesium 2.2 Total Bilirubin 5.7 H AST 3224 H ALT 686 H Alkaline Phosphatase 989 H Total Protein 4.0 L Albumin 1.1 L Albumin/Globulin Ratio 0.4
--- NOTE | 2016-12-21 09:26 | XRay Report ---
PORTABLE CHEST INDICATION: Follow up respiratory failure. COMPARISON: Yesterday. FINDINGS: Portable, frontal chest radiograph, 2:19 AM, 12/21/2016 demonstrates new Dobbhoff tube extending well into the stomach and beyond the inferior radiographic margin. Stable endotracheal tube, right IJ catheter, EKG leads and some other extrinsic artifacts, osseous structures and cardiomediastinal silhouette. CHF appearance with hazy bilateral pleural effusions with obscured hemidiaphragms again noted as also prominent lung markings in the upper aerated zones. CONCLUSION: 1. New Dobbhoff tube with stable remainder supporting devices, as described. 2. CHF again noted with bilateral pleural effusions. Thank you for the opportunity to participate in this patient's care.
[2016-12-21] MEDS: SODIUM CHLORIDE IV SCH ×2 (09:52→23:02)
[2016-12-21] MEDS: AZTREONAM IV SCH ×2 (09:52→23:02)
[2016-12-21] MEDS: LEVEMIR SUB-Q SCH (09:53)
[2016-12-21] MEDS: PEPCID IV SCH (10:06)
[2016-12-21] MEDS ORDERED: DUONEB 0.5 MG-3 MG/3 ML SOLN IH PRN (11:02)
[2016-12-21] MEDS ORDERED: D50W (25GM) IV ONE (11:03)
--- NOTE | 2016-12-21 11:43 | Progress Note ---
Assessment and Plan 61 y/o male with inability to urinate, now with acute change in mental status and hypotension, acute renal failure, hyperkalemia, and severe metabolic acidosis, with worsening renal failure and anuria, now requiring multiple vasopressor therapy. 12/21/18 Long discussion again today, this time over the phone with . There are some family dynamics that I am not sure of. The son was suppose to brief his mother from our last meeting but per her this did not happen. I explained to her that this is end of life and he is unfortunately being consumed by his malignancy. I asked her to think about the possibility of DNR/AND and then transitioning to comfort care. I explained to her that with worsening clinical status that he could go into cardiac arrest at any moment and that would require us to perform CPR and even shock him if warranted. She voiced understanding and states that she will be her tomorrow (12/22/18). There are several names of individuals who state they are family, from daughters to brothers to nephews. Unfortunately I have no way of figuring out whom it is safe to speak to. I have also discussed this with case management. The was not forthcoming about who she wanted us to speak with in regards to his care. Overall prognosis is extremely poor. We will continue supportive measures as patient remains full code. Long discussion in the conference room with brother, son and nephew on 12/19/16. 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 Attempted to explain the reason for renal failure and lack of urine output and the plan as listed above to attempt to resolve this. I also explained to them the very poor prognosis and the worsening overall clinical state of the patient. All family present appeared to express understanding that we are approaching the end of life and that with limited options for therapy, we are currently providing all that we can and all that is reasonable. I also explained to them, in regards to transfer, the saftey issues involved as well as it being a lateral move that would not benefit the patient but yet increase risk for harm and sudden . They also expressed understanding with this. Will ask oncology to speak with them just to make sure it is clear the options for treatment for malignancy given current clinical state. CCT 31 minutes Subjective Date of service: 12/21/16 Principal diagnosis: paroxysmal SVT Interval history: No acute events overnight. Spoke with on phone this am. NO family at bedside. Maxed out on two vasopressors with marginal BP's. Renal function worse and remains anuric. Objective Vital Signs - 12hr 12/20/16 12/21/16 12/21/16 23:45 00:00 00:15 Temperature 100.3 F H Pulse Rate 89 89 89 Pulse Rate [ Anterior Bilateral Throughout] Pulse Rate [ Anterior Bilateral Upper Lobe] Respiratory 27 H 25 H 28 H Rate Respiratory Rate [Anterior Bilateral Throughout] Respiratory Rate [Anterior Bilateral Upper Lobe] Blood Pressure 102/45 111/48 101/40 O2 Sat by Pulse 90 95 90 Oximetry 12/21/16 12/21/16 12/21/16 00:30 00:45 00:56 Temperature Pulse Rate 87 86 Pulse Rate [ Anterior Bilateral Throughout] Pulse Rate [ 87 88 Anterior Bilateral Upper Lobe] Respiratory 27 H 24 Rate Respiratory Rate [Anterior Bilateral Throughout] Respiratory 17 19 Rate [Anterior Bilateral Upper Lobe] Blood Pressure 105/43 99/38 O2 Sat by Pulse 91 91 Oximetry 12/21/16 12/21/16 12/21/16 01:00 01:15 01:25 Temperature Pulse Rate 86 86 87 Pulse Rate [ Anterior Bilateral Throughout] Pulse Rate [ Anterior Bilateral Upper Lobe] Respiratory 25 H 23 Rate Respiratory Rate [Anterior Bilateral Throughout] Respiratory Rate [Anterior Bilateral Upper Lobe] Blood Pressure 89/38 87/40 92/46 O2 Sat by Pulse 92 92 91 Oximetry 12/21/16 12/21/16 12/21/16 01:30 01:45 02:00 Temperature Pulse Rate 87 87 87 Pulse Rate [ Anterior Bilateral Throughout] Pulse Rate [ Anterior Bilateral Upper Lobe] Respiratory 26 H 27 H 26 H Rate Respiratory Rate [Anterior Bilateral Throughout] Respiratory Rate [Anterior Bilateral Upper Lobe] Blood Pressure 108/43 108/43 107/43 O2 Sat by Pulse 91 91 91 Oximetry 12/21/16 12/21/16 12/21/16 02:15 02:30 02:45 Temperature Pulse Rate 87 86 85 Pulse Rate [ Anterior Bilateral Throughout] Pulse Rate [ Anterior Bilateral Upper Lobe] Respiratory 28 H 27 H 27 H Rate Respiratory Rate [Anterior Bilateral Throughout] Respiratory Rate [Anterior Bilateral Upper Lobe] Blood Pressure 106/44 92/46 93/42 O2 Sat by Pulse 91 90 90 Oximetry 12/21/16 12/21/16 12/21/16 03:00 03:15 03:19 Temperature Pulse Rate 86 87 86 Pulse Rate [ Anterior Bilateral Throughout] Pulse Rate [ Anterior Bilateral Upper Lobe] Respiratory 25 H 28 H 28 H Rate Respiratory Rate [Anterior Bilateral Throughout] Respiratory Rate [Anterior Bilateral Upper Lobe] Blood Pressure 102/43 96/44 96/44 O2 Sat by Pulse 90 90 90 Oximetry 12/21/16 12/21/16 12/21/16 03:30 03:43 03:45 Temperature Pulse Rate 85 86 87 Pulse Rate [ Anterior Bilateral Throughout] Pulse Rate [ Anterior Bilateral Upper Lobe] Respiratory 26 H 27 H 26 H Rate Respiratory Rate [Anterior Bilateral Throughout] Respiratory Rate [Anterior Bilateral Upper Lobe] Blood Pressure 96/39 96/39 97/44 O2 Sat by Pulse 90 91 91 Oximetry 12/21/16 12/21/16 12/21/16 04:00 04:03 04:15 Temperature 100.6 F H Pulse Rate 84 84 Pulse Rate [ Anterior Bilateral Throughout] Pulse Rate [ Anterior Bilateral Upper Lobe] Respiratory 26 H 25 H 25 H Rate Respiratory Rate [Anterior Bilateral Throughout] Respiratory Rate [Anterior Bilateral Upper Lobe] Blood Pressure 98/42 95/40 O2 Sat by Pulse 93 90 91 Oximetry 12/21/16 12/21/16 12/21/16 04:20 04:27 04:30 Temperature Pulse Rate 83 84 Pulse Rate [ Anterior Bilateral Throughout] Pulse Rate [ 84 Anterior Bilateral Upper Lobe] Respiratory 26 H Rate Respiratory Rate [Anterior Bilateral Throughout] Respiratory 24 Rate [Anterior Bilateral Upper Lobe] Blood Pressure 95/40 101/62 O2 Sat by Pulse 91 Oximetry 12/21/16 12/21/16 12/21/16 04:32 04:45 05:00 Temperature Pulse Rate 80 79 Pulse Rate [ Anterior Bilateral Throughout] Pulse Rate [ 87 Anterior Bilateral Upper Lobe] Respiratory 23 23 Rate Respiratory Rate [Anterior Bilateral Throughout] Respiratory 23 Rate [Anterior Bilateral Upper Lobe] Blood Pressure 85/39 84/37 O2 Sat by Pulse 93 92 Oximetry 12/21/16 12/21/16 12/21/16 05:15 05:30 05:45 Temperature Pulse Rate 80 80 81 Pulse Rate [ Anterior Bilateral Throughout] Pulse Rate [ Anterior Bilateral Upper Lobe] Respiratory 24 22 21 Rate Respiratory Rate [Anterior Bilateral Throughout] Respiratory Rate [Anterior Bilateral Upper Lobe] Blood Pressure 85/39 90/40 97/43 O2 Sat by Pulse 93 93 93 Oximetry 12/21/16 12/21/16 12/21/16 06:00 06:15 06:30 Temperature Pulse Rate 80 83 81 Pulse Rate [ Anterior Bilateral Throughout] Pulse Rate [ Anterior Bilateral Upper Lobe] Respiratory 21 23 22 Rate Respiratory Rate [Anterior Bilateral Throughout] Respiratory Rate [Anterior Bilateral Upper Lobe] Blood Pressure 95/44 90/43 93/43 O2 Sat by Pulse 93 92 93 Oximetry 12/21/16 12/21/16 12/21/16 06:45 07:00 07:15 Temperature Pulse Rate 83 82 85 Pulse Rate [ Anterior Bilateral Throughout] Pulse Rate [ Anterior Bilateral Upper Lobe] Respiratory 24 21 27 H Rate Respiratory Rate [Anterior Bilateral Throughout] Respiratory Rate [Anterior Bilateral Upper Lobe] Blood Pressure 99/43 93/44 95/44 O2 Sat by Pulse 93 93 92 Oximetry 12/21/16 12/21/16 12/21/16 07:34 08:13 08:42 Temperature 99.0 F Pulse Rate 87 Pulse Rate [ 87 87 Anterior Bilateral Throughout] Pulse Rate [ Anterior Bilateral Upper Lobe] Respiratory Rate Respiratory 26 H 26 H Rate [Anterior Bilateral Throughout] Respiratory Rate [Anterior Bilateral Upper Lobe] Blood Pressure 98/44 O2 Sat by Pulse 90 Oximetry Constitutional: appears uncomfortable, other (orally intubated and sedated on propofol) ENT: other (orally intubated) Neck: supple Effort: mildly labored Ascultation: Right: rales (base), Bilateral: clear Percussion: Bilateral: not dull Cardiovascular: regular rate and rhythm Gastrointestinal: hypoactive bowel sounds Integumentary: normal Extremities: no edema, pink and warm CBC and BMP: 12/21/16 06:15 12/21/16 06:15 ABG, PT/INR, D-dimer: ABG POC ABG pH 7.411 (7.35-7.45) 12/21/16 05:02 POC ABG pCO2 36.8 (35-45) 12/21/16 05:02 POC ABG pO2 70 (80-105) L 12/21/16 05:02 POC ABG HCO3 23.4 12/21/16 05:02 POC ABG Total CO2 24 12/21/16 05:02 POC ABG O2 Sat 94 12/21/16 05:02 PT/INR, D-dimer PT 26.6 Sec. (12.2-14.9) H 12/21/16 06:15 INR 2.44 (0.87-1.13) H 12/21/16 06:15 Abnormal lab findings: Abnormal Labs 12/08/16 12/08/16 12/09/16 09:44 12:22 10:47 WBC RBC Hgb Hct MCV MCH MCHC RDW Lymph % (Auto) [place] % (Auto) Lymph # [place] # Seg Neutrophils % Seg Neuts % (Manual) Lymphocytes % (Manual) Monocytes % (Manual) Nucleated RBC % Seg Neutrophils # Seg Neutrophils # Man Lymphocytes # (Manual) Monocytes # (Manual) PT INR APTT POC ABG pH POC ABG pCO2 POC ABG pO2 Sodium Potassium Chloride Carbon Dioxide BUN Creatinine Glucose POC Glucose 54 L 68 L 127 H Lactic Acid Calcium Iron TIBC Total Bilirubin Direct Bilirubin AST ALT Alkaline Phosphatase Total Creatine Kinase CK-MB (CK-2) Troponin T Total Protein Albumin HDL Cholesterol Prostate Specific Ag Urine WBC (Auto) Urine Creatinine Crossmatch 12/09/16 12/09/16 12/10/16 11:32 16:08 05:29 WBC 15.2 H RBC Hgb Hct MCV 80 L MCH 25 L MCHC RDW 15.6 H Lymph % (Auto) 7.2 L [place] % (Auto) 9.2 H Lymph # 1.1 L [place] # 1.4 H Seg Neutrophils % 83.0 H Seg Neuts % (Manual) Lymphocytes % (Manual) Monocytes % (Manual) Nucleated RBC % Seg Neutrophils # 12.6 H Seg Neutrophils # Man Lymphocytes # (Manual) Monocytes # (Manual) PT INR APTT POC ABG pH POC ABG pCO2 POC ABG pO2 Sodium Potassium Chloride Carbon Dioxide BUN Creatinine Glucose POC Glucose 110 H 130 H Lactic Acid Calcium Iron TIBC Total Bilirubin Direct Bilirubin AST ALT Alkaline Phosphatase Total Creatine Kinase CK-MB (CK-2) Troponin T Total Protein Albumin HDL Cholesterol Prostate Specific Ag Urine WBC (Auto) Urine Creatinine Crossmatch 12/10/16 12/10/16 12/11/16 05:29 17:00 07:43 WBC 15.2 H RBC Hgb 11.5 L Hct 35.4 L MCV 78 L MCH 26 L MCHC RDW 15.7 H Lymph % (Auto) 10.4 L [place] % (Auto) 9.9 H Lymph # [place] # 1.5 H Seg Neutrophils % 78.4 H Seg Neuts % (Manual) Lymphocytes % (Manual) Monocytes % (Manual) Nucleated RBC % Seg Neutrophils # 11.9 H Seg Neutrophils # Man Lymphocytes # (Manual) Monocytes # (Manual) PT INR APTT POC ABG pH POC ABG pCO2 POC ABG pO2 Sodium Potassium Chloride Carbon Dioxide BUN 24 H Creatinine Glucose 121 H POC Glucose 148 H Lactic Acid Calcium Iron TIBC Total Bilirubin Direct Bilirubin AST ALT Alkaline Phosphatase Total Creatine Kinase CK-MB (CK-2) Troponin T Total Protein Albumin HDL Cholesterol Prostate Specific Ag Urine WBC (Auto) Urine Creatinine Crossmatch 12/11/16 12/12/16 12/12/16 19:28 05:40 05:40 WBC 15.5 H RBC Hgb 11.4 L Hct MCV 79 L MCH 25 L MCHC RDW 15.9 H Lymph % (Auto) 10.4 L [place] % (Auto) 11.0 H Lymph # [place] # 1.7 H Seg Neutrophils % 77.6 H Seg Neuts % (Manual) Lymphocytes % (Manual) Monocytes % (Manual) Nucleated RBC % Seg Neutrophils # 12.0 H Seg Neutrophils # Man Lymphocytes # (Manual) Monocytes # (Manual) PT INR APTT POC ABG pH POC ABG pCO2 POC ABG pO2 Sodium Potassium Chloride Carbon Dioxide BUN Creatinine Glucose POC Glucose Lactic Acid Calcium Iron 20 L TIBC 212 L Total Bilirubin Direct Bilirubin AST ALT Alkaline Phosphatase Total Creatine Kinase CK-MB (CK-2) Troponin T Total Protein Albumin HDL Cholesterol Prostate Specific Ag 30.40 H Urine WBC (Auto) Urine Creatinine Crossmatch 12/12/16 12/13/16 12/13/16 08:12 11:28 15:49 WBC RBC Hgb Hct MCV MCH MCHC RDW Lymph % (Auto) [place] % (Auto) Lymph # [place] # Seg Neutrophils % Seg Neuts % (Manual) Lymphocytes % (Manual) Monocytes % (Manual) Nucleated RBC % Seg Neutrophils # Seg Neutrophils # Man Lymphocytes # (Manual) Monocytes # (Manual) PT INR APTT POC ABG pH POC ABG pCO2 POC ABG pO2 Sodium Potassium Chloride Carbon Dioxide BUN Creatinine Glucose POC Glucose 68 L 119 H 106 H Lactic Acid Calcium Iron TIBC Total Bilirubin Direct Bilirubin AST ALT Alkaline Phosphatase Total Creatine Kinase CK-MB (CK-2) Troponin T Total Protein Albumin HDL Cholesterol Prostate Specific Ag Urine WBC (Auto) Urine Creatinine Crossmatch 12/13/16 12/14/16 12/14/16 19:39 06:52 06:52 WBC RBC Hgb Hct MCV MCH MCHC RDW Lymph % (Auto) [place] % (Auto) Lymph # [place] # Seg Neutrophils % Seg Neuts % (Manual) Lymphocytes % (Manual) Monocytes % (Manual) Nucleated RBC % Seg Neutrophils # Seg Neutrophils # Man Lymphocytes # (Manual) Monocytes # (Manual) PT 15.0 H INR 1.19 H APTT 40.1 H POC ABG pH POC ABG pCO2 POC ABG pO2 Sodium Potassium Chloride Carbon Dioxide BUN Creatinine Glucose POC Glucose 123 H Lactic Acid Calcium Iron TIBC Total Bilirubin 2.6 H Direct Bilirubin 2.1 H AST 554 H ALT 166 H Alkaline Phosphatase 591 H Total Creatine Kinase CK-MB (CK-2) Troponin T Total Protein Albumin 2.7 L HDL Cholesterol Prostate Specific Ag Urine WBC (Auto) Urine Creatinine Crossmatch 12/14/16 12/14/16 12/14/16 11:01 11:49 15:55 WBC 15.9 H RBC Hgb 11.6 L Hct MCV 79 L MCH 26 L MCHC RDW 16.0 H Lymph % (Auto) [place] % (Auto) Lymph # [place] # Seg Neutrophils % Seg Neuts % (Manual) Lymphocytes % (Manual) Monocytes % (Manual) Nucleated RBC % Seg Neutrophils # Seg Neutrophils # Man Lymphocytes # (Manual) Monocytes # (Manual) PT INR APTT POC ABG pH POC ABG pCO2 POC ABG pO2 Sodium Potassium Chloride Carbon Dioxide BUN Creatinine Glucose POC Glucose 122 H 177 H Lactic Acid Calcium Iron TIBC Total Bilirubin Direct Bilirubin AST ALT Alkaline Phosphatase Total Creatine Kinase CK-MB (CK-2) Troponin T Total Protein Albumin HDL Cholesterol Prostate Specific Ag Urine WBC (Auto) Urine Creatinine Crossmatch 12/14/16 12/15/16 12/15/16 21:21 07:54 10:42 WBC RBC Hgb Hct MCV MCH MCHC RDW Lymph % (Auto) [place] % (Auto) Lymph # [place] # Seg Neutrophils % Seg Neuts % (Manual) Lymphocytes % (Manual) Monocytes % (Manual) Nucleated RBC % Seg Neutrophils # Seg Neutrophils # Man Lymphocytes # (Manual) Monocytes # (Manual) PT INR APTT POC ABG pH POC ABG pCO2 POC ABG pO2 Sodium Potassium Chloride Carbon Dioxide BUN Creatinine Glucose POC Glucose 179 H 106 H Lactic Acid Calcium Iron TIBC Total Bilirubin Direct Bilirubin AST ALT Alkaline Phosphatase Total Creatine Kinase CK-MB (CK-2) Troponin T Total Protein Albumin HDL Cholesterol Prostate Specific Ag 35.07 H Urine WBC (Auto) Urine Creatinine Crossmatch 12/15/16 12/15/16 12/16/16 12:10 16:53 08:10 WBC RBC Hgb Hct MCV MCH MCHC RDW Lymph % (Auto) [place] % (Auto) Lymph # [place] # Seg Neutrophils % Seg Neuts % (Manual) Lymphocytes % (Manual) Monocytes % (Manual) Nucleated RBC % Seg Neutrophils # Seg Neutrophils # Man Lymphocytes # (Manual) Monocytes # (Manual) PT INR APTT POC ABG pH POC ABG pCO2 POC ABG pO2 Sodium Potassium Chloride Carbon Dioxide BUN Creatinine Glucose POC Glucose 132 H 107 H 52 L Lactic Acid Calcium Iron TIBC Total Bilirubin Direct Bilirubin AST ALT Alkaline Phosphatase Total Creatine Kinase CK-MB (CK-2) Troponin T Total Protein Albumin HDL Cholesterol Prostate Specific Ag Urine WBC (Auto) Urine Creatinine Crossmatch 12/16/16 12/17/16 12/17/16 22:44 05:17 05:17 WBC 15.6 H RBC Hgb Hct MCV 79 L MCH 26 L MCHC RDW 16.6 H Lymph % (Auto) 5.8 L [place] % (Auto) 8.5 H Lymph # 0.9 L [place] # 1.3 H Seg Neutrophils % 85.5 H Seg Neuts % (Manual) Lymphocytes % (Manual) Monocytes % (Manual) Nucleated RBC % Seg Neutrophils # 13.4 H Seg Neutrophils # Man Lymphocytes # (Manual) Monocytes # (Manual) PT INR APTT POC ABG pH POC ABG pCO2 POC ABG pO2 Sodium 134 L Potassium 6.0 H D Chloride 89.1 L Carbon Dioxide 15 L D BUN 63 H Creatinine 3.0 H D Glucose 122 H POC Glucose 67 L Lactic Acid Calcium Iron TIBC Total Bilirubin Direct Bilirubin AST ALT Alkaline Phosphatase Total Creatine Kinase CK-MB (CK-2) Troponin T Total Protein Albumin HDL Cholesterol Prostate Specific Ag Urine WBC (Auto) Urine Creatinine Crossmatch 12/17/16 12/17/16 12/17/16 07:27 12:04 12:57 WBC RBC Hgb Hct MCV MCH MCHC RDW Lymph % (Auto) [place] % (Auto) Lymph # [place] # Seg Neutrophils % Seg Neuts % (Manual) Lymphocytes % (Manual) Monocytes % (Manual) Nucleated RBC % Seg Neutrophils # Seg Neutrophils # Man Lymphocytes # (Manual) Monocytes # (Manual) PT INR APTT POC ABG pH POC ABG pCO2 POC ABG pO2 Sodium Potassium Chloride Carbon Dioxide BUN Creatinine Glucose POC Glucose 130 H 154 H 232 H Lactic Acid Calcium Iron TIBC Total Bilirubin Direct Bilirubin AST ALT Alkaline Phosphatase Total Creatine Kinase CK-MB (CK-2) Troponin T Total Protein Albumin HDL Cholesterol Prostate Specific Ag Urine WBC (Auto) Urine Creatinine Crossmatch 12/17/16 12/17/16 12/17/16 13:41 13:46 15:00 WBC 15.9 H RBC Hgb 9.3 L Hct 29.8 L D MCV 82 L D MCH 26 L MCHC 31 L RDW 17.1 H Lymph % (Auto) [place] % (Auto) Lymph # [place] # Seg Neutrophils % Seg Neuts % (Manual) 79.0 H Lymphocytes % (Manual) Monocytes % (Manual) Nucleated RBC % Seg Neutrophils # Seg Neutrophils # Man 12.6 H Lymphocytes # (Manual) Monocytes # (Manual) 1.1 H PT INR APTT POC ABG pH 6.961 L POC ABG pCO2 20.4 L POC ABG pO2 230 H Sodium Potassium Chloride Carbon Dioxide BUN Creatinine Glucose POC Glucose 271 H Lactic Acid Calcium Iron TIBC Total Bilirubin Direct Bilirubin AST ALT Alkaline Phosphatase Total Creatine Kinase CK-MB (CK-2) Troponin T Total Protein Albumin HDL Cholesterol Prostate Specific Ag Urine WBC (Auto) Urine Creatinine Crossmatch 12/17/16 12/17/16 12/17/16 15:00 15:00 15:41 WBC RBC Hgb Hct MCV MCH MCHC RDW Lymph % (Auto) [place] % (Auto) Lymph # [place] # Seg Neutrophils % Seg Neuts % (Manual) Lymphocytes % (Manual) Monocytes % (Manual) Nucleated RBC % Seg Neutrophils # Seg Neutrophils # Man Lymphocytes # (Manual) Monocytes # (Manual) PT INR APTT POC ABG pH 7.145 L POC ABG pCO2 19.5 L POC ABG pO2 208 H Sodium 132 L Potassium 5.2 H Chloride 83.7 L Carbon Dioxide 6 L* D BUN 69 H Creatinine 3.9 H Glucose 220 H POC Glucose Lactic Acid Calcium 7.7 L D Iron TIBC Total Bilirubin Direct Bilirubin AST ALT Alkaline Phosphatase Total Creatine Kinase 435 H CK-MB (CK-2) 7.5 H Troponin T 0.078 H Total Protein Albumin HDL Cholesterol 7 L Prostate Specific Ag Urine WBC (Auto) Urine Creatinine Crossmatch 12/17/16 12/17/16 12/17/16 17:05 17:05 17:48 WBC RBC Hgb Hct MCV MCH MCHC RDW Lymph % (Auto) [place] % (Auto) Lymph # [place] # Seg Neutrophils % Seg Neuts % (Manual) Lymphocytes % (Manual) Monocytes % (Manual) Nucleated RBC % Seg Neutrophils # Seg Neutrophils # Man Lymphocytes # (Manual) Monocytes # (Manual) PT INR APTT POC ABG pH POC ABG pCO2 POC ABG pO2 Sodium Potassium Chloride Carbon Dioxide BUN Creatinine Glucose POC Glucose 218 H Lactic Acid Calcium Iron TIBC Total Bilirubin Direct Bilirubin AST ALT Alkaline Phosphatase Total Creatine Kinase CK-MB (CK-2) Troponin T Total Protein Albumin HDL Cholesterol Prostate Specific Ag Urine WBC (Auto) 41.0 H Urine Creatinine 105.0 H Crossmatch 12/17/16 12/17/16 12/18/16 21:26 21:38 04:30 WBC 15.1 H RBC 3.62 L Hgb 9.1 L Hct 27.8 L MCV 77 L D MCH 25 L MCHC RDW 16.3 H Lymph % (Auto) 3.1 L [place] % (Auto) Lymph # 0.5 L [place] # 1.0 H Seg Neutrophils % 89.6 H Seg Neuts % (Manual) Lymphocytes % (Manual) Monocytes % (Manual) Nucleated RBC % Seg Neutrophils # 13.5 H Seg Neutrophils # Man Lymphocytes # (Manual) Monocytes # (Manual) PT INR APTT POC ABG pH POC ABG pCO2 19.2 L POC ABG pO2 Sodium Potassium Chloride Carbon Dioxide BUN Creatinine Glucose POC Glucose 299 H Lactic Acid Calcium Iron TIBC Total Bilirubin Direct Bilirubin AST ALT Alkaline Phosphatase Total Creatine Kinase CK-MB (CK-2) Troponin T Total Protein Albumin HDL Cholesterol Prostate Specific Ag Urine WBC (Auto) Urine Creatinine Crossmatch 12/18/16 12/18/16 12/18/16 04:30 04:30 05:44 WBC RBC Hgb Hct MCV MCH MCHC RDW Lymph % (Auto) [place] % (Auto) Lymph # [place] # Seg Neutrophils % Seg Neuts % (Manual) Lymphocytes % (Manual) Monocytes % (Manual) Nucleated RBC % Seg Neutrophils # Seg Neutrophils # Man Lymphocytes # (Manual) Monocytes # (Manual) PT INR APTT POC ABG pH POC ABG pCO2 25.0 L POC ABG pO2 77 L Sodium 136 L Potassium 5.1 H Chloride 94.4 L Carbon Dioxide 16 L D BUN 71 H Creatinine 3.0 H Glucose 289 H POC Glucose Lactic Acid 9.3 H* Calcium 5.9 L* D Iron TIBC Total Bilirubin 3.3 H Direct Bilirubin AST 6347 H ALT 1079 H Alkaline Phosphatase 978 H Total Creatine Kinase 2770 H CK-MB (CK-2) Troponin T Total Protein 4.6 L D Albumin 1.9 L HDL Cholesterol Prostate Specific Ag Urine WBC (Auto) Urine Creatinine Crossmatch 12/18/16 12/18/16 12/18/16 06:00 07:54 11:50 WBC RBC Hgb Hct MCV MCH MCHC RDW Lymph % (Auto) [place] % (Auto) Lymph # [place] # Seg Neutrophils % Seg Neuts % (Manual) Lymphocytes % (Manual) Monocytes % (Manual) Nucleated RBC % Seg Neutrophils # Seg Neutrophils # Man Lymphocytes # (Manual) Monocytes # (Manual) PT INR APTT POC ABG pH POC ABG pCO2 POC ABG pO2 Sodium Potassium Chloride Carbon Dioxide BUN Creatinine Glucose POC Glucose 301 H 246 H Lactic Acid Calcium Iron TIBC Total Bilirubin Direct Bilirubin AST ALT Alkaline Phosphatase Total Creatine Kinase CK-MB (CK-2) Troponin T Total Protein Albumin HDL Cholesterol Prostate Specific Ag Urine WBC (Auto) Urine Creatinine Crossmatch See Detail 12/18/16 12/18/16 12/19/16 15:54 21:05 01:16 WBC RBC Hgb Hct MCV MCH MCHC RDW Lymph % (Auto) [place] % (Auto) Lymph # [place] # Seg Neutrophils % Seg Neuts % (Manual) Lymphocytes % (Manual) Monocytes % (Manual) Nucleated RBC % Seg Neutrophils # Seg Neutrophils # Man Lymphocytes # (Manual) Monocytes # (Manual) PT INR APTT POC ABG pH POC ABG pCO2 31.9 L POC ABG pO2 61 L Sodium Potassium Chloride Carbon Dioxide BUN Creatinine Glucose POC Glucose 231 H 256 H Lactic Acid Calcium Iron TIBC Total Bilirubin Direct Bilirubin AST ALT Alkaline Phosphatase Total Creatine Kinase CK-MB (CK-2) Troponin T Total Protein Albumin HDL Cholesterol Prostate Specific Ag Urine WBC (Auto) Urine Creatinine Crossmatch 12/19/16 12/19/16 12/19/16 04:40 04:40 04:40 WBC 17.8 H RBC Hgb 10.9 L Hct 33.6 L MCV 80 L D MCH 26 L MCHC RDW 17.5 H Lymph % (Auto) [place] % (Auto) Lymph # [place] # Seg Neutrophils % Seg Neuts % (Manual) 88.0 H Lymphocytes % (Manual) 3.0 L Monocytes % (Manual) 8.0 H Nucleated RBC % Seg Neutrophils # Seg Neutrophils # Man 15.7 H Lymphocytes # (Manual) 0.5 L Monocytes # (Manual) 1.4 H PT INR APTT POC ABG pH POC ABG pCO2 POC ABG pO2 Sodium Potassium Chloride 94.1 L Carbon Dioxide 17 L BUN 77 H Creatinine 3.6 H Glucose 245 H POC Glucose Lactic Acid 8.6 H* Calcium 4.9 L* D Iron TIBC Total Bilirubin 5.9 H Direct Bilirubin AST 8235 H ALT 1128 H Alkaline Phosphatase 1191 H Total Creatine Kinase CK-MB (CK-2) Troponin T Total Protein 4.4 L Albumin 1.7 L HDL Cholesterol Prostate Specific Ag Urine WBC (Auto) Urine Creatinine Crossmatch 12/19/16 12/19/16 12/19/16 04:40 07:20 11:21 WBC RBC Hgb Hct MCV MCH MCHC RDW Lymph % (Auto) [place] % (Auto) Lymph # [place] # Seg Neutrophils % Seg Neuts % (Manual) Lymphocytes % (Manual) Monocytes % (Manual) Nucleated RBC % Seg Neutrophils # Seg Neutrophils # Man Lymphocytes # (Manual) Monocytes # (Manual) PT 25.2 H INR 2.28 H APTT POC ABG pH POC ABG pCO2 POC ABG pO2 Sodium Potassium Chloride Carbon Dioxide BUN Creatinine Glucose POC Glucose 257 H 263 H Lactic Acid Calcium Iron TIBC Total Bilirubin Direct Bilirubin AST ALT Alkaline Phosphatase Total Creatine Kinase CK-MB (CK-2) Troponin T Total Protein Albumin HDL Cholesterol Prostate Specific Ag Urine WBC (Auto) Urine Creatinine Crossmatch 12/19/16 12/20/16 12/20/16 16:02 00:00 04:12 WBC RBC Hgb Hct MCV MCH MCHC RDW Lymph % (Auto) [place] % (Auto) Lymph # [place] # Seg Neutrophils % Seg Neuts % (Manual) Lymphocytes % (Manual) Monocytes % (Manual) Nucleated RBC % Seg Neutrophils # Seg Neutrophils # Man Lymphocytes # (Manual) Monocytes # (Manual) PT INR APTT POC ABG pH POC ABG pCO2 POC ABG pO2 66 L Sodium Potassium Chloride Carbon Dioxide BUN Creatinine Glucose POC Glucose 272 H 255 H Lactic Acid Calcium Iron TIBC Total Bilirubin Direct Bilirubin AST ALT Alkaline Phosphatase Total Creatine Kinase CK-MB (CK-2) Troponin T Total Protein Albumin HDL Cholesterol Prostate Specific Ag Urine WBC (Auto) Urine Creatinine Crossmatch 12/20/16 12/20/16 12/20/16 04:20 04:20 05:29 WBC 18.4 H RBC Hgb 11.5 L Hct 34.4 L MCV 79 L MCH 26 L MCHC RDW 16.8 H Lymph % (Auto) [place] % (Auto) Lymph # [place] # Seg Neutrophils % Seg Neuts % (Manual) 76.0 H Lymphocytes % (Manual) 1.0 L Monocytes % (Manual) Nucleated RBC % Seg Neutrophils # Seg Neutrophils # Man 14.0 H Lymphocytes # (Manual) 0.2 L Monocytes # (Manual) PT INR APTT POC ABG pH POC ABG pCO2 POC ABG pO2 Sodium Potassium 5.1 H Chloride 91.5 L Carbon Dioxide BUN 84 H Creatinine 4.6 H Glucose 278 H POC Glucose 288 H Lactic Acid Calcium 5.0 L* Iron TIBC Total Bilirubin 6.6 H Direct Bilirubin AST 5812 H ALT 976 H Alkaline Phosphatase 1188 H Total Creatine Kinase CK-MB (CK-2) Troponin T Total Protein 4.4 L Albumin 1.4 L HDL Cholesterol Prostate Specific Ag Urine WBC (Auto) Urine Creatinine Crossmatch 12/20/16 12/20/16 12/20/16 11:19 17:32 Unknown WBC RBC Hgb Hct MCV MCH MCHC RDW Lymph % (Auto) [place] % (Auto) Lymph # [place] # Seg Neutrophils % Seg Neuts % (Manual) Lymphocytes % (Manual) Monocytes % (Manual) Nucleated RBC % Seg Neutrophils # Seg Neutrophils # Man Lymphocytes # (Manual) Monocytes # (Manual) PT INR APTT POC ABG pH POC ABG pCO2 POC ABG pO2 Sodium Potassium Chloride Carbon Dioxide BUN Creatinine Glucose POC Glucose 294 H 269 H Lactic Acid 8.5 H* Calcium Iron TIBC Total Bilirubin Direct Bilirubin AST ALT Alkaline Phosphatase Total Creatine Kinase CK-MB (CK-2) Troponin T Total Protein Albumin HDL Cholesterol Prostate Specific Ag Urine WBC (Auto) Urine Creatinine Crossmatch 12/21/16 12/21/16 12/21/16 00:01 05:02 06:07 WBC RBC Hgb Hct MCV MCH MCHC RDW Lymph % (Auto) [place] % (Auto) Lymph # [place] # Seg Neutrophils % Seg Neuts % (Manual) Lymphocytes % (Manual) Monocytes % (Manual) Nucleated RBC % Seg Neutrophils # Seg Neutrophils # Man Lymphocytes # (Manual) Monocytes # (Manual) PT INR APTT POC ABG pH POC ABG pCO2 POC ABG pO2 70 L Sodium Potassium Chloride Carbon Dioxide BUN Creatinine Glucose POC Glucose 250 H 252 H Lactic Acid Calcium Iron TIBC Total Bilirubin Direct Bilirubin AST ALT Alkaline Phosphatase Total Creatine Kinase CK-MB (CK-2) Troponin T Total Protein Albumin HDL Cholesterol Prostate Specific Ag Urine WBC (Auto) Urine Creatinine Crossmatch 12/21/16 12/21/16 12/21/16 06:15 06:15 06:15 WBC 16.9 H RBC Hgb 10.8 L Hct 32.1 L MCV 79 L MCH 26 L MCHC RDW 17.1 H Lymph % (Auto) [place] % (Auto) Lymph # [place] # Seg Neutrophils % Seg Neuts % (Manual) Lymphocytes % (Manual) 9.0 L Monocytes % (Manual) Nucleated RBC % 7.0 H Seg Neutrophils # Seg Neutrophils # Man 9.0 H Lymphocytes # (Manual) Monocytes # (Manual) PT 26.6 H INR 2.44 H APTT 127.6 H* POC ABG pH POC ABG pCO2 POC ABG pO2 Sodium Potassium 5.5 H Chloride 86.6 L Carbon Dioxide BUN 87 H Creatinine 5.7 H Glucose 263 H POC Glucose Lactic Acid Calcium 4.8 L* Iron TIBC Total Bilirubin 5.7 H Direct Bilirubin AST 3224 H ALT 686 H Alkaline Phosphatase 989 H Total Creatine Kinase CK-MB (CK-2) Troponin T Total Protein 4.0 L Albumin 1.1 L HDL Cholesterol Prostate Specific Ag Urine WBC (Auto) Urine Creatinine Crossmatch
[2016-12-21] MEDS: D50W (25GM) IV PRN (12:23)
[2016-12-21] MEDS ORDERED: DUONEB 0.5 MG-3 MG/3 ML SOLN IH SCH (14:00)
--- NOTE | 2016-12-21 21:23 | Progress Note ---
Assessment and Plan Assessment and plan: 1. Acute hypoxic hypercapneic respiratory failure * Likely due to volume overload/sepsis/severe metabolic acidosis * Intubated 2. Sepsis * Suspected given leukocytosis, hypothermia, hypotension * Blood and urine cultures negative to date * Started on antibiotics, IV fluids * Requiring vasopressor support (on Levophed and vasopressin) 3. Shock * Most likely not related to sepsis 4. Acute renal failure * On admission acute renal failure secondary to vasomotor nephropathy versus ATN from possible hypotension during SVT; resolved with IV fluids * Now again in acute renal failure likely secondary to contrast nephropathy/ hypotension/possible ATN * Became anuric and renal function is worsening despite receiving IV fluids * Bladder mass possible playing a role (? obstruction); Renal US 12/19 with no hydronephrosis, but bladder not well visualized; urology has no recommendations and no procedures planned * Nephrology following 5. Hyperkalemia * Receiving Kayexalate, D50/insulin * Monitoring potassium level 6. Severe Metabolic acidosis/lactic acidosis * On bicarbonate drip * Antibiotics to treat possible infection * Nephrology following also 7. Hepatitic mass * s/p CT guided liver biopsy which is positive for malignancy (metastatic disease from bladder cancer as Biopsy positive for urothelial tissue) 8. Bladder mass * Likely primary malignancy * With hematuria * Cystoscopy canceled due to declining clinical status 9. Elevated LFTs * Most likely secondary to shock liver due to hypotension; tumor burden as liver biopsy positive for metastasis possible also * Trending down 10. Iron deficient anemia * Likely secondary to hematuria * On replacement 11. Status post fall * CT scan of the head ordered, but not obtainable due to current status 12. Supraventricular Tachycardia on admission * Received adenosine in ER and converted to NSR; started on calcium channel estuardo; ECHO showed preserved EF, stress test (-) 1 month ago * 12/20 developed SVT again and started on amiodarone drip 13. Diabetes mellitus type II * Continue long-acting insulin * Accu-Cheks and SSI 14. Malnutrition * Likely secondary to malignancy/multiple comorbidities 15. DVT prophylaxis * Heparin discontinued due to hematuria * SCD 16. Very poor prognosis, declining, but still full code per family wishes; planning to come to the hospital tomorrow The high probability of a clinically significant, sudden or life threatening deterioration of the [] system(s) required my full and direct attention, intervention and personal management. The aggregate critical care time was [35] minutes. This time is in addition to time spent performing reported procedures but includes the following: [x] Data Review and interpretation [x] Patient assessment and monitoring of vital signs [x] Documentation [x] Medication orders and management History Interval history: Remains anuric, on vasodepressor support Hospitalist Physical - Constitutional Vitals: Temp Pulse Resp BP Pulse Ox 98.3 F 93 H 26 H 100/45 88 12/21/16 20:00 12/21/16 20:59 12/21/16 20:59 12/21/16 20:47 12/21/16 20:47 General appearance: Present: mild distress - Neck Neck: Present: supple. Absent: enlarged thyroid, masses or JVD - Respiratory Respiratory effort: other (intubated) - Cardiovascular Rhythm: other (tachycardic) Heart Sounds: Present: S1 & S2. Absent: systolic murmur - Extremities Extremities: no ischemia Extremity abnormal: edema - Abdominal General gastrointestinal: soft, non-distended, hypoactive bowel sounds, hepatomegaly - Psychiatric Psychiatric: other (sedated) Results - Labs CBC & Chem 7: 12/21/16 06:15 12/22/16 06:00 Labs: Laboratory Last Values WBC 16.9 K/mm3 (4.5-11.0) H 12/21/16 06:15 RBC 4.07 M/mm3 (3.65-5.03) 12/21/16 06:15 Hgb 10.8 gm/dl (11.8-15.2) L 12/21/16 06:15 Hct 32.1 % (35.5-45.6) L 12/21/16 06:15 MCV 79 fl (84-94) L 12/21/16 06:15 MCH 26 pg (28-32) L 12/21/16 06:15 MCHC 34 % (32-34) 12/21/16 06:15 RDW 17.1 % (13.2-15.2) H 12/21/16 06:15 Plt Count 157 K/mm3 (140-440) 12/21/16 06:15 Lymph % (Auto) 5.8 % (13.4-35.0) L 12/17/16 05:17 [place] % (Auto) [place] 12/21/16 06:15 Eos % (Auto) 0.1 % (0.0-4.3) 12/17/16 05:17 Baso % (Auto) 0.1 % (0.0-1.8) 12/17/16 05:17 Lymph # 0.9 K/mm3 (1.2-5.4) L 12/17/16 05:17 [place] # 1.3 K/mm3 (0.0-0.8) H 12/17/16 05:17 Eos # 0.0 K/mm3 (0.0-0.4) 12/17/16 05:17 Baso # 0.0 K/mm3 (0.0-0.1) 12/17/16 05:17 Add Manual Diff Complete 12/21/16 06:15 Total Counted 100 12/21/16 06:15 Seg Neutrophils % 85.5 % (40.0-70.0) H 12/17/16 05:17 Seg Neuts % (Manual) 53.0 % (40.0-70.0) 12/21/16 06:15 Band Neutrophils % 35.0 % 12/21/16 06:15 Lymphocytes % (Manual) 9.0 % (13.4-35.0) L 12/21/16 06:15 Reactive Lymphs % (Man) 1.0 % 12/21/16 06:15 Monocytes % (Manual) 2.0 % (0.0-7.3) 12/21/16 06:15 Eosinophils % (Manual) 0 % (0.0-4.3) 12/21/16 06:15 Basophils % (Manual) 0 % (0.0-1.8) 12/21/16 06:15 Metamyelocytes % 0 % 12/21/16 06:15 Myelocytes % 0 % 12/21/16 06:15 Promyelocytes % 0 % 12/21/16 06:15 Blast Cells % 0 % 12/21/16 06:15 Nucleated RBC % 7.0 % (0.0-0.9) H 12/21/16 06:15 Seg Neutrophils # 13.4 K/mm3 (1.8-7.7) H 12/17/16 05:17 Seg Neutrophils # Man 9.0 K/mm3 (1.8-7.7) H 12/21/16 06:15 Band Neutrophils # 5.9 K/mm3 12/21/16 06:15 Lymphocytes # (Manual) 1.5 K/mm3 (1.2-5.4) 12/21/16 06:15 Abs React Lymphs (Man) 0.2 K/mm3 12/21/16 06:15 Monocytes # (Manual) 0.3 K/mm3 (0.0-0.8) 12/21/16 06:15 Eosinophils # (Manual) 0.0 K/mm3 (0.0-0.4) 12/21/16 06:15 Basophils # (Manual) 0.0 K/mm3 (0.0-0.1) 12/21/16 06:15 Metamyelocytes # 0.0 K/mm3 12/21/16 06:15 Myelocytes # 0.0 K/mm3 12/21/16 06:15 Promyelocytes # 0.0 K/mm3 12/21/16 06:15 Blast Cells # 0.0 K/mm3 12/21/16 06:15 WBC Morphology Not Reportable 12/21/16 06:15 Hypersegmented Neuts Not Reportable 12/21/16 06:15 Hyposegmented Neuts Not Reportable 12/21/16 06:15 Hypogranular Neuts Not Reportable 12/21/16 06:15 Smudge Cells Not Reportable 12/21/16 06:15 Toxic Granulation Not Reportable 12/21/16 06:15 Toxic Vacuolation Not Reportable 12/21/16 06:15 Dohle Bodies Not Reportable 12/21/16 06:15 Pelger-Huet Anomaly Not Reportable 12/21/16 06:15 Mihai Rods Not Reportable 12/21/16 06:15 Platelet Estimate Appears normal 12/21/16 06:15 Clumped Platelets Not Reportable 12/21/16 06:15 Plt Clumps, EDTA Not Reportable 12/21/16 06:15 Large Platelets Not Reportable 12/21/16 06:15 Giant Platelets Not Reportable 12/21/16 06:15 Platelet Satelliting Not Reportable 12/21/16 06:15 Plt Morphology Comment Not Reportable 12/21/16 06:15 RBC Morphology Not Reportable 12/21/16 06:15 Dimorphic RBCs Not Reportable 12/21/16 06:15 Polychromasia Not Reportable 12/21/16 06:15 Hypochromasia 1+ 12/21/16 06:15 Poikilocytosis Not Reportable 12/21/16 06:15 Anisocytosis 1+ 12/21/16 06:15 Microcytosis Not Reportable 12/21/16 06:15 Macrocytosis Not Reportable 12/21/16 06:15 Spherocytes Not Reportable 12/21/16 06:15 Pappenheimer Bodies Not Reportable 12/21/16 06:15 Sickle Cells Not Reportable 12/21/16 06:15 Target Cells Rare 12/21/16 06:15 Tear Drop Cells Rare 12/21/16 06:15 Ovalocytes Not Reportable 12/21/16 06:15 Helmet Cells Not Reportable 12/21/16 06:15 [place] Bodies Not Reportable 12/21/16 06:15 [place] Rings Not Reportable 12/21/16 06:15 [place] Cells Not Reportable 12/21/16 06:15 Bite Cells Not Reportable 12/21/16 06:15 Crenated Cell Not Reportable 12/21/16 06:15 Elliptocytes Not Reportable 12/21/16 06:15 Acanthocytes (Spur) Not Reportable 12/21/16 06:15 Rouleaux Not Reportable 12/21/16 06:15 Hemoglobin C Crystals Not Reportable 12/21/16 06:15 Schistocytes Not Reportable 12/21/16 06:15 Malaria parasites Not Reportable 12/21/16 06:15 Jorge Luis Bodies Not Reportable 12/21/16 06:15 Hem Pathologist Commnt No 12/21/16 06:15 PT 26.6 Sec. (12.2-14.9) H 12/21/16 06:15 INR 2.44 (0.87-1.13) H 12/21/16 06:15 APTT 127.6 Sec. (24.2-36.6) H* 12/21/16 06:15 POC ABG pH 7.411 (7.35-7.45) 12/21/16 05:02 POC ABG pCO2 36.8 (35-45) 12/21/16 05:02 POC ABG pO2 70 (80-105) L 12/21/16 05:02 POC ABG HCO3 23.4 12/21/16 05:02 POC ABG Total CO2 24 12/21/16 05:02 POC ABG O2 Sat 94 12/21/16 05:02 POC ABG Base Excess -1 12/21/16 05:02 FiO2 80 % 12/21/16 05:02 Sodium 139 mmol/L (137-145) 12/21/16 06:15 Potassium 5.5 mmol/L (3.6-5.0) H 12/21/16 06:15 Chloride 86.6 mmol/L (98-107) L 12/21/16 06:15 Carbon Dioxide 24 mmol/L (22-30) 12/21/16 06:15 Anion Gap 34 mmol/L 12/21/16 06:15 BUN 87 mg/dL (9-20) H 12/21/16 06:15 Creatinine 5.7 mg/dL (0.8-1.5) H 12/21/16 06:15 Estimated GFR 12 ml/min 12/21/16 06:15 BUN/Creatinine Ratio 15.26 % 12/21/16 06:15 Glucose 263 mg/dL (75-100) H 12/21/16 06:15 POC Glucose 236 (70-105) H 12/21/16 18:13 Lactic Acid 8.5 mmol/L (0.7-2.0) H* 12/20/16 Unknown Calcium 4.8 mg/dL (8.4-10.2) L* 12/21/16 06:15 Phosphorus 3.1 mg/dL (2.5-4.5) 12/10/16 05:29 Magnesium 2.2 mg/dL (1.7-2.3) 12/21/16 06:15 Iron 20 ug/dL (49-181) L 12/12/16 05:40 TIBC 212 mcg/dL (250-450) L 12/12/16 05:40 Total Bilirubin 5.7 mg/dL (0.1-1.2) H 12/21/16 06:15 Direct Bilirubin 2.1 mg/dL (0-0.2) H 12/14/16 06:52 Indirect Bilirubin 0.5 mg/dL 12/14/16 06:52 AST 3224 units/L (5-40) H 12/21/16 06:15 ALT 686 units/L (7-56) H 12/21/16 06:15 Alkaline Phosphatase 989 units/L (35-129) H 12/21/16 06:15 Total Creatine Kinase 2770 units/L (55-170) H 12/18/16 04:30 CK-MB (CK-2) 7.5 ng/mL (0.0-4.0) H 12/17/16 15:00 CK-MB (CK-2) Rel Index 1.7 (0-4) 12/17/16 15:00 Troponin T 0.078 ng/mL (0.00-0.029) H 12/17/16 15:00 Total Protein 4.0 g/dL (6.3-8.2) L 12/21/16 06:15 Albumin 1.1 g/dL (3.9-5) L 12/21/16 06:15 Albumin/Globulin Ratio 0.4 % 12/21/16 06:15 Triglycerides 73 mg/dL (2-149) 12/17/16 15:00 Cholesterol 130 mg/dL (50-199) 12/17/16 15:00 LDL Cholesterol Direct 109 mg/dL (50-130) 12/17/16 15:00 HDL Cholesterol 7 mg/dL (40-59) L 12/17/16 15:00 Cholesterol/HDL Ratio 18.57 % 12/17/16 15:00 Prostate Specific Ag 35.07 ng/mL (0.00-4.00) H 12/15/16 10:42 TSH 2.660 mlU/mL (0.270-4.200) 12/08/16 00:58 Free T4 1.50 ng/dL (0.76-1.46) H 12/08/16 00:58 Urine Color Red (Yellow) 12/17/16 17:05 Urine Turbidity Cloudy (Clear) 12/17/16 17:05 Urine pH 6.0 (5.0-7.0) 12/17/16 17:05 Ur Specific [place] 1.006 (1.003-1.030) 12/17/16 17:05 Urine Protein 100 mg/dl mg/dL (Negative) 12/17/16 17:05 Urine Glucose (UA) Neg mg/dL (Negative) 12/17/16 17:05 Urine Ketones Neg mg/dL (Negative) 12/17/16 17:05 Urine Blood Lg (Negative) 12/17/16 17:05 Urine Nitrite Neg (Negative) 12/17/16 17:05 Urine Bilirubin Neg (Negative) 12/17/16 17:05 Urine Urobilinogen < 2.0 mg/dL (<2.0) 12/17/16 17:05 Ur Leukocyte Esterase Sm (Negative) 12/17/16 17:05 Urine WBC (Auto) 41.0 /HPF (0.0-6.0) H 12/17/16 17:05 Urine RBC (Auto) > 182.0 /HPF (0.0-6.0) 12/17/16 17:05 Urine Bacteria (Auto) 4+ /HPF (Negative) 12/17/16 17:05 Urine Mucus Few /HPF 12/08/16 02:15 Urine Eosinophils None seen (None Seen) 12/17/16 17:05 Urine Creatinine 105.0 mg/dL (0.1-20.0) H 12/17/16 17:05 Urine Sodium 88 mEq/L 12/17/16 17:05 Urine Opiates Screen Presumptive negative 12/08/16 02:18 Urine Methadone Screen Presumptive negative 12/08/16 02:18 Ur Barbiturates Screen Presumptive negative 12/08/16 02:18 Ur Phencyclidine Scrn Presumptive negative 12/08/16 02:18 Ur Amphetamines Screen Presumptive negative 12/08/16 02:18 U Benzodiazepines Scrn Presumptive negative 12/08/16 02:18 Urine Cocaine Screen Presumptive negative 12/08/16 02:18 U Marijuana (THC) Screen Presumptive negative 12/08/16 02:18 Drugs of Abuse Note Disclamer 12/08/16 02:18 Hepatitis A IgM Ab -1 (NonReactive) 12/14/16 06:52 Hep Bs Antigen Non-reactive (Negative) 12/14/16 06:52 Hep B Core IgM Ab Non-reactive (NonReactive) 12/14/16 06:52 Hepatitis C Antibody Non-reactive (NonReactive) 12/14/16 06:52 Blood Type O POSITIVE 12/18/16 06:00 Antibody Screen Negative 12/18/16 06:00 Crossmatch See Detail 12/18/16 06:00
[2016-12-22] MEDS ORDERED: D10W 1,000 ML IV SCH (01:00)
[2016-12-22 05:54] LABS: ISTAT Base Excess -1; ISTAT HCO3 24.9; ISTAT PCO2 45.5 (35-45); ISTAT PH 7.346 (7.35-7.45); ISTAT PO2 49 (80-105); ISTAT SO2 82; ISTAT TCO2 26
[2016-12-22 07:15] LABS: Albumin 1.3 g/dL (3.9-5); Albumin/Globulin Ratio 0.4 %; BUN/Creatinine Ratio 13.33; Bilirubin,Total 6.2 mg/dL (0.1-1.2); Chloride 84.5 mmol/L (98-107); Potassium 5.1 mmol/L (3.6-5.0); Total Protein 4.4 g/dL (6.3-8.2)
[2016-12-22] MEDS: NOVOLOG SUB-Q SCH ×4 (07:19→18:49)
[2016-12-22] MEDS: HEPARIN SUB-Q SCH ×3 (07:21→14:08)
[2016-12-22 07:24] LABS: Calcium 5.4 mg/dL (8.4-10.2)
[2016-12-22] MEDS: PULMICORT IH SCH ×2 (07:40→19:41)
[2016-12-22] MEDS: PROVENTIL IH PRN ×2 (07:40→19:41)
--- NOTE | 2016-12-22 09:41 | XRay Report ---
Single view chest: Compared to 12/21/16. History: Followup of respiratory failure. Findings: Borderline cardiomegaly. Stable support system. Increase in pulmonary venous congestion compared to previous study and bilateral pleural effusion. Impression: Increasing pulmonary venous congestion compared to previous study.
--- NOTE | 2016-12-22 09:44 | Progress Note ---
Assessment and Plan - Patient Problems (1) FAVIOLA (acute kidney injury) Current Visit: Yes Status: Acute Plan to address problem: Acute kidney Injury in the setting of IV contrast and septic shock. Renal function continue to get worse and patient is oliguric. Patient is on multiple pressors. Hemodialysis has more risks than any benefit and would not alter the prognosis. Overall prognosis is poor. (2) Septic shock Current Visit: Yes Status: Acute Plan to address problem: Patient is on multiple pressors. (3) Lactic acidosis Current Visit: Yes Status: Acute (4) Hyperkalemia Current Visit: Yes Status: Acute Plan to address problem: K is 5.1 today. Monitor lytes. (5) Bladder mass Current Visit: Yes Status: Acute (6) Respiratory failure Current Visit: Yes Status: Acute Plan to address problem: On vent. (7) Diabetes Current Visit: Yes Status: Chronic Subjective Date of service: 12/22/16 Principal diagnosis: paroxysmal SVT Interval history: Patient remain on the vent. Objective - Vital Signs Vital signs: Vital Signs - 12hr 12/21/16 12/21/16 12/22/16 22:00 23:55 00:00 Temperature 97.4 F L Pulse Rate 72 93 H Pulse Rate [ Anterior Bilateral Throughout] Respiratory Rate [Anterior Bilateral Throughout] Blood Pressure 127/52 O2 Sat by Pulse 89 Oximetry 12/22/16 12/22/16 12/22/16 04:00 05:15 07:34 Temperature 97.9 F Pulse Rate 137 H 130 H Pulse Rate [ 137 H Anterior Bilateral Throughout] Respiratory 25 H Rate [Anterior Bilateral Throughout] Blood Pressure 111/52 94/53 O2 Sat by Pulse 84 82 L Oximetry 12/22/16 07:54 Temperature Pulse Rate Pulse Rate [ 122 H Anterior Bilateral Throughout] Respiratory 24 Rate [Anterior Bilateral Throughout] Blood Pressure O2 Sat by Pulse Oximetry - General Appearance General appearance: well-developed, intubated, other (onvent FiO2 100%) EENT: PERRL Neck: supple Respiratory: Present: Other (coarse breath sounds) Cardiology: regular, tachycardia, S1S2 Gastrointestinal: other (sluggish bowel sounds) Integumentary: no rash Neurologic: other (not responding) Musculoskeletal: other (2+ edema of all 4 extremities) - Lab 12/22/16 09:40 12/22/16 06:00 Most recent lab results Calcium 5.4 mg/dL (8.4-10.2) L* 12/22/16 06:00 Phosphorus 3.1 mg/dL (2.5-4.5) 12/10/16 05:29 Magnesium 2.2 mg/dL (1.7-2.3) 12/21/16 06:15 Urine Creatinine 105.0 mg/dL (0.1-20.0) H 12/17/16 17:05 Urine Sodium 88 mEq/L 12/17/16 17:05
[2016-12-22] MEDS: PEPCID IV SCH (10:31)
[2016-12-22] MEDS: AZTREONAM IV SCH ×2 (10:32→22:25)
[2016-12-22] MEDS: SODIUM CHLORIDE IV SCH ×2 (10:32→22:25)
[2016-12-22] MEDS: LEVEMIR SUB-Q SCH (10:32)
[2016-12-22] MEDS: PITRESSin 20 UNIT in NACL 0.9% 100 ML IV SCH ×2 (10:32→18:49)
[2016-12-22] MEDS: LEVOPHED 8 MG in NACL 0.9% 250ML 242 ML IV SCH ×4 (10:33→23:16)
[2016-12-22 10:42] LABS: Hematocrit 35.8 % (35.5-45.6); Hemoglobin 11.8 gm/dl (11.8-15.2); Mean Corpuscular HGB Conc 33 % (32-34); Mean Corpuscular Hemoglobin 26 pg (28-32); Mean Corpuscular Volume 80 fl (84-94); Red Blood Count 4.51 M/mm3 (3.65-5.03); White Blood Count 19.4 K/mm3 (4.5-11.0)
[2016-12-22 11:36] LABS: Platelet Count 136 K/mm3 (140-440)
[2016-12-22 13:41] LABS: Anisocytosis 1+; Basophils % (Manual) 0 % (0.0-1.8); Blastocytes % (Manual) 0 %; Eosinophils % (Manual) 0 % (0.0-4.3)
[2016-12-22 13:42] LABS: Diff Status Complete; Platelet Estimate Consistent w Auto; Rouleaux Few
--- NOTE | 2016-12-22 13:47 | Hem/Onc Progress Note ---
Assessment and Plan Again discussed with the family about prognosis. Patient is not a candidate for chemotherapy for his metastatic urothelial carcinoma to the liver. Prognosis is very poor. Performance status is very poor. Discussed with the family. They seem to feel that patient will recover from this without any assistance of chemotherapy etc. He is a full code. Subjective Date of service: 12/22/16 Interval history: Events noted. Patient in the ICU.on ventilator Hypotensive. Evidence of renal failure. Patient's liver biopsy shows malignancy- urothelial primary. Family at bedside. Discussed with the family about the findings. Objective - Exam Narrative Exam: On ventilator. On pressors. Not responding to verbal commands. Family at bedside. - Constitutional Vitals: Last Vital Signs Temp 98.3 F 12/22/16 12:00 Pulse 134 H 12/22/16 11:35 Resp 24 12/22/16 10:45 BP 78/50 12/22/16 11:35 Pulse Ox 84 12/22/16 11:35 - Labs Lab Results: Laboratory Results - last 24 hr 12/21/16 12/21/16 12/22/16 18:13 23:32 05:27 WBC RBC Hgb Hct MCV MCH MCHC RDW Plt Count [place] % (Auto) Add Manual Diff Total Counted Seg Neuts % (Manual) Band Neutrophils % Lymphocytes % (Manual) Reactive Lymphs % (Man) Monocytes % (Manual) Eosinophils % (Manual) Basophils % (Manual) Metamyelocytes % Myelocytes % Promyelocytes % Blast Cells % Nucleated RBC % Seg Neutrophils # Man Band Neutrophils # Lymphocytes # (Manual) Abs React Lymphs (Man) Monocytes # (Manual) Eosinophils # (Manual) Basophils # (Manual) Metamyelocytes # Myelocytes # Promyelocytes # Blast Cells # WBC Morphology Hypersegmented Neuts Hyposegmented Neuts Hypogranular Neuts Smudge Cells Toxic Granulation Toxic Vacuolation Dohle Bodies Pelger-Huet Anomaly Mihai Rods Platelet Estimate Clumped Platelets Plt Clumps, EDTA Large Platelets Giant Platelets Platelet Satelliting Plt Morphology Comment RBC Morphology Dimorphic RBCs Polychromasia Hypochromasia Poikilocytosis Anisocytosis Microcytosis Macrocytosis Spherocytes Pappenheimer Bodies Sickle Cells Target Cells Tear Drop Cells Ovalocytes Helmet Cells [place] Bodies [place] Rings [place] Cells Bite Cells Crenated Cell Elliptocytes Acanthocytes (Spur) Rouleaux Hemoglobin C Crystals Schistocytes Malaria parasites Jorge Luis Bodies Hem Pathologist Commnt POC ABG pH 7.346 L POC ABG pCO2 45.5 H POC ABG pO2 49 L POC ABG HCO3 24.9 POC ABG Total CO2 26 POC ABG O2 Sat 82 POC ABG Base Excess -1 FiO2 100 Carbon Dioxide BUN Creatinine Estimated GFR BUN/Creatinine Ratio Glucose POC Glucose 236 H 208 H Calcium Total Bilirubin AST ALT Alkaline Phosphatase Total Protein Albumin Albumin/Globulin Ratio 12/22/16 12/22/16 12/22/16 05:31 06:00 09:40 WBC 19.4 H RBC 4.51 Hgb 11.8 Hct 35.8 MCV 80 L MCH 26 L MCHC 33 RDW 18.0 H Plt Count 136 L [place] % (Auto) Graphics Manager Add Manual Diff Complete Total Counted 100 Seg Neuts % (Manual) 77.0 H Band Neutrophils % 1.0 Lymphocytes % (Manual) 6.0 L Reactive Lymphs % (Man) 0 Monocytes % (Manual) 16.0 H Eosinophils % (Manual) 0 Basophils % (Manual) 0 Metamyelocytes % 0 Myelocytes % 0 Promyelocytes % 0 Blast Cells % 0 Nucleated RBC % 3.0 H Seg Neutrophils # Man 14.9 H Band Neutrophils # 0.2 Lymphocytes # (Manual) 1.2 Abs React Lymphs (Man) 0.0 Monocytes # (Manual) 3.1 H Eosinophils # (Manual) 0.0 Basophils # (Manual) 0.0 Metamyelocytes # 0.0 Myelocytes # 0.0 Promyelocytes # 0.0 Blast Cells # 0.0 WBC Morphology Not Reportable Hypersegmented Neuts Not Reportable Hyposegmented Neuts Not Reportable Hypogranular Neuts Not Reportable Smudge Cells Not Reportable Toxic Granulation Not Reportable Toxic Vacuolation Not Reportable Dohle Bodies Not Reportable Pelger-Huet Anomaly Not Reportable Mihai Rods Not Reportable Platelet Estimate Consistent w auto Clumped Platelets Not Reportable Plt Clumps, EDTA Not Reportable Large Platelets Not Reportable Giant Platelets Not Reportable Platelet Satelliting Not Reportable Plt Morphology Comment Not Reportable RBC Morphology Not Reportable Dimorphic RBCs Not Reportable Polychromasia Not Reportable Hypochromasia Not Reportable Poikilocytosis Not Reportable Anisocytosis 1+ Microcytosis Not Reportable Macrocytosis Not Reportable Spherocytes Not Reportable Pappenheimer Bodies Not Reportable Sickle Cells Not Reportable Target Cells Not Reportable Tear Drop Cells Not Reportable Ovalocytes Not Reportable Helmet Cells Not Reportable [place] Bodies Not Reportable [place] Rings Not Reportable [place] Cells Not Reportable Bite Cells Not Reportable Crenated Cell Not Reportable Elliptocytes Not Reportable Acanthocytes (Spur) Not Reportable Rouleaux Few Hemoglobin C Crystals Not Reportable Schistocytes Not Reportable Malaria parasites Not Reportable Jorge Luis Bodies Not Reportable Hem Pathologist Commnt No POC ABG pH POC ABG pCO2 POC ABG pO2 POC ABG HCO3 POC ABG Total CO2 POC ABG O2 Sat POC ABG Base Excess FiO2 Carbon Dioxide 25 BUN 88 H Creatinine 6.6 H Estimated GFR 10 BUN/Creatinine Ratio 13.33 Glucose 195 H POC Glucose 195 H Calcium 5.4 L* Total Bilirubin 6.2 H AST 2006 H ALT 553 H Alkaline Phosphatase 938 H Total Protein 4.4 L Albumin 1.3 L Albumin/Globulin Ratio 0.4
[2016-12-22] MEDS: SODIUM BICARBONATE 150 MEQ in D5W 1,000 ML IV SCH ×2 (14:16→20:01)
--- NOTE | 2016-12-22 15:25 | Progress Note ---
Assessment and Plan Assessment and plan: 1. Acute hypoxic hypercapneic respiratory failure * Likely due to volume overload/sepsis/severe metabolic acidosis * Intubated 2. Sepsis * Suspected given leukocytosis, hypothermia, hypotension * Blood and urine cultures negative to date * Started on antibiotics, IV fluids * Requiring vasopressor support (on Levophed and vasopressin) 3. Shock * Most likely not related to sepsis 4. Acute renal failure * On admission acute renal failure secondary to vasomotor nephropathy versus ATN from possible hypotension during SVT; resolved with IV fluids * Now again in acute renal failure likely secondary to contrast nephropathy/ hypotension/possible ATN * Became anuric and renal function is worsening despite receiving IV fluids * Bladder mass possible playing a role (? obstruction); Renal US 12/19 with no hydronephrosis, but bladder not well visualized; urology has no recommendations and no procedures planned * Nephrology following 5. Hyperkalemia * Receiving Kayexalate, D50/insulin * Monitoring potassium level 6. Severe Metabolic acidosis/lactic acidosis * On bicarbonate drip * Antibiotics to treat possible infection * Nephrology following also 7. Anasarca * Secondary to renal failure 8. Hepatitic mass * s/p CT guided liver biopsy which is positive for malignancy (metastatic disease from bladder cancer as Biopsy positive for urothelial tissue) 9. Bladder mass * Likely primary malignancy * With hematuria * Cystoscopy canceled due to declining clinical status 10. Elevated LFTs * Most likely secondary to shock liver due to hypotension; tumor burden as liver biopsy positive for metastasis possible also * Trending down 11. Iron deficient anemia * Likely secondary to hematuria * On replacement 12. Status post fall * CT scan of the head ordered, but not obtainable due to current status 13. Supraventricular Tachycardia on admission * Received adenosine in ER and converted to NSR; started on calcium channel estuardo; ECHO showed preserved EF, stress test (-) 1 month ago * 12/20 developed SVT again and started on amiodarone drip 14. Diabetes mellitus type II * Continue long-acting insulin * Accu-Cheks and SSI 15. Malnutrition * Likely secondary to malignancy/multiple comorbidities 16. DVT prophylaxis * Heparin discontinued due to hematuria * SCD 17. Very poor prognosis, declining, but still full code per family wishes; planning to come to the hospital today The high probability of a clinically significant, sudden or life threatening deterioration of the [] system(s) required my full and direct attention, intervention and personal management. The aggregate critical care time was [35] minutes. This time is in addition to time spent performing reported procedures but includes the following: [x] Data Review and interpretation [x] Patient assessment and monitoring of vital signs [x] Documentation [x] Medication orders and management History Interval history: further decline, remained anuric, worsening anasarca, on vasodepressor support Hospitalist Physical - Constitutional Vitals: Temp Pulse Resp BP Pulse Ox 98.3 F 134 H 24 78/50 84 12/22/16 12:00 12/22/16 11:35 12/22/16 10:45 12/22/16 11:35 12/22/16 11:35 General appearance: Present: severe distress - Neck Neck: Present: supple. Absent: enlarged thyroid, masses or JVD - Respiratory Respiratory effort: other (intubated) Respiratory: bilateral: diminished, rales, negative: wheezing - Cardiovascular Rhythm: other (tachycardic) Heart Sounds: Present: S1 & S2. Absent: systolic murmur - Extremities Extremities: no ischemia Extremity abnormal: edema - Abdominal General gastrointestinal: soft, distended, hypoactive bowel sounds - Psychiatric Psychiatric: other (sedated) - Additional findings Additional findings: anasarca Results - Labs CBC & Chem 7: 12/22/16 09:40 12/22/16 06:00 Labs: Laboratory Last Values WBC 19.4 K/mm3 (4.5-11.0) H 12/22/16 09:40 RBC 4.51 M/mm3 (3.65-5.03) 12/22/16 09:40 Hgb 11.8 gm/dl (11.8-15.2) 12/22/16 09:40 Hct 35.8 % (35.5-45.6) 12/22/16 09:40 MCV 80 fl (84-94) L 12/22/16 09:40 MCH 26 pg (28-32) L 12/22/16 09:40 MCHC 33 % (32-34) 12/22/16 09:40 RDW 18.0 % (13.2-15.2) H 12/22/16 09:40 Plt Count 136 K/mm3 (140-440) L 12/22/16 09:40 Lymph % (Auto) 5.8 % (13.4-35.0) L 12/17/16 05:17 [place] % (Auto) Safety Associate 12/22/16 09:40 Eos % (Auto) 0.1 % (0.0-4.3) 12/17/16 05:17 Baso % (Auto) 0.1 % (0.0-1.8) 12/17/16 05:17 Lymph # 0.9 K/mm3 (1.2-5.4) L 12/17/16 05:17 [place] # 1.3 K/mm3 (0.0-0.8) H 12/17/16 05:17 Eos # 0.0 K/mm3 (0.0-0.4) 12/17/16 05:17 Baso # 0.0 K/mm3 (0.0-0.1) 12/17/16 05:17 Add Manual Diff Complete 12/22/16 09:40 Total Counted 100 12/22/16 09:40 Seg Neutrophils % 85.5 % (40.0-70.0) H 12/17/16 05:17 Seg Neuts % (Manual) 77.0 % (40.0-70.0) H 12/22/16 09:40 Band Neutrophils % 1.0 % 12/22/16 09:40 Lymphocytes % (Manual) 6.0 % (13.4-35.0) L 12/22/16 09:40 Reactive Lymphs % (Man) 0 % 12/22/16 09:40 Monocytes % (Manual) 16.0 % (0.0-7.3) H 12/22/16 09:40 Eosinophils % (Manual) 0 % (0.0-4.3) 12/22/16 09:40 Basophils % (Manual) 0 % (0.0-1.8) 12/22/16 09:40 Metamyelocytes % 0 % 12/22/16 09:40 Myelocytes % 0 % 12/22/16 09:40 Promyelocytes % 0 % 12/22/16 09:40 Blast Cells % 0 % 12/22/16 09:40 Nucleated RBC % 3.0 % (0.0-0.9) H 12/22/16 09:40 Seg Neutrophils # 13.4 K/mm3 (1.8-7.7) H 12/17/16 05:17 Seg Neutrophils # Man 14.9 K/mm3 (1.8-7.7) H 12/22/16 09:40 Band Neutrophils # 0.2 K/mm3 12/22/16 09:40 Lymphocytes # (Manual) 1.2 K/mm3 (1.2-5.4) 12/22/16 09:40 Abs React Lymphs (Man) 0.0 K/mm3 12/22/16 09:40 Monocytes # (Manual) 3.1 K/mm3 (0.0-0.8) H 12/22/16 09:40 Eosinophils # (Manual) 0.0 K/mm3 (0.0-0.4) 12/22/16 09:40 Basophils # (Manual) 0.0 K/mm3 (0.0-0.1) 12/22/16 09:40 Metamyelocytes # 0.0 K/mm3 12/22/16 09:40 Myelocytes # 0.0 K/mm3 12/22/16 09:40 Promyelocytes # 0.0 K/mm3 12/22/16 09:40 Blast Cells # 0.0 K/mm3 12/22/16 09:40 WBC Morphology Not Reportable 12/22/16 09:40 Hypersegmented Neuts Not Reportable 12/22/16 09:40 Hyposegmented Neuts Not Reportable 12/22/16 09:40 Hypogranular Neuts Not Reportable 12/22/16 09:40 Smudge Cells Not Reportable 12/22/16 09:40 Toxic Granulation Not Reportable 12/22/16 09:40 Toxic Vacuolation Not Reportable 12/22/16 09:40 Dohle Bodies Not Reportable 12/22/16 09:40 Pelger-Huet Anomaly Not Reportable 12/22/16 09:40 Mihai Rods Not Reportable 12/22/16 09:40 Platelet Estimate Consistent w auto 12/22/16 09:40 Clumped Platelets Not Reportable 12/22/16 09:40 Plt Clumps, EDTA Not Reportable 12/22/16 09:40 Large Platelets Not Reportable 12/22/16 09:40 Giant Platelets Not Reportable 12/22/16 09:40 Platelet Satelliting Not Reportable 12/22/16 09:40 Plt Morphology Comment Not Reportable 12/22/16 09:40 RBC Morphology Not Reportable 12/22/16 09:40 Dimorphic RBCs Not Reportable 12/22/16 09:40 Polychromasia Not Reportable 12/22/16 09:40 Hypochromasia Not Reportable 12/22/16 09:40 Poikilocytosis Not Reportable 12/22/16 09:40 Anisocytosis 1+ 12/22/16 09:40 Microcytosis Not Reportable 12/22/16 09:40 Macrocytosis Not Reportable 12/22/16 09:40 Spherocytes Not Reportable 12/22/16 09:40 Pappenheimer Bodies Not Reportable 12/22/16 09:40 Sickle Cells Not Reportable 12/22/16 09:40 Target Cells Not Reportable 12/22/16 09:40 Tear Drop Cells Not Reportable 12/22/16 09:40 Ovalocytes Not Reportable 12/22/16 09:40 Helmet Cells Not Reportable 12/22/16 09:40 Faulkner-Anita Bodies Not Reportable 12/22/16 09:40 [place] Rings Not Reportable 12/22/16 09:40 Howard Cells Not Reportable 12/22/16 09:40 Bite Cells Not Reportable 12/22/16 09:40 Crenated Cell Not Reportable 12/22/16 09:40 Elliptocytes Not Reportable 12/22/16 09:40 Acanthocytes (Spur) Not Reportable 12/22/16 09:40 Rouleaux Few 12/22/16 09:40 Hemoglobin C Crystals Not Reportable 12/22/16 09:40 Schistocytes Not Reportable 12/22/16 09:40 Malaria parasites Not Reportable 12/22/16 09:40 Jorge Luis Bodies Not Reportable 12/22/16 09:40 Hem Pathologist Commnt No 12/22/16 09:40 PT 26.6 Sec. (12.2-14.9) H 12/21/16 06:15 INR 2.44 (0.87-1.13) H 12/21/16 06:15 APTT 127.6 Sec. (24.2-36.6) H* 12/21/16 06:15 POC ABG pH 7.346 (7.35-7.45) L 12/22/16 05:27 POC ABG pCO2 45.5 (35-45) H 12/22/16 05:27 POC ABG pO2 49 (80-105) L 12/22/16 05:27 POC ABG HCO3 24.9 12/22/16 05:27 POC ABG Total CO2 26 12/22/16 05:27 POC ABG O2 Sat 82 12/22/16 05:27 POC ABG Base Excess -1 12/22/16 05:27 FiO2 100 % 12/22/16 05:27 Sodium 139 mmol/L (137-145) 12/21/16 06:15 Potassium 5.5 mmol/L (3.6-5.0) H 12/21/16 06:15 Chloride 86.6 mmol/L (98-107) L 12/21/16 06:15 Carbon Dioxide 25 mmol/L (22-30) 12/22/16 06:00 Anion Gap 34 mmol/L 12/21/16 06:15 BUN 88 mg/dL (9-20) H 12/22/16 06:00 Creatinine 6.6 mg/dL (0.8-1.5) H 12/22/16 06:00 Estimated GFR 10 ml/min 12/22/16 06:00 BUN/Creatinine Ratio 13.33 % 12/22/16 06:00 Glucose 195 mg/dL (75-100) H 12/22/16 06:00 POC Glucose 195 (70-105) H 12/22/16 05:31 Lactic Acid 8.5 mmol/L (0.7-2.0) H* 12/20/16 Unknown Calcium 5.4 mg/dL (8.4-10.2) L* 12/22/16 06:00 Phosphorus 3.1 mg/dL (2.5-4.5) 12/10/16 05:29 Magnesium 2.2 mg/dL (1.7-2.3) 12/21/16 06:15 Iron 20 ug/dL (49-181) L 12/12/16 05:40 TIBC 212 mcg/dL (250-450) L 12/12/16 05:40 Total Bilirubin 6.2 mg/dL (0.1-1.2) H 12/22/16 06:00 Direct Bilirubin 2.1 mg/dL (0-0.2) H 12/14/16 06:52 Indirect Bilirubin 0.5 mg/dL 12/14/16 06:52 AST 2006 units/L (5-40) H 12/22/16 06:00 ALT 553 units/L (7-56) H 12/22/16 06:00 Alkaline Phosphatase 938 units/L (35-129) H 12/22/16 06:00 Total Creatine Kinase 2770 units/L (55-170) H 12/18/16 04:30 CK-MB (CK-2) 7.5 ng/mL (0.0-4.0) H 12/17/16 15:00 CK-MB (CK-2) Rel Index 1.7 (0-4) 12/17/16 15:00 Troponin T 0.078 ng/mL (0.00-0.029) H 12/17/16 15:00 Total Protein 4.4 g/dL (6.3-8.2) L 12/22/16 06:00 Albumin 1.3 g/dL (3.9-5) L 12/22/16 06:00 Albumin/Globulin Ratio 0.4 % 12/22/16 06:00 Triglycerides 73 mg/dL (2-149) 12/17/16 15:00 Cholesterol 130 mg/dL (50-199) 12/17/16 15:00 LDL Cholesterol Direct 109 mg/dL (50-130) 12/17/16 15:00 HDL Cholesterol 7 mg/dL (40-59) L 12/17/16 15:00 Cholesterol/HDL Ratio 18.57 % 12/17/16 15:00 Prostate Specific Ag 35.07 ng/mL (0.00-4.00) H 12/15/16 10:42 TSH 2.660 mlU/mL (0.270-4.200) 12/08/16 00:58 Free T4 1.50 ng/dL (0.76-1.46) H 12/08/16 00:58 Urine Color Red (Yellow) 12/17/16 17:05 Urine Turbidity Cloudy (Clear) 12/17/16 17:05 Urine pH 6.0 (5.0-7.0) 12/17/16 17:05 Ur Specific [place] 1.006 (1.003-1.030) 12/17/16 17:05 Urine Protein 100 mg/dl mg/dL (Negative) 12/17/16 17:05 Urine Glucose (UA) Neg mg/dL (Negative) 12/17/16 17:05 Urine Ketones Neg mg/dL (Negative) 12/17/16 17:05 Urine Blood Lg (Negative) 12/17/16 17:05 Urine Nitrite Neg (Negative) 12/17/16 17:05 Urine Bilirubin Neg (Negative) 12/17/16 17:05 Urine Urobilinogen < 2.0 mg/dL (<2.0) 12/17/16 17:05 Ur Leukocyte Esterase Sm (Negative) 12/17/16 17:05 Urine WBC (Auto) 41.0 /HPF (0.0-6.0) H 12/17/16 17:05 Urine RBC (Auto) > 182.0 /HPF (0.0-6.0) 12/17/16 17:05 Urine Bacteria (Auto) 4+ /HPF (Negative) 12/17/16 17:05 Urine Mucus Few /HPF 12/08/16 02:15 Urine Eosinophils None seen (None Seen) 12/17/16 17:05 Urine Creatinine 105.0 mg/dL (0.1-20.0) H 12/17/16 17:05 Urine Sodium 88 mEq/L 12/17/16 17:05 Urine Opiates Screen Presumptive negative 12/08/16 02:18 Urine Methadone Screen Presumptive negative 12/08/16 02:18 Ur Barbiturates Screen Presumptive negative 12/08/16 02:18 Ur Phencyclidine Scrn Presumptive negative 12/08/16 02:18 Ur Amphetamines Screen Presumptive negative 12/08/16 02:18 U Benzodiazepines Scrn Presumptive negative 12/08/16 02:18 Urine Cocaine Screen Presumptive negative 12/08/16 02:18 U Marijuana (THC) Screen Presumptive negative 12/08/16 02:18 Drugs of Abuse Note Disclamer 12/08/16 02:18 Hepatitis A IgM Ab -1 (NonReactive) 12/14/16 06:52 Hep Bs Antigen Non-reactive (Negative) 12/14/16 06:52 Hep B Core IgM Ab Non-reactive (NonReactive) 12/14/16 06:52 Hepatitis C Antibody Non-reactive (NonReactive) 12/14/16 06:52 Blood Type O POSITIVE 12/18/16 06:00 Antibody Screen Negative 12/18/16 06:00 Crossmatch See Detail 12/18/16 06:00
--- NOTE | 2016-12-22 15:55 | Progress Note ---
Assessment and Plan 61 y/o male with inability to urinate, now with acute change in mental status and hypotension, acute renal failure, hyperkalemia, and severe metabolic acidosis, with worsening renal failure and anuria, now requiring multiple vasopressor therapy. 12/22/16 Missed at bedside but per nursing, patient does not want to make patient an AND despite what renal, oncology and myself have explained to her. Patient is severly hypoxic and now his heart rate is elevating. He continues to not be able to make urine and will likely experience cardiac arrest very soon. This has been explained to the family on several occasions. Overall prognosis remains very poor. Continue supportive care. 12/21/16 Long discussion again today, this time over the phone with . There are some family dynamics that I am not sure of. The son was suppose to brief his mother from our last meeting but per her this did not happen. I explained to her that this is end of life and he is unfortunately being consumed by his malignancy. I asked her to think about the possibility of DNR/AND and then transitioning to comfort care. I explained to her that with worsening clinical status that he could go into cardiac arrest at any moment and that would require us to perform CPR and even shock him if warranted. She voiced understanding and states that she will be her tomorrow (12/22/18). There are several names of individuals who state they are family, from daughters to brothers to nephews. Unfortunately I have no way of figuring out whom it is safe to speak to. I have also discussed this with case management. The was not forthcoming about who she wanted us to speak with in regards to his care. Overall prognosis is extremely poor. We will continue supportive measures as patient remains full code. Long discussion in the conference room with brother, son and nephew on 12/19/16. 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 Attempted to explain the reason for renal failure and lack of urine output and the plan as listed above to attempt to resolve this. I also explained to them the very poor prognosis and the worsening overall clinical state of the patient. All family present appeared to express understanding that we are approaching the end of life and that with limited options for therapy, we are currently providing all that we can and all that is reasonable. I also explained to them, in regards to transfer, the saftey issues involved as well as it being a lateral move that would not benefit the patient but yet increase risk for harm and sudden . They also expressed understanding with this. Will ask oncology to speak with them just to make sure it is clear the options for treatment for malignancy given current clinical state. CCT 31 minutes Subjective Date of service: 12/22/16 Principal diagnosis: paroxysmal SVT Interval history: Continues to be anuric. Hypotensive and now beginning to desaturate on 100%. Tachycardic in the 140's. Remainder is negative. Objective Vital Signs - 12hr 12/22/16 12/22/16 12/22/16 04:00 04:15 04:30 Temperature 97.9 F Pulse Rate 83 102 H 99 H Pulse Rate [ Anterior Bilateral Throughout] Respiratory 24 28 H Rate Respiratory Rate [Anterior Bilateral Throughout] Blood Pressure 102/53 102/53 110/57 O2 Sat by Pulse 75 L 84 81 L Oximetry 12/22/16 12/22/16 12/22/16 04:45 05:00 05:15 Temperature Pulse Rate 118 H 101 H 137 H Pulse Rate [ Anterior Bilateral Throughout] Respiratory 25 H 24 23 Rate Respiratory Rate [Anterior Bilateral Throughout] Blood Pressure 110/57 111/52 111/52 O2 Sat by Pulse 84 83 L 83 L Oximetry 12/22/16 12/22/16 12/22/16 05:30 05:45 06:00 Temperature Pulse Rate 131 H 135 H 134 H Pulse Rate [ Anterior Bilateral Throughout] Respiratory 23 24 25 H Rate Respiratory Rate [Anterior Bilateral Throughout] Blood Pressure 106/59 106/59 92/54 O2 Sat by Pulse 83 L 82 L 82 L Oximetry 12/22/16 12/22/16 12/22/16 06:15 06:30 06:45 Temperature Pulse Rate 132 H 124 H 129 H Pulse Rate [ Anterior Bilateral Throughout] Respiratory 24 25 H 24 Rate Respiratory Rate [Anterior Bilateral Throughout] Blood Pressure 92/54 80/49 83/47 O2 Sat by Pulse 83 L 80 L 81 L Oximetry 12/22/16 12/22/16 12/22/16 07:00 07:15 07:30 Temperature Pulse Rate 128 H 131 H 135 H Pulse Rate [ Anterior Bilateral Throughout] Respiratory 24 24 24 Rate Respiratory Rate [Anterior Bilateral Throughout] Blood Pressure 90/51 90/51 94/53 O2 Sat by Pulse 82 L 82 L 82 L Oximetry 12/22/16 12/22/16 12/22/16 07:34 07:45 07:54 Temperature Pulse Rate 130 H 131 H Pulse Rate [ 137 H 122 H Anterior Bilateral Throughout] Respiratory 26 H Rate Respiratory 25 H 24 Rate [Anterior Bilateral Throughout] Blood Pressure 94/53 94/53 O2 Sat by Pulse 82 L 83 L Oximetry 12/22/16 12/22/16 12/22/16 08:00 08:15 08:30 Temperature 98.3 F Pulse Rate 133 H 135 H 129 H Pulse Rate [ Anterior Bilateral Throughout] Respiratory 24 26 H 25 H Rate Respiratory Rate [Anterior Bilateral Throughout] Blood Pressure 90/53 90/53 82/48 O2 Sat by Pulse 82 L 82 L 82 L Oximetry 12/22/16 12/22/16 12/22/16 08:45 09:00 09:15 Temperature Pulse Rate 128 H 129 H 126 H Pulse Rate [ Anterior Bilateral Throughout] Respiratory 24 23 25 H Rate Respiratory Rate [Anterior Bilateral Throughout] Blood Pressure 82/48 81/47 82/48 O2 Sat by Pulse 82 L 82 L 82 L Oximetry 12/22/16 12/22/16 12/22/16 09:30 09:45 10:00 Temperature Pulse Rate 129 H 125 H 130 H Pulse Rate [ Anterior Bilateral Throughout] Respiratory 27 H 26 H 27 H Rate Respiratory Rate [Anterior Bilateral Throughout] Blood Pressure 79/52 81/47 92/53 O2 Sat by Pulse 82 L 82 L 81 L Oximetry 12/22/16 12/22/16 12/22/16 10:15 10:30 10:45 Temperature Pulse Rate 129 H 128 H 130 H Pulse Rate [ Anterior Bilateral Throughout] Respiratory 23 25 H 24 Rate Respiratory Rate [Anterior Bilateral Throughout] Blood Pressure 92/53 82/54 92/53 O2 Sat by Pulse 80 L 81 L 81 L Oximetry 12/22/16 12/22/16 12/22/16 11:15 11:35 12:00 Temperature 98.3 F Pulse Rate 127 H 134 H Pulse Rate [ Anterior Bilateral Throughout] Respiratory Rate Respiratory Rate [Anterior Bilateral Throughout] Blood Pressure 88/50 78/50 O2 Sat by Pulse 82 L 84 Oximetry Constitutional: appears uncomfortable, other (orally intubated and sedation off and ill appearing) ENT: other (orally intubated) Neck: supple Effort: mildly labored Ascultation: Right: rales (base), Bilateral: clear Percussion: Bilateral: not dull Cardiovascular: regular rate and rhythm Gastrointestinal: hypoactive bowel sounds Integumentary: normal Extremities: no edema, pink and warm CBC and BMP: 12/22/16 09:40 12/22/16 06:00 ABG, PT/INR, D-dimer: ABG POC ABG pH 7.346 (7.35-7.45) L 12/22/16 05:27 POC ABG pCO2 45.5 (35-45) H 12/22/16 05:27 POC ABG pO2 49 (80-105) L 12/22/16 05:27 POC ABG HCO3 24.9 12/22/16 05:27 POC ABG Total CO2 26 12/22/16 05:27 POC ABG O2 Sat 82 12/22/16 05:27 PT/INR, D-dimer PT 26.6 Sec. (12.2-14.9) H 12/21/16 06:15 INR 2.44 (0.87-1.13) H 12/21/16 06:15 Abnormal lab findings: Abnormal Labs 12/08/16 12/08/16 12/09/16 09:44 12:22 10:47 WBC RBC Hgb Hct MCV MCH MCHC RDW Plt Count Lymph % (Auto) [place] % (Auto) Lymph # [place] # Seg Neutrophils % Seg Neuts % (Manual) Lymphocytes % (Manual) Monocytes % (Manual) Nucleated RBC % Seg Neutrophils # Seg Neutrophils # Man Lymphocytes # (Manual) Monocytes # (Manual) PT INR APTT POC ABG pH POC ABG pCO2 POC ABG pO2 Sodium Potassium Chloride Carbon Dioxide BUN Creatinine Glucose POC Glucose 54 L 68 L 127 H Lactic Acid Calcium Iron TIBC Total Bilirubin Direct Bilirubin AST ALT Alkaline Phosphatase Total Creatine Kinase CK-MB (CK-2) Troponin T Total Protein Albumin HDL Cholesterol Prostate Specific Ag Urine WBC (Auto) Urine Creatinine Crossmatch 12/09/16 12/09/16 12/10/16 11:32 16:08 05:29 WBC 15.2 H RBC Hgb Hct MCV 80 L MCH 25 L MCHC RDW 15.6 H Plt Count Lymph % (Auto) 7.2 L [place] % (Auto) 9.2 H Lymph # 1.1 L [place] # 1.4 H Seg Neutrophils % 83.0 H Seg Neuts % (Manual) Lymphocytes % (Manual) Monocytes % (Manual) Nucleated RBC % Seg Neutrophils # 12.6 H Seg Neutrophils # Man Lymphocytes # (Manual) Monocytes # (Manual) PT INR APTT POC ABG pH POC ABG pCO2 POC ABG pO2 Sodium Potassium Chloride Carbon Dioxide BUN Creatinine Glucose POC Glucose 110 H 130 H Lactic Acid Calcium Iron TIBC Total Bilirubin Direct Bilirubin AST ALT Alkaline Phosphatase Total Creatine Kinase CK-MB (CK-2) Troponin T Total Protein Albumin HDL Cholesterol Prostate Specific Ag Urine WBC (Auto) Urine Creatinine Crossmatch 12/10/16 12/10/16 12/11/16 05:29 17:00 07:43 WBC 15.2 H RBC Hgb 11.5 L Hct 35.4 L MCV 78 L MCH 26 L MCHC RDW 15.7 H Plt Count Lymph % (Auto) 10.4 L [place] % (Auto) 9.9 H Lymph # [place] # 1.5 H Seg Neutrophils % 78.4 H Seg Neuts % (Manual) Lymphocytes % (Manual) Monocytes % (Manual) Nucleated RBC % Seg Neutrophils # 11.9 H Seg Neutrophils # Man Lymphocytes # (Manual) Monocytes # (Manual) PT INR APTT POC ABG pH POC ABG pCO2 POC ABG pO2 Sodium Potassium Chloride Carbon Dioxide BUN 24 H Creatinine Glucose 121 H POC Glucose 148 H Lactic Acid Calcium Iron TIBC Total Bilirubin Direct Bilirubin AST ALT Alkaline Phosphatase Total Creatine Kinase CK-MB (CK-2) Troponin T Total Protein Albumin HDL Cholesterol Prostate Specific Ag Urine WBC (Auto) Urine Creatinine Crossmatch 12/11/16 12/12/16 12/12/16 19:28 05:40 05:40 WBC 15.5 H RBC Hgb 11.4 L Hct MCV 79 L MCH 25 L MCHC RDW 15.9 H Plt Count Lymph % (Auto) 10.4 L [place] % (Auto) 11.0 H Lymph # [place] # 1.7 H Seg Neutrophils % 77.6 H Seg Neuts % (Manual) Lymphocytes % (Manual) Monocytes % (Manual) Nucleated RBC % Seg Neutrophils # 12.0 H Seg Neutrophils # Man Lymphocytes # (Manual) Monocytes # (Manual) PT INR APTT POC ABG pH POC ABG pCO2 POC ABG pO2 Sodium Potassium Chloride Carbon Dioxide BUN Creatinine Glucose POC Glucose Lactic Acid Calcium Iron 20 L TIBC 212 L Total Bilirubin Direct Bilirubin AST ALT Alkaline Phosphatase Total Creatine Kinase CK-MB (CK-2) Troponin T Total Protein Albumin HDL Cholesterol Prostate Specific Ag 30.40 H Urine WBC (Auto) Urine Creatinine Crossmatch 12/12/16 12/13/16 12/13/16 08:12 11:28 15:49 WBC RBC Hgb Hct MCV MCH MCHC RDW Plt Count Lymph % (Auto) [place] % (Auto) Lymph # [place] # Seg Neutrophils % Seg Neuts % (Manual) Lymphocytes % (Manual) Monocytes % (Manual) Nucleated RBC % Seg Neutrophils # Seg Neutrophils # Man Lymphocytes # (Manual) Monocytes # (Manual) PT INR APTT POC ABG pH POC ABG pCO2 POC ABG pO2 Sodium Potassium Chloride Carbon Dioxide BUN Creatinine Glucose POC Glucose 68 L 119 H 106 H Lactic Acid Calcium Iron TIBC Total Bilirubin Direct Bilirubin AST ALT Alkaline Phosphatase Total Creatine Kinase CK-MB (CK-2) Troponin T Total Protein Albumin HDL Cholesterol Prostate Specific Ag Urine WBC (Auto) Urine Creatinine Crossmatch 12/13/16 12/14/16 12/14/16 19:39 06:52 06:52 WBC RBC Hgb Hct MCV MCH MCHC RDW Plt Count Lymph % (Auto) [place] % (Auto) Lymph # [place] # Seg Neutrophils % Seg Neuts % (Manual) Lymphocytes % (Manual) Monocytes % (Manual) Nucleated RBC % Seg Neutrophils # Seg Neutrophils # Man Lymphocytes # (Manual) Monocytes # (Manual) PT 15.0 H INR 1.19 H APTT 40.1 H POC ABG pH POC ABG pCO2 POC ABG pO2 Sodium Potassium Chloride Carbon Dioxide BUN Creatinine Glucose POC Glucose 123 H Lactic Acid Calcium Iron TIBC Total Bilirubin 2.6 H Direct Bilirubin 2.1 H AST 554 H ALT 166 H Alkaline Phosphatase 591 H Total Creatine Kinase CK-MB (CK-2) Troponin T Total Protein Albumin 2.7 L HDL Cholesterol Prostate Specific Ag Urine WBC (Auto) Urine Creatinine Crossmatch 12/14/16 12/14/16 12/14/16 11:01 11:49 15:55 WBC 15.9 H RBC Hgb 11.6 L Hct MCV 79 L MCH 26 L MCHC RDW 16.0 H Plt Count Lymph % (Auto) [place] % (Auto) Lymph # [place] # Seg Neutrophils % Seg Neuts % (Manual) Lymphocytes % (Manual) Monocytes % (Manual) Nucleated RBC % Seg Neutrophils # Seg Neutrophils # Man Lymphocytes # (Manual) Monocytes # (Manual) PT INR APTT POC ABG pH POC ABG pCO2 POC ABG pO2 Sodium Potassium Chloride Carbon Dioxide BUN Creatinine Glucose POC Glucose 122 H 177 H Lactic Acid Calcium Iron TIBC Total Bilirubin Direct Bilirubin AST ALT Alkaline Phosphatase Total Creatine Kinase CK-MB (CK-2) Troponin T Total Protein Albumin HDL Cholesterol Prostate Specific Ag Urine WBC (Auto) Urine Creatinine Crossmatch 12/14/16 12/15/16 12/15/16 21:21 07:54 10:42 WBC RBC Hgb Hct MCV MCH MCHC RDW Plt Count Lymph % (Auto) [place] % (Auto) Lymph # [place] # Seg Neutrophils % Seg Neuts % (Manual) Lymphocytes % (Manual) Monocytes % (Manual) Nucleated RBC % Seg Neutrophils # Seg Neutrophils # Man Lymphocytes # (Manual) Monocytes # (Manual) PT INR APTT POC ABG pH POC ABG pCO2 POC ABG pO2 Sodium Potassium Chloride Carbon Dioxide BUN Creatinine Glucose POC Glucose 179 H 106 H Lactic Acid Calcium Iron TIBC Total Bilirubin Direct Bilirubin AST ALT Alkaline Phosphatase Total Creatine Kinase CK-MB (CK-2) Troponin T Total Protein Albumin HDL Cholesterol Prostate Specific Ag 35.07 H Urine WBC (Auto) Urine Creatinine Crossmatch 12/15/16 12/15/16 12/16/16 12:10 16:53 08:10 WBC RBC Hgb Hct MCV MCH MCHC RDW Plt Count Lymph % (Auto) [place] % (Auto) Lymph # [place] # Seg Neutrophils % Seg Neuts % (Manual) Lymphocytes % (Manual) Monocytes % (Manual) Nucleated RBC % Seg Neutrophils # Seg Neutrophils # Man Lymphocytes # (Manual) Monocytes # (Manual) PT INR APTT POC ABG pH POC ABG pCO2 POC ABG pO2 Sodium Potassium Chloride Carbon Dioxide BUN Creatinine Glucose POC Glucose 132 H 107 H 52 L Lactic Acid Calcium Iron TIBC Total Bilirubin Direct Bilirubin AST ALT Alkaline Phosphatase Total Creatine Kinase CK-MB (CK-2) Troponin T Total Protein Albumin HDL Cholesterol Prostate Specific Ag Urine WBC (Auto) Urine Creatinine Crossmatch 12/16/16 12/17/16 12/17/16 22:44 05:17 05:17 WBC 15.6 H RBC Hgb Hct MCV 79 L MCH 26 L MCHC RDW 16.6 H Plt Count Lymph % (Auto) 5.8 L [place] % (Auto) 8.5 H Lymph # 0.9 L [place] # 1.3 H Seg Neutrophils % 85.5 H Seg Neuts % (Manual) Lymphocytes % (Manual) Monocytes % (Manual) Nucleated RBC % Seg Neutrophils # 13.4 H Seg Neutrophils # Man Lymphocytes # (Manual) Monocytes # (Manual) PT INR APTT POC ABG pH POC ABG pCO2 POC ABG pO2 Sodium 134 L Potassium 6.0 H D Chloride 89.1 L Carbon Dioxide 15 L D BUN 63 H Creatinine 3.0 H D Glucose 122 H POC Glucose 67 L Lactic Acid Calcium Iron TIBC Total Bilirubin Direct Bilirubin AST ALT Alkaline Phosphatase Total Creatine Kinase CK-MB (CK-2) Troponin T Total Protein Albumin HDL Cholesterol Prostate Specific Ag Urine WBC (Auto) Urine Creatinine Crossmatch 12/17/16 12/17/16 12/17/16 07:27 12:04 12:57 WBC RBC Hgb Hct MCV MCH MCHC RDW Plt Count Lymph % (Auto) [place] % (Auto) Lymph # [place] # Seg Neutrophils % Seg Neuts % (Manual) Lymphocytes % (Manual) Monocytes % (Manual) Nucleated RBC % Seg Neutrophils # Seg Neutrophils # Man Lymphocytes # (Manual) Monocytes # (Manual) PT INR APTT POC ABG pH POC ABG pCO2 POC ABG pO2 Sodium Potassium Chloride Carbon Dioxide BUN Creatinine Glucose POC Glucose 130 H 154 H 232 H Lactic Acid Calcium Iron TIBC Total Bilirubin Direct Bilirubin AST ALT Alkaline Phosphatase Total Creatine Kinase CK-MB (CK-2) Troponin T Total Protein Albumin HDL Cholesterol Prostate Specific Ag Urine WBC (Auto) Urine Creatinine Crossmatch 12/17/16 12/17/16 12/17/16 13:41 13:46 15:00 WBC 15.9 H RBC Hgb 9.3 L Hct 29.8 L D MCV 82 L D MCH 26 L MCHC 31 L RDW 17.1 H Plt Count Lymph % (Auto) [place] % (Auto) Lymph # [place] # Seg Neutrophils % Seg Neuts % (Manual) 79.0 H Lymphocytes % (Manual) Monocytes % (Manual) Nucleated RBC % Seg Neutrophils # Seg Neutrophils # Man 12.6 H Lymphocytes # (Manual) Monocytes # (Manual) 1.1 H PT INR APTT POC ABG pH 6.961 L POC ABG pCO2 20.4 L POC ABG pO2 230 H Sodium Potassium Chloride Carbon Dioxide BUN Creatinine Glucose POC Glucose 271 H Lactic Acid Calcium Iron TIBC Total Bilirubin Direct Bilirubin AST ALT Alkaline Phosphatase Total Creatine Kinase CK-MB (CK-2) Troponin T Total Protein Albumin HDL Cholesterol Prostate Specific Ag Urine WBC (Auto) Urine Creatinine Crossmatch 12/17/16 12/17/16 12/17/16 15:00 15:00 15:41 WBC RBC Hgb Hct MCV MCH MCHC RDW Plt Count Lymph % (Auto) [place] % (Auto) Lymph # [place] # Seg Neutrophils % Seg Neuts % (Manual) Lymphocytes % (Manual) Monocytes % (Manual) Nucleated RBC % Seg Neutrophils # Seg Neutrophils # Man Lymphocytes # (Manual) Monocytes # (Manual) PT INR APTT POC ABG pH 7.145 L POC ABG pCO2 19.5 L POC ABG pO2 208 H Sodium 132 L Potassium 5.2 H Chloride 83.7 L Carbon Dioxide 6 L* D BUN 69 H Creatinine 3.9 H Glucose 220 H POC Glucose Lactic Acid Calcium 7.7 L D Iron TIBC Total Bilirubin Direct Bilirubin AST ALT Alkaline Phosphatase Total Creatine Kinase 435 H CK-MB (CK-2) 7.5 H Troponin T 0.078 H Total Protein Albumin HDL Cholesterol 7 L Prostate Specific Ag Urine WBC (Auto) Urine Creatinine Crossmatch 12/17/16 12/17/16 12/17/16 17:05 17:05 17:48 WBC RBC Hgb Hct MCV MCH MCHC RDW Plt Count Lymph % (Auto) [place] % (Auto) Lymph # [place] # Seg Neutrophils % Seg Neuts % (Manual) Lymphocytes % (Manual) Monocytes % (Manual) Nucleated RBC % Seg Neutrophils # Seg Neutrophils # Man Lymphocytes # (Manual) Monocytes # (Manual) PT INR APTT POC ABG pH POC ABG pCO2 POC ABG pO2 Sodium Potassium Chloride Carbon Dioxide BUN Creatinine Glucose POC Glucose 218 H Lactic Acid Calcium Iron TIBC Total Bilirubin Direct Bilirubin AST ALT Alkaline Phosphatase Total Creatine Kinase CK-MB (CK-2) Troponin T Total Protein Albumin HDL Cholesterol Prostate Specific Ag Urine WBC (Auto) 41.0 H Urine Creatinine 105.0 H Crossmatch 12/17/16 12/17/16 12/18/16 21:26 21:38 04:30 WBC 15.1 H RBC 3.62 L Hgb 9.1 L Hct 27.8 L MCV 77 L D MCH 25 L MCHC RDW 16.3 H Plt Count Lymph % (Auto) 3.1 L [place] % (Auto) Lymph # 0.5 L [place] # 1.0 H Seg Neutrophils % 89.6 H Seg Neuts % (Manual) Lymphocytes % (Manual) Monocytes % (Manual) Nucleated RBC % Seg Neutrophils # 13.5 H Seg Neutrophils # Man Lymphocytes # (Manual) Monocytes # (Manual) PT INR APTT POC ABG pH POC ABG pCO2 19.2 L POC ABG pO2 Sodium Potassium Chloride Carbon Dioxide BUN Creatinine Glucose POC Glucose 299 H Lactic Acid Calcium Iron TIBC Total Bilirubin Direct Bilirubin AST ALT Alkaline Phosphatase Total Creatine Kinase CK-MB (CK-2) Troponin T Total Protein Albumin HDL Cholesterol Prostate Specific Ag Urine WBC (Auto) Urine Creatinine Crossmatch 12/18/16 12/18/16 12/18/16 04:30 04:30 05:44 WBC RBC Hgb Hct MCV MCH MCHC RDW Plt Count Lymph % (Auto) [place] % (Auto) Lymph # [place] # Seg Neutrophils % Seg Neuts % (Manual) Lymphocytes % (Manual) Monocytes % (Manual) Nucleated RBC % Seg Neutrophils # Seg Neutrophils # Man Lymphocytes # (Manual) Monocytes # (Manual) PT INR APTT POC ABG pH POC ABG pCO2 25.0 L POC ABG pO2 77 L Sodium 136 L Potassium 5.1 H Chloride 94.4 L Carbon Dioxide 16 L D BUN 71 H Creatinine 3.0 H Glucose 289 H POC Glucose Lactic Acid 9.3 H* Calcium 5.9 L* D Iron TIBC Total Bilirubin 3.3 H Direct Bilirubin AST 6347 H ALT 1079 H Alkaline Phosphatase 978 H Total Creatine Kinase 2770 H CK-MB (CK-2) Troponin T Total Protein 4.6 L D Albumin 1.9 L HDL Cholesterol Prostate Specific Ag Urine WBC (Auto) Urine Creatinine Crossmatch 12/18/16 12/18/16 12/18/16 06:00 07:54 11:50 WBC RBC Hgb Hct MCV MCH MCHC RDW Plt Count Lymph % (Auto) [place] % (Auto) Lymph # [place] # Seg Neutrophils % Seg Neuts % (Manual) Lymphocytes % (Manual) Monocytes % (Manual) Nucleated RBC % Seg Neutrophils # Seg Neutrophils # Man Lymphocytes # (Manual) Monocytes # (Manual) PT INR APTT POC ABG pH POC ABG pCO2 POC ABG pO2 Sodium Potassium Chloride Carbon Dioxide BUN Creatinine Glucose POC Glucose 301 H 246 H Lactic Acid Calcium Iron TIBC Total Bilirubin Direct Bilirubin AST ALT Alkaline Phosphatase Total Creatine Kinase CK-MB (CK-2) Troponin T Total Protein Albumin HDL Cholesterol Prostate Specific Ag Urine WBC (Auto) Urine Creatinine Crossmatch See Detail 12/18/16 12/18/16 12/19/16 15:54 21:05 01:16 WBC RBC Hgb Hct MCV MCH MCHC RDW Plt Count Lymph % (Auto) [place] % (Auto) Lymph # [place] # Seg Neutrophils % Seg Neuts % (Manual) Lymphocytes % (Manual) Monocytes % (Manual) Nucleated RBC % Seg Neutrophils # Seg Neutrophils # Man Lymphocytes # (Manual) Monocytes # (Manual) PT INR APTT POC ABG pH POC ABG pCO2 31.9 L POC ABG pO2 61 L Sodium Potassium Chloride Carbon Dioxide BUN Creatinine Glucose POC Glucose 231 H 256 H Lactic Acid Calcium Iron TIBC Total Bilirubin Direct Bilirubin AST ALT Alkaline Phosphatase Total Creatine Kinase CK-MB (CK-2) Troponin T Total Protein Albumin HDL Cholesterol Prostate Specific Ag Urine WBC (Auto) Urine Creatinine Crossmatch 12/19/16 12/19/16 12/19/16 04:40 04:40 04:40 WBC 17.8 H RBC Hgb 10.9 L Hct 33.6 L MCV 80 L D MCH 26 L MCHC RDW 17.5 H Plt Count Lymph % (Auto) [place] % (Auto) Lymph # [place] # Seg Neutrophils % Seg Neuts % (Manual) 88.0 H Lymphocytes % (Manual) 3.0 L Monocytes % (Manual) 8.0 H Nucleated RBC % Seg Neutrophils # Seg Neutrophils # Man 15.7 H Lymphocytes # (Manual) 0.5 L Monocytes # (Manual) 1.4 H PT INR APTT POC ABG pH POC ABG pCO2 POC ABG pO2 Sodium Potassium Chloride 94.1 L Carbon Dioxide 17 L BUN 77 H Creatinine 3.6 H Glucose 245 H POC Glucose Lactic Acid 8.6 H* Calcium 4.9 L* D Iron TIBC Total Bilirubin 5.9 H Direct Bilirubin AST 8235 H ALT 1128 H Alkaline Phosphatase 1191 H Total Creatine Kinase CK-MB (CK-2) Troponin T Total Protein 4.4 L Albumin 1.7 L HDL Cholesterol Prostate Specific Ag Urine WBC (Auto) Urine Creatinine Crossmatch 12/19/16 12/19/16 12/19/16 04:40 07:20 11:21 WBC RBC Hgb Hct MCV MCH MCHC RDW Plt Count Lymph % (Auto) [place] % (Auto) Lymph # [place] # Seg Neutrophils % Seg Neuts % (Manual) Lymphocytes % (Manual) Monocytes % (Manual) Nucleated RBC % Seg Neutrophils # Seg Neutrophils # Man Lymphocytes # (Manual) Monocytes # (Manual) PT 25.2 H INR 2.28 H APTT POC ABG pH POC ABG pCO2 POC ABG pO2 Sodium Potassium Chloride Carbon Dioxide BUN Creatinine Glucose POC Glucose 257 H 263 H Lactic Acid Calcium Iron TIBC Total Bilirubin Direct Bilirubin AST ALT Alkaline Phosphatase Total Creatine Kinase CK-MB (CK-2) Troponin T Total Protein Albumin HDL Cholesterol Prostate Specific Ag Urine WBC (Auto) Urine Creatinine Crossmatch 12/19/16 12/20/16 12/20/16 16:02 00:00 04:12 WBC RBC Hgb Hct MCV MCH MCHC RDW Plt Count Lymph % (Auto) [place] % (Auto) Lymph # [place] # Seg Neutrophils % Seg Neuts % (Manual) Lymphocytes % (Manual) Monocytes % (Manual) Nucleated RBC % Seg Neutrophils # Seg Neutrophils # Man Lymphocytes # (Manual) Monocytes # (Manual) PT INR APTT POC ABG pH POC ABG pCO2 POC ABG pO2 66 L Sodium Potassium Chloride Carbon Dioxide BUN Creatinine Glucose POC Glucose 272 H 255 H Lactic Acid Calcium Iron TIBC Total Bilirubin Direct Bilirubin AST ALT Alkaline Phosphatase Total Creatine Kinase CK-MB (CK-2) Troponin T Total Protein Albumin HDL Cholesterol Prostate Specific Ag Urine WBC (Auto) Urine Creatinine Crossmatch 12/20/16 12/20/16 12/20/16 04:20 04:20 05:29 WBC 18.4 H RBC Hgb 11.5 L Hct 34.4 L MCV 79 L MCH 26 L MCHC RDW 16.8 H Plt Count Lymph % (Auto) [place] % (Auto) Lymph # [place] # Seg Neutrophils % Seg Neuts % (Manual) 76.0 H Lymphocytes % (Manual) 1.0 L Monocytes % (Manual) Nucleated RBC % Seg Neutrophils # Seg Neutrophils # Man 14.0 H Lymphocytes # (Manual) 0.2 L Monocytes # (Manual) PT INR APTT POC ABG pH POC ABG pCO2 POC ABG pO2 Sodium Potassium 5.1 H Chloride 91.5 L Carbon Dioxide BUN 84 H Creatinine 4.6 H Glucose 278 H POC Glucose 288 H Lactic Acid Calcium 5.0 L* Iron TIBC Total Bilirubin 6.6 H Direct Bilirubin AST 5812 H ALT 976 H Alkaline Phosphatase 1188 H Total Creatine Kinase CK-MB (CK-2) Troponin T Total Protein 4.4 L Albumin 1.4 L HDL Cholesterol Prostate Specific Ag Urine WBC (Auto) Urine Creatinine Crossmatch 12/20/16 12/20/16 12/20/16 11:19 17:32 Unknown WBC RBC Hgb Hct MCV MCH MCHC RDW Plt Count Lymph % (Auto) [place] % (Auto) Lymph # [place] # Seg Neutrophils % Seg Neuts % (Manual) Lymphocytes % (Manual) Monocytes % (Manual) Nucleated RBC % Seg Neutrophils # Seg Neutrophils # Man Lymphocytes # (Manual) Monocytes # (Manual) PT INR APTT POC ABG pH POC ABG pCO2 POC ABG pO2 Sodium Potassium Chloride Carbon Dioxide BUN Creatinine Glucose POC Glucose 294 H 269 H Lactic Acid 8.5 H* Calcium Iron TIBC Total Bilirubin Direct Bilirubin AST ALT Alkaline Phosphatase Total Creatine Kinase CK-MB (CK-2) Troponin T Total Protein Albumin HDL Cholesterol Prostate Specific Ag Urine WBC (Auto) Urine Creatinine Crossmatch 12/21/16 12/21/16 12/21/16 00:01 05:02 06:07 WBC RBC Hgb Hct MCV MCH MCHC RDW Plt Count Lymph % (Auto) [place] % (Auto) Lymph # [place] # Seg Neutrophils % Seg Neuts % (Manual) Lymphocytes % (Manual) Monocytes % (Manual) Nucleated RBC % Seg Neutrophils # Seg Neutrophils # Man Lymphocytes # (Manual) Monocytes # (Manual) PT INR APTT POC ABG pH POC ABG pCO2 POC ABG pO2 70 L Sodium Potassium Chloride Carbon Dioxide BUN Creatinine Glucose POC Glucose 250 H 252 H Lactic Acid Calcium Iron TIBC Total Bilirubin Direct Bilirubin AST ALT Alkaline Phosphatase Total Creatine Kinase CK-MB (CK-2) Troponin T Total Protein Albumin HDL Cholesterol Prostate Specific Ag Urine WBC (Auto) Urine Creatinine Crossmatch 12/21/16 12/21/16 12/21/16 06:15 06:15 06:15 WBC 16.9 H RBC Hgb 10.8 L Hct 32.1 L MCV 79 L MCH 26 L MCHC RDW 17.1 H Plt Count Lymph % (Auto) [place] % (Auto) Lymph # [place] # Seg Neutrophils % Seg Neuts % (Manual) Lymphocytes % (Manual) 9.0 L Monocytes % (Manual) Nucleated RBC % 7.0 H Seg Neutrophils # Seg Neutrophils # Man 9.0 H Lymphocytes # (Manual) Monocytes # (Manual) PT 26.6 H INR 2.44 H APTT 127.6 H* POC ABG pH POC ABG pCO2 POC ABG pO2 Sodium Potassium 5.5 H Chloride 86.6 L Carbon Dioxide BUN 87 H Creatinine 5.7 H Glucose 263 H POC Glucose Lactic Acid Calcium 4.8 L* Iron TIBC Total Bilirubin 5.7 H Direct Bilirubin AST 3224 H ALT 686 H Alkaline Phosphatase 989 H Total Creatine Kinase CK-MB (CK-2) Troponin T Total Protein 4.0 L Albumin 1.1 L HDL Cholesterol Prostate Specific Ag Urine WBC (Auto) Urine Creatinine Crossmatch 12/21/16 12/21/16 12/21/16 11:42 18:13 23:32 WBC RBC Hgb Hct MCV MCH MCHC RDW Plt Count Lymph % (Auto) [place] % (Auto) Lymph # [place] # Seg Neutrophils % Seg Neuts % (Manual) Lymphocytes % (Manual) Monocytes % (Manual) Nucleated RBC % Seg Neutrophils # Seg Neutrophils # Man Lymphocytes # (Manual) Monocytes # (Manual) PT INR APTT POC ABG pH POC ABG pCO2 POC ABG pO2 Sodium Potassium Chloride Carbon Dioxide BUN Creatinine Glucose POC Glucose 253 H 236 H 208 H Lactic Acid Calcium Iron TIBC Total Bilirubin Direct Bilirubin AST ALT Alkaline Phosphatase Total Creatine Kinase CK-MB (CK-2) Troponin T Total Protein Albumin HDL Cholesterol Prostate Specific Ag Urine WBC (Auto) Urine Creatinine Crossmatch 12/22/16 12/22/16 12/22/16 05:27 05:31 06:00 WBC RBC Hgb Hct MCV MCH MCHC RDW Plt Count Lymph % (Auto) [place] % (Auto) Lymph # [place] # Seg Neutrophils % Seg Neuts % (Manual) Lymphocytes % (Manual) Monocytes % (Manual) Nucleated RBC % Seg Neutrophils # Seg Neutrophils # Man Lymphocytes # (Manual) Monocytes # (Manual) PT INR APTT POC ABG pH 7.346 L POC ABG pCO2 45.5 H POC ABG pO2 49 L Sodium Potassium Chloride Carbon Dioxide BUN 88 H Creatinine 6.6 H Glucose 195 H POC Glucose 195 H Lactic Acid Calcium 5.4 L* Iron TIBC Total Bilirubin 6.2 H Direct Bilirubin AST 2006 H ALT 553 H Alkaline Phosphatase 938 H Total Creatine Kinase CK-MB (CK-2) Troponin T Total Protein 4.4 L Albumin 1.3 L HDL Cholesterol Prostate Specific Ag Urine WBC (Auto) Urine Creatinine Crossmatch 12/22/16 09:40 WBC 19.4 H RBC Hgb Hct MCV 80 L MCH 26 L MCHC RDW 18.0 H Plt Count 136 L Lymph % (Auto) [place] % (Auto) Lymph # [place] # Seg Neutrophils % Seg Neuts % (Manual) 77.0 H Lymphocytes % (Manual) 6.0 L Monocytes % (Manual) 16.0 H Nucleated RBC % 3.0 H Seg Neutrophils # Seg Neutrophils # Man 14.9 H Lymphocytes # (Manual) Monocytes # (Manual) 3.1 H PT INR APTT POC ABG pH POC ABG pCO2 POC ABG pO2 Sodium Potassium Chloride Carbon Dioxide BUN Creatinine Glucose POC Glucose Lactic Acid Calcium Iron TIBC Total Bilirubin Direct Bilirubin AST ALT Alkaline Phosphatase Total Creatine Kinase CK-MB (CK-2) Troponin T Total Protein Albumin HDL Cholesterol Prostate Specific Ag Urine WBC (Auto) Urine Creatinine Crossmatch
[2016-12-22] MEDS: NEO-SYNEPHRINE 100 MG in NACL 0.9% 90 ML IV SCH (19:56)
[2016-12-23] MEDS: PITRESSin 20 UNIT in NACL 0.9% 100 ML IV SCH ×3 (02:39→16:42)
[2016-12-23] MEDS: LEVOPHED 8 MG in NACL 0.9% 250ML 242 ML IV SCH ×5 (03:41→21:37)
[2016-12-23] MEDS: SODIUM BICARBONATE 150 MEQ in D5W 1,000 ML IV SCH ×3 (03:42→21:37)
[2016-12-23] MEDS: NOVOLOG SUB-Q SCH ×3 (06:13→12:25)
[2016-12-23] MEDS: HEPARIN SUB-Q SCH ×2 (08:13→14:10)
--- NOTE | 2016-12-23 09:17 | Progress Note ---
Assessment and Plan 61 y/o male with inability to urinate, now with acute change in mental status and hypotension, acute renal failure, hyperkalemia, and severe metabolic acidosis, with worsening renal failure and anuria, now requiring multiple vasopressor therapy and end stage bladder cancer with mets to liver 12/23/16: Patients clinical status continues to worsen. No family is currently at bedside. Will continue supportive care. Will check chemistry and CBC for today. Overall prognosis remains poor and patient has a very high likely dick of having cardiac arrest soon. 12/22/16 Missed at bedside but per nursing, patient does not want to make patient an AND despite what renal, oncology and myself have explained to her. Patient is severly hypoxic and now his heart rate is elevating. He continues to not be able to make urine and will likely experience cardiac arrest very soon. This has been explained to the family on several occasions. Overall prognosis remains very poor. Continue supportive care. 12/21/16 Long discussion again today, this time over the phone with . There are some family dynamics that I am not sure of. The son was suppose to brief his mother from our last meeting but per her this did not happen. I explained to her that this is end of life and he is unfortunately being consumed by his malignancy. I asked her to think about the possibility of DNR/AND and then transitioning to comfort care. I explained to her that with worsening clinical status that he could go into cardiac arrest at any moment and that would require us to perform CPR and even shock him if warranted. She voiced understanding and states that she will be her tomorrow (12/22/18). There are several names of individuals who state they are family, from daughters to brothers to nephews. Unfortunately I have no way of figuring out whom it is safe to speak to. I have also discussed this with case management. The was not forthcoming about who she wanted us to speak with in regards to his care. Overall prognosis is extremely poor. We will continue supportive measures as patient remains full code. Long discussion in the conference room with brother, son and nephew on 12/19/16. 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 Attempted to explain the reason for renal failure and lack of urine output and the plan as listed above to attempt to resolve this. I also explained to them the very poor prognosis and the worsening overall clinical state of the patient. All family present appeared to express understanding that we are approaching the end of life and that with limited options for therapy, we are currently providing all that we can and all that is reasonable. I also explained to them, in regards to transfer, the saftey issues involved as well as it being a lateral move that would not benefit the patient but yet increase risk for harm and sudden . They also expressed understanding with this. Will ask oncology to speak with them just to make sure it is clear the options for treatment for malignancy given current clinical state. CCT 31 minutes Subjective Date of service: 12/23/16 Principal diagnosis: paroxysmal SVT Interval history: No acute events. REmains intubated and not on sedation. Sats in the 80's on 100%. Remains on 2 pressors. Objective Vital Signs - 12hr 12/22/16 12/22/16 12/22/16 21:16 21:30 21:46 Temperature Pulse Rate 138 H 139 H 139 H Respiratory 25 H 24 24 Rate Blood Pressure 103/59 103/58 103/58 O2 Sat by Pulse 81 L 79 L 82 L Oximetry 12/22/16 12/22/16 12/22/16 22:00 22:16 22:30 Temperature Pulse Rate 138 H 139 H 138 H Respiratory 26 H 24 26 H Rate Blood Pressure 104/61 104/61 91/63 O2 Sat by Pulse 82 L 81 L Oximetry 12/22/16 12/22/16 12/22/16 22:46 23:00 23:16 Temperature Pulse Rate 137 H 140 H 139 H Respiratory 25 H 27 H 26 H Rate Blood Pressure 91/63 99/57 99/57 O2 Sat by Pulse 80 L 80 L 80 L Oximetry 12/22/16 12/22/16 12/22/16 23:30 23:44 23:46 Temperature Pulse Rate 138 H 139 H 139 H Respiratory 26 H 25 H Rate Blood Pressure 91/56 91/56 91/56 O2 Sat by Pulse 81 L 81 L 80 L Oximetry 12/23/16 12/23/16 12/23/16 00:00 00:16 00:30 Temperature 98.0 F Pulse Rate 140 H 141 H 141 H Respiratory 26 H 25 H 25 H Rate Blood Pressure 94/59 94/59 96/58 O2 Sat by Pulse 80 L 80 L 81 L Oximetry 12/23/16 12/23/1612/23/17 00:46 01:00 01:16 Temperature Pulse Rate 140 H 138 H 140 H Respiratory 28 H 25 H 26 H Rate Blood Pressure 96/58 96/58 104/49 O2 Sat by Pulse 81 L 83 L 81 L Oximetry 12/23/16 12/23/16 12/23/16 01:30 01:46 02:00 Temperature Pulse Rate 141 H 139 H 140 H Respiratory 25 H 27 H 27 H Rate Blood Pressure 89/53 89/53 96/65 O2 Sat by Pulse 82 L 81 L 81 L Oximetry 12/23/16 12/23/16 12/23/16 02:16 02:30 02:46 Temperature Pulse Rate 140 H 141 H 140 H Respiratory 26 H 26 H 27 H Rate Blood Pressure 96/65 95/58 95/58 O2 Sat by Pulse 80 L 80 L 80 L Oximetry 12/23/16 12/23/16 12/23/16 03:00 03:16 03:30 Temperature Pulse Rate 141 H 139 H 141 H Respiratory 25 H 26 H 27 H Rate Blood Pressure 101/59 101/59 100/58 O2 Sat by Pulse 80 L 81 L 80 L Oximetry 12/23/16 12/23/16 12/23/16 03:40 03:46 04:00 Temperature 97.6 F Pulse Rate 141 H 141 H 141 H Respiratory 26 H 24 25 H Rate Blood Pressure 100/58 100/58 100/61 O2 Sat by Pulse 80 L 81 L 81 L Oximetry 12/23/16 12/23/16 12/23/16 04:10 04:16 04:30 Temperature Pulse Rate 141 H 139 H 141 H Respiratory 27 H 24 Rate Blood Pressure 100/61 100/61 98/55 O2 Sat by Pulse 80 L 81 L 81 L Oximetry 12/23/16 12/23/16 12/23/16 04:46 05:00 05:01 Temperature Pulse Rate 141 H 140 H 139 H Respiratory 26 H 26 H 23 Rate Blood Pressure 100/61 96/58 96/58 O2 Sat by Pulse 81 L 79 L 80 L Oximetry 12/23/16 12/23/16 12/23/16 05:16 05:20 05:30 Temperature Pulse Rate 140 H 140 H 140 H Respiratory 25 H 24 28 H Rate Blood Pressure 98/55 98/55 99/60 O2 Sat by Pulse 81 L 80 L 81 L Oximetry 12/23/16 12/23/16 12/23/16 05:42 05:46 06:00 Temperature Pulse Rate 135 H 138 H 140 H Respiratory 25 H 27 H Rate Blood Pressure 99/60 96/58 97/58 O2 Sat by Pulse 77 L 80 L 80 L Oximetry 12/23/16 08:00 Temperature 97.6 F Pulse Rate Respiratory Rate Blood Pressure O2 Sat by Pulse Oximetry Constitutional: appears uncomfortable, other (orally intubated and sedation off and ill appearing) ENT: other (orally intubated) Neck: supple Effort: mildly labored Ascultation: Right: rales (base), Bilateral: clear Percussion: Bilateral: not dull Cardiovascular: regular rate and rhythm Gastrointestinal: hypoactive bowel sounds Integumentary: normal Extremities: no edema, pink and warm CBC and BMP: 12/22/16 09:40 12/22/16 06:00 ABG, PT/INR, D-dimer: ABG POC ABG pH 7.346 (7.35-7.45) L 12/22/16 05:27 POC ABG pCO2 45.5 (35-45) H 12/22/16 05:27 POC ABG pO2 49 (80-105) L 12/22/16 05:27 POC ABG HCO3 24.9 12/22/16 05:27 POC ABG Total CO2 26 12/22/16 05:27 POC ABG O2 Sat 82 12/22/16 05:27 PT/INR, D-dimer PT 26.6 Sec. (12.2-14.9) H 12/21/16 06:15 INR 2.44 (0.87-1.13) H 12/21/16 06:15 Abnormal lab findings: Abnormal Labs 12/08/16 12/08/16 12/09/16 09:44 12:22 10:47 WBC RBC Hgb Hct MCV MCH MCHC RDW Plt Count Lymph % (Auto) [place] % (Auto) Lymph # [place] # Seg Neutrophils % Seg Neuts % (Manual) Lymphocytes % (Manual) Monocytes % (Manual) Nucleated RBC % Seg Neutrophils # Seg Neutrophils # Man Lymphocytes # (Manual) Monocytes # (Manual) PT INR APTT POC ABG pH POC ABG pCO2 POC ABG pO2 Sodium Potassium Chloride Carbon Dioxide BUN Creatinine Glucose POC Glucose 54 L 68 L 127 H Lactic Acid Calcium Iron TIBC Total Bilirubin Direct Bilirubin AST ALT Alkaline Phosphatase Total Creatine Kinase CK-MB (CK-2) Troponin T Total Protein Albumin HDL Cholesterol Prostate Specific Ag Urine WBC (Auto) Urine Creatinine Crossmatch 12/09/16 12/09/16 12/10/16 11:32 16:08 05:29 WBC 15.2 H RBC Hgb Hct MCV 80 L MCH 25 L MCHC RDW 15.6 H Plt Count Lymph % (Auto) 7.2 L [place] % (Auto) 9.2 H Lymph # 1.1 L [place] # 1.4 H Seg Neutrophils % 83.0 H Seg Neuts % (Manual) Lymphocytes % (Manual) Monocytes % (Manual) Nucleated RBC % Seg Neutrophils # 12.6 H Seg Neutrophils # Man Lymphocytes # (Manual) Monocytes # (Manual) PT INR APTT POC ABG pH POC ABG pCO2 POC ABG pO2 Sodium Potassium Chloride Carbon Dioxide BUN Creatinine Glucose POC Glucose 110 H 130 H Lactic Acid Calcium Iron TIBC Total Bilirubin Direct Bilirubin AST ALT Alkaline Phosphatase Total Creatine Kinase CK-MB (CK-2) Troponin T Total Protein Albumin HDL Cholesterol Prostate Specific Ag Urine WBC (Auto) Urine Creatinine Crossmatch 12/10/16 12/10/16 12/11/16 05:29 17:00 07:43 WBC 15.2 H RBC Hgb 11.5 L Hct 35.4 L MCV 78 L MCH 26 L MCHC RDW 15.7 H Plt Count Lymph % (Auto) 10.4 L [place] % (Auto) 9.9 H Lymph # [place] # 1.5 H Seg Neutrophils % 78.4 H Seg Neuts % (Manual) Lymphocytes % (Manual) Monocytes % (Manual) Nucleated RBC % Seg Neutrophils # 11.9 H Seg Neutrophils # Man Lymphocytes # (Manual) Monocytes # (Manual) PT INR APTT POC ABG pH POC ABG pCO2 POC ABG pO2 Sodium Potassium Chloride Carbon Dioxide BUN 24 H Creatinine Glucose 121 H POC Glucose 148 H Lactic Acid Calcium Iron TIBC Total Bilirubin Direct Bilirubin AST ALT Alkaline Phosphatase Total Creatine Kinase CK-MB (CK-2) Troponin T Total Protein Albumin HDL Cholesterol Prostate Specific Ag Urine WBC (Auto) Urine Creatinine Crossmatch 12/11/16 12/12/16 12/12/16 19:28 05:40 05:40 WBC 15.5 H RBC Hgb 11.4 L Hct MCV 79 L MCH 25 L MCHC RDW 15.9 H Plt Count Lymph % (Auto) 10.4 L [place] % (Auto) 11.0 H Lymph # [place] # 1.7 H Seg Neutrophils % 77.6 H Seg Neuts % (Manual) Lymphocytes % (Manual) Monocytes % (Manual) Nucleated RBC % Seg Neutrophils # 12.0 H Seg Neutrophils # Man Lymphocytes # (Manual) Monocytes # (Manual) PT INR APTT POC ABG pH POC ABG pCO2 POC ABG pO2 Sodium Potassium Chloride Carbon Dioxide BUN Creatinine Glucose POC Glucose Lactic Acid Calcium Iron 20 L TIBC 212 L Total Bilirubin Direct Bilirubin AST ALT Alkaline Phosphatase Total Creatine Kinase CK-MB (CK-2) Troponin T Total Protein Albumin HDL Cholesterol Prostate Specific Ag 30.40 H Urine WBC (Auto) Urine Creatinine Crossmatch 12/12/16 12/13/16 12/13/16 08:12 11:28 15:49 WBC RBC Hgb Hct MCV MCH MCHC RDW Plt Count Lymph % (Auto) [place] % (Auto) Lymph # [place] # Seg Neutrophils % Seg Neuts % (Manual) Lymphocytes % (Manual) Monocytes % (Manual) Nucleated RBC % Seg Neutrophils # Seg Neutrophils # Man Lymphocytes # (Manual) Monocytes # (Manual) PT INR APTT POC ABG pH POC ABG pCO2 POC ABG pO2 Sodium Potassium Chloride Carbon Dioxide BUN Creatinine Glucose POC Glucose 68 L 119 H 106 H Lactic Acid Calcium Iron TIBC Total Bilirubin Direct Bilirubin AST ALT Alkaline Phosphatase Total Creatine Kinase CK-MB (CK-2) Troponin T Total Protein Albumin HDL Cholesterol Prostate Specific Ag Urine WBC (Auto) Urine Creatinine Crossmatch 12/13/16 12/14/16 12/14/16 19:39 06:52 06:52 WBC RBC Hgb Hct MCV MCH MCHC RDW Plt Count Lymph % (Auto) [place] % (Auto) Lymph # [place] # Seg Neutrophils % Seg Neuts % (Manual) Lymphocytes % (Manual) Monocytes % (Manual) Nucleated RBC % Seg Neutrophils # Seg Neutrophils # Man Lymphocytes # (Manual) Monocytes # (Manual) PT 15.0 H INR 1.19 H APTT 40.1 H POC ABG pH POC ABG pCO2 POC ABG pO2 Sodium Potassium Chloride Carbon Dioxide BUN Creatinine Glucose POC Glucose 123 H Lactic Acid Calcium Iron TIBC Total Bilirubin 2.6 H Direct Bilirubin 2.1 H AST 554 H ALT 166 H Alkaline Phosphatase 591 H Total Creatine Kinase CK-MB (CK-2) Troponin T Total Protein Albumin 2.7 L HDL Cholesterol Prostate Specific Ag Urine WBC (Auto) Urine Creatinine Crossmatch 12/14/16 12/14/16 12/14/16 11:01 11:49 15:55 WBC 15.9 H RBC Hgb 11.6 L Hct MCV 79 L MCH 26 L MCHC RDW 16.0 H Plt Count Lymph % (Auto) [place] % (Auto) Lymph # [place] # Seg Neutrophils % Seg Neuts % (Manual) Lymphocytes % (Manual) Monocytes % (Manual) Nucleated RBC % Seg Neutrophils # Seg Neutrophils # Man Lymphocytes # (Manual) Monocytes # (Manual) PT INR APTT POC ABG pH POC ABG pCO2 POC ABG pO2 Sodium Potassium Chloride Carbon Dioxide BUN Creatinine Glucose POC Glucose 122 H 177 H Lactic Acid Calcium Iron TIBC Total Bilirubin Direct Bilirubin AST ALT Alkaline Phosphatase Total Creatine Kinase CK-MB (CK-2) Troponin T Total Protein Albumin HDL Cholesterol Prostate Specific Ag Urine WBC (Auto) Urine Creatinine Crossmatch 12/14/16 12/15/16 12/15/16 21:21 07:54 10:42 WBC RBC Hgb Hct MCV MCH MCHC RDW Plt Count Lymph % (Auto) [place] % (Auto) Lymph # [place] # Seg Neutrophils % Seg Neuts % (Manual) Lymphocytes % (Manual) Monocytes % (Manual) Nucleated RBC % Seg Neutrophils # Seg Neutrophils # Man Lymphocytes # (Manual) Monocytes # (Manual) PT INR APTT POC ABG pH POC ABG pCO2 POC ABG pO2 Sodium Potassium Chloride Carbon Dioxide BUN Creatinine Glucose POC Glucose 179 H 106 H Lactic Acid Calcium Iron TIBC Total Bilirubin Direct Bilirubin AST ALT Alkaline Phosphatase Total Creatine Kinase CK-MB (CK-2) Troponin T Total Protein Albumin HDL Cholesterol Prostate Specific Ag 35.07 H Urine WBC (Auto) Urine Creatinine Crossmatch 12/15/16 12/15/16 12/16/16 12:10 16:53 08:10 WBC RBC Hgb Hct MCV MCH MCHC RDW Plt Count Lymph % (Auto) [place] % (Auto) Lymph # [place] # Seg Neutrophils % Seg Neuts % (Manual) Lymphocytes % (Manual) Monocytes % (Manual) Nucleated RBC % Seg Neutrophils # Seg Neutrophils # Man Lymphocytes # (Manual) Monocytes # (Manual) PT INR APTT POC ABG pH POC ABG pCO2 POC ABG pO2 Sodium Potassium Chloride Carbon Dioxide BUN Creatinine Glucose POC Glucose 132 H 107 H 52 L Lactic Acid Calcium Iron TIBC Total Bilirubin Direct Bilirubin AST ALT Alkaline Phosphatase Total Creatine Kinase CK-MB (CK-2) Troponin T Total Protein Albumin HDL Cholesterol Prostate Specific Ag Urine WBC (Auto) Urine Creatinine Crossmatch 12/16/16 12/17/16 12/17/16 22:44 05:17 05:17 WBC 15.6 H RBC Hgb Hct MCV 79 L MCH 26 L MCHC RDW 16.6 H Plt Count Lymph % (Auto) 5.8 L [place] % (Auto) 8.5 H Lymph # 0.9 L [place] # 1.3 H Seg Neutrophils % 85.5 H Seg Neuts % (Manual) Lymphocytes % (Manual) Monocytes % (Manual) Nucleated RBC % Seg Neutrophils # 13.4 H Seg Neutrophils # Man Lymphocytes # (Manual) Monocytes # (Manual) PT INR APTT POC ABG pH POC ABG pCO2 POC ABG pO2 Sodium 134 L Potassium 6.0 H D Chloride 89.1 L Carbon Dioxide 15 L D BUN 63 H Creatinine 3.0 H D Glucose 122 H POC Glucose 67 L Lactic Acid Calcium Iron TIBC Total Bilirubin Direct Bilirubin AST ALT Alkaline Phosphatase Total Creatine Kinase CK-MB (CK-2) Troponin T Total Protein Albumin HDL Cholesterol Prostate Specific Ag Urine WBC (Auto) Urine Creatinine Crossmatch 12/17/16 12/17/16 12/17/16 07:27 12:04 12:57 WBC RBC Hgb Hct MCV MCH MCHC RDW Plt Count Lymph % (Auto) [place] % (Auto) Lymph # [place] # Seg Neutrophils % Seg Neuts % (Manual) Lymphocytes % (Manual) Monocytes % (Manual) Nucleated RBC % Seg Neutrophils # Seg Neutrophils # Man Lymphocytes # (Manual) Monocytes # (Manual) PT INR APTT POC ABG pH POC ABG pCO2 POC ABG pO2 Sodium Potassium Chloride Carbon Dioxide BUN Creatinine Glucose POC Glucose 130 H 154 H 232 H Lactic Acid Calcium Iron TIBC Total Bilirubin Direct Bilirubin AST ALT Alkaline Phosphatase Total Creatine Kinase CK-MB (CK-2) Troponin T Total Protein Albumin HDL Cholesterol Prostate Specific Ag Urine WBC (Auto) Urine Creatinine Crossmatch 12/17/16 12/17/16 12/17/16 13:41 13:46 15:00 WBC 15.9 H RBC Hgb 9.3 L Hct 29.8 L D MCV 82 L D MCH 26 L MCHC 31 L RDW 17.1 H Plt Count Lymph % (Auto) [place] % (Auto) Lymph # [place] # Seg Neutrophils % Seg Neuts % (Manual) 79.0 H Lymphocytes % (Manual) Monocytes % (Manual) Nucleated RBC % Seg Neutrophils # Seg Neutrophils # Man 12.6 H Lymphocytes # (Manual) Monocytes # (Manual) 1.1 H PT INR APTT POC ABG pH 6.961 L POC ABG pCO2 20.4 L POC ABG pO2 230 H Sodium Potassium Chloride Carbon Dioxide BUN Creatinine Glucose POC Glucose 271 H Lactic Acid Calcium Iron TIBC Total Bilirubin Direct Bilirubin AST ALT Alkaline Phosphatase Total Creatine Kinase CK-MB (CK-2) Troponin T Total Protein Albumin HDL Cholesterol Prostate Specific Ag Urine WBC (Auto) Urine Creatinine Crossmatch 12/17/16 12/17/16 12/17/16 15:00 15:00 15:41 WBC RBC Hgb Hct MCV MCH MCHC RDW Plt Count Lymph % (Auto) [place] % (Auto) Lymph # [place] # Seg Neutrophils % Seg Neuts % (Manual) Lymphocytes % (Manual) Monocytes % (Manual) Nucleated RBC % Seg Neutrophils # Seg Neutrophils # Man Lymphocytes # (Manual) Monocytes # (Manual) PT INR APTT POC ABG pH 7.145 L POC ABG pCO2 19.5 L POC ABG pO2 208 H Sodium 132 L Potassium 5.2 H Chloride 83.7 L Carbon Dioxide 6 L* D BUN 69 H Creatinine 3.9 H Glucose 220 H POC Glucose Lactic Acid Calcium 7.7 L D Iron TIBC Total Bilirubin Direct Bilirubin AST ALT Alkaline Phosphatase Total Creatine Kinase 435 H CK-MB (CK-2) 7.5 H Troponin T 0.078 H Total Protein Albumin HDL Cholesterol 7 L Prostate Specific Ag Urine WBC (Auto) Urine Creatinine Crossmatch 12/17/16 12/17/16 12/17/16 17:05 17:05 17:48 WBC RBC Hgb Hct MCV MCH MCHC RDW Plt Count Lymph % (Auto) [place] % (Auto) Lymph # [place] # Seg Neutrophils % Seg Neuts % (Manual) Lymphocytes % (Manual) Monocytes % (Manual) Nucleated RBC % Seg Neutrophils # Seg Neutrophils # Man Lymphocytes # (Manual) Monocytes # (Manual) PT INR APTT POC ABG pH POC ABG pCO2 POC ABG pO2 Sodium Potassium Chloride Carbon Dioxide BUN Creatinine Glucose POC Glucose 218 H Lactic Acid Calcium Iron TIBC Total Bilirubin Direct Bilirubin AST ALT Alkaline Phosphatase Total Creatine Kinase CK-MB (CK-2) Troponin T Total Protein Albumin HDL Cholesterol Prostate Specific Ag Urine WBC (Auto) 41.0 H Urine Creatinine 105.0 H Crossmatch 12/17/16 12/17/16 12/18/16 21:26 21:38 04:30 WBC 15.1 H RBC 3.62 L Hgb 9.1 L Hct 27.8 L MCV 77 L D MCH 25 L MCHC RDW 16.3 H Plt Count Lymph % (Auto) 3.1 L [place] % (Auto) Lymph # 0.5 L [place] # 1.0 H Seg Neutrophils % 89.6 H Seg Neuts % (Manual) Lymphocytes % (Manual) Monocytes % (Manual) Nucleated RBC % Seg Neutrophils # 13.5 H Seg Neutrophils # Man Lymphocytes # (Manual) Monocytes # (Manual) PT INR APTT POC ABG pH POC ABG pCO2 19.2 L POC ABG pO2 Sodium Potassium Chloride Carbon Dioxide BUN Creatinine Glucose POC Glucose 299 H Lactic Acid Calcium Iron TIBC Total Bilirubin Direct Bilirubin AST ALT Alkaline Phosphatase Total Creatine Kinase CK-MB (CK-2) Troponin T Total Protein Albumin HDL Cholesterol Prostate Specific Ag Urine WBC (Auto) Urine Creatinine Crossmatch 12/18/16 12/18/16 12/18/16 04:30 04:30 05:44 WBC RBC Hgb Hct MCV MCH MCHC RDW Plt Count Lymph % (Auto) [place] % (Auto) Lymph # [place] # Seg Neutrophils % Seg Neuts % (Manual) Lymphocytes % (Manual) Monocytes % (Manual) Nucleated RBC % Seg Neutrophils # Seg Neutrophils # Man Lymphocytes # (Manual) Monocytes # (Manual) PT INR APTT POC ABG pH POC ABG pCO2 25.0 L POC ABG pO2 77 L Sodium 136 L Potassium 5.1 H Chloride 94.4 L Carbon Dioxide 16 L D BUN 71 H Creatinine 3.0 H Glucose 289 H POC Glucose Lactic Acid 9.3 H* Calcium 5.9 L* D Iron TIBC Total Bilirubin 3.3 H Direct Bilirubin AST 6347 H ALT 1079 H Alkaline Phosphatase 978 H Total Creatine Kinase 2770 H CK-MB (CK-2) Troponin T Total Protein 4.6 L D Albumin 1.9 L HDL Cholesterol Prostate Specific Ag Urine WBC (Auto) Urine Creatinine Crossmatch 12/18/16 12/18/16 12/18/16 06:00 07:54 11:50 WBC RBC Hgb Hct MCV MCH MCHC RDW Plt Count Lymph % (Auto) [place] % (Auto) Lymph # [place] # Seg Neutrophils % Seg Neuts % (Manual) Lymphocytes % (Manual) Monocytes % (Manual) Nucleated RBC % Seg Neutrophils # Seg Neutrophils # Man Lymphocytes # (Manual) Monocytes # (Manual) PT INR APTT POC ABG pH POC ABG pCO2 POC ABG pO2 Sodium Potassium Chloride Carbon Dioxide BUN Creatinine Glucose POC Glucose 301 H 246 H Lactic Acid Calcium Iron TIBC Total Bilirubin Direct Bilirubin AST ALT Alkaline Phosphatase Total Creatine Kinase CK-MB (CK-2) Troponin T Total Protein Albumin HDL Cholesterol Prostate Specific Ag Urine WBC (Auto) Urine Creatinine Crossmatch See Detail 12/18/16 12/18/16 12/19/16 15:54 21:05 01:16 WBC RBC Hgb Hct MCV MCH MCHC RDW Plt Count Lymph % (Auto) [place] % (Auto) Lymph # [place] # Seg Neutrophils % Seg Neuts % (Manual) Lymphocytes % (Manual) Monocytes % (Manual) Nucleated RBC % Seg Neutrophils # Seg Neutrophils # Man Lymphocytes # (Manual) Monocytes # (Manual) PT INR APTT POC ABG pH POC ABG pCO2 31.9 L POC ABG pO2 61 L Sodium Potassium Chloride Carbon Dioxide BUN Creatinine Glucose POC Glucose 231 H 256 H Lactic Acid Calcium Iron TIBC Total Bilirubin Direct Bilirubin AST ALT Alkaline Phosphatase Total Creatine Kinase CK-MB (CK-2) Troponin T Total Protein Albumin HDL Cholesterol Prostate Specific Ag Urine WBC (Auto) Urine Creatinine Crossmatch 12/19/16 12/19/16 12/19/16 04:40 04:40 04:40 WBC 17.8 H RBC Hgb 10.9 L Hct 33.6 L MCV 80 L D MCH 26 L MCHC RDW 17.5 H Plt Count Lymph % (Auto) [place] % (Auto) Lymph # [place] # Seg Neutrophils % Seg Neuts % (Manual) 88.0 H Lymphocytes % (Manual) 3.0 L Monocytes % (Manual) 8.0 H Nucleated RBC % Seg Neutrophils # Seg Neutrophils # Man 15.7 H Lymphocytes # (Manual) 0.5 L Monocytes # (Manual) 1.4 H PT INR APTT POC ABG pH POC ABG pCO2 POC ABG pO2 Sodium Potassium Chloride 94.1 L Carbon Dioxide 17 L BUN 77 H Creatinine 3.6 H Glucose 245 H POC Glucose Lactic Acid 8.6 H* Calcium 4.9 L* D Iron TIBC Total Bilirubin 5.9 H Direct Bilirubin AST 8235 H ALT 1128 H Alkaline Phosphatase 1191 H Total Creatine Kinase CK-MB (CK-2) Troponin T Total Protein 4.4 L Albumin 1.7 L HDL Cholesterol Prostate Specific Ag Urine WBC (Auto) Urine Creatinine Crossmatch 12/19/16 12/19/16 12/19/16 04:40 07:20 11:21 WBC RBC Hgb Hct MCV MCH MCHC RDW Plt Count Lymph % (Auto) [place] % (Auto) Lymph # [place] # Seg Neutrophils % Seg Neuts % (Manual) Lymphocytes % (Manual) Monocytes % (Manual) Nucleated RBC % Seg Neutrophils # Seg Neutrophils # Man Lymphocytes # (Manual) Monocytes # (Manual) PT 25.2 H INR 2.28 H APTT POC ABG pH POC ABG pCO2 POC ABG pO2 Sodium Potassium Chloride Carbon Dioxide BUN Creatinine Glucose POC Glucose 257 H 263 H Lactic Acid Calcium Iron TIBC Total Bilirubin Direct Bilirubin AST ALT Alkaline Phosphatase Total Creatine Kinase CK-MB (CK-2) Troponin T Total Protein Albumin HDL Cholesterol Prostate Specific Ag Urine WBC (Auto) Urine Creatinine Crossmatch 12/19/16 12/20/16 12/20/16 16:02 00:00 04:12 WBC RBC Hgb Hct MCV MCH MCHC RDW Plt Count Lymph % (Auto) [place] % (Auto) Lymph # [place] # Seg Neutrophils % Seg Neuts % (Manual) Lymphocytes % (Manual) Monocytes % (Manual) Nucleated RBC % Seg Neutrophils # Seg Neutrophils # Man Lymphocytes # (Manual) Monocytes # (Manual) PT INR APTT POC ABG pH POC ABG pCO2 POC ABG pO2 66 L Sodium Potassium Chloride Carbon Dioxide BUN Creatinine Glucose POC Glucose 272 H 255 H Lactic Acid Calcium Iron TIBC Total Bilirubin Direct Bilirubin AST ALT Alkaline Phosphatase Total Creatine Kinase CK-MB (CK-2) Troponin T Total Protein Albumin HDL Cholesterol Prostate Specific Ag Urine WBC (Auto) Urine Creatinine Crossmatch 12/20/16 12/20/16 12/20/16 04:20 04:20 05:29 WBC 18.4 H RBC Hgb 11.5 L Hct 34.4 L MCV 79 L MCH 26 L MCHC RDW 16.8 H Plt Count Lymph % (Auto) [place] % (Auto) Lymph # [place] # Seg Neutrophils % Seg Neuts % (Manual) 76.0 H Lymphocytes % (Manual) 1.0 L Monocytes % (Manual) Nucleated RBC % Seg Neutrophils # Seg Neutrophils # Man 14.0 H Lymphocytes # (Manual) 0.2 L Monocytes # (Manual) PT INR APTT POC ABG pH POC ABG pCO2 POC ABG pO2 Sodium Potassium 5.1 H Chloride 91.5 L Carbon Dioxide BUN 84 H Creatinine 4.6 H Glucose 278 H POC Glucose 288 H Lactic Acid Calcium 5.0 L* Iron TIBC Total Bilirubin 6.6 H Direct Bilirubin AST 5812 H ALT 976 H Alkaline Phosphatase 1188 H Total Creatine Kinase CK-MB (CK-2) Troponin T Total Protein 4.4 L Albumin 1.4 L HDL Cholesterol Prostate Specific Ag Urine WBC (Auto) Urine Creatinine Crossmatch 12/20/16 12/20/16 12/20/16 11:19 17:32 Unknown WBC RBC Hgb Hct MCV MCH MCHC RDW Plt Count Lymph % (Auto) [place] % (Auto) Lymph # [place] # Seg Neutrophils % Seg Neuts % (Manual) Lymphocytes % (Manual) Monocytes % (Manual) Nucleated RBC % Seg Neutrophils # Seg Neutrophils # Man Lymphocytes # (Manual) Monocytes # (Manual) PT INR APTT POC ABG pH POC ABG pCO2 POC ABG pO2 Sodium Potassium Chloride Carbon Dioxide BUN Creatinine Glucose POC Glucose 294 H 269 H Lactic Acid 8.5 H* Calcium Iron TIBC Total Bilirubin Direct Bilirubin AST ALT Alkaline Phosphatase Total Creatine Kinase CK-MB (CK-2) Troponin T Total Protein Albumin HDL Cholesterol Prostate Specific Ag Urine WBC (Auto) Urine Creatinine Crossmatch 12/21/16 12/21/16 12/21/16 00:01 05:02 06:07 WBC RBC Hgb Hct MCV MCH MCHC RDW Plt Count Lymph % (Auto) [place] % (Auto) Lymph # [place] # Seg Neutrophils % Seg Neuts % (Manual) Lymphocytes % (Manual) Monocytes % (Manual) Nucleated RBC % Seg Neutrophils # Seg Neutrophils # Man Lymphocytes # (Manual) Monocytes # (Manual) PT INR APTT POC ABG pH POC ABG pCO2 POC ABG pO2 70 L Sodium Potassium Chloride Carbon Dioxide BUN Creatinine Glucose POC Glucose 250 H 252 H Lactic Acid Calcium Iron TIBC Total Bilirubin Direct Bilirubin AST ALT Alkaline Phosphatase Total Creatine Kinase CK-MB (CK-2) Troponin T Total Protein Albumin HDL Cholesterol Prostate Specific Ag Urine WBC (Auto) Urine Creatinine Crossmatch 12/21/16 12/21/16 12/21/16 06:15 06:15 06:15 WBC 16.9 H RBC Hgb 10.8 L Hct 32.1 L MCV 79 L MCH 26 L MCHC RDW 17.1 H Plt Count Lymph % (Auto) [place] % (Auto) Lymph # [place] # Seg Neutrophils % Seg Neuts % (Manual) Lymphocytes % (Manual) 9.0 L Monocytes % (Manual) Nucleated RBC % 7.0 H Seg Neutrophils # Seg Neutrophils # Man 9.0 H Lymphocytes # (Manual) Monocytes # (Manual) PT 26.6 H INR 2.44 H APTT 127.6 H* POC ABG pH POC ABG pCO2 POC ABG pO2 Sodium Potassium 5.5 H Chloride 86.6 L Carbon Dioxide BUN 87 H Creatinine 5.7 H Glucose 263 H POC Glucose Lactic Acid Calcium 4.8 L* Iron TIBC Total Bilirubin 5.7 H Direct Bilirubin AST 3224 H ALT 686 H Alkaline Phosphatase 989 H Total Creatine Kinase CK-MB (CK-2) Troponin T Total Protein 4.0 L Albumin 1.1 L HDL Cholesterol Prostate Specific Ag Urine WBC (Auto) Urine Creatinine Crossmatch 12/21/16 12/21/16 12/21/16 11:42 18:13 23:32 WBC RBC Hgb Hct MCV MCH MCHC RDW Plt Count Lymph % (Auto) [place] % (Auto) Lymph # [place] # Seg Neutrophils % Seg Neuts % (Manual) Lymphocytes % (Manual) Monocytes % (Manual) Nucleated RBC % Seg Neutrophils # Seg Neutrophils # Man Lymphocytes # (Manual) Monocytes # (Manual) PT INR APTT POC ABG pH POC ABG pCO2 POC ABG pO2 Sodium Potassium Chloride Carbon Dioxide BUN Creatinine Glucose POC Glucose 253 H 236 H 208 H Lactic Acid Calcium Iron TIBC Total Bilirubin Direct Bilirubin AST ALT Alkaline Phosphatase Total Creatine Kinase CK-MB (CK-2) Troponin T Total Protein Albumin HDL Cholesterol Prostate Specific Ag Urine WBC (Auto) Urine Creatinine Crossmatch 12/22/16 12/22/16 12/22/16 05:27 05:31 06:00 WBC RBC Hgb Hct MCV MCH MCHC RDW Plt Count Lymph % (Auto) [place] % (Auto) Lymph # [place] # Seg Neutrophils % Seg Neuts % (Manual) Lymphocytes % (Manual) Monocytes % (Manual) Nucleated RBC % Seg Neutrophils # Seg Neutrophils # Man Lymphocytes # (Manual) Monocytes # (Manual) PT INR APTT POC ABG pH 7.346 L POC ABG pCO2 45.5 H POC ABG pO2 49 L Sodium Potassium Chloride Carbon Dioxide BUN 88 H Creatinine 6.6 H Glucose 195 H POC Glucose 195 H Lactic Acid Calcium 5.4 L* Iron TIBC Total Bilirubin 6.2 H Direct Bilirubin AST 2006 H ALT 553 H Alkaline Phosphatase 938 H Total Creatine Kinase CK-MB (CK-2) Troponin T Total Protein 4.4 L Albumin 1.3 L HDL Cholesterol Prostate Specific Ag Urine WBC (Auto) Urine Creatinine Crossmatch 12/22/16 12/22/16 12/22/16 09:40 11:21 18:05 WBC 19.4 H RBC Hgb Hct MCV 80 L MCH 26 L MCHC RDW 18.0 H Plt Count 136 L Lymph % (Auto) [place] % (Auto) Lymph # [place] # Seg Neutrophils % Seg Neuts % (Manual) 77.0 H Lymphocytes % (Manual) 6.0 L Monocytes % (Manual) 16.0 H Nucleated RBC % 3.0 H Seg Neutrophils # Seg Neutrophils # Man 14.9 H Lymphocytes # (Manual) Monocytes # (Manual) 3.1 H PT INR APTT POC ABG pH POC ABG pCO2 POC ABG pO2 Sodium Potassium Chloride Carbon Dioxide BUN Creatinine Glucose POC Glucose 168 H 136 H Lactic Acid Calcium Iron TIBC Total Bilirubin Direct Bilirubin AST ALT Alkaline Phosphatase Total Creatine Kinase CK-MB (CK-2) Troponin T Total Protein Albumin HDL Cholesterol Prostate Specific Ag Urine WBC (Auto) Urine Creatinine Crossmatch 12/23/16 05:42 WBC RBC Hgb Hct MCV MCH MCHC RDW Plt Count Lymph % (Auto) [place] % (Auto) Lymph # [place] # Seg Neutrophils % Seg Neuts % (Manual) Lymphocytes % (Manual) Monocytes % (Manual) Nucleated RBC % Seg Neutrophils # Seg Neutrophils # Man Lymphocytes # (Manual) Monocytes # (Manual) PT INR APTT POC ABG pH POC ABG pCO2 POC ABG pO2 Sodium Potassium Chloride Carbon Dioxide BUN Creatinine Glucose POC Glucose 106 H Lactic Acid Calcium Iron TIBC Total Bilirubin Direct Bilirubin AST ALT Alkaline Phosphatase Total Creatine Kinase CK-MB (CK-2) Troponin T Total Protein Albumin HDL Cholesterol Prostate Specific Ag Urine WBC (Auto) Urine Creatinine Crossmatch
--- NOTE | 2016-12-23 09:19 | XRay Report ---
Single view chest: Compared to 12/22/16. History: Followup of respiratory failure. Findings: Cardiomegaly. Support system stable. Bilateral diffuse interstitial infiltrates and/or pulmonary edema. Bilateral pleural effusion. Impression: Pulmonary edema or bilateral diffuse pneumonia. Increasing infiltrates and congestion compared to previous study.
[2016-12-23] MEDS: PULMICORT IH SCH ×2 (10:00→19:45)
[2016-12-23] MEDS: PROVENTIL IH PRN ×2 (10:00→19:45)
[2016-12-23] MEDS: SODIUM CHLORIDE IV SCH ×2 (10:16→21:49)
[2016-12-23] MEDS: AZTREONAM IV SCH ×2 (10:16→21:49)
[2016-12-23] MEDS: LEVEMIR SUB-Q SCH (10:18)
[2016-12-23] MEDS: PEPCID IV SCH (10:19)
--- NOTE | 2016-12-23 10:42 | Progress Note ---
Assessment and Plan - Patient Problems (1) FAVIOLA (acute kidney injury) Current Visit: Yes Status: Acute Plan to address problem: Acute kidney Injury in the setting of IV contrast and septic shock. Renal function continue to get worse and patient is oliguric. Patient is on multiple pressors. Hemodialysis has more risks than any benefit and would not alter the prognosis. Family is aware of this. Overall prognosis is very poor. (2) Septic shock Current Visit: Yes Status: Acute Plan to address problem: Patient is on multiple pressors. (3) Lactic acidosis Current Visit: Yes Status: Acute (4) Hyperkalemia Current Visit: Yes Status: Acute Plan to address problem: Monitor lytes. (5) Bladder mass Current Visit: Yes Status: Acute Plan to address problem: Evaluated by Urologist. (6) Respiratory failure Current Visit: Yes Status: Acute Plan to address problem: On vent. (7) Diabetes Current Visit: Yes Status: Chronic Subjective Date of service: 12/23/16 Principal diagnosis: paroxysmal SVT Interval history: Patient remain on the vent. Objective - Vital Signs Vital signs: Vital Signs - 12hr 12/22/16 12/22/16 12/22/16 22:46 23:00 23:16 Temperature Pulse Rate 137 H 140 H 139 H Pulse Rate [ Anterior Bilateral Throughout] Respiratory 25 H 27 H 26 H Rate Respiratory Rate [Anterior Bilateral Throughout] Blood Pressure 91/63 99/57 99/57 O2 Sat by Pulse 80 L 80 L 80 L Oximetry 12/22/16 12/22/16 12/22/16 23:30 23:44 23:46 Temperature Pulse Rate 138 H 139 H 139 H Pulse Rate [ Anterior Bilateral Throughout] Respiratory 26 H 25 H Rate Respiratory Rate [Anterior Bilateral Throughout] Blood Pressure 91/56 91/56 91/56 O2 Sat by Pulse 81 L 81 L 80 L Oximetry 12/23/16 12/23/16 12/23/16 00:00 00:16 00:30 Temperature 98.0 F Pulse Rate 140 H 141 H 141 H Pulse Rate [ Anterior Bilateral Throughout] Respiratory 26 H 25 H 25 H Rate Respiratory Rate [Anterior Bilateral Throughout] Blood Pressure 94/59 94/59 96/58 O2 Sat by Pulse 80 L 80 L 81 L Oximetry 12/23/16 12/23/16 12/23/16 00:46 01:00 01:16 Temperature Pulse Rate 140 H 138 H 140 H Pulse Rate [ Anterior Bilateral Throughout] Respiratory 28 H 25 H 26 H Rate Respiratory Rate [Anterior Bilateral Throughout] Blood Pressure 96/58 96/58 104/49 O2 Sat by Pulse 81 L 83 L 81 L Oximetry 12/23/16 12/23/16 12/23/16 01:30 01:46 02:00 Temperature Pulse Rate 141 H 139 H 140 H Pulse Rate [ Anterior Bilateral Throughout] Respiratory 25 H 27 H 27 H Rate Respiratory Rate [Anterior Bilateral Throughout] Blood Pressure 89/53 89/53 96/65 O2 Sat by Pulse 82 L 81 L 81 L Oximetry 12/23/16 12/23/16 12/23/16 02:16 02:30 02:46 Temperature Pulse Rate 140 H 141 H 140 H Pulse Rate [ Anterior Bilateral Throughout] Respiratory 26 H 26 H 27 H Rate Respiratory Rate [Anterior Bilateral Throughout] Blood Pressure 96/65 95/58 95/58 O2 Sat by Pulse 80 L 80 L 80 L Oximetry 12/23/16 12/23/16 12/23/16 03:00 03:16 03:30 Temperature Pulse Rate 141 H 139 H 141 H Pulse Rate [ Anterior Bilateral Throughout] Respiratory 25 H 26 H 27 H Rate Respiratory Rate [Anterior Bilateral Throughout] Blood Pressure 101/59 101/59 100/58 O2 Sat by Pulse 80 L 81 L 80 L Oximetry 12/23/16 12/23/16 12/23/16 03:40 03:46 04:00 Temperature 97.6 F Pulse Rate 141 H 141 H 141 H Pulse Rate [ Anterior Bilateral Throughout] Respiratory 26 H 24 25 H Rate Respiratory Rate [Anterior Bilateral Throughout] Blood Pressure 100/58 100/58 100/61 O2 Sat by Pulse 80 L 81 L 81 L Oximetry 12/23/16 12/23/16 12/23/16 04:10 04:16 04:30 Temperature Pulse Rate 141 H 139 H 141 H Pulse Rate [ Anterior Bilateral Throughout] Respiratory 27 H 24 Rate Respiratory Rate [Anterior Bilateral Throughout] Blood Pressure 100/61 100/61 98/55 O2 Sat by Pulse 80 L 81 L 81 L Oximetry 12/23/16 12/23/16 12/23/16 04:46 05:00 05:01 Temperature Pulse Rate 141 H 140 H 139 H Pulse Rate [ Anterior Bilateral Throughout] Respiratory 26 H 26 H 23 Rate Respiratory Rate [Anterior Bilateral Throughout] Blood Pressure 100/61 96/58 96/58 O2 Sat by Pulse 81 L 79 L 80 L Oximetry 12/23/16 12/23/16 12/23/16 05:16 05:20 05:30 Temperature Pulse Rate 140 H 140 H 140 H Pulse Rate [ Anterior Bilateral Throughout] Respiratory 25 H 24 28 H Rate Respiratory Rate [Anterior Bilateral Throughout] Blood Pressure 98/55 98/55 99/60 O2 Sat by Pulse 81 L 80 L 81 L Oximetry 12/23/16 12/23/16 12/23/16 05:42 05:46 06:00 Temperature Pulse Rate 135 H 138 H 140 H Pulse Rate [ Anterior Bilateral Throughout] Respiratory 25 H 27 H Rate Respiratory Rate [Anterior Bilateral Throughout] Blood Pressure 99/60 96/58 97/58 O2 Sat by Pulse 77 L 80 L 80 L Oximetry 12/23/16 12/23/16 12/23/16 08:00 10:00 10:10 Temperature 97.6 F Pulse Rate 141 H Pulse Rate [ 140 H 145 H Anterior Bilateral Throughout] Respiratory Rate Respiratory 23 23 Rate [Anterior Bilateral Throughout] Blood Pressure 103/60 O2 Sat by Pulse 87 Oximetry - General Appearance General appearance: well-developed, intubated, other (on the vent, FiO2 100%) EENT: PERRL Neck: supple Respiratory: Present: Other (coarse breath sounds) Cardiology: regular, tachycardia, S1S2 Gastrointestinal: other (sluggish bowel sounds) Integumentary: no rash Neurologic: other (not responding.) Musculoskeletal: other (2+ edema of all 4 extremities) - Lab 12/22/16 09:40 12/22/16 06:00 Most recent lab results Calcium 5.4 mg/dL (8.4-10.2) L* 12/22/16 06:00 Phosphorus 3.1 mg/dL (2.5-4.5) 12/10/16 05:29 Magnesium 2.2 mg/dL (1.7-2.3) 12/21/16 06:15 Urine Creatinine 105.0 mg/dL (0.1-20.0) H 12/17/16 17:05 Urine Sodium 88 mEq/L 12/17/16 17:05
--- NOTE | 2016-12-23 10:48 | Progress Note ---
Assessment and Plan Assessment and plan: 1. Acute hypoxic hypercapneic respiratory failure * Likely due to volume overload/sepsis/severe metabolic acidosis/malignancy with all its complications * Intubated, hypoxic 2. Sepsis * Suspected given leukocytosis, hypothermia, hypotension * Blood and urine cultures negative to date * Started on antibiotics, IV fluids * Requiring vasopressor support (on Levophed and vasopressin) 3. Shock * Most likely not related to sepsis 4. Acute renal failure * On admission acute renal failure secondary to vasomotor nephropathy versus ATN from possible hypotension during SVT; resolved with IV fluids * Now again in acute renal failure likely secondary to contrast nephropathy/ hypotension/possible ATN * Became anuric and renal function is worsening despite receiving IV fluids * Bladder mass possible playing a role (? obstruction); Renal US 12/19 with no hydronephrosis, but bladder not well visualized; urology has no recommendations and no procedures planned * Nephrology following 5. Hyperkalemia * Receiving Kayexalate, D50/insulin 6. Severe Metabolic acidosis/lactic acidosis * On bicarbonate drip * Antibiotics to treat possible infection * Nephrology following also 7. Anasarca * Secondary to renal failure 8. Hepatitic mass * s/p CT guided liver biopsy which is positive for malignancy (metastatic disease from bladder cancer as Biopsy positive for urothelial tissue) 9. Bladder mass * Likely primary malignancy * With hematuria * Cystoscopy canceled due to declining clinical status 10. Elevated LFTs * Most likely secondary to shock liver due to hypotension; tumor burden as liver biopsy positive for metastasis possible also * Trending down 11. Iron deficient anemia * Likely secondary to hematuria/malignancy 12. Status post fall * CT scan of the head ordered, but not obtainable due to current status 13. Supraventricular Tachycardia on admission * Received adenosine in ER and converted to NSR; started on calcium channel estuardo; ECHO showed preserved EF, stress test (-) 1 month ago * 12/20 developed SVT again and started on amiodarone drip 14. Diabetes mellitus type II * Continue long-acting insulin * Accu-Cheks and SSI 15. Malnutrition * Likely secondary to malignancy/multiple comorbidities 16. DVT prophylaxis * Heparin discontinued due to hematuria * SCD 17. Extremely poor prognosis, terminal, but continues to keep him full code after discussing with all physicians involved in his care The high probability of a clinically significant, sudden or life threatening deterioration of the [] system(s) required my full and direct attention, intervention and personal management. The aggregate critical care time was [35] minutes. This time is in addition to time spent performing reported procedures but includes the following: [x] Data Review and interpretation [x] Patient assessment and monitoring of vital signs [x] Documentation [x] Medication orders and management History Interval history: Hypoxic since yesterday, maxed out on 2 vasodepressors, anuric, with anasarca continues to keep him full code after discussing with all physicians involved in his care despite his extremely poor prognosis Hospitalist Physical - Constitutional Vitals: Temp Pulse Resp BP Pulse Ox 97.6 F 145 H 23 103/60 87 12/23/16 08:00 12/23/16 10:10 12/23/16 10:10 12/23/16 08:00 12/23/16 08:00 General appearance: Present: severe distress - Neck Neck: Present: supple. Absent: enlarged thyroid, masses or JVD - Respiratory Respiratory effort: labored Respiratory: bilateral: diminished, rales - Cardiovascular Rhythm: other (tachycardic) Heart Sounds: Present: S1 & S2. Absent: systolic murmur - Extremities Extremities: no ischemia Extremity abnormal: edema (4+) - Abdominal General gastrointestinal: soft, non-distended, hypoactive bowel sounds - Psychiatric Psychiatric: other (unresponsive) - Additional findings Additional findings: Anasarca Results - Labs CBC & Chem 7: 12/22/16 09:40 12/22/16 06:00 Labs: Laboratory Last Values WBC 19.4 K/mm3 (4.5-11.0) H 12/22/16 09:40 RBC 4.51 M/mm3 (3.65-5.03) 12/22/16 09:40 Hgb 11.8 gm/dl (11.8-15.2) 12/22/16 09:40 Hct 35.8 % (35.5-45.6) 12/22/16 09:40 MCV 80 fl (84-94) L 12/22/16 09:40 MCH 26 pg (28-32) L 12/22/16 09:40 MCHC 33 % (32-34) 12/22/16 09:40 RDW 18.0 % (13.2-15.2) H 12/22/16 09:40 Plt Count 136 K/mm3 (140-440) L 12/22/16 09:40 Lymph % (Auto) 5.8 % (13.4-35.0) L 12/17/16 05:17 [place] % (Auto) Heel C[place] 12/22/16 09:40 Eos % (Auto) 0.1 % (0.0-4.3) 12/17/16 05:17 Baso % (Auto) 0.1 % (0.0-1.8) 12/17/16 05:17 Lymph # 0.9 K/mm3 (1.2-5.4) L 12/17/16 05:17 [place] # 1.3 K/mm3 (0.0-0.8) H 12/17/16 05:17 Eos # 0.0 K/mm3 (0.0-0.4) 12/17/16 05:17 Baso # 0.0 K/mm3 (0.0-0.1) 12/17/16 05:17 Add Manual Diff Complete 12/22/16 09:40 Total Counted 100 12/22/16 09:40 Seg Neutrophils % 85.5 % (40.0-70.0) H 12/17/16 05:17 Seg Neuts % (Manual) 77.0 % (40.0-70.0) H 12/22/16 09:40 Band Neutrophils % 1.0 % 12/22/16 09:40 Lymphocytes % (Manual) 6.0 % (13.4-35.0) L 12/22/16 09:40 Reactive Lymphs % (Man) 0 % 12/22/16 09:40 Monocytes % (Manual) 16.0 % (0.0-7.3) H 12/22/16 09:40 Eosinophils % (Manual) 0 % (0.0-4.3) 12/22/16 09:40 Basophils % (Manual) 0 % (0.0-1.8) 12/22/16 09:40 Metamyelocytes % 0 % 12/22/16 09:40 Myelocytes % 0 % 12/22/16 09:40 Promyelocytes % 0 % 12/22/16 09:40 Blast Cells % 0 % 12/22/16 09:40 Nucleated RBC % 3.0 % (0.0-0.9) H 12/22/16 09:40 Seg Neutrophils # 13.4 K/mm3 (1.8-7.7) H 12/17/16 05:17 Seg Neutrophils # Man 14.9 K/mm3 (1.8-7.7) H 12/22/16 09:40 Band Neutrophils # 0.2 K/mm3 12/22/16 09:40 Lymphocytes # (Manual) 1.2 K/mm3 (1.2-5.4) 12/22/16 09:40 Abs React Lymphs (Man) 0.0 K/mm3 12/22/16 09:40 Monocytes # (Manual) 3.1 K/mm3 (0.0-0.8) H 12/22/16 09:40 Eosinophils # (Manual) 0.0 K/mm3 (0.0-0.4) 12/22/16 09:40 Basophils # (Manual) 0.0 K/mm3 (0.0-0.1) 12/22/16 09:40 Metamyelocytes # 0.0 K/mm3 12/22/16 09:40 Myelocytes # 0.0 K/mm3 12/22/16 09:40 Promyelocytes # 0.0 K/mm3 12/22/16 09:40 Blast Cells # 0.0 K/mm3 12/22/16 09:40 WBC Morphology Not Reportable 12/22/16 09:40 Hypersegmented Neuts Not Reportable 12/22/16 09:40 Hyposegmented Neuts Not Reportable 12/22/16 09:40 Hypogranular Neuts Not Reportable 12/22/16 09:40 Smudge Cells Not Reportable 12/22/16 09:40 Toxic Granulation Not Reportable 12/22/16 09:40 Toxic Vacuolation Not Reportable 12/22/16 09:40 Dohle Bodies Not Reportable 12/22/16 09:40 Pelger-Huet Anomaly Not Reportable 12/22/16 09:40 Mihai Rods Not Reportable 12/22/16 09:40 Platelet Estimate Consistent w auto 12/22/16 09:40 Clumped Platelets Not Reportable 12/22/16 09:40 Plt Clumps, EDTA Not Reportable 12/22/16 09:40 Large Platelets Not Reportable 12/22/16 09:40 Giant Platelets Not Reportable 12/22/16 09:40 Platelet Satelliting Not Reportable 12/22/16 09:40 Plt Morphology Comment Not Reportable 12/22/16 09:40 RBC Morphology Not Reportable 12/22/16 09:40 Dimorphic RBCs Not Reportable 12/22/16 09:40 Polychromasia Not Reportable 12/22/16 09:40 Hypochromasia Not Reportable 12/22/16 09:40 Poikilocytosis Not Reportable 12/22/16 09:40 Anisocytosis 1+ 12/22/16 09:40 Microcytosis Not Reportable 12/22/16 09:40 Macrocytosis Not Reportable 12/22/16 09:40 Spherocytes Not Reportable 12/22/16 09:40 Pappenheimer Bodies Not Reportable 12/22/16 09:40 Sickle Cells Not Reportable 12/22/16 09:40 Target Cells Not Reportable 12/22/16 09:40 Tear Drop Cells Not Reportable 12/22/16 09:40 Ovalocytes Not Reportable 12/22/16 09:40 Helmet Cells Not Reportable 12/22/16 09:40 Faulkner-Raywick Bodies Not Reportable 12/22/16 09:40 Curlew Rings Not Reportable 12/22/16 09:40 Howard Cells Not Reportable 12/22/16 09:40 Bite Cells Not Reportable 12/22/16 09:40 Crenated Cell Not Reportable 12/22/16 09:40 Elliptocytes Not Reportable 12/22/16 09:40 Acanthocytes (Spur) Not Reportable 12/22/16 09:40 Rouleaux Few 12/22/16 09:40 Hemoglobin C Crystals Not Reportable 12/22/16 09:40 Schistocytes Not Reportable 12/22/16 09:40 Malaria parasites Not Reportable 12/22/16 09:40 Jorge Luis Bodies Not Reportable 12/22/16 09:40 Hem Pathologist Commnt No 12/22/16 09:40 PT 26.6 Sec. (12.2-14.9) H 12/21/16 06:15 INR 2.44 (0.87-1.13) H 12/21/16 06:15 APTT 127.6 Sec. (24.2-36.6) H* 12/21/16 06:15 POC ABG pH 7.346 (7.35-7.45) L 12/22/16 05:27 POC ABG pCO2 45.5 (35-45) H 12/22/16 05:27 POC ABG pO2 49 (80-105) L 12/22/16 05:27 POC ABG HCO3 24.9 12/22/16 05:27 POC ABG Total CO2 26 12/22/16 05:27 POC ABG O2 Sat 82 12/22/16 05:27 POC ABG Base Excess -1 12/22/16 05:27 FiO2 100 % 12/22/16 05:27 Sodium 139 mmol/L (137-145) 12/21/16 06:15 Potassium 5.5 mmol/L (3.6-5.0) H 12/21/16 06:15 Chloride 86.6 mmol/L (98-107) L 12/21/16 06:15 Carbon Dioxide 25 mmol/L (22-30) 12/22/16 06:00 Anion Gap 34 mmol/L 12/21/16 06:15 BUN 88 mg/dL (9-20) H 12/22/16 06:00 Creatinine 6.6 mg/dL (0.8-1.5) H 12/22/16 06:00 Estimated GFR 10 ml/min 12/22/16 06:00 BUN/Creatinine Ratio 13.33 % 12/22/16 06:00 Glucose 195 mg/dL (75-100) H 12/22/16 06:00 POC Glucose 106 (70-105) H 12/23/16 05:42 Lactic Acid 8.5 mmol/L (0.7-2.0) H* 12/20/16 Unknown Calcium 5.4 mg/dL (8.4-10.2) L* 12/22/16 06:00 Phosphorus 3.1 mg/dL (2.5-4.5) 12/10/16 05:29 Magnesium 2.2 mg/dL (1.7-2.3) 12/21/16 06:15 Iron 20 ug/dL (49-181) L 12/12/16 05:40 TIBC 212 mcg/dL (250-450) L 12/12/16 05:40 Total Bilirubin 6.2 mg/dL (0.1-1.2) H 12/22/16 06:00 Direct Bilirubin 2.1 mg/dL (0-0.2) H 12/14/16 06:52 Indirect Bilirubin 0.5 mg/dL 12/14/16 06:52 AST 2006 units/L (5-40) H 12/22/16 06:00 ALT 553 units/L (7-56) H 12/22/16 06:00 Alkaline Phosphatase 938 units/L (35-129) H 12/22/16 06:00 Total Creatine Kinase 2770 units/L (55-170) H 12/18/16 04:30 CK-MB (CK-2) 7.5 ng/mL (0.0-4.0) H 12/17/16 15:00 CK-MB (CK-2) Rel Index 1.7 (0-4) 12/17/16 15:00 Troponin T 0.078 ng/mL (0.00-0.029) H 12/17/16 15:00 Total Protein 4.4 g/dL (6.3-8.2) L 12/22/16 06:00 Albumin 1.3 g/dL (3.9-5) L 12/22/16 06:00 Albumin/Globulin Ratio 0.4 % 12/22/16 06:00 Triglycerides 73 mg/dL (2-149) 12/17/16 15:00 Cholesterol 130 mg/dL (50-199) 12/17/16 15:00 LDL Cholesterol Direct 109 mg/dL (50-130) 12/17/16 15:00 HDL Cholesterol 7 mg/dL (40-59) L 12/17/16 15:00 Cholesterol/HDL Ratio 18.57 % 12/17/16 15:00 Prostate Specific Ag 35.07 ng/mL (0.00-4.00) H 12/15/16 10:42 TSH 2.660 mlU/mL (0.270-4.200) 12/08/16 00:58 Free T4 1.50 ng/dL (0.76-1.46) H 12/08/16 00:58 Urine Color Red (Yellow) 12/17/16 17:05 Urine Turbidity Cloudy (Clear) 12/17/16 17:05 Urine pH 6.0 (5.0-7.0) 12/17/16 17:05 Ur Specific [place] 1.006 (1.003-1.030) 12/17/16 17:05 Urine Protein 100 mg/dl mg/dL (Negative) 12/17/16 17:05 Urine Glucose (UA) Neg mg/dL (Negative) 12/17/16 17:05 Urine Ketones Neg mg/dL (Negative) 12/17/16 17:05 Urine Blood Lg (Negative) 12/17/16 17:05 Urine Nitrite Neg (Negative) 12/17/16 17:05 Urine Bilirubin Neg (Negative) 12/17/16 17:05 Urine Urobilinogen < 2.0 mg/dL (<2.0) 12/17/16 17:05 Ur Leukocyte Esterase Sm (Negative) 12/17/16 17:05 Urine WBC (Auto) 41.0 /HPF (0.0-6.0) H 12/17/16 17:05 Urine RBC (Auto) > 182.0 /HPF (0.0-6.0) 12/17/16 17:05 Urine Bacteria (Auto) 4+ /HPF (Negative) 12/17/16 17:05 Urine Mucus Few /HPF 12/08/16 02:15 Urine Eosinophils None seen (None Seen) 12/17/16 17:05 Urine Creatinine 105.0 mg/dL (0.1-20.0) H 12/17/16 17:05 Urine Sodium 88 mEq/L 12/17/16 17:05 Urine Opiates Screen Presumptive negative 12/08/16 02:18 Urine Methadone Screen Presumptive negative 12/08/16 02:18 Ur Barbiturates Screen Presumptive negative 12/08/16 02:18 Ur Phencyclidine Scrn Presumptive negative 12/08/16 02:18 Ur Amphetamines Screen Presumptive negative 12/08/16 02:18 U Benzodiazepines Scrn Presumptive negative 12/08/16 02:18 Urine Cocaine Screen Presumptive negative 12/08/16 02:18 U Marijuana (THC) Screen Presumptive negative 12/08/16 02:18 Drugs of Abuse Note Disclamer 12/08/16 02:18 Hepatitis A IgM Ab -1 (NonReactive) 12/14/16 06:52 Hep Bs Antigen Non-reactive (Negative) 12/14/16 06:52 Hep B Core IgM Ab Non-reactive (NonReactive) 12/14/16 06:52 Hepatitis C Antibody Non-reactive (NonReactive) 12/14/16 06:52 Blood Type O POSITIVE 12/18/16 06:00 Antibody Screen Negative 12/18/16 06:00 Crossmatch See Detail 12/18/16 06:00 - Imaging and Cardiology Chest x-ray: image reviewed Abdominal x-ray: image reviewed
[2016-12-23 11:44] LABS: Hematocrit 37.2 % (35.5-45.6); Hemoglobin 12.1 gm/dl (11.8-15.2); Mean Corpuscular HGB Conc 32 % (32-34); Mean Corpuscular Volume 79 fl (84-94); Red Blood Count 4.71 M/mm3 (3.65-5.03); Red Cell Distribution Width 18.2 % (13.2-15.2)
[2016-12-23 12:03] LABS: Albumin 0.9 g/dL (3.9-5); Albumin/Globulin Ratio 0.3 %; BUN/Creatinine Ratio 13.63; Calcium 5.7 mg/dL (8.4-10.2); Potassium 5.1 mmol/L (3.6-5.0); Total Protein 4.3 g/dL (6.3-8.2)
[2016-12-23] MEDS: D50W (25GM) IV PRN (12:25)
[2016-12-23] MEDS: NEO-SYNEPHRINE 100 MG in NACL 0.9% 90 ML IV SCH ×2 (12:31→21:39)
[2016-12-23 12:39] LABS: Mean Corpuscular Hemoglobin 26 pg (28-32); White Blood Count 20.9 K/mm3 (4.5-11.0)
[2016-12-23 12:40] LABS: Platelet Count 106 K/mm3 (140-440)
[2016-12-23 13:54] LABS: Basophils % (Manual) 0.5 % (0.0-1.8); Blastocytes % (Manual) 0 %; Total Cells Counted Percent 11.5
[2016-12-23 13:55] LABS: Anisocytosis 1+; Hypochromasia 1+; Target Cells Rare; Toxic Vacuolation Few
[2016-12-23 13:56] LABS: Diff Status Complete; Platelet Estimate Consistent w Auto
[2016-12-24] MEDS: D50W (25GM) IV PRN (00:45)
[2016-12-24] MEDS: PITRESSin 20 UNIT in NACL 0.9% 100 ML IV SCH ×2 (01:00→08:33)
[2016-12-24] MEDS: LEVOPHED 8 MG in NACL 0.9% 250ML 242 ML IV SCH ×4 (01:25→14:33)
[2016-12-24] MEDS: HEPARIN SUB-Q SCH ×3 (02:52→14:28)
[2016-12-24 05:07] LABS: Hematocrit 32.7 % (35.5-45.6); Hemoglobin 10.4 gm/dl (11.8-15.2); Mean Corpuscular HGB Conc 32 % (32-34); Mean Corpuscular Volume 80 fl (84-94); Red Blood Count 4.08 M/mm3 (3.65-5.03); Red Cell Distribution Width 18.3 % (13.2-15.2); White Blood Count 18.1 K/mm3 (4.5-11.0)
[2016-12-24 05:13] LABS: Mean Corpuscular Hemoglobin 26 pg (28-32)
[2016-12-24] MEDS: SODIUM BICARBONATE 150 MEQ in D5W 1,000 ML IV SCH ×2 (05:14→14:00)
[2016-12-24 05:22] LABS: Albumin/Globulin Ratio 0.4 %; BUN/Creatinine Ratio 12.39; Bilirubin,Total 5.2 mg/dL (0.1-1.2); Total Protein 3.6 g/dL (6.3-8.2)
[2016-12-24 05:25] LABS: Calcium 5.3 mg/dL (8.4-10.2)
[2016-12-24 05:37] LABS: Potassium 6.4 mmol/L (3.6-5.0)
[2016-12-24] MEDS ORDERED: KIONEX PO ONE (06:16)
[2016-12-24 06:35] LABS: ISTAT Base Excess -5; ISTAT HCO3 21.1; ISTAT PCO2 41.4 (35-45); ISTAT PH 7.315 (7.35-7.45); ISTAT PO2 58 (80-105); ISTAT SO2 87; ISTAT TCO2 22
[2016-12-24 06:41] LABS: Anisocytosis 1+; Basophils % (Manual) 0 % (0.0-1.8); Blastocytes % (Manual) 0 %; Eosinophils % (Manual) 0 % (0.0-4.3); Hypochromasia 1+; Target Cells Rare
[2016-12-24 06:42] LABS: Diff Status Complete; Platelet Count 85 K/mm3 (140-440); Platelet Estimate Appears Decreased
--- NOTE | 2016-12-24 07:09 | Progress Note ---
Assessment and Plan - Patient Problems (1) FAVIOLA (acute kidney injury) Status: Acute Plan to address problem: Acute kidney Injury in the setting of IV contrast and septic shock. Renal function continue to get worse and patient is oliguric / anuric. Patient is on three pressors. Hemodialysis has more risks than any benefit and would not alter the prognosis. Family is aware of this. Overall prognosis is very poor. (2) Septic shock Status: Acute Plan to address problem: Patient is on multiple pressors. (3) Lactic acidosis Status: Acute (4) Hyperkalemia Status: Acute Plan to address problem: Patient is on D5 bicarb drip. D50 and IV Calcium ordered. (5) Bladder mass Status: Chronic Plan to address problem: Evaluated by Urologist. (6) Respiratory failure Status: Acute Plan to address problem: On vent. (7) Diabetes Status: Chronic Subjective Date of service: 12/24/16 Principal diagnosis: paroxysmal SVT Interval history: Patient remain on the vent. Objective - Vital Signs Vital signs: Vital Signs - 12hr 12/23/16 12/23/16 12/23/16 19:16 19:30 19:46 Temperature Pulse Rate 72 70 71 Pulse Rate [ Anterior Bilateral Throughout] Respiratory 29 H 27 H 26 H Rate Respiratory Rate [Anterior Bilateral Throughout] Blood Pressure 137/24 124/24 124/24 O2 Sat by Pulse 85 86 87 Oximetry 12/23/16 12/23/16 12/23/16 19:50 19:59 20:00 Temperature Pulse Rate 73 Pulse Rate [ 74 70 Anterior Bilateral Throughout] Respiratory 29 H Rate Respiratory 27 H 29 H Rate [Anterior Bilateral Throughout] Blood Pressure 124/24 O2 Sat by Pulse 84 Oximetry 12/23/16 12/23/16 12/23/16 20:16 20:30 20:46 Temperature Pulse Rate 70 69 73 Pulse Rate [ Anterior Bilateral Throughout] Respiratory 29 H 30 H 30 H Rate Respiratory Rate [Anterior Bilateral Throughout] Blood Pressure 120/26 112/30 112/30 O2 Sat by Pulse 86 83 L 85 Oximetry 12/23/16 12/23/16 12/23/16 21:00 21:16 21:17 Temperature 98.0 F Pulse Rate 69 68 Pulse Rate [ Anterior Bilateral Throughout] Respiratory 31 H 31 H Rate Respiratory Rate [Anterior Bilateral Throughout] Blood Pressure 103/28 103/28 O2 Sat by Pulse 85 87 Oximetry 0112/23/16 12/23/16 21:30 21:45 22:00 Temperature Pulse Rate 67 67 70 Pulse Rate [ Anterior Bilateral Throughout] Respiratory 30 H 29 H 31 H Rate Respiratory Rate [Anterior Bilateral Throughout] Blood Pressure 105/38 119/36 119/36 O2 Sat by Pulse 86 86 85 Oximetry 12/23/16 12/23/16 12/23/16 22:08 22:16 22:30 Temperature Pulse Rate 66 71 70 Pulse Rate [ Anterior Bilateral Throughout] Respiratory 30 H 30 H 30 H Rate Respiratory Rate [Anterior Bilateral Throughout] Blood Pressure 126/27 136/22 137/19 O2 Sat by Pulse 86 87 84 Oximetry 12/23/16 12/23/16 12/23/16 22:45 23:00 23:15 Temperature Pulse Rate 70 71 70 Pulse Rate [ Anterior Bilateral Throughout] Respiratory 29 H 29 H 29 H Rate Respiratory Rate [Anterior Bilateral Throughout] Blood Pressure 126/24 133/20 134/25 O2 Sat by Pulse 85 85 84 Oximetry 12/23/16 12/23/16 12/23/16 23:30 23:36 23:46 Temperature Pulse Rate 68 68 67 Pulse Rate [ Anterior Bilateral Throughout] Respiratory 29 H 29 H 29 H Rate Respiratory Rate [Anterior Bilateral Throughout] Blood Pressure 131/21 131/21 128/22 O2 Sat by Pulse 85 85 86 Oximetry 12/23/16 12/24/16 12/24/16 23:55 00:00 00:15 Temperature 98.3 F Pulse Rate 68 69 69 Pulse Rate [ Anterior Bilateral Throughout] Respiratory 28 H 29 H Rate Respiratory Rate [Anterior Bilateral Throughout] Blood Pressure 128/22 115/31 131/31 O2 Sat by Pulse 87 86 85 Oximetry 12/24/16 12/24/16 12/24/16 00:30 00:45 01:00 Temperature Pulse Rate 69 72 71 Pulse Rate [ Anterior Bilateral Throughout] Respiratory 29 H 30 H 27 H Rate Respiratory Rate [Anterior Bilateral Throughout] Blood Pressure 126/23 139/27 129/21 O2 Sat by Pulse 84 85 83 L Oximetry 12/24/16 12/24/16 12/24/16 01:15 01:30 01:45 Temperature Pulse Rate 73 72 71 Pulse Rate [ Anterior Bilateral Throughout] Respiratory 28 H 29 H 28 H Rate Respiratory Rate [Anterior Bilateral Throughout] Blood Pressure 124/25 126/29 113/21 O2 Sat by Pulse 85 86 86 Oximetry 12/24/16 12/24/16 12/24/16 02:00 02:15 02:30 Temperature Pulse Rate 68 73 69 Pulse Rate [ Anterior Bilateral Throughout] Respiratory 29 H 25 H 29 H Rate Respiratory Rate [Anterior Bilateral Throughout] Blood Pressure 123/25 129/28 117/25 O2 Sat by Pulse 85 85 86 Oximetry 12/24/16 12/24/16 12/24/16 02:45 03:00 03:15 Temperature Pulse Rate 69 69 69 Pulse Rate [ Anterior Bilateral Throughout] Respiratory 28 H 29 H 28 H Rate Respiratory Rate [Anterior Bilateral Throughout] Blood Pressure 129/22 130/34 139/29 O2 Sat by Pulse 86 86 96 Oximetry 12/24/16 12/24/16 12/24/16 03:30 03:46 04:00 Temperature 98.3 F Pulse Rate 66 66 67 Pulse Rate [ Anterior Bilateral Throughout] Respiratory 27 H 28 H 25 H Rate Respiratory Rate [Anterior Bilateral Throughout] Blood Pressure 139/29 125/20 126/12 O2 Sat by Pulse 85 85 Oximetry 12/24/16 12/24/16 12/24/16 04:16 04:30 04:32 Temperature Pulse Rate 66 64 65 Pulse Rate [ Anterior Bilateral Throughout] Respiratory 26 H 28 H 22 Rate Respiratory Rate [Anterior Bilateral Throughout] Blood Pressure 111/29 116/21 116/21 O2 Sat by Pulse 82 L 83 L 86 Oximetry 12/24/16 12/24/16 12/24/16 04:35 04:45 05:00 Temperature Pulse Rate 64 66 65 Pulse Rate [ Anterior Bilateral Throughout] Respiratory 26 H 24 Rate Respiratory Rate [Anterior Bilateral Throughout] Blood Pressure 116/21 123/33 116/23 O2 Sat by Pulse 86 85 Oximetry 12/24/16 12/24/16 12/24/16 05:09 05:14 05:15 Temperature 98.2 F Pulse Rate 64 64 Pulse Rate [ Anterior Bilateral Throughout] Respiratory 23 24 Rate Respiratory Rate [Anterior Bilateral Throughout] Blood Pressure 116/23 105/24 O2 Sat by Pulse 84 82 L Oximetry 12/24/16 12/24/16 12/24/16 05:30 05:45 06:00 Temperature Pulse Rate 65 64 64 Pulse Rate [ Anterior Bilateral Throughout] Respiratory 23 23 23 Rate Respiratory Rate [Anterior Bilateral Throughout] Blood Pressure 111/24 114/18 97/18 O2 Sat by Pulse 84 84 83 L Oximetry - General Appearance General appearance: well-developed, intubated, other (unresponsive, FiO2 100%) EENT: PERRL Neck: supple Respiratory: Present: Other (coarse breath sounds) Cardiology: regular, S1S2 Gastrointestinal: normoactive bowel sounds, no tenderness Integumentary: no rash Neurologic: obtunded Musculoskeletal: other (2+ edema of all 4 extremities) Psychiatric: other (unresponsive) - Lab 12/24/16 04:15 12/24/16 04:15 Most recent lab results Calcium 5.3 mg/dL (8.4-10.2) L* 12/24/16 04:15 Phosphorus 3.1 mg/dL (2.5-4.5) 12/10/16 05:29 Magnesium 2.2 mg/dL (1.7-2.3) 12/21/16 06:15 Urine Creatinine 105.0 mg/dL (0.1-20.0) H 12/17/16 17:05 Urine Sodium 88 mEq/L 12/17/16 17:05
[2016-12-24] MEDS: NOVOLOG SUB-Q SCH ×4 (07:20→19:43)
[2016-12-24] MEDS ORDERED: D50W (25GM) IV ONE (08:00)
[2016-12-24] MEDS ORDERED: CALCIUM CHLORIDE IV ONE (08:00)
[2016-12-24] MEDS: PROVENTIL IH PRN (08:53)
[2016-12-24] MEDS: PULMICORT IH SCH ×2 (08:53→20:05)
[2016-12-24] MEDS: NEO-SYNEPHRINE 100 MG in NACL 0.9% 90 ML IV SCH ×2 (08:59→13:45)
--- NOTE | 2016-12-24 09:26 | XRay Report ---
Single view chest: Compared to 12/23/16. Next History: Followup respiratory failure. Findings: Cardiomegaly. Diffuse in the interstitial infiltrates bilaterally without significant interval change. Stable support system. Impression: No significant interval change.
[2016-12-24] MEDS: LEVEMIR SUB-Q SCH (10:25)
[2016-12-24] MEDS: PEPCID IV SCH (10:25)
[2016-12-24] MEDS: AZTREONAM IV SCH (10:25)
[2016-12-24] MEDS: SODIUM CHLORIDE IV SCH (10:25)
--- NOTE | 2016-12-24 11:00 | Progress Note ---
Assessment and Plan Acute respiratory failure. She just feels consistent with ARDS versus cardiogenic edema. On high FiO2 support Multisystemic organ failure End-stage bladder cancer Liver metastases Acute renal failure Recommendations Patient condition is dismal at this point. No family members are available for today's discussion. Patient requests intubated by my colleague Dr. Randle yesterday and extensive discussion regarding patient clinical status, DO NOT RESUSCITATE" options and comfortable care was done. None candidate for weaning from ventilator standpoint so will continue current oxygen support and ventilator settings Recurrent comfort care measures and DO NOT RESUSCITATE CODE STATUS Critical care time was 31 minutes Subjective Date of service: 12/24/16 Principal diagnosis: acute respiratory failure, end-stage metastatic bladder cancer and MSOF Interval history: Intubated poorly responsive on ventilator support Objective Vital Signs - 12hr 12/23/16 12/23/16 12/23/16 23:00 23:15 23:30 Temperature Pulse Rate 71 70 68 Pulse Rate [ Anterior Bilateral Throughout] Respiratory 29 H 29 H 29 H Rate Respiratory Rate [Anterior Bilateral Throughout] Blood Pressure 133/20 134/25 131/21 O2 Sat by Pulse 85 84 85 Oximetry 12/23/16 12/23/16 12/23/16 23:36 23:46 23:55 Temperature Pulse Rate 68 67 68 Pulse Rate [ Anterior Bilateral Throughout] Respiratory 29 H 29 H Rate Respiratory Rate [Anterior Bilateral Throughout] Blood Pressure 131/21 128/22 128/22 O2 Sat by Pulse 85 86 87 Oximetry 12/24/16 12/24/16 12/24/16 00:00 00:15 00:30 Temperature 98.3 F Pulse Rate 69 69 69 Pulse Rate [ Anterior Bilateral Throughout] Respiratory 28 H 29 H 29 H Rate Respiratory Rate [Anterior Bilateral Throughout] Blood Pressure 115/31 131/31 126/23 O2 Sat by Pulse 86 85 84 Oximetry 12/24/16 12/24/16 12/24/16 00:45 01:00 01:15 Temperature Pulse Rate 72 71 73 Pulse Rate [ Anterior Bilateral Throughout] Respiratory 30 H 27 H 28 H Rate Respiratory Rate [Anterior Bilateral Throughout] Blood Pressure 139/27 129/21 124/25 O2 Sat by Pulse 85 83 L 85 Oximetry 12/24/16 12/24/16 12/24/16 01:30 01:45 02:00 Temperature Pulse Rate 72 71 68 Pulse Rate [ Anterior Bilateral Throughout] Respiratory 29 H 28 H 29 H Rate Respiratory Rate [Anterior Bilateral Throughout] Blood Pressure 126/29 113/21 123/25 O2 Sat by Pulse 86 86 85 Oximetry 12/24/16 12/24/16 12/24/16 02:15 02:30 02:45 Temperature Pulse Rate 73 69 69 Pulse Rate [ Anterior Bilateral Throughout] Respiratory 25 H 29 H 28 H Rate Respiratory Rate [Anterior Bilateral Throughout] Blood Pressure 129/28 117/25 129/22 O2 Sat by Pulse 85 86 86 Oximetry 12/24/16 12/24/16 12/24/16 03:00 03:15 03:30 Temperature Pulse Rate 69 69 66 Pulse Rate [ Anterior Bilateral Throughout] Respiratory 29 H 28 H 27 H Rate Respiratory Rate [Anterior Bilateral Throughout] Blood Pressure 130/34 139/29 139/29 O2 Sat by Pulse 86 96 Oximetry 12/24/16 12/24/16 12/24/16 03:46 04:00 04:16 Temperature 98.3 F Pulse Rate 66 67 66 Pulse Rate [ Anterior Bilateral Throughout] Respiratory 28 H 25 H 26 H Rate Respiratory Rate [Anterior Bilateral Throughout] Blood Pressure 125/20 126/12 111/29 O2 Sat by Pulse 85 85 82 L Oximetry 12/24/16 12/24/16 12/24/16 04:30 04:32 04:35 Temperature Pulse Rate 64 65 64 Pulse Rate [ Anterior Bilateral Throughout] Respiratory 28 H 22 Rate Respiratory Rate [Anterior Bilateral Throughout] Blood Pressure 116/21 116/21 116/21 O2 Sat by Pulse 83 L 86 86 Oximetry 12/24/16 12/24/16 12/24/16 04:45 05:00 05:09 Temperature 98.2 F Pulse Rate 66 65 Pulse Rate [ Anterior Bilateral Throughout] Respiratory 26 H 24 Rate Respiratory Rate [Anterior Bilateral Throughout] Blood Pressure 123/33 116/23 O2 Sat by Pulse 85 Oximetry 12/24/16 12/24/16 12/24/16 05:14 05:15 05:30 Temperature Pulse Rate 64 64 65 Pulse Rate [ Anterior Bilateral Throughout] Respiratory 23 Rate Respiratory Rate [Anterior Bilateral Throughout] Blood Pressure 116/23 105/24 111/24 O2 Sat by Pulse 84 82 L 84 Oximetry 12/24/16 12/24/16 12/24/16 05:45 06:00 06:06 Temperature Pulse Rate 64 64 64 Pulse Rate [ Anterior Bilateral Throughout] Respiratory 23 23 23 Rate Respiratory Rate [Anterior Bilateral Throughout] Blood Pressure 114/18 97/18 97/18 O2 Sat by Pulse 84 83 L Oximetry 12/24/16 12/24/16 12/24/16 06:16 06:30 06:45 Temperature Pulse Rate 65 64 64 Pulse Rate [ Anterior Bilateral Throughout] Respiratory 23 23 23 Rate Respiratory Rate [Anterior Bilateral Throughout] Blood Pressure 94/16 107/18 119/20 O2 Sat by Pulse 76 L 73 L 76 L Oximetry 12/24/16 12/24/16 12/24/16 07:00 07:15 07:30 Temperature Pulse Rate 64 63 64 Pulse Rate [ Anterior Bilateral Throughout] Respiratory 23 23 23 Rate Respiratory Rate [Anterior Bilateral Throughout] Blood Pressure 87/21 98/22 105/14 O2 Sat by Pulse 80 L 85 Oximetry 12/24/16 12/24/16 12/24/16 07:45 08:00 08:16 Temperature 97.7 F Pulse Rate 63 62 63 Pulse Rate [ Anterior Bilateral Throughout] Respiratory 23 23 23 Rate Respiratory Rate [Anterior Bilateral Throughout] Blood Pressure 103/17 99/12 105/14 O2 Sat by Pulse 79 L 79 L Oximetry 12/24/16 12/24/16 12/24/16 08:30 08:38 09:12 Temperature Pulse Rate 72 66 Pulse Rate [ 71 66 Anterior Bilateral Throughout] Respiratory 22 Rate Respiratory 23 24 Rate [Anterior Bilateral Throughout] Blood Pressure 105/14 122/17 O2 Sat by Pulse 87 90 Oximetry Constitutional: appears uncomfortable, other (orally intubated and sedation off and critically ill appearing) ENT: other (orally intubated) Neck: supple Effort: mildly labored Ascultation: Right: rales (base sporadic), Bilateral: clear Percussion: Bilateral: not dull Cardiovascular: regular rate and rhythm Gastrointestinal: hypoactive bowel sounds Integumentary: normal Extremities: no edema, pink and warm CBC and BMP: 12/24/16 04:15 12/24/16 04:15 ABG, PT/INR, D-dimer: ABG POC ABG pH 7.315 (7.35-7.45) L 12/24/16 04:52 POC ABG pCO2 41.4 (35-45) 12/24/16 04:52 POC ABG pO2 58 (80-105) L 12/24/16 04:52 POC ABG HCO3 21.1 12/24/16 04:52 POC ABG Total CO2 22 12/24/16 04:52 POC ABG O2 Sat 87 12/24/16 04:52 PT/INR, D-dimer PT 26.6 Sec. (12.2-14.9) H 12/21/16 06:15 INR 2.44 (0.87-1.13) H 12/21/16 06:15 Abnormal lab findings: Abnormal Labs 12/08/16 12/08/16 12/09/16 09:44 12:22 10:47 WBC RBC Hgb Hct MCV MCH MCHC RDW Plt Count Lymph % (Auto) Ashley % (Auto) Lymph # Ashley # Seg Neutrophils % Seg Neuts % (Manual) Lymphocytes % (Manual) Monocytes % (Manual) Nucleated RBC % Seg Neutrophils # Seg Neutrophils # Man Lymphocytes # (Manual) Monocytes # (Manual) PT INR APTT POC ABG pH POC ABG pCO2 POC ABG pO2 Sodium Potassium Chloride Carbon Dioxide BUN Creatinine Glucose POC Glucose 54 L 68 L 127 H Lactic Acid Calcium Iron TIBC Total Bilirubin Direct Bilirubin AST ALT Alkaline Phosphatase Total Creatine Kinase CK-MB (CK-2) Troponin T Total Protein Albumin HDL Cholesterol Prostate Specific Ag Urine WBC (Auto) Urine Creatinine Crossmatch 12/09/16 12/09/16 12/10/16 11:32 16:08 05:29 WBC 15.2 H RBC Hgb Hct MCV 80 L MCH 25 L MCHC RDW 15.6 H Plt Count Lymph % (Auto) 7.2 L Ashley % (Auto) 9.2 H Lymph # 1.1 L Ashley # 1.4 H Seg Neutrophils % 83.0 H Seg Neuts % (Manual) Lymphocytes % (Manual) Monocytes % (Manual) Nucleated RBC % Seg Neutrophils # 12.6 H Seg Neutrophils # Man Lymphocytes # (Manual) Monocytes # (Manual) PT INR APTT POC ABG pH POC ABG pCO2 POC ABG pO2 Sodium Potassium Chloride Carbon Dioxide BUN Creatinine Glucose POC Glucose 110 H 130 H Lactic Acid Calcium Iron TIBC Total Bilirubin Direct Bilirubin AST ALT Alkaline Phosphatase Total Creatine Kinase CK-MB (CK-2) Troponin T Total Protein Albumin HDL Cholesterol Prostate Specific Ag Urine WBC (Auto) Urine Creatinine Crossmatch 12/10/16 12/10/16 12/11/16 05:29 17:00 07:43 WBC 15.2 H RBC Hgb 11.5 L Hct 35.4 L MCV 78 L MCH 26 L MCHC RDW 15.7 H Plt Count Lymph % (Auto) 10.4 L Ashley % (Auto) 9.9 H Lymph # Ashley # 1.5 H Seg Neutrophils % 78.4 H Seg Neuts % (Manual) Lymphocytes % (Manual) Monocytes % (Manual) Nucleated RBC % Seg Neutrophils # 11.9 H Seg Neutrophils # Man Lymphocytes # (Manual) Monocytes # (Manual) PT INR APTT POC ABG pH POC ABG pCO2 POC ABG pO2 Sodium Potassium Chloride Carbon Dioxide BUN 24 H Creatinine Glucose 121 H POC Glucose 148 H Lactic Acid Calcium Iron TIBC Total Bilirubin Direct Bilirubin AST ALT Alkaline Phosphatase Total Creatine Kinase CK-MB (CK-2) Troponin T Total Protein Albumin HDL Cholesterol Prostate Specific Ag Urine WBC (Auto) Urine Creatinine Crossmatch 12/11/16 12/12/16 12/12/16 19:28 05:40 05:40 WBC 15.5 H RBC Hgb 11.4 L Hct MCV 79 L MCH 25 L MCHC RDW 15.9 H Plt Count Lymph % (Auto) 10.4 L Ashley % (Auto) 11.0 H Lymph # Ashley # 1.7 H Seg Neutrophils % 77.6 H Seg Neuts % (Manual) Lymphocytes % (Manual) Monocytes % (Manual) Nucleated RBC % Seg Neutrophils # 12.0 H Seg Neutrophils # Man Lymphocytes # (Manual) Monocytes # (Manual) PT INR APTT POC ABG pH POC ABG pCO2 POC ABG pO2 Sodium Potassium Chloride Carbon Dioxide BUN Creatinine Glucose POC Glucose Lactic Acid Calcium Iron 20 L TIBC 212 L Total Bilirubin Direct Bilirubin AST ALT Alkaline Phosphatase Total Creatine Kinase CK-MB (CK-2) Troponin T Total Protein Albumin HDL Cholesterol Prostate Specific Ag 30.40 H Urine WBC (Auto) Urine Creatinine Crossmatch 12/12/16 12/13/16 12/13/16 08:12 11:28 15:49 WBC RBC Hgb Hct MCV MCH MCHC RDW Plt Count Lymph % (Auto) Ashley % (Auto) Lymph # Ashley # Seg Neutrophils % Seg Neuts % (Manual) Lymphocytes % (Manual) Monocytes % (Manual) Nucleated RBC % Seg Neutrophils # Seg Neutrophils # Man Lymphocytes # (Manual) Monocytes # (Manual) PT INR APTT POC ABG pH POC ABG pCO2 POC ABG pO2 Sodium Potassium Chloride Carbon Dioxide BUN Creatinine Glucose POC Glucose 68 L 119 H 106 H Lactic Acid Calcium Iron TIBC Total Bilirubin Direct Bilirubin AST ALT Alkaline Phosphatase Total Creatine Kinase CK-MB (CK-2) Troponin T Total Protein Albumin HDL Cholesterol Prostate Specific Ag Urine WBC (Auto) Urine Creatinine Crossmatch 12/13/16 12/14/16 12/14/16 19:39 06:52 06:52 WBC RBC Hgb Hct MCV MCH MCHC RDW Plt Count Lymph % (Auto) Ashley % (Auto) Lymph # Ashley # Seg Neutrophils % Seg Neuts % (Manual) Lymphocytes % (Manual) Monocytes % (Manual) Nucleated RBC % Seg Neutrophils # Seg Neutrophils # Man Lymphocytes # (Manual) Monocytes # (Manual) PT 15.0 H INR 1.19 H APTT 40.1 H POC ABG pH POC ABG pCO2 POC ABG pO2 Sodium Potassium Chloride Carbon Dioxide BUN Creatinine Glucose POC Glucose 123 H Lactic Acid Calcium Iron TIBC Total Bilirubin 2.6 H Direct Bilirubin 2.1 H AST 554 H ALT 166 H Alkaline Phosphatase 591 H Total Creatine Kinase CK-MB (CK-2) Troponin T Total Protein Albumin 2.7 L HDL Cholesterol Prostate Specific Ag Urine WBC (Auto) Urine Creatinine Crossmatch 12/14/16 12/14/16 12/14/16 11:01 11:49 15:55 WBC 15.9 H RBC Hgb 11.6 L Hct MCV 79 L MCH 26 L MCHC RDW 16.0 H Plt Count Lymph % (Auto) Ashley % (Auto) Lymph # Ashley # Seg Neutrophils % Seg Neuts % (Manual) Lymphocytes % (Manual) Monocytes % (Manual) Nucleated RBC % Seg Neutrophils # Seg Neutrophils # Man Lymphocytes # (Manual) Monocytes # (Manual) PT INR APTT POC ABG pH POC ABG pCO2 POC ABG pO2 Sodium Potassium Chloride Carbon Dioxide BUN Creatinine Glucose POC Glucose 122 H 177 H Lactic Acid Calcium Iron TIBC Total Bilirubin Direct Bilirubin AST ALT Alkaline Phosphatase Total Creatine Kinase CK-MB (CK-2) Troponin T Total Protein Albumin HDL Cholesterol Prostate Specific Ag Urine WBC (Auto) Urine Creatinine Crossmatch 12/14/16 12/15/16 12/15/16 21:21 07:54 10:42 WBC RBC Hgb Hct MCV MCH MCHC RDW Plt Count Lymph % (Auto) Ashley % (Auto) Lymph # Ashley # Seg Neutrophils % Seg Neuts % (Manual) Lymphocytes % (Manual) Monocytes % (Manual) Nucleated RBC % Seg Neutrophils # Seg Neutrophils # Man Lymphocytes # (Manual) Monocytes # (Manual) PT INR APTT POC ABG pH POC ABG pCO2 POC ABG pO2 Sodium Potassium Chloride Carbon Dioxide BUN Creatinine Glucose POC Glucose 179 H 106 H Lactic Acid Calcium Iron TIBC Total Bilirubin Direct Bilirubin AST ALT Alkaline Phosphatase Total Creatine Kinase CK-MB (CK-2) Troponin T Total Protein Albumin HDL Cholesterol Prostate Specific Ag 35.07 H Urine WBC (Auto) Urine Creatinine Crossmatch 12/15/16 12/15/16 12/16/16 12:10 16:53 08:10 WBC RBC Hgb Hct MCV MCH MCHC RDW Plt Count Lymph % (Auto) Ashley % (Auto) Lymph # Ashley # Seg Neutrophils % Seg Neuts % (Manual) Lymphocytes % (Manual) Monocytes % (Manual) Nucleated RBC % Seg Neutrophils # Seg Neutrophils # Man Lymphocytes # (Manual) Monocytes # (Manual) PT INR APTT POC ABG pH POC ABG pCO2 POC ABG pO2 Sodium Potassium Chloride Carbon Dioxide BUN Creatinine Glucose POC Glucose 132 H 107 H 52 L Lactic Acid Calcium Iron TIBC Total Bilirubin Direct Bilirubin AST ALT Alkaline Phosphatase Total Creatine Kinase CK-MB (CK-2) Troponin T Total Protein Albumin HDL Cholesterol Prostate Specific Ag Urine WBC (Auto) Urine Creatinine Crossmatch 12/16/16 12/17/16 12/17/16 22:44 05:17 05:17 WBC 15.6 H RBC Hgb Hct MCV 79 L MCH 26 L MCHC RDW 16.6 H Plt Count Lymph % (Auto) 5.8 L Ashley % (Auto) 8.5 H Lymph # 0.9 L Ashley # 1.3 H Seg Neutrophils % 85.5 H Seg Neuts % (Manual) Lymphocytes % (Manual) Monocytes % (Manual) Nucleated RBC % Seg Neutrophils # 13.4 H Seg Neutrophils # Man Lymphocytes # (Manual) Monocytes # (Manual) PT INR APTT POC ABG pH POC ABG pCO2 POC ABG pO2 Sodium 134 L Potassium 6.0 H D Chloride 89.1 L Carbon Dioxide 15 L D BUN 63 H Creatinine 3.0 H D Glucose 122 H POC Glucose 67 L Lactic Acid Calcium Iron TIBC Total Bilirubin Direct Bilirubin AST ALT Alkaline Phosphatase Total Creatine Kinase CK-MB (CK-2) Troponin T Total Protein Albumin HDL Cholesterol Prostate Specific Ag Urine WBC (Auto) Urine Creatinine Crossmatch 12/17/16 12/17/16 12/17/16 07:27 12:04 12:57 WBC RBC Hgb Hct MCV MCH MCHC RDW Plt Count Lymph % (Auto) Ashley % (Auto) Lymph # Ashley # Seg Neutrophils % Seg Neuts % (Manual) Lymphocytes % (Manual) Monocytes % (Manual) Nucleated RBC % Seg Neutrophils # Seg Neutrophils # Man Lymphocytes # (Manual) Monocytes # (Manual) PT INR APTT POC ABG pH POC ABG pCO2 POC ABG pO2 Sodium Potassium Chloride Carbon Dioxide BUN Creatinine Glucose POC Glucose 130 H 154 H 232 H Lactic Acid Calcium Iron TIBC Total Bilirubin Direct Bilirubin AST ALT Alkaline Phosphatase Total Creatine Kinase CK-MB (CK-2) Troponin T Total Protein Albumin HDL Cholesterol Prostate Specific Ag Urine WBC (Auto) Urine Creatinine Crossmatch 12/17/16 12/17/16 12/17/16 13:41 13:46 15:00 WBC 15.9 H RBC Hgb 9.3 L Hct 29.8 L D MCV 82 L D MCH 26 L MCHC 31 L RDW 17.1 H Plt Count Lymph % (Auto) Ashley % (Auto) Lymph # Ashley # Seg Neutrophils % Seg Neuts % (Manual) 79.0 H Lymphocytes % (Manual) Monocytes % (Manual) Nucleated RBC % Seg Neutrophils # Seg Neutrophils # Man 12.6 H Lymphocytes # (Manual) Monocytes # (Manual) 1.1 H PT INR APTT POC ABG pH 6.961 L POC ABG pCO2 20.4 L POC ABG pO2 230 H Sodium Potassium Chloride Carbon Dioxide BUN Creatinine Glucose POC Glucose 271 H Lactic Acid Calcium Iron TIBC Total Bilirubin Direct Bilirubin AST ALT Alkaline Phosphatase Total Creatine Kinase CK-MB (CK-2) Troponin T Total Protein Albumin HDL Cholesterol Prostate Specific Ag Urine WBC (Auto) Urine Creatinine Crossmatch 12/17/16 12/17/16 12/17/16 15:00 15:00 15:41 WBC RBC Hgb Hct MCV MCH MCHC RDW Plt Count Lymph % (Auto) Ashley % (Auto) Lymph # Ashley # Seg Neutrophils % Seg Neuts % (Manual) Lymphocytes % (Manual) Monocytes % (Manual) Nucleated RBC % Seg Neutrophils # Seg Neutrophils # Man Lymphocytes # (Manual) Monocytes # (Manual) PT INR APTT POC ABG pH 7.145 L POC ABG pCO2 19.5 L POC ABG pO2 208 H Sodium 132 L Potassium 5.2 H Chloride 83.7 L Carbon Dioxide 6 L* D BUN 69 H Creatinine 3.9 H Glucose 220 H POC Glucose Lactic Acid Calcium 7.7 L D Iron TIBC Total Bilirubin Direct Bilirubin AST ALT Alkaline Phosphatase Total Creatine Kinase 435 H CK-MB (CK-2) 7.5 H Troponin T 0.078 H Total Protein Albumin HDL Cholesterol 7 L Prostate Specific Ag Urine WBC (Auto) Urine Creatinine Crossmatch 12/17/16 12/17/16 12/17/16 17:05 17:05 17:48 WBC RBC Hgb Hct MCV MCH MCHC RDW Plt Count Lymph % (Auto) Ashley % (Auto) Lymph # Ashley # Seg Neutrophils % Seg Neuts % (Manual) Lymphocytes % (Manual) Monocytes % (Manual) Nucleated RBC % Seg Neutrophils # Seg Neutrophils # Man Lymphocytes # (Manual) Monocytes # (Manual) PT INR APTT POC ABG pH POC ABG pCO2 POC ABG pO2 Sodium Potassium Chloride Carbon Dioxide BUN Creatinine Glucose POC Glucose 218 H Lactic Acid Calcium Iron TIBC Total Bilirubin Direct Bilirubin AST ALT Alkaline Phosphatase Total Creatine Kinase CK-MB (CK-2) Troponin T Total Protein Albumin HDL Cholesterol Prostate Specific Ag Urine WBC (Auto) 41.0 H Urine Creatinine 105.0 H Crossmatch 12/17/16 12/17/16 12/18/16 21:26 21:38 04:30 WBC 15.1 H RBC 3.62 L Hgb 9.1 L Hct 27.8 L MCV 77 L D MCH 25 L MCHC RDW 16.3 H Plt Count Lymph % (Auto) 3.1 L Ashley % (Auto) Lymph # 0.5 L Ashley # 1.0 H Seg Neutrophils % 89.6 H Seg Neuts % (Manual) Lymphocytes % (Manual) Monocytes % (Manual) Nucleated RBC % Seg Neutrophils # 13.5 H Seg Neutrophils # Man Lymphocytes # (Manual) Monocytes # (Manual) PT INR APTT POC ABG pH POC ABG pCO2 19.2 L POC ABG pO2 Sodium Potassium Chloride Carbon Dioxide BUN Creatinine Glucose POC Glucose 299 H Lactic Acid Calcium Iron TIBC Total Bilirubin Direct Bilirubin AST ALT Alkaline Phosphatase Total Creatine Kinase CK-MB (CK-2) Troponin T Total Protein Albumin HDL Cholesterol Prostate Specific Ag Urine WBC (Auto) Urine Creatinine Crossmatch 12/18/16 12/18/16 12/18/16 04:30 04:30 05:44 WBC RBC Hgb Hct MCV MCH MCHC RDW Plt Count Lymph % (Auto) Ashley % (Auto) Lymph # Ashley # Seg Neutrophils % Seg Neuts % (Manual) Lymphocytes % (Manual) Monocytes % (Manual) Nucleated RBC % Seg Neutrophils # Seg Neutrophils # Man Lymphocytes # (Manual) Monocytes # (Manual) PT INR APTT POC ABG pH POC ABG pCO2 25.0 L POC ABG pO2 77 L Sodium 136 L Potassium 5.1 H Chloride 94.4 L Carbon Dioxide 16 L D BUN 71 H Creatinine 3.0 H Glucose 289 H POC Glucose Lactic Acid 9.3 H* Calcium 5.9 L* D Iron TIBC Total Bilirubin 3.3 H Direct Bilirubin AST 6347 H ALT 1079 H Alkaline Phosphatase 978 H Total Creatine Kinase 2770 H CK-MB (CK-2) Troponin T Total Protein 4.6 L D Albumin 1.9 L HDL Cholesterol Prostate Specific Ag Urine WBC (Auto) Urine Creatinine Crossmatch 12/18/16 12/18/16 12/18/16 06:00 07:54 11:50 WBC RBC Hgb Hct MCV MCH MCHC RDW Plt Count Lymph % (Auto) Ashley % (Auto) Lymph # Ashley # Seg Neutrophils % Seg Neuts % (Manual) Lymphocytes % (Manual) Monocytes % (Manual) Nucleated RBC % Seg Neutrophils # Seg Neutrophils # Man Lymphocytes # (Manual) Monocytes # (Manual) PT INR APTT POC ABG pH POC ABG pCO2 POC ABG pO2 Sodium Potassium Chloride Carbon Dioxide BUN Creatinine Glucose POC Glucose 301 H 246 H Lactic Acid Calcium Iron TIBC Total Bilirubin Direct Bilirubin AST ALT Alkaline Phosphatase Total Creatine Kinase CK-MB (CK-2) Troponin T Total Protein Albumin HDL Cholesterol Prostate Specific Ag Urine WBC (Auto) Urine Creatinine Crossmatch See Detail 12/18/16 12/18/16 12/19/16 15:54 21:05 01:16 WBC RBC Hgb Hct MCV MCH MCHC RDW Plt Count Lymph % (Auto) Ashley % (Auto) Lymph # Ashley # Seg Neutrophils % Seg Neuts % (Manual) Lymphocytes % (Manual) Monocytes % (Manual) Nucleated RBC % Seg Neutrophils # Seg Neutrophils # Man Lymphocytes # (Manual) Monocytes # (Manual) PT INR APTT POC ABG pH POC ABG pCO2 31.9 L POC ABG pO2 61 L Sodium Potassium Chloride Carbon Dioxide BUN Creatinine Glucose POC Glucose 231 H 256 H Lactic Acid Calcium Iron TIBC Total Bilirubin Direct Bilirubin AST ALT Alkaline Phosphatase Total Creatine Kinase CK-MB (CK-2) Troponin T Total Protein Albumin HDL Cholesterol Prostate Specific Ag Urine WBC (Auto) Urine Creatinine Crossmatch 12/19/16 12/19/16 12/19/16 04:40 04:40 04:40 WBC 17.8 H RBC Hgb 10.9 L Hct 33.6 L MCV 80 L D MCH 26 L MCHC RDW 17.5 H Plt Count Lymph % (Auto) Ashley % (Auto) Lymph # Ashley # Seg Neutrophils % Seg Neuts % (Manual) 88.0 H Lymphocytes % (Manual) 3.0 L Monocytes % (Manual) 8.0 H Nucleated RBC % Seg Neutrophils # Seg Neutrophils # Man 15.7 H Lymphocytes # (Manual) 0.5 L Monocytes # (Manual) 1.4 H PT INR APTT POC ABG pH POC ABG pCO2 POC ABG pO2 Sodium Potassium Chloride 94.1 L Carbon Dioxide 17 L BUN 77 H Creatinine 3.6 H Glucose 245 H POC Glucose Lactic Acid 8.6 H* Calcium 4.9 L* D Iron TIBC Total Bilirubin 5.9 H Direct Bilirubin AST 8235 H ALT 1128 H Alkaline Phosphatase 1191 H Total Creatine Kinase CK-MB (CK-2) Troponin T Total Protein 4.4 L Albumin 1.7 L HDL Cholesterol Prostate Specific Ag Urine WBC (Auto) Urine Creatinine Crossmatch 12/19/16 12/19/16 12/19/16 04:40 07:20 11:21 WBC RBC Hgb Hct MCV MCH MCHC RDW Plt Count Lymph % (Auto) Ashley % (Auto) Lymph # Ashley # Seg Neutrophils % Seg Neuts % (Manual) Lymphocytes % (Manual) Monocytes % (Manual) Nucleated RBC % Seg Neutrophils # Seg Neutrophils # Man Lymphocytes # (Manual) Monocytes # (Manual) PT 25.2 H INR 2.28 H APTT POC ABG pH POC ABG pCO2 POC ABG pO2 Sodium Potassium Chloride Carbon Dioxide BUN Creatinine Glucose POC Glucose 257 H 263 H Lactic Acid Calcium Iron TIBC Total Bilirubin Direct Bilirubin AST ALT Alkaline Phosphatase Total Creatine Kinase CK-MB (CK-2) Troponin T Total Protein Albumin HDL Cholesterol Prostate Specific Ag Urine WBC (Auto) Urine Creatinine Crossmatch 12/19/16 12/20/16 12/20/16 16:02 00:00 04:12 WBC RBC Hgb Hct MCV MCH MCHC RDW Plt Count Lymph % (Auto) Ashley % (Auto) Lymph # Ashley # Seg Neutrophils % Seg Neuts % (Manual) Lymphocytes % (Manual) Monocytes % (Manual) Nucleated RBC % Seg Neutrophils # Seg Neutrophils # Man Lymphocytes # (Manual) Monocytes # (Manual) PT INR APTT POC ABG pH POC ABG pCO2 POC ABG pO2 66 L Sodium Potassium Chloride Carbon Dioxide BUN Creatinine Glucose POC Glucose 272 H 255 H Lactic Acid Calcium Iron TIBC Total Bilirubin Direct Bilirubin AST ALT Alkaline Phosphatase Total Creatine Kinase CK-MB (CK-2) Troponin T Total Protein Albumin HDL Cholesterol Prostate Specific Ag Urine WBC (Auto) Urine Creatinine Crossmatch 12/20/16 12/20/16 12/20/16 04:20 04:20 05:29 WBC 18.4 H RBC Hgb 11.5 L Hct 34.4 L MCV 79 L MCH 26 L MCHC RDW 16.8 H Plt Count Lymph % (Auto) Ashley % (Auto) Lymph # Ashley # Seg Neutrophils % Seg Neuts % (Manual) 76.0 H Lymphocytes % (Manual) 1.0 L Monocytes % (Manual) Nucleated RBC % Seg Neutrophils # Seg Neutrophils # Man 14.0 H Lymphocytes # (Manual) 0.2 L Monocytes # (Manual) PT INR APTT POC ABG pH POC ABG pCO2 POC ABG pO2 Sodium Potassium 5.1 H Chloride 91.5 L Carbon Dioxide BUN 84 H Creatinine 4.6 H Glucose 278 H POC Glucose 288 H Lactic Acid Calcium 5.0 L* Iron TIBC Total Bilirubin 6.6 H Direct Bilirubin AST 5812 H ALT 976 H Alkaline Phosphatase 1188 H Total Creatine Kinase CK-MB (CK-2) Troponin T Total Protein 4.4 L Albumin 1.4 L HDL Cholesterol Prostate Specific Ag Urine WBC (Auto) Urine Creatinine Crossmatch 12/20/16 12/20/16 12/20/16 11:19 17:32 Unknown WBC RBC Hgb Hct MCV MCH MCHC RDW Plt Count Lymph % (Auto) Ashley % (Auto) Lymph # Ashley # Seg Neutrophils % Seg Neuts % (Manual) Lymphocytes % (Manual) Monocytes % (Manual) Nucleated RBC % Seg Neutrophils # Seg Neutrophils # Man Lymphocytes # (Manual) Monocytes # (Manual) PT INR APTT POC ABG pH POC ABG pCO2 POC ABG pO2 Sodium Potassium Chloride Carbon Dioxide BUN Creatinine Glucose POC Glucose 294 H 269 H Lactic Acid 8.5 H* Calcium Iron TIBC Total Bilirubin Direct Bilirubin AST ALT Alkaline Phosphatase Total Creatine Kinase CK-MB (CK-2) Troponin T Total Protein Albumin HDL Cholesterol Prostate Specific Ag Urine WBC (Auto) Urine Creatinine Crossmatch 12/21/16 12/21/16 12/21/16 00:01 05:02 06:07 WBC RBC Hgb Hct MCV MCH MCHC RDW Plt Count Lymph % (Auto) Ashley % (Auto) Lymph # Ashley # Seg Neutrophils % Seg Neuts % (Manual) Lymphocytes % (Manual) Monocytes % (Manual) Nucleated RBC % Seg Neutrophils # Seg Neutrophils # Man Lymphocytes # (Manual) Monocytes # (Manual) PT INR APTT POC ABG pH POC ABG pCO2 POC ABG pO2 70 L Sodium Potassium Chloride Carbon Dioxide BUN Creatinine Glucose POC Glucose 250 H 252 H Lactic Acid Calcium Iron TIBC Total Bilirubin Direct Bilirubin AST ALT Alkaline Phosphatase Total Creatine Kinase CK-MB (CK-2) Troponin T Total Protein Albumin HDL Cholesterol Prostate Specific Ag Urine WBC (Auto) Urine Creatinine Crossmatch 12/21/16 12/21/16 12/21/16 06:15 06:15 06:15 WBC 16.9 H RBC Hgb 10.8 L Hct 32.1 L MCV 79 L MCH 26 L MCHC RDW 17.1 H Plt Count Lymph % (Auto) Ashley % (Auto) Lymph # Ashley # Seg Neutrophils % Seg Neuts % (Manual) Lymphocytes % (Manual) 9.0 L Monocytes % (Manual) Nucleated RBC % 7.0 H Seg Neutrophils # Seg Neutrophils # Man 9.0 H Lymphocytes # (Manual) Monocytes # (Manual) PT 26.6 H INR 2.44 H APTT 127.6 H* POC ABG pH POC ABG pCO2 POC ABG pO2 Sodium Potassium 5.5 H Chloride 86.6 L Carbon Dioxide BUN 87 H Creatinine 5.7 H Glucose 263 H POC Glucose Lactic Acid Calcium 4.8 L* Iron TIBC Total Bilirubin 5.7 H Direct Bilirubin AST 3224 H ALT 686 H Alkaline Phosphatase 989 H Total Creatine Kinase CK-MB (CK-2) Troponin T Total Protein 4.0 L Albumin 1.1 L HDL Cholesterol Prostate Specific Ag Urine WBC (Auto) Urine Creatinine Crossmatch 12/21/16 12/21/16 12/21/16 11:42 18:13 23:32 WBC RBC Hgb Hct MCV MCH MCHC RDW Plt Count Lymph % (Auto) Ashley % (Auto) Lymph # Ashley # Seg Neutrophils % Seg Neuts % (Manual) Lymphocytes % (Manual) Monocytes % (Manual) Nucleated RBC % Seg Neutrophils # Seg Neutrophils # Man Lymphocytes # (Manual) Monocytes # (Manual) PT INR APTT POC ABG pH POC ABG pCO2 POC ABG pO2 Sodium Potassium Chloride Carbon Dioxide BUN Creatinine Glucose POC Glucose 253 H 236 H 208 H Lactic Acid Calcium Iron TIBC Total Bilirubin Direct Bilirubin AST ALT Alkaline Phosphatase Total Creatine Kinase CK-MB (CK-2) Troponin T Total Protein Albumin HDL Cholesterol Prostate Specific Ag Urine WBC (Auto) Urine Creatinine Crossmatch 12/22/16 12/22/16 12/22/16 05:27 05:31 06:00 WBC RBC Hgb Hct MCV MCH MCHC RDW Plt Count Lymph % (Auto) Ashley % (Auto) Lymph # Ashley # Seg Neutrophils % Seg Neuts % (Manual) Lymphocytes % (Manual) Monocytes % (Manual) Nucleated RBC % Seg Neutrophils # Seg Neutrophils # Man Lymphocytes # (Manual) Monocytes # (Manual) PT INR APTT POC ABG pH 7.346 L POC ABG pCO2 45.5 H POC ABG pO2 49 L Sodium Potassium Chloride Carbon Dioxide BUN 88 H Creatinine 6.6 H Glucose 195 H POC Glucose 195 H Lactic Acid Calcium 5.4 L* Iron TIBC Total Bilirubin 6.2 H Direct Bilirubin AST 2006 H ALT 553 H Alkaline Phosphatase 938 H Total Creatine Kinase CK-MB (CK-2) Troponin T Total Protein 4.4 L Albumin 1.3 L HDL Cholesterol Prostate Specific Ag Urine WBC (Auto) Urine Creatinine Crossmatch 12/22/16 12/22/16 12/22/16 09:40 11:21 18:05 WBC 19.4 H RBC Hgb Hct MCV 80 L MCH 26 L MCHC RDW 18.0 H Plt Count 136 L Lymph % (Auto) Ashley % (Auto) Lymph # Ashley # Seg Neutrophils % Seg Neuts % (Manual) 77.0 H Lymphocytes % (Manual) 6.0 L Monocytes % (Manual) 16.0 H Nucleated RBC % 3.0 H Seg Neutrophils # Seg Neutrophils # Man 14.9 H Lymphocytes # (Manual) Monocytes # (Manual) 3.1 H PT INR APTT POC ABG pH POC ABG pCO2 POC ABG pO2 Sodium Potassium Chloride Carbon Dioxide BUN Creatinine Glucose POC Glucose 168 H 136 H Lactic Acid Calcium Iron TIBC Total Bilirubin Direct Bilirubin AST ALT Alkaline Phosphatase Total Creatine Kinase CK-MB (CK-2) Troponin T Total Protein Albumin HDL Cholesterol Prostate Specific Ag Urine WBC (Auto) Urine Creatinine Crossmatch 12/23/16 12/23/16 12/23/16 05:42 11:15 11:15 WBC 20.9 H RBC Hgb Hct MCV 79 L MCH 26 L MCHC RDW 18.2 H Plt Count 106 L Lymph % (Auto) Ashley % (Auto) Lymph # Ashley # Seg Neutrophils % Seg Neuts % (Manual) 80.5 H Lymphocytes % (Manual) 6.0 L Monocytes % (Manual) 10.5 H Nucleated RBC % 5.0 H Seg Neutrophils # Seg Neutrophils # Man 16.8 H Lymphocytes # (Manual) Monocytes # (Manual) 2.2 H PT INR APTT POC ABG pH POC ABG pCO2 POC ABG pO2 Sodium 135 L Potassium 5.1 H Chloride 78.0 L Carbon Dioxide BUN 90 H Creatinine 6.6 H Glucose 68 L POC Glucose 106 H Lactic Acid Calcium 5.7 L* Iron TIBC Total Bilirubin 6.0 H Direct Bilirubin AST 1232 H ALT 408 H Alkaline Phosphatase 823 H Total Creatine Kinase CK-MB (CK-2) Troponin T Total Protein 4.3 L Albumin 0.9 L HDL Cholesterol Prostate Specific Ag Urine WBC (Auto) Urine Creatinine Crossmatch 12/23/16 12/23/16 12/23/16 11:15 11:35 13:17 WBC RBC Hgb Hct MCV MCH MCHC RDW Plt Count Lymph % (Auto) Ashley % (Auto) Lymph # Ashley # Seg Neutrophils % Seg Neuts % (Manual) Lymphocytes % (Manual) Monocytes % (Manual) Nucleated RBC % Seg Neutrophils # Seg Neutrophils # Man Lymphocytes # (Manual) Monocytes # (Manual) PT INR APTT POC ABG pH POC ABG pCO2 POC ABG pO2 Sodium Potassium Chloride Carbon Dioxide BUN Creatinine Glucose POC Glucose 52 L 109 H Lactic Acid 14.2 H* Calcium Iron TIBC Total Bilirubin Direct Bilirubin AST ALT Alkaline Phosphatase Total Creatine Kinase CK-MB (CK-2) Troponin T Total Protein Albumin HDL Cholesterol Prostate Specific Ag Urine WBC (Auto) Urine Creatinine Crossmatch 12/24/16 12/24/16 12/24/16 00:33 00:45 01:40 WBC RBC Hgb Hct MCV MCH MCHC RDW Plt Count Lymph % (Auto) Ashley % (Auto) Lymph # Ashley # Seg Neutrophils % Seg Neuts % (Manual) Lymphocytes % (Manual) Monocytes % (Manual) Nucleated RBC % Seg Neutrophils # Seg Neutrophils # Man Lymphocytes # (Manual) Monocytes # (Manual) PT INR APTT POC ABG pH POC ABG pCO2 POC ABG pO2 Sodium Potassium Chloride Carbon Dioxide BUN Creatinine Glucose POC Glucose 66 L 66 L 112 H Lactic Acid Calcium Iron TIBC Total Bilirubin Direct Bilirubin AST ALT Alkaline Phosphatase Total Creatine Kinase CK-MB (CK-2) Troponin T Total Protein Albumin HDL Cholesterol Prostate Specific Ag Urine WBC (Auto) Urine Creatinine Crossmatch 12/24/16 12/24/16 12/24/16 04:15 04:15 04:15 WBC 18.1 H RBC Hgb 10.4 L Hct 32.7 L MCV 80 L MCH 26 L MCHC RDW 18.3 H Plt Count 85 L Lymph % (Auto) Ashley % (Auto) Lymph # Ashley # Seg Neutrophils % Seg Neuts % (Manual) 82.0 H Lymphocytes % (Manual) 5.0 L Monocytes % (Manual) Nucleated RBC % 6.0 H Seg Neutrophils # Seg Neutrophils # Man 14.8 H Lymphocytes # (Manual) 0.9 L Monocytes # (Manual) 1.3 H PT INR APTT POC ABG pH POC ABG pCO2 POC ABG pO2 Sodium Potassium 6.4 H* D Chloride 75.0 L Carbon Dioxide 21 L BUN 88 H Creatinine 7.1 H Glucose POC Glucose Lactic Acid 23.7 H* Calcium 5.3 L* Iron TIBC Total Bilirubin 5.2 H Direct Bilirubin AST 1440 H ALT 392 H Alkaline Phosphatase 705 H Total Creatine Kinase CK-MB (CK-2) Troponin T Total Protein 3.6 L Albumin 1.0 L HDL Cholesterol Prostate Specific Ag Urine WBC (Auto) Urine Creatinine Crossmatch 12/24/16 04:52 WBC RBC Hgb Hct MCV MCH MCHC RDW Plt Count Lymph % (Auto) Ashley % (Auto) Lymph # Ashley # Seg Neutrophils % Seg Neuts % (Manual) Lymphocytes % (Manual) Monocytes % (Manual) Nucleated RBC % Seg Neutrophils # Seg Neutrophils # Man Lymphocytes # (Manual) Monocytes # (Manual) PT INR APTT POC ABG pH 7.315 L POC ABG pCO2 POC ABG pO2 58 L Sodium Potassium Chloride Carbon Dioxide BUN Creatinine Glucose POC Glucose Lactic Acid Calcium Iron TIBC Total Bilirubin Direct Bilirubin AST ALT Alkaline Phosphatase Total Creatine Kinase CK-MB (CK-2) Troponin T Total Protein Albumin HDL Cholesterol Prostate Specific Ag Urine WBC (Auto) Urine Creatinine Crossmatch Chest x-ray: report reviewed, image reviewed
--- NOTE | 2016-12-24 11:17 | Progress Note ---
Assessment and Plan Assessment and plan: 1. Acute hypoxic hypercapneic respiratory failure * Likely due to volume overload/sepsis/severe metabolic acidosis/malignancy with all its complications; ARDS * Intubated, hypoxic despite full support and 100% FiO2 2. Sepsis * Suspected given leukocytosis, hypothermia, hypotension * Blood and urine cultures negative to date * Started on antibiotics, IV fluids * Requiring vasopressor support (on Levophed and vasopressin) 3. Shock * Most likely not related to sepsis 4. Acute renal failure * On admission acute renal failure secondary to vasomotor nephropathy versus ATN from possible hypotension during SVT; resolved with IV fluids * Now again in acute renal failure likely secondary to contrast nephropathy/ hypotension/possible ATN * Became anuric and renal function is worsening despite receiving IV fluids * Bladder mass possible playing a role (? obstruction); Renal US 12/19 with no hydronephrosis, but bladder not well visualized; urology has no recommendations and no procedures planned * Nephrology following 5. Hyperkalemia * Receiving Kayexalate, D50/insulin 6. Severe Metabolic acidosis/lactic acidosis * On bicarbonate drip * Antibiotics to treat possible infection * Nephrology following also 7. Anasarca * Secondary to renal failure 8. Hepatitic mass * s/p CT guided liver biopsy which is positive for malignancy (metastatic disease from bladder cancer as Biopsy positive for urothelial tissue) 9. Bladder mass * Likely primary malignancy * With hematuria * Cystoscopy canceled due to declining clinical status 10. Elevated LFTs * Most likely secondary to shock liver due to hypotension; tumor burden as liver biopsy positive for metastasis possible also * Trending down 11. Iron deficient anemia * Likely secondary to hematuria/malignancy 12. Status post fall * CT scan of the head ordered, but not obtainable due to current status 13. Supraventricular Tachycardia on admission * Received adenosine in ER and converted to NSR; started on calcium channel estuardo; ECHO showed preserved EF, stress test (-) 1 month ago * 12/20 developed SVT again and started on amiodarone drip 14. Diabetes mellitus type II * Continue long-acting insulin * Accu-Cheks and SSI 15. Malnutrition * Likely secondary to malignancy/multiple comorbidities 16. DVT prophylaxis * Heparin discontinued due to hematuria * SCD 17. Extremely poor prognosis, terminal, but continues to keep him full code after discussing with all physicians involved in his care The high probability of a clinically significant, sudden or life threatening deterioration of the [] system(s) required my full and direct attention, intervention and personal management. The aggregate critical care time was [35] minutes. This time is in addition to time spent performing reported procedures but includes the following: [x] Data Review and interpretation [x] Patient assessment and monitoring of vital signs [x] Documentation [x] Medication orders and management History Interval history: terminal, severely hypoxic, in shock; still full code per Hospitalist Physical - Constitutional Vitals: Temp Pulse Resp BP Pulse Ox 97.7 F 66 24 122/17 90 12/24/16 08:00 12/24/16 09:12 12/24/16 09:12 12/24/16 08:38 12/24/16 08:38 General appearance: Present: severe distress - Neck Neck: Present: supple. Absent: enlarged thyroid, masses or JVD - Respiratory Respiratory effort: labored, other (intubatyed) Respiratory: bilateral: diminished, rales, rhonchi, negative: wheezing - Cardiovascular Rhythm: other (tachycardic) Heart Sounds: Present: S1 & S2. Absent: systolic murmur - Extremities Extremities: no ischemia Extremity abnormal: edema - Abdominal General gastrointestinal: soft, non-tender, distended, hypoactive bowel sounds - Psychiatric Psychiatric: other (nonresponsive) - Additional findings Additional findings: anasraca Results - Labs CBC & Chem 7: 12/24/16 04:15 12/24/16 04:15 Labs: Laboratory Last Values WBC 18.1 K/mm3 (4.5-11.0) H 12/24/16 04:15 RBC 4.08 M/mm3 (3.65-5.03) 12/24/16 04:15 Hgb 10.4 gm/dl (11.8-15.2) L 12/24/16 04:15 Hct 32.7 % (35.5-45.6) L 12/24/16 04:15 MCV 80 fl (84-94) L 12/24/16 04:15 MCH 26 pg (28-32) L 12/24/16 04:15 MCHC 32 % (32-34) 12/24/16 04:15 RDW 18.3 % (13.2-15.2) H 12/24/16 04:15 Plt Count 85 K/mm3 (140-440) L 12/24/16 04:15 Lymph % (Auto) 5.8 % (13.4-35.0) L 12/17/16 05:17 [place] % (Auto) Stump Blower 12/22/16 09:40 Eos % (Auto) 0.1 % (0.0-4.3) 12/17/16 05:17 Baso % (Auto) 0.1 % (0.0-1.8) 12/17/16 05:17 Lymph # 0.9 K/mm3 (1.2-5.4) L 12/17/16 05:17 [place] # 1.3 K/mm3 (0.0-0.8) H 12/17/16 05:17 Eos # 0.0 K/mm3 (0.0-0.4) 12/17/16 05:17 Baso # 0.0 K/mm3 (0.0-0.1) 12/17/16 05:17 Add Manual Diff Complete 12/24/16 04:15 Total Counted 100 12/24/16 04:15 Seg Neutrophils % 85.5 % (40.0-70.0) H 12/17/16 05:17 Seg Neuts % (Manual) 82.0 % (40.0-70.0) H 12/24/16 04:15 Band Neutrophils % 6.0 % 12/24/16 04:15 Lymphocytes % (Manual) 5.0 % (13.4-35.0) L 12/24/16 04:15 Reactive Lymphs % (Man) 0 % 12/24/16 04:15 Monocytes % (Manual) 7.0 % (0.0-7.3) 12/24/16 04:15 Eosinophils % (Manual) 0 % (0.0-4.3) 12/24/16 04:15 Basophils % (Manual) 0 % (0.0-1.8) 12/24/16 04:15 Metamyelocytes % 0 % 12/24/16 04:15 Myelocytes % 0 % 12/24/16 04:15 Promyelocytes % 0 % 12/24/16 04:15 Blast Cells % 0 % 12/24/16 04:15 Nucleated RBC % 6.0 % (0.0-0.9) H 12/24/16 04:15 Seg Neutrophils # 13.4 K/mm3 (1.8-7.7) H 12/17/16 05:17 Seg Neutrophils # Man 14.8 K/mm3 (1.8-7.7) H 12/24/16 04:15 Band Neutrophils # 1.1 K/mm3 12/24/16 04:15 Lymphocytes # (Manual) 0.9 K/mm3 (1.2-5.4) L 12/24/16 04:15 Abs React Lymphs (Man) 0.0 K/mm3 12/24/16 04:15 Monocytes # (Manual) 1.3 K/mm3 (0.0-0.8) H 12/24/16 04:15 Eosinophils # (Manual) 0.0 K/mm3 (0.0-0.4) 12/24/16 04:15 Basophils # (Manual) 0.0 K/mm3 (0.0-0.1) 12/24/16 04:15 Metamyelocytes # 0.0 K/mm3 12/24/16 04:15 Myelocytes # 0.0 K/mm3 12/24/16 04:15 Promyelocytes # 0.0 K/mm3 12/24/16 04:15 Blast Cells # 0.0 K/mm3 12/24/16 04:15 WBC Morphology Not Reportable 12/24/16 04:15 Hypersegmented Neuts Not Reportable 12/24/16 04:15 Hyposegmented Neuts Not Reportable 12/24/16 04:15 Hypogranular Neuts Not Reportable 12/24/16 04:15 Smudge Cells Not Reportable 12/24/16 04:15 Toxic Granulation Not Reportable 12/24/16 04:15 Toxic Vacuolation Not Reportable 12/24/16 04:15 Dohle Bodies Not Reportable 12/24/16 04:15 Pelger-Huet Anomaly Not Reportable 12/24/16 04:15 Mihai Rods Not Reportable 12/24/16 04:15 Platelet Estimate Appears decreased 12/24/16 04:15 Clumped Platelets Not Reportable 12/24/16 04:15 Plt Clumps, EDTA Not Reportable 12/24/16 04:15 Large Platelets Not Reportable 12/24/16 04:15 Giant Platelets Not Reportable 12/24/16 04:15 Platelet Satelliting Not Reportable 12/24/16 04:15 Plt Morphology Comment Not Reportable 12/24/16 04:15 RBC Morphology Not Reportable 12/24/16 04:15 Dimorphic RBCs Not Reportable 12/24/16 04:15 Polychromasia Not Reportable 12/24/16 04:15 Hypochromasia 1+ 12/24/16 04:15 Poikilocytosis Not Reportable 12/24/16 04:15 Anisocytosis 1+ 12/24/16 04:15 Microcytosis Not Reportable 12/24/16 04:15 Macrocytosis Not Reportable 12/24/16 04:15 Spherocytes Not Reportable 12/24/16 04:15 Pappenheimer Bodies Not Reportable 12/24/16 04:15 Sickle Cells Not Reportable 12/24/16 04:15 Target Cells Rare 12/24/16 04:15 Tear Drop Cells Not Reportable 12/24/16 04:15 Ovalocytes Not Reportable 12/24/16 04:15 Helmet Cells Not Reportable 12/24/16 04:15 Faulkner-Wailea Bodies Not Reportable 12/24/16 04:15 Prompton Rings Not Reportable 12/24/16 04:15 Howard Cells Not Reportable 12/24/16 04:15 Bite Cells Not Reportable 12/24/16 04:15 Crenated Cell Not Reportable 12/24/16 04:15 Elliptocytes Not Reportable 12/24/16 04:15 Acanthocytes (Spur) Not Reportable 12/24/16 04:15 Rouleaux Not Reportable 12/24/16 04:15 Hemoglobin C Crystals Not Reportable 12/24/16 04:15 Schistocytes Not Reportable 12/24/16 04:15 Malaria parasites Not Reportable 12/24/16 04:15 Jorge Luis Bodies Not Reportable 12/24/16 04:15 Hem Pathologist Commnt No 12/24/16 04:15 PT 26.6 Sec. (12.2-14.9) H 12/21/16 06:15 INR 2.44 (0.87-1.13) H 12/21/16 06:15 APTT 127.6 Sec. (24.2-36.6) H* 12/21/16 06:15 POC ABG pH 7.315 (7.35-7.45) L 12/24/16 04:52 POC ABG pCO2 41.4 (35-45) 12/24/16 04:52 POC ABG pO2 58 (80-105) L 12/24/16 04:52 POC ABG HCO3 21.1 12/24/16 04:52 POC ABG Total CO2 22 12/24/16 04:52 POC ABG O2 Sat 87 12/24/16 04:52 POC ABG Base Excess -5 12/24/16 04:52 FiO2 100 % 12/24/16 04:52 Sodium 137 mmol/L (137-145) 12/24/16 04:15 Potassium 6.4 mmol/L (3.6-5.0) H* D 12/24/16 04:15 Chloride 75.0 mmol/L (98-107) L 12/24/16 04:15 Carbon Dioxide 21 mmol/L (22-30) L 12/24/16 04:15 Anion Gap 47 mmol/L 12/24/16 04:15 BUN 88 mg/dL (9-20) H 12/24/16 04:15 Creatinine 7.1 mg/dL (0.8-1.5) H 12/24/16 04:15 Estimated GFR 10 ml/min 12/24/16 04:15 BUN/Creatinine Ratio 12.39 % 12/24/16 04:15 Glucose 95 mg/dL (75-100) 12/24/16 04:15 POC Glucose 78 (70-105) 12/24/16 06:06 Lactic Acid 23.7 mmol/L (0.7-2.0) H* 12/24/16 04:15 Calcium 5.3 mg/dL (8.4-10.2) L* 12/24/16 04:15 Phosphorus 3.1 mg/dL (2.5-4.5) 12/10/16 05:29 Magnesium 2.2 mg/dL (1.7-2.3) 12/21/16 06:15 Iron 20 ug/dL (49-181) L 12/12/16 05:40 TIBC 212 mcg/dL (250-450) L 12/12/16 05:40 Total Bilirubin 5.2 mg/dL (0.1-1.2) H 12/24/16 04:15 Direct Bilirubin 2.1 mg/dL (0-0.2) H 12/14/16 06:52 Indirect Bilirubin 0.5 mg/dL 12/14/16 06:52 AST 1440 units/L (5-40) H 12/24/16 04:15 ALT 392 units/L (7-56) H 12/24/16 04:15 Alkaline Phosphatase 705 units/L (35-129) H 12/24/16 04:15 Total Creatine Kinase 2770 units/L (55-170) H 12/18/16 04:30 CK-MB (CK-2) 7.5 ng/mL (0.0-4.0) H 12/17/16 15:00 CK-MB (CK-2) Rel Index 1.7 (0-4) 12/17/16 15:00 Troponin T 0.078 ng/mL (0.00-0.029) H 12/17/16 15:00 Total Protein 3.6 g/dL (6.3-8.2) L 12/24/16 04:15 Albumin 1.0 g/dL (3.9-5) L 12/24/16 04:15 Albumin/Globulin Ratio 0.4 % 12/24/16 04:15 Triglycerides 73 mg/dL (2-149) 12/17/16 15:00 Cholesterol 130 mg/dL (50-199) 12/17/16 15:00 LDL Cholesterol Direct 109 mg/dL (50-130) 12/17/16 15:00 HDL Cholesterol 7 mg/dL (40-59) L 12/17/16 15:00 Cholesterol/HDL Ratio 18.57 % 12/17/16 15:00 Prostate Specific Ag 35.07 ng/mL (0.00-4.00) H 12/15/16 10:42 TSH 2.660 mlU/mL (0.270-4.200) 12/08/16 00:58 Free T4 1.50 ng/dL (0.76-1.46) H 12/08/16 00:58 Urine Color Red (Yellow) 12/17/16 17:05 Urine Turbidity Cloudy (Clear) 12/17/16 17:05 Urine pH 6.0 (5.0-7.0) 12/17/16 17:05 Ur Specific [place] 1.006 (1.003-1.030) 12/17/16 17:05 Urine Protein 100 mg/dl mg/dL (Negative) 12/17/16 17:05 Urine Glucose (UA) Neg mg/dL (Negative) 12/17/16 17:05 Urine Ketones Neg mg/dL (Negative) 12/17/16 17:05 Urine Blood Lg (Negative) 12/17/16 17:05 Urine Nitrite Neg (Negative) 12/17/16 17:05 Urine Bilirubin Neg (Negative) 12/17/16 17:05 Urine Urobilinogen < 2.0 mg/dL (<2.0) 12/17/16 17:05 Ur Leukocyte Esterase Sm (Negative) 12/17/16 17:05 Urine WBC (Auto) 41.0 /HPF (0.0-6.0) H 12/17/16 17:05 Urine RBC (Auto) > 182.0 /HPF (0.0-6.0) 12/17/16 17:05 Urine Bacteria (Auto) 4+ /HPF (Negative) 12/17/16 17:05 Urine Mucus Few /HPF 12/08/16 02:15 Urine Eosinophils None seen (None Seen) 12/17/16 17:05 Urine Creatinine 105.0 mg/dL (0.1-20.0) H 12/17/16 17:05 Urine Sodium 88 mEq/L 12/17/16 17:05 Urine Opiates Screen Presumptive negative 12/08/16 02:18 Urine Methadone Screen Presumptive negative 12/08/16 02:18 Ur Barbiturates Screen Presumptive negative 12/08/16 02:18 Ur Phencyclidine Scrn Presumptive negative 12/08/16 02:18 Ur Amphetamines Screen Presumptive negative 12/08/16 02:18 U Benzodiazepines Scrn Presumptive negative 12/08/16 02:18 Urine Cocaine Screen Presumptive negative 12/08/16 02:18 U Marijuana (THC) Screen Presumptive negative 12/08/16 02:18 Drugs of Abuse Note Disclamer 12/08/16 02:18 Hepatitis A IgM Ab -1 (NonReactive) 12/14/16 06:52 Hep Bs Antigen Non-reactive (Negative) 12/14/16 06:52 Hep B Core IgM Ab Non-reactive (NonReactive) 12/14/16 06:52 Hepatitis C Antibody Non-reactive (NonReactive) 12/14/16 06:52 Blood Type O POSITIVE 12/18/16 06:00 Antibody Screen Negative 12/18/16 06:00 Crossmatch See Detail 12/18/16 06:00
[2016-12-24 18:52] VITALS: BP 102/73
--- NOTE | 2016-12-24 19:13 | Death Summary ---
Summary - Providers Date of service: 12/24/16 Consults: 12/12/16 13:47 Consult to Physician [CONS] Routine Consulting Provider: FEI ROLLINS Reason For Exam: cardiac clearance Place consult to:: Dr. Samantha Rollins Notified:: Suzy NIELSEN Was contact made?: Yes If yes, spoke with:: Kaitlynn Starkey Time called:: 13:35 12/12/16 13:49 Consult to Physician [CONS] Routine Consulting Provider: KELVIN LR Reason For Exam: liver mass Place consult to:: Dr. Lr Notified:: Suzy RN Phone number called:: Was contact made?: Yes If yes, spoke with:: Alanis-Office Time called:: 14:23 12/13/16 16:29 Consult to Physician [CONS] Routine Consulting Provider: MERNA HDZ Reason For Exam: bladder ca Place consult to:: nancy Notified:: office Phone number called:: [phone] Was contact made?: Yes If yes, spoke with:: brittney Time called:: 17:00 12/14/16 14:03 Consult to Physician [CONS] Routine Consulting Provider: RAD PEREA Reason For Exam: bladder mass Place consult to:: dr Ram Notified:: Xander NIELSEN Comment:: Dr. Perea is aware of consult 12/16/16 14:21 Consult to Case Management [CONS] Routine Services Needed at Discharge: Physical Therapy Home Health Services DME Equipment Notified:: Message left for case management Additional Physician Instructions: need HH pt/OT, hospital bed on discharge 12/17/16 10:25 Consult to Physician [CONS] Routine Consulting Provider: VIET JESUS Reason For Exam: FAVIOLA Place consult to:: Dr Jesus Notified:: yes Comment:: Dr Jesus already aware and made note 12/17/16 13:17 Consult to Physician [CONS] Routine Consulting Provider: MAC EDOUARD Reason For Exam: altered mental status Place consult to:: JAVAN Notified:: YES 12/19/16 04:02 Consult to Dietitian/Nutrition [CONS] Routine Physician Instructions: Reason For Exam: Reason for Consult: Evaluate nutritional intake 12/24/16 10:01 Consult to Wound/ET Nurse [CONS] Routine Reason For Exam: wound eval, R&L cheek, B/L heels. Attending: SARA OLIVER - summary Date of admission: 12/08/16 02:19 Date of : 12/24/16
[2016-12-26 12:55] LABS: ISTAT Base Excess -1; ISTAT PCO2 48.1 (35-45); ISTAT PH 7.323 (7.35-7.45); ISTAT PO2 47 (80-105); ISTAT SO2 79; ISTAT TCO2 26
== END 2016-12-24 17:43 | DRG 870 ==
LOC: ED 00:36 → 4A 02:19 → CC1 12-17 13:08 → 4A 12-17 13:25 → CC1 12-17 13:26
PROVIDERS: ADMIT Internal Medicine; ATTEND Internal Medicine
PROC: 0FB13ZX Excision of Right Lobe Liver, Percutaneous Approach, Diagnostic (ICD-10-PCS; 2016-12-14)
PROC: 05HM33Z Insertion of Infusion Device into Right Internal Jugular Vein, Percutaneous Approach (ICD-10-PCS; principal; 2016-12-17)
PROC: B543ZZA Ultrasonography of Right Jugular Veins, Guidance (ICD-10-PCS; principal; 2016-12-17)
PROC: 4A033R1 Measurement of Arterial Saturation, Peripheral, Percutaneous Approach (ICD-10-PCS; 2016-12-17)
PROC: 30233N1 Transfusion of Nonautologous Red Blood Cells into Peripheral Vein, Percutaneous Approach (ICD-10-PCS; 2016-12-18)
PROC: 4A033R1 Measurement of Arterial Saturation, Peripheral, Percutaneous Approach (ICD-10-PCS; 2016-12-18)
PROC: 5A1955Z Respiratory Ventilation, Greater than 96 Consecutive Hours (ICD-10-PCS; 2016-12-19)
PROC: 0BH17EZ Insertion of Endotracheal Airway into Trachea, Via Natural or Artificial Opening (ICD-10-PCS; 2016-12-19)
PROC: 4A033R1 Measurement of Arterial Saturation, Peripheral, Percutaneous Approach (ICD-10-PCS; 2016-12-19)
PROC: 4A033R1 Measurement of Arterial Saturation, Peripheral, Percutaneous Approach (ICD-10-PCS; 2016-12-24)
DX: A41.9 Sepsis, unspecified organism (principal); N17.0 Acute kidney failure with tubular necrosis; I47.1 Supraventricular tachycardia; E11.9 Type 2 diabetes mellitus without complications; J96.01 Acute respiratory failure with hypoxia; C67.9 Malignant neoplasm of bladder, unspecified; C78.7 Secondary malignant neoplasm of liver and intrahepatic bile duct; F17.200 Nicotine dependence, unspecified, uncomplicated; I10 Essential (primary) hypertension; Z96.641 Presence of right artificial hip joint; D50.9 Iron deficiency anemia, unspecified; E40 Kwashiorkor; N40.0 Benign prostatic hyperplasia without lower urinary tract symptoms; E78.5 Hyperlipidemia, unspecified; R31.9 Hematuria, unspecified; E87.5 Hyperkalemia; E46 Unspecified protein-calorie malnutrition; R65.21 Severe sepsis with septic shock; Z66 Do not resuscitate; Z88.0 Allergy status to penicillin; Z98.890 Other specified postprocedural states; Z82.49 Family history of ischemic heart disease and other diseases of the circulatory system; Z83.3 Family history of diabetes mellitus; Z71.6 Tobacco abuse counseling; Z91.81 History of falling; Z68.26 Body mass index [BMI] 26.0-26.9, adult; Z78.1 Physical restraint status; Z51.5 Encounter for palliative care
CPT/HCPCS: 31500; 36415; 36600; 47000; 71010; 74000; 74176; 74177; 76770; 77012; 80048; 80053; 80061; 80074; 80307; 81001; 82140; 82550; 82553; 82570; 82803; 82962; 83550; 83735; 84100; 84153; 84300; 84439; 84443; 84484; 85007; 85025; 85027; 85610; 85730; 86850; 86900; 86901; 86920; 87040; 87070; 87086; 87205; 88172; 88173; 88307; 88313; 88333; 88341; 88342; 89050; 90686; 90732; 93005; 93010; 93306; 94002; 94003; 94640; 94760; 96361; 96374; 99406; A9270-GY; J0153; J0282; J0610; J1170; J1200; J1630; J1644; J1815; J1818; J1940; J1956; J2060; J2250; J2370; J2704; J3010; J3370; J7030; J7040; J7042; J7050; J7060; J7070; P9016; Q9967